=== PATIENT | female | born 1950 | race Caucasian/White ===

== ENCOUNTER 2020-07-11 14:46 | Inpatient (IN) ==
[2020-07-11] MEDS ORDERED: VANCOMYCIN CONSULT ACTIVE PRN (15:11)
[2020-07-11] MEDS ORDERED: VANCOMYCIN HCL 2,250 MG in SODIUM CHLORIDE 0.9% 500 ML IV STA (15:11)
[2020-07-11] MEDS ORDERED: CEFEPIME 2,000 MG/20 ML VIAL IV STA (15:11)
[2020-07-11] MEDS ORDERED: SODIUM CHLORIDE 0.9% 1000ML 1,000 ML IV SCH (15:15)
[2020-07-11] MEDS ORDERED: metroNIDAZOLE 500 MG/100 ML BAG IV STA (15:19)
[2020-07-11] MEDS ORDERED: AZITHROMYCIN 500 MG in DEXTROSE 5% 250 ML IV ONE (15:30)
[2020-07-11] MEDS ORDERED: ONDANSETRON INJ 2 MG/ML 2 ML VIAL IV STA (15:52)
[2020-07-11] MEDS ORDERED: MoRPHine SULFATE 4 MG/ML 1 ML CARP\\VIAL IV STA (15:52)
--- NOTE | 2020-07-11 15:53 | XRay Report ---
RIGHT KNEE 2 VIEWS CLINICAL HISTORY: Right knee pain. FINDINGS: AP and crosstable lateral views of the right knee are compared to study dated 07/13/2015. Th e skeletal structures are osteopenic. No fracture is seen. There is advanced tricompartmental degener ative joint space narrowing, greatest in the medial and patellofemoral compartments where there is ne ar complete loss of the joint space. There are large medial marginal osteophytes and patellar entheso phytes. No joint effusion is identified. Soft tissue edema is present in the visualized right lower e xtremity. IMPRESSION: 1. Soft tissue swelling with no acute bony abnormality identified. 2. Osteopenia and advanced degenerative change as above. Electronically signed by: Darnell Oates M.D. 07/11/2020 3:52 PM
--- NOTE | 2020-07-11 16:17 | XRay Report ---
SINGLE VIEW CHEST CLINICAL HISTORY: Generalized weakness. FINDINGS: An AP, portable, upright chest radiograph is compared to study dated 07/14/2015. The examina tion is degraded by portable technique and patient rotation. The heart is enlarged noting atheroscl erotic calcification of the thoracic aorta. The pulmonary vasculature is noncongested. Chronic inters titial thickening is similar to previous. There is bibasilar scarring/atelectasis. No airspace consol idation or large pleural effusion is identified. No pneumothorax is seen. The skeletal structures are osteopenic. There are healed right-sided rib fractures. IMPRESSION: Cardiomegaly with no acute cardiopulmonary abnormality. ACT 112: Negative or not required by law. Electronically signed by: Darnell Oates M.D. 07/11/2020 4:16 PM
--- NOTE | 2020-07-11 16:19 | XRay Report ---
LEFT TIBIA AND FIBULA 2 VIEWS CLINICAL HISTORY: Left lower extremity cellulitis. FINDINGS: AP and lateral views of the left tibia and fibula are correlated with left ankle radiograph s dated 07/13/2015. The skeletal structures are osteopenic. There is no radiographic evidence of left tibial or fibular fracture. No bony erosion or periostitis is seen. Arthritic change is noted in the knee. The knee and ankle joints are otherwise grossly maintained. Soft tissue edema is present throug hout the left lower extremity. Scattered calcified phleboliths are observed. There is atherosclerotic calcification of the regional arteries. No subcutaneous gas or radiodense foreign body is identified . There is a dorsal calcaneal enthesophyte. IMPRESSION: Soft tissue edema with no acute bony abnormality identified. Electronically signed by: Darnell Oates M.D. 07/11/2020 4:18 PM
[2020-07-11 16:22] LABS: Basophils # (auto) 0.01 K/uL (0-0.2); Basophils % (auto) 0.2 %; Eosinophils # (auto) 0.06 K/uL (0-0.5); Eosinophils % (auto) 0.9 %; Hemoglobin 12.9 g/dL (12.0-16.0); Immature Granulocytes # (auto) 0.01 K/uL (0.00-0.02); Immature Granulocytes % (auto) 0.2 %; Lymphocytes # (auto) 1.31 K/uL (1.2-3.4); Lymphocytes % (auto) 20.6 %; Mean Corpuscular Hemoglobin 26.5 pg (25-34); Mean Corpuscular Hgb Conc 30.7 g/dL (32-36); Mean Corpuscular Volume 86.2 fL (80-100); Mean Platelet Volume 10.2 fL (7.4-10.4); Monocytes # (auto) 0.39 K/uL (0.11-0.59); Monocytes % (auto) 6.1 %; Neutrophils # (auto) 4.59 K/uL (1.4-6.5); Platelet Count 231 K/uL (130-400); RDW Coefficient of Variation 15.4 % (11.5-14.5); RDW Standard Deviation 48.8 fL (36.4-46.3); Red Blood Count 4.87 M/uL (4.2-5.4); White Blood Count 6.37 K/uL (4.8-10.8)
[2020-07-11 16:46] LABS: Albumin Level 3.6 gm/dl (3.4-5.0); BUN Creatinine Ratio 35.3 (10-20); Calcium 10.5 mg/dl (8.5-10.1); Creatinine Clr Calc Pharmacy 66.7 ml/min; Est GFR (African American) 65.6; Est GFR (Non-African American) 56.6; Potassium 4.2 mmol/L (3.5-5.1)
[2020-07-11 16:49] LABS: Albumin Globulin Ratio 0.7 (0.9-2); Bilirubin,Total 0.3 mg/dl (0.2-1); Total Protein 8.6 gm/dl (6.4-8.2)
--- NOTE | 2020-07-11 17:47 | Emergency Department Note ---
History of Present Illness General Chief complaint: Knee Injury/Pain Time Seen by Provider: 07/11/20 14:51 Source: patient, EMS and RN notes reviewed Mode of arrival: EMS Limitations: no limitations History of Present Illness Provider complaint: Right knee pain x32 years, worse today. Left lower extremity seeping Maximum Pain Intensity: 10 This patient is a 69-year-old female who presents to the emergency department by EMS. She states her right knee has been painful for the last 32 years but today it is hurting in a new location, just inferior to the patella. She states she has taken her usual aspirin and Tylenol without any benefit today. She denies any recent falls or twisting of the knee to explain the new pain. She is followed by a midlevel provider in the [facility] area and was told they suspect a torn meniscus. The patient has an unusual absorbent dressing to the left lower extremity and states that her cat scratched the back of her left leg 2 weeks ago. She has had increased redness and drainage from the leg. She has been wrapping it in incontinence pads to absorb the excess of fluid. She does wash it uncovered in a powder daily. The patient has not consulted a physician for the leg and denies any history of diabetes. She denies of fever. Home Medications Home Medications Medication Instructions Recorded Confirmed Type CRANBERRY-VITAMIN C-VITAMIN E 1 cap PO DAILY #0 07/13/15 History (CRANBERRY) Acetaminophen (Tylenol) 650 mg PO Q4H PRN #30 tab 07/16/15 Rx Amoxicillin/Clavulanate Potas 875 mg PO BIDM #14 tab 07/16/15 Rx CALCIUM CARBONATE-VITAMIN D W/ 1 tab PO BID #30 tab 07/16/15 Rx (CALTRATE 600 PLUS) Chlorthalidone 25 mg PO QAM #30 tab 07/16/15 Rx Enoxaparin (Enoxaparin Sodium) 40 mg SC QPM #10 07/16/15 Rx Erythromycin 1 applic OPR QID 7 Days #0 07/16/15 Rx Ferrous Sulfate 325 mg PO DAILY #30 tab 07/16/15 Rx Fluconazole 100 mg PO QAM #7 tab 07/16/15 Rx Hydrocodone/Acetaminophen 1 tab PO Q6 PRN #60 tab 07/16/15 Rx 5MG/325MG ([place] 5MG/325MG) Lactobacillus Acidophilus 1 tab PO TIDM #90 tab 07/16/15 Rx (Floranex) Nystatin (Nystop) 1 applic EXT TID 30 Days #0 07/16/15 Rx Tumeric 20,000 mg PO DAILY 07/11/20 07/11/20 History amlodipine [Norvasc] 5 mg PO DAILY 07/11/20 07/11/20 History capsicum (cayenne) [Cayenne PDR] 1,788 mg PO DAILY 07/11/20 07/11/20 History lisinopril 40 mg PO DAILY 07/11/20 07/11/20 History metoprolol succinate 25 mg PO BID 07/11/20 07/11/20 History multivitamin [Multiple Vitamin] 1 tab PO DAILY 07/11/20 07/11/20 History oxybutynin chloride 15 mg PO DAILY 07/11/20 07/11/20 History Allergies Allergy/AdvReac Type Severity Reaction Status Date / Time naproxen Allergy Mild FEET SWELL Verified 07/11/20 17:32 Zqzlzyt-Epd-Aal Reductase Allergy Mild GENERAL Verified 07/11/20 17:32 Inhibitor MALAISE tramadol Allergy Mild RESTLESS Verified 07/11/20 17:32 LEG SYNDROME BUTTERFLY DRESSING ADHESIVE AdvReac Mild RED SKIN Uncoded 07/11/20 17:33 Past Med/Surg History Medical History (Updated 07/11/20 @ 17:59 by Anamika Herman MD) Hypertension Morbid obesity with BMI of 40.0-44.9, adult Osteoarthritis Venous stasis Social History (Updated 07/11/20 @ 17:45 by Anamika Herman MD) Smoking Status: Never smoker Preferred Language: Guinean Current Living Situation: Family Current Living Situation Comment: Lives at home with her sister Feels Safe at Home: Yes Review of Systems See HPI for pertinent positives & negatives. and A total of 10 systems reviewed and were otherwise negative Physical Exam Vital Signs Vital Signs - 24 hr 07/11/20 15:00 07/11/20 15:09 07/11/20 15:30 Temperature 36.7 C Temperature Source Oral Pulse Rate 85 79 88 Pulse Rate from SpO2 Sensor 83 82 85 Respiratory Rate 23 16 19 Respiratory Effort / Characteristics Non-Labored Spontaneous Respiratory Depth Normal Respiratory Pattern Regular Blood Pressure 181/104 H 162/101 H 173/100 H Blood Pressure Mean 129 121 122 Pulse Oximetry 96 97 96 Oxygen Delivery Method Room Air Sepsis Recent Fever Within 48 Hours No Sepsis New/Unexplained Change in Mental Status No Sepsis Action Taken by Nursing No Action Required 07/11/20 16:05 07/11/20 16:06 07/11/20 16:30 Temperature Temperature Source Pulse Rate 106 H 87 Pulse Rate from SpO2 Sensor 89 80 87 Respiratory Rate 17 20 Respiratory Effort / Characteristics Respiratory Depth Respiratory Pattern Blood Pressure 171/83 H 158/88 H Blood Pressure Mean 118 111 Pulse Oximetry 97 95 98 Oxygen Delivery Method Room Air Sepsis Recent Fever Within 48 Hours Sepsis New/Unexplained Change in Mental Status Sepsis Action Taken by Nursing 07/11/20 17:00 Temperature Temperature Source Pulse Rate 82 Pulse Rate from SpO2 Sensor 82 Respiratory Rate 19 Respiratory Effort / Characteristics Respiratory Depth Respiratory Pattern Blood Pressure 145/83 H Blood Pressure Mean 91 Pulse Oximetry 95 Oxygen Delivery Method Room Air Sepsis Recent Fever Within 48 Hours Sepsis New/Unexplained Change in Mental Status Sepsis Action Taken by Nursing Vital signs reviewed. General: Chronically [id number] yo female, morbidly obese, in no significant distress. HEENT: No scleral icterus, PERRLA, neck supple. Atraumatic. Cardiovascular: Regular rate and rhythm, no extra sounds. Pulmonary: Clear to auscultation bilaterally, normal work of breathing. Abdomen: Soft, nontender, nondistended, positive bowel sounds. Musculoskeletal: Atraumatic, no peripheral edema. Neurologic: Patient awake alert and oriented x 3. Skin: Warm, dry, no rash Course Administered Medications Sodium Chloride (Nss 1000ml) 1,000 mls @ 125 mls/hr IV .Q8H EMRE Stop: 07/11/20 23:14 Last Admin: 07/11/20 16:22 Dose: 125 mls/hr Documented by: [id number] Discontinued Medications Cefepime HCl (Maxipime) 2,000 mg in 20 mls @ 5 mls/min IV NOW STA; Protocol Stop: 07/11/20 15:14 Last Admin: 07/11/20 16:22 Dose: 5 mls/min Documented by: [id number] Vancomycin HCl 2,250 mg/ (Sodium Chloride) 545 mls @ 200 mls/hr IV NOW STA; Protocol Stop: 07/11/20 17:40 Last Admin: 07/11/20 17:43 Dose: 200 mls/hr Documented by: [id number] Metronidazole (Flagyl) 500 mg in 100 mls @ 100 mls/hr IV NOW STA Stop: 07/11/20 16:18 Last Infusion: 07/11/20 17:42 Dose: 0 mls/hr Documented by: [id number] Admin: 07/11/20 16:28 Dose: 100 mls/hr Documented by: [id number] Azithromycin 500 mg/ Dextrose 255 mls @ 125 mls/hr IV ONE ONE Stop: 07/11/20 17:32 Last Admin: 07/11/20 16:25 Dose: 125 mls/hr Documented by: [id number] Morphine Sulfate (Morphine Sulfate 4 Mg/Ml 1 Ml Carp\Vial) 4 mg IV NOW STA Stop: 07/11/20 15:53 Last Admin: 07/11/20 16:21 Dose: 4 mg Documented by: [id number] Ondansetron HCl (Ondansetron Inj 2 Mg/Ml 2 Ml Vial) 4 mg IV NOW STA Stop: 07/11/20 15:53 Last Admin: 07/11/20 16:21 Dose: 4 mg Documented by: [id number] Medical Decision Making Differential Diagnosis Differential diagnosis: Venous stasis dermatitis, cellulitis, abscess, MRSA infection, DVT, necrotizing fasciitis, dermatitis, drug eruption, allergic reaction, as well as other pathologies. Medical Records Attestation: I reviewed the patient's medical records. Home Medications Current Medication List: was personally reviewed by me Laboratory Data Attestation: I reviewed the patient's lab results. Result diagrams: 07/11/20 16:00 07/11/20 16:00 Lab Results 07/11/20 07/11/20 07/11/20 Range/Units 16:00 16:00 16:00 WBC 6.37 (4.8-10.8) K/uL RBC 4.87 (4.2-5.4) M/uL Hgb 12.9 (12.0-16.0) g/dL Hct 42.0 (37-47) % MCV 86.2 (80-100) fL MCH 26.5 (25-34) pg MCHC 30.7 L (32-36) g/dL RDW Std Deviation 48.8 H (36.4-46.3) fL RDW Coeff of Bev 15.4 H (11.5-14.5) % Plt Count 231 (130-400) K/uL MPV 10.2 (7.4-10.4) fL Immature Gran % (Auto) 0.2 % Neut % (Auto) 72.0 % Lymph % (Auto) 20.6 % Coffey % (Auto) 6.1 % Eos % (Auto) 0.9 % Baso % (Auto) 0.2 % Neut # (Auto) 4.59 (1.4-6.5) K/uL Lymph # (Auto) 1.31 (1.2-3.4) K/uL Coffey # (Auto) 0.39 (0.11-0.59) K/uL Eos # (Auto) 0.06 (0-0.5) K/uL Baso # (Auto) 0.01 (0-0.2) K/uL Immature Gran # (Auto) 0.01 (0.00-0.02) K/uL Sodium 139 (136-145) mmol/L Potassium 4.2 (3.5-5.1) mmol/L Chloride 109 H (98-107) mmol/L Carbon Dioxide 25 (21-32) mmol/L Anion Gap 5.0 (3-11) BUN 35 H (7-18) mg/dl Creatinine 1.00 (0.6-1.2) mg/dl Est Cr Clr Drug Dosing 66.7 ml/min Est GFR ( Amer) 65.6 Est GFR (Non-Af Amer) 56.6 BUN/Creatinine Ratio 35.3 H (10-20) Glucose 102 H (70-99) mg/dl Lactate 1.0 (0.4-2.0) mmol/L Calcium 10.5 H (8.5-10.1) mg/dl Total Bilirubin 0.3 (0.2-1) mg/dl AST 15 (15-37) U/L ALT 16 (12-78) U/L Alkaline Phosphatase 84 (45-117) U/L Total Protein 8.6 H (6.4-8.2) gm/dl Albumin 3.6 (3.4-5.0) gm/dl Globulin 5.0 H (2.5-4.0) gm/dl Albumin/Globulin Ratio 0.7 L (0.9-2) Imaging Data Radiologist's Impression: SINGLE VIEW CHEST CLINICAL HISTORY: Generalized weakness. FINDINGS: An AP, portable, upright chest radiograph is compared to study dated 07/14/2015. The examination is degraded by portable technique and patient rotation. The heart is enlarged noting atherosclerotic calcification of the thoracic aorta. The pulmonary vasculature is noncongested. Chronic interstitial thickening is similar to previous. There is bibasilar scarring/atelectasis. No airspace consolidation or large pleural effusion is identified. No pneumothorax is seen. The skeletal structures are osteopenic. There are healed right-sided ri b fractures. IMPRESSION: Cardiomegaly with no acute cardiopulmonary abnormality. ACT 112: Negative or not required by law. Electronically signed by: Darnell Oates M.D. 07/11/2020 4:16 PM Dictated: 07/11/20 1615 Transcribed: 07/11/20 1615 RIGHT KNEE 2 VIEWS CLINICAL HISTORY: Right knee pain. FINDINGS: AP and crosstable lateral views of the right knee are compared to study dated 07/13/2015. The skeletal structures are osteopenic. No fracture is seen. There is advanced tricompartmental degenerative joint space narrowing, greatest in the medial and patellofemoral compartments where there is near complete loss of the joint space. There are large medial marginal osteophytes and patellar enthesophytes. No joint effusion is identified. Soft tissue edema is present in the visualized right lower extremity. IMPRESSION: 1. Soft tissue swelling with no acute bony abnormality identified. 2. Osteopenia and advanced degenerative change as above. Electronically signed by: Darnell Oates M.D. 07/11/2020 3:52 PM Dictated: 07/11/20 1550 Transcribed: 07/11/20 1550 LEFT TIBIA AND FIBULA 2 VIEWS CLINICAL HISTORY: Left lower extremity cellulitis. FINDINGS: AP and lateral views of the left tibia and fibula are correlated with left ankle radiographs dated 07/13/2015. The skeletal structures are osteopenic. There is no radiographic evidence of left tibial or fibular fracture. No bony erosion or periostitis is seen. Arthritic change is noted in the knee. The knee and ankle joints are otherwise grossly maintained. Soft tissue edema is present throughout the left lower extremity. Scattered calcified phleboliths are observed. There is atherosclerotic calcification of the regional arteries. No subcutaneous gas or radiodense foreign body is identified. There is a dorsal calcaneal enthesophyte. IMPRESSION: Soft tissue edema with no acute bony abnormality identified. Electronically signed by: Darnell Oates M.D. 07/11/2020 4:18 PM Dictated: 07/11/20 161 Transcribed: 07/11/201615 Blood Pressure Blood Pressure Findings: Elevated blood pressure Blood Pressure Disposition: further management by hospitalist MDM Narrative This patient was evaluated and appeared to be in no significant distress. IV access was obtained and laboratory work was drawn. An order for cardiac monitoring was placed and the patient is noted to be in a first-degree AV block at 87 bpm. Patient's dressings were taken down. There is significant drainage of a serous nature from the left lower extremity in particular. The skin is macerated and erythematous. Patient was medicated with IV vancomycin, cefepime and Flagyl. After discussion with the clinical pharmacist, IV azithromycin was added to cover for cat scratch disease, although this is of low likelihood. P nathanient's WBC is normal. She is afebrile. X-ray of the left tib-fib area reveals no acute bony abnormality or subcutaneous air. The right knee x-rays reveal advanced degenerative change. Given her poor overall health status and advanced venous stasis with superimposed cellulitis of the left lower extremity, the hospitalist service has been consulted for antibiotics and wound management. Patient is aware of the plan and agrees. Impression & Plan Cellulitis of left leg, Venous stasis dermatitis, Morbid obesity with BMI of 40.0-44.9, adult Discharge Plan Visit Data Chief Complaint: Knee Injury/Pain ED Provider: Anamika Herman Discharge Problem: Cellulitis of left leg, Venous stasis dermatitis, Morbid obesity with BMI of 40.0-44.9, adult Forms Stand Alone Forms: [facility] Prescriptions Prescriptions: No Action CRANBERRY-VITAMIN C-VITAMIN E (CRANBERRY) 1 CAP capsule 1 cap PO DAILY Qty: 0 RF: 0 Acetaminophen (Tylenol) 325 MG tablet 650 mg PO Q4H PRN (Reason: Pain or Fever) Qty: 30 RF: 0 Amoxicillin/Clavulanate Potas 875 MG 875 mg PO BIDM Qty: 14 RF: 0 CALCIUM CARBONATE-VITAMIN D W/ (CALTRATE 600 PLUS) 1 TAB tablet 1 tab PO BID Qty: 30 RF: 0 Chlorthalidone 25 MG tablet 25 mg PO QAM Qty: 30 RF: 0 Enoxaparin (Enoxaparin Sodium) 40 MG/0.4 ML INJECTION 40 mg SC QPM Qty: 10 RF: 0 Erythromycin 1 APPLN/1 GM ointment 1 applic OPR QID 7 Days Qty: 0 RF: 0 Ferrous Sulfate 325 MG tablet 325 mg PO DAILY Qty: 30 RF: 0 Fluconazole 100 MG tablet 100 mg PO QAM Qty: 7 RF: 0 Hydrocodone/Acetaminophen 5MG/325MG ([place] 5MG/325MG) tablet 1 tab PO Q6 PRN (Reason: Pain) Qty: 60 RF: 0 Lactobacillus Acidophilus (Floranex) 1 TAB tablet 1 tab PO TIDM Qty: 90 RF: 0 Nystatin (Nystop) 45 APPLN/15 GM powder 1 applic EXT TID 30 Days Qty: 0 RF: 0 metoprolol succinate 25 mg tablet extended release 24 hr 25 mg PO BID RF: 0 lisinopril 40 mg tablet 40 mg PO DAILY RF: 0 amlodipine [Norvasc] 5 mg Tablet 5 mg PO DAILY RF: 0 oxybutynin chloride 15 mg tablet extended release 24hr 15 mg PO DAILY RF: 0 multivitamin [Multiple Vitamin] Tablet 1 tab PO DAILY RF: 0 Tumeric capsule 20,000 mg PO DAILY RF: 0 [place] PDR 447 mg Capsule 1,788 mg PO DAILY RF: 0 Discharge Problem: Venous stasis dermatitis Qualifiers: Laterality: bilateral Qualified Code(s): I87.2 - Venous insufficiency (chronic) (peripheral)
--- NOTE | 2020-07-11 19:04 | History & Physical Report ---
Date of Service July 11, 2020 Assessment & Plan (1) Cellulitis of left leg: Switch antibiotics to daptomycin (due to increased BMI and weight) and Unasyn - no pseudomonas suspected, patient is non-septic. Consult wound care nurse for seeping wounds on b/l LE (2) Hypertension: Continue amlodipine 5mg PO daily, lisinopril 40mg PO daily, Metoprolol succinate 25mg PO BID (3) Osteoarthritis: Main reason for patient coming to ER. Acetaminophen 1g PO TID (4) Urge incontinence: Oxybutynin XL 15mg PO daily (5) DVT prophylaxis: Lovenox 40mg SQ BID (increased dose due to BMI) History of Present Illness Chief Complaint: Right knee pain Primary Care Provider: NO PCP Shayna Posada is a 69 year old female who presents to the ER due to right knee pain. She reports having this pain for 30 years on and off and occasionally it will flare up. Previously she has been diagnosed with a meniscal tear and osteoarthritis. She reports no significant trauma to this today, possibly occurred while twisting her knee. Pain severity 06/20 therefore she decided to come to the ER. In the ER Right knee XR showed osteopenia with advanced degenerative change. No fracture seen. Much more concerning to the ER physician was her left lower extremity which appeared to be cellulitic. She reports her left leg erythema has been getting progressively worse for the last 3 weeks. She reports this started after a cat scratched her on the back of the leg. The entire left lower extremity has been weeping thin fluid constantly. She has been treating this herself using a combination of antibiotic creams, incontinence pads (to absorb fluid), calmoseptine powder. She has not seen her PCP regarding this. She denies any fever or chills. X-ray of this area did not show any bony abnormality. WBC WNL. She was given 4 mg IV morphine for her pain. IV vancomycin, cefepime, metronidazole and azithromycin to cover for cellulitis/MRSA/cat scratch disease. Allergies Allergy/AdvReac Type Severity Reaction Status Date / Time naproxen Allergy Mild FEET SWELL Verified 07/11/20 17:32 Sitrhss-Ncl-Ovm Reductase Allergy Mild GENERAL Verified 07/11/20 17:32 Inhibitor MALAISE tramadol Allergy Mild RESTLESS Verified 07/11/20 17:32 LEG SYNDROME BUTTERFLY DRESSING ADHESIVE AdvReac Mild RED SKIN Uncoded 07/11/20 17:33 Home Medications Home Medications Medication Instructions Recorded Confirmed Type Multiple Herbals 1 ea PO DAILY PRN 07/11/20 07/11/20 History Tumeric 20,000 mg PO DAILY 07/11/20 07/11/20 History acetaminophen [Tylenol] 650 mg PO Q4H PRN 07/11/20 07/11/20 History amlodipine [Norvasc] 5 mg PO DAILY 07/11/20 07/11/20 History capsicum (cayenne) [Cayenne PDR] 1,788 mg PO DAILY 07/11/20 07/11/20 History cinnamon bark [Cinnamon] 500 mg PO DAILY 07/11/20 07/11/20 History food supplemt, lactose-reduced 1 ea PO DAILY 07/11/20 07/11/20 History [Boost High Protein] capo (Zingiber officinalis) 2,200 mg PO DAILY 07/11/20 07/11/20 History ibuprofen 600 mg PO DAILY PRN 07/11/20 07/11/20 History lisinopril 40 mg PO DAILY 07/11/20 07/11/20 History metoprolol succinate 25 mg PO BID 07/11/20 07/11/20 History multivitamin [Multiple Vitamin] 1 tab PO DAILY 07/11/20 07/11/20 History oxybutynin chloride 15 mg PO DAILY 07/11/20 07/11/20 History Past Med/Surg History Medical History Hypertension Morbid obesity with BMI of 40.0-44.9, adult Osteoarthritis Urge incontinence Venous stasis Social History Smoking Status: Never smoker Hx Alcohol Use: Yes Hx Substance Use: No Preferred Language: Austrian Communication Ability: Effective Ointment Mill Tender Required: No Beliefs That Will Affect Care: None Current Living Situation: Family Current Living Situation Comment: lives with sister Other Information That Helps Us Care for You: No Feels Safe at Home: Yes Safety Concerns: Feels Safe At This Time Assistive Devices: Walker Review of Systems Review of Systems: All systems reviewed & are unremarkable except as noted in HPI & below Physical Exam Constitutional: well developed, + ill appearing (Chronically) and + morbidly obese; + not well nourished and no acute distress Eyes: + anicteric sclerae; normal pupil size Respiratory: normal respiratory effort, lungs clear to auscultation Cardiovascular: Rate/Rhythm: regular rate and regular rhythm Heart Sounds: no murmur Extremities: normal capillary refill and + pedal edema (1+ pitting to knees bilaterally, equal); no calf tenderness Gastrointestinal (Abdomen): normal bowel sounds, soft, nontender, no hepatosplenomegaly Musculoskeletal: Knee: + valgus stress test positive; knee normal to inspection, no effusion, no skin erythema, no ecchymosis, normal ROM of knee (Patella tendon intact (able to extend knee)), no joint line tenderness and varus stress test negative Skin: Venous stasis changes bilaterally. 4x2cm venous ulcer on right leg with granulation tissue and no surrounding cellulitic changes, no odor. Right erythema overlying venous stasis changes on left lower extremity. Erythema from just inferior left knee to mid-foot. Neurologic: moves all extremities and awake; not confused Psychiatric: A+Ox3, euthymic affect Genitourinary: no CVA tenderness Results & Data Results & Data ([facility]) Vital Signs (Past 12 Hours) Vital Signs Temp Pulse Resp BP Pulse Ox 07/11/20 18:00 91 H 21 142/86 H 95 07/11/20 17:00 82 19 145/83 H 95 07/11/20 16:30 87 20 158/88 H 98 07/11/20 16:06 106 H 17 171/83 H 95 07/11/20 16:05 97 07/11/20 15:30 88 19 173/100 H 96 07/11/20 15:09 36.7 C 79 16 162/101 H 97 07/11/20 15:00 85 23 181/104 H 96 Diagnostic Findings SINGLE VIEW CHEST IMPRESSION: Cardiomegaly with no acute cardiopulmonary abnormality. LEFT TIBIA AND FIBULA 2 VIEWS IMPRESSION: Soft tissue edema with no acute bony abnormality identified. RIGHT KNEE 2 VIEWS IMPRESSION: 1. Soft tissue swelling with no acute bony abnormality identified. 2. Osteopenia and advanced degenerative change as above. Code Status & VTE Plan Code Status DNR/DNI as per patient wishes VTE Prophylaxis Plan VTE Prophylaxis will be ordered: Yes PG Care Time/CCT Total # of Minutes Spent Total Time Spent with Patient: Total time spent is greater than 50% in coordination of care (as documented) at patient's floor/unit and/or counseling patient: Coding Level of Care Code 90863 Initial Inpt Care Lvl 3 Diagnoses Cellulitis of left leg L03.116 Hypertension I10 Osteoarthritis M19.90 Urge incontinence N39.41 DVT prophylaxis Z29.9
[2020-07-11] MEDS ORDERED: MoRPHine SULFATE 2 MG/ML CARP IV PRN (20:37)
[2020-07-11] MEDS: ENOXAPARIN INJ 40 MG/0.4 ML SYR SQ SCH (21:20)
[2020-07-11] MEDS: METOPROLOL SUCC 25MG EXT REL TAB PO SCH (21:21)
[2020-07-11] MEDS: ACETAMINOPHEN 500 MG TAB PO SCH (21:22)
[2020-07-11] MEDS ORDERED: DAPTOmycin 325 MG in SYRINGE 0 ML IV SCH (22:00)
[2020-07-12] MEDS ORDERED: SODIUM CHLORIDE 0.45 % 1,000 ML IV SCH
[2020-07-12] MEDS: AMPICILLIN/SULBACTAM SOD 3,000 MG in 0.9 % SODIUM CHLORIDE 100 ML IV SCH ×3 (00:36→14:51)
[2020-07-12] MEDS: oxyCODONE HCL IR 5 MG TAB (IMMEDIATE RELEASE) PO PRN ×3 (01:29→14:48)
[2020-07-12 06:09] LABS: Basophils # (auto) 0.02 K/uL (0-0.2); Basophils % (auto) 0.4 %; Eosinophils # (auto) 0.02 K/uL (0-0.5); Eosinophils % (auto) 0.4 %; Hematocrit (blood only) 36.9 % (37-47); Hemoglobin 11.2 g/dL (12.0-16.0); Lymphocytes # (auto) 0.89 K/uL (1.2-3.4); Lymphocytes % (auto) 19.3 %; Mean Corpuscular Hgb Conc 30.4 g/dL (32-36); Mean Corpuscular Volume 85.8 fL (80-100); Mean Platelet Volume 9.8 fL (7.4-10.4); Monocytes # (auto) 0.34 K/uL (0.11-0.59); Monocytes % (auto) 7.4 %; Neutrophils # (auto) 3.34 K/uL (1.4-6.5); Neutrophils % (auto) 72.5 %; Platelet Count 166 K/uL (130-400); RDW Coefficient of Variation 15.4 % (11.5-14.5); RDW Standard Deviation 48.8 fL (36.4-46.3); White Blood Count 4.61 K/uL (4.8-10.8)
[2020-07-12 06:39] LABS: BUN Creatinine Ratio 33.8 (10-20); Calcium 9.4 mg/dl (8.5-10.1); Creatinine Clr Calc Pharmacy 87.1 ml/min; Est GFR (African American) 91.5; Est GFR (Non-African American) 78.9; Potassium 4.4 mmol/L (3.5-5.1)
[2020-07-12] MEDS: OXYBUTYNIN CHLORIDE XL 5 MG TABCR PO SCH (07:41)
[2020-07-12] MEDS: ENOXAPARIN INJ 40 MG/0.4 ML SYR SQ SCH ×2 (07:41→21:29)
[2020-07-12] MEDS: MULTIVITAMIN TAB PO SCH (07:42)
[2020-07-12] MEDS: METOPROLOL SUCC 25MG EXT REL TAB PO SCH ×2 (07:42→21:28)
[2020-07-12] MEDS: amLODIPine BESYLATE 5 MG TAB PO SCH (07:42)
[2020-07-12] MEDS: ACETAMINOPHEN 500 MG TAB PO SCH ×2 (07:43→14:49)
[2020-07-12] MEDS: lisinopril 40 MG TAB PO SCH (07:43)
--- NOTE | 2020-07-12 08:01 | Hospitalist Progress Note ---
Date of Service July 12, 2020 Assessment & Plan (1) Cellulitis of left leg: Shayna Posada is a 69 y/o F w/ hx of morbid obesity, HTN, osteoarthritis, chronic venous stasis w/ dermatitis, and urge incontinence who presents from home for worsened R knee pain, but is admitted for LLE cellulitis of 3 wks. LLE cellulitis, in context of bilat chronic venous statis dermatitis - seeping wounds on bilat lower extremities - no leukocytosis. mild anemia. Hb 11.2. borderline hyperCa. BUN up, but Cr normal. - afebrile - R knee xr: 1. Soft tissue swelling and osteopenia - L tib/fib xr: Soft tissue edema with no acute bony abnormalities - blood cultures pending - On admission, switched antibiotics (from vanc, flagyl, azithro) to daptomycin (due to increased BMI and weight) and Unasyn - no pseudomonas suspected, patient is non-septic. wound care consulted - 07/12/20 update: per phys exam and patient having tenderness (to light touch) on LLE but not RLE and hx of cat scratch 3 wks ago, will treat as cellulitis without systemic symptoms. -switched from IV abx to Augmentin 875 PO BID x 13 days for MSSA coverage w/ close follow up w/ PCP (pt has apt in 2 days) and low threshold for covering for MRSA if sxs worsen. Osteoarthritis w/ right patellar tendinitis - Main reason for patient coming to ER. - TTP at R patella. - Acetaminophen 1g PO TID on admission. decreased to 650 mg PO TID. - OTC knee brace recommended HTN - Continue amlodipine 5mg PO daily, lisinopril 40mg PO daily, Metoprolol succinate 25mg PO BID Urge incontinence - Continue home oxybutynin XL 15mg PO daily FENGI: regular ppx: Lovenox 40mg SQ BID (increased dose due to BMI) DNR/DNI dispo: med/surg. tentative dispo home 07/13/20. pt baseline is ambulatory w/ cane/walker and feels comfortable going home (2) Hypertension: (3) Osteoarthritis: (4) Urge incontinence: (5) DVT prophylaxis: (6) Patellar tendinitis of right knee: Admission and Anticipated Discharge Date Admission Date: July 11, 2020 Supervising Physician Co-Signing Physician Notes I personally examined the patient and verified all sanchez points of history and exam, discussed case, and agree with decision making with Dr Marie. came to ER for R knee pain - stood up in bathroom not really sure what she did but hurt it. hurting less today. hurts in front of knee worse when changing positions (she notes that it hurt when dr marie had her try to stand earlier). maybe goes down front of schmidt a little. hard to totally pinpoint. L calf skin changes worse over last ~2 weeks since her cat scratched her but that wasn't really what was bothering her //why she came to ER - she does note that it's more red and hurts more and is seeping more - she uses diapers/dog pads and such as makeshift dressings - ongoing for the last 2-3 weeks as well. no systemic symptoms. vitals noted nad heent nc at mmm breathing unlabored no accessory muscles good effort. R knee some mild pain lateral joint line none medial no effusion no ligamentous laxity difficult to do but negative mcmurrays the best i can, (+) tenderness distal quad tendon/tibial tuberosity. b/l LE chronic venous stasis changes but L bright red and tender, R dull prince and nontender. L weeping clear fluid knee pain - clinically appears most c/w patellar tendonitis. notes she tried voltaren gel for about a week no improvement. would like a brace - this seems quite reasonable. supportive care. LLE venous stasis w cellulitis - fortunately does not appear systemically ill. not spreading - more overgrowth worsening her current venous stasis changes - but ongoing for weeks - appears would benefit from an antibiotic but doesn't seem to need vanco, dapto, cefepime, flagyl. will give augmentin in place of unasyn. follow into tomorrow for any true evidence of cat scratch disease that would warrant a complete course of zithromax (not clear that there is) and allow for wound nurse to see to assist in better dressing changes. anticipate home tomorrow Subjective Additional hx. Patient has had chronic venous stasis changes and venous stasis dermatitis for many years. Onset of LLE cellulitis was 3 wks ago after stepped on tail of her housecat. She has not had any systemic symptoms such as fevers. Since then, she has noticed increased redness and pain coming from the L leg only. She presented to the ED because of R knee pain (likely from chronic osteoarthritis) that worsened the morning of ED arrival. Not on supp O2 at home. Baseline functional status: ambulatory w/ walker/cane. Only complaints this AM are R knee pain when walking on it and LLE pain and to light touch such as from blanket. Review of Systems Review of Systems: Constitutional: Denies fever, chills Cardiovascular: Denies chest pain Respiratory: Denies shortness of breath, difficulty breathing Gastrointestinal: Denies abdominal pain, nausea, vomiting, constipation, diarrhea Genitourinary: Denies urinary symptoms including dysuria Musculoskeletal: Denies weakness, muscle aches/pain, joint aches/pain Neurological: Denies headache, numbness, tingling, focal weakness Physical Exam Physical Exam: General: Grossly A&O. NAD. Cooperative. Morbidly obese. HEENT: Atraumatic, normocephalic. EOMI Pulm: CTAB. -wheezes, -rales, -rhonchi. No respiratory distress. Cardiac: RRR, -rg. 2/6 systolic murmur at pulmonic region. Radial pulses intact and symmetrical. Abdominal: Nontender, nondistended, soft. Integ: bilateral severe venous stasis dermatitis from ankle up to 3inches below knee. There is chronic dryness, skin peeling and a brownish color on the right. The left is red, erysipelas-like, beet red colored. There is flaking bilaterally. Only LLE is tender to palpation. There is some seeping of clear drainage at the L calf. Both lower extremities feel warm and approximately the same temperature. KNees do not appear erythematous. Msk: Patient able to weight bear and stand. This intermittent causes pain at R knee. R patella is TTP at certain locations. Per attending exam, no ligament laxity or effusion. Results & Data Results & Data ([facility]) Vital Signs (Past 12 Hours) Vital Signs Temp Pulse Resp BP Pulse Ox 07/11/20 23:28 37.3 C 82 18 137/73 96 Diagnostic Findings cxr: cardiomegaly. no acute changes Resident Activity Tracking Resident Involvement: Resident Care Provided Care Provided: [facility]
[2020-07-12] MEDS: AMOXICILLIN/CLAVULANATE 875 MG TAB PO SCH (14:49)
--- NOTE | 2020-07-12 16:46 | Billing Data ---
Date of Service July 12, 2020 Coding Level of Care Code 44571 Subseq Hosp Care Lvl 3
[2020-07-12] MEDS ORDERED: ACETAMINOPHEN 500 MG TAB PO SCH (21:00)
[2020-07-12] MEDS: ACETAMINOPHEN 325 MG TAB PO SCH (21:28)
[2020-07-13 07:50] LABS: Basophils # (auto) 0.01 K/uL (0-0.2); Basophils % (auto) 0.2 %; Eosinophils # (auto) 0.09 K/uL (0-0.5); Eosinophils % (auto) 2.2 %; Hematocrit (blood only) 32.5 % (37-47); Hemoglobin 9.9 g/dL (12.0-16.0); Lymphocytes # (auto) 1.08 K/uL (1.2-3.4); Lymphocytes % (auto) 26.4 %; Mean Corpuscular Hemoglobin 26.2 pg (25-34); Mean Corpuscular Hgb Conc 30.5 g/dL (32-36); Mean Platelet Volume 9.7 fL (7.4-10.4); Monocytes # (auto) 0.26 K/uL (0.11-0.59); Monocytes % (auto) 6.4 %; Neutrophils # (auto) 2.65 K/uL (1.4-6.5); Neutrophils % (auto) 64.8 %; Platelet Count 157 K/uL (130-400); RDW Coefficient of Variation 15.5 % (11.5-14.5); RDW Standard Deviation 48.5 fL (36.4-46.3); Red Blood Count 3.78 M/uL (4.2-5.4); White Blood Count 4.09 K/uL (4.8-10.8)
[2020-07-13 08:08] LABS: BUN Creatinine Ratio 33.8 (10-20); Calcium 9.5 mg/dl (8.5-10.1); Est GFR (Non-African American) 77.7; Potassium 4.2 mmol/L (3.5-5.1)
[2020-07-13] MEDS: AMOXICILLIN/CLAVULANATE 875 MG TAB PO SCH (08:45)
[2020-07-13] MEDS: OXYBUTYNIN CHLORIDE XL 5 MG TABCR PO SCH ×2 (08:45→10:04)
[2020-07-13] MEDS: amLODIPine BESYLATE 5 MG TAB PO SCH ×2 (08:46→10:04)
[2020-07-13] MEDS: MULTIVITAMIN TAB PO SCH (08:46)
[2020-07-13] MEDS: ACETAMINOPHEN 325 MG TAB PO SCH ×2 (08:47→14:20)
[2020-07-13] MEDS: lisinopril 40 MG TAB PO SCH (08:47)
[2020-07-13] MEDS: METOPROLOL SUCC 25MG EXT REL TAB PO SCH (08:47)
[2020-07-13] MEDS: ENOXAPARIN INJ 40 MG/0.4 ML SYR SQ SCH (08:48)
[2020-07-13] MEDS ORDERED: Nursing to Pharmacy Communication SCH (09:00)
[2020-07-13] MEDS ORDERED: OXYBUTYNIN CHLORIDE XL 5 MG TABCR PO SCH (11:30)
--- NOTE | 2020-07-13 15:04 | Discharge Summary ---
Date of Service July 13, 2020 Admission HPI Per Admitting Provider Shayna Posada is a 69 year old female who presents to the ER due to right knee pain. She reports having this pain for 30 years on and off and occasionally it will flare up. Previously she has been diagnosed with a meniscal tear and osteoarthritis. She reports no significant trauma to this today, possibly occurred while twisting her knee. Pain severity 10/10 therefore she decided to come to the ER. In the ER Right knee XR showed osteopenia with advanced degenerative change. No fracture seen. Much more concerning to the ER physician was her left lower extremity which appeared to be cellulitic. She reports her left leg erythema has been getting progressively worse for the last 3 weeks. She reports this started after a cat scratched her on the back of the leg. The entire left lower extremity has been weeping thin fluid constantly. She has been treating this herself using a combination of antibiotic creams, incontinence pads (to absorb fluid), calmoseptine powder. She has not seen her PCP regarding this. She denies any fever or chills. X-ray of this area did not show any bony abnormality. WBC WNL. She was given 4 mg IV morphine for her pain. IV vancomycin, cefepime, metronidazole and azithromycin to cover for cellulitis/MRSA/cat scratch disease. Admission Exam Per Admitting Provider Constitutional: well developed, + ill appearing (Chronically) and + morbidly obese; + not well nourished and no acute distress Eyes: + anicteric sclerae; normal pupil size Respiratory: normal respiratory effort, lungs clear to auscultation Cardiovascular: Rate/Rhythm: regular rate and regular rhythm Heart Sounds: no murmur Extremities: normal capillary refill and + pedal edema (1+ pitting to knees bilaterally, equal); no calf tenderness Gastrointestinal (Abdomen): normal bowel sounds, soft, nontender, no hepatosplenomegaly Musculoskeletal: Knee: + valgus stress test positive; knee normal to inspection, no effusion, no skin erythema, no ecchymosis, normal ROM of knee (Patella tendon intact (able to extend knee)), no joint line tenderness and varus stress test negative Skin: Venous stasis changes bilaterally. 4x2cm venous ulcer on right leg with granulation tissue and no surrounding cellulitic changes, no odor. Right erythema overlying venous stasis changes on left lower extremity. Erythema from just inferior left knee to mid-foot. Neurologic: moves all extremities and awake; not confused Psychiatric: A+Ox3, euthymic affect Genitourinary: no CVA tenderness Principal Diagnosis LLE Cellulitis Discharge Exam General: Grossly A&O. NAD. Cooperative. Morbidly obese. HEENT: Atraumatic, normocephalic. EOMI Pulm: CTAB. -wheezes, -rales, -rhonchi. No respiratory distress. Cardiac: RRR, Radial pulses intact and symmetrical. Abdominal: Nontender, nondistended, soft. Skin: bilateral severe venous stasis dermatitis, mostly concealed on left due to dressing - c/d/i. LLE is moderately-severely tender to palpation. No streaking. Msk: Tenderness to palpation of R patellar tendon; no TTP of patella or knee joint Discharge Data Allergies Allergy/AdvReac Type Severity Reaction Status Date / Time naproxen Allergy Mild FEET SWELL Verified 07/11/20 17:32 Tipczqg-[id number]-Ljn Reductase Allergy Mild GENERAL Verified 07/11/20 17:32 Inhibitor MALAISE tramadol Allergy Mild RESTLESS Verified 07/11/20 17:32 LEG SYNDROME BUTTERFLY DRESSING ADHESIVE AdvReac Mild RED SKIN Uncoded 07/11/20 17:33 Consultations 07/11/20 17:05 ED Decision to Admit Stat Hospital Course (1) Cellulitis of left leg: Shayna Posada is a 69 y/o F w/ hx of morbid obesity, HTN, os teoarthritis, chronic venous stasis w/ dermatitis, and urge incontinence who presented to [facility] on 07/11/2020 for worsened R knee pain, but was admitted for LLE cellulitis. LLE cellulitis, in context of bilat chronic venous statis dermatitis - seeping wounds on bilat lower extremities - no leukocytosis. mild anemia. Hb 11.2. borderline hyperCa. BUN up, but Cr normal. - afebrile - R knee xr: 1. Soft tissue swelling and osteopenia - L tib/fib xr: Soft tissue edema with no acute bony abnormalities - blood cultures negative - On admission, switched antibiotics (from vanc, flagyl, azithro) to daptomycin (due to increased BMI and weight) and Unasyn - no pseudomonas suspected, patient is non-septic. wound care consulted - Abx transitioned to Augmentin 875/125 mg PO BID x7 days on 07/12 - Patient will continue Augmentin as outpatient and has follow-up scheduled with PCP to monitor for improvement of symptoms - unlikely to be MRSA and Augmentin will adequately cover for MSSA and other common skin infections - would consider broadening abx coverage for MRSA coverage if cellulitis not improved at f/u with PCP Osteoarthritis w/ right patellar tendinitis - Main reason for patient coming to ER. - TTP at R patella. - Acetaminophen 1g PO TID on admission. decreased to 650 mg PO TID. - OTC knee brace recommended - patient will pick this up after d/c - f/u with PCP as mentioned above - recommend outpatient PT HTN - Continue amlodipine 5mg PO daily, lisinopril 40mg PO daily, Metoprolol succinate 25mg PO BID Urge incontinence - Continue home oxybutynin XL 15mg PO daily Total Time Total Time Spent Total Time Spent (In Minutes): 30 minutes Total Time Includes: Examination of the Patient, Discharge Planning and Medication Reconciliation Discharge Plan Discharge Items Patient Disposition: Home - Self-Care Reason For Visit: CELLULITIS,RIGHT KNEE OA,INABILITY TO COPE AT HOME Discharge Diagnosis: LLE Cellulitis Activity: Per Instructions section Non-emergency contact: Primary Care Provider Call non-emergency contact if: you have any medication questions, your pain is not controlled and you have a fever Follow-up/Referrals: PCP,NO [Physician] - Diet: Regular Addtl Attending Provider Instructions: You presented to [facility] ED for worsening right knee pain, but you were admitted for left lower leg cellulitis on 07/11/2020. Lower left leg cellulitis You were initially started on IV antibiotics for the cellulitis (skin infection) in your left lower leg (vancomycin, flagyl, azithromycin). Then you were transitioned to daptomycin and Unasyn as antibiotics. Ultimately, your IV antibiotics were transitioned to an oral antibiotic called Augmentin. You should take this antibiotic twice a day for a total of 7 days (07/12-07/18). You should follow up closely with your primary care physician, later this week, to check on the status of your left leg infection. Right knee pain Your right knee pain is likely due to chronic osteoarthritis as well as right patellar tendinitis. You should follow up closely with your PCP for the right knee. You should try to get a brace for your right knee from [employer], and you should follow up with outpatient physical therapy. You can use over the counter Tylenol or Ibuprofen as needed for pain. Hypertension - Continue amlodipine 5mg PO daily, lisinopril 40mg PO daily, Metoprolol succinate 25mg PO BID Urge incontinence - Continue home oxybutynin XL 15mg PO daily Pending Studies at Discharge: No Stand-Alone Forms: My [facility] SmartMenuCard, Smoking Cessation Medications and DC Order Prescriptions: New amoxicillin-pot clavulanate [Augmentin] 875-125 mg Tablet 1 tab PO BIDM Qty: 14 RF: 0 Continued metoprolol succinate 25 mg tablet extended release 24 hr 25 mg PO BID RF: 0 lisinopril 40 mg tablet 40 mg PO DAILY RF: 0 amlodipine [Norvasc] 5 mg Tablet 5 mg PO DAILY RF: 0 oxybutynin chloride 15 mg tablet extended release 24hr 15 mg PO DAILY RF: 0 multivitamin Tablet 1 tab PO DAILY RF: 0 Tumeric capsule 20,000 mg PO DAILY RF: 0 capsicum (cayenne) 447 mg Capsule 1,788 mg PO DAILY RF: 0 capo (Zingiber officinalis) 550 mg Capsule 2,200 mg PO DAILY RF: 0 cinnamon bark [Cinnamon] 500 mg Capsule 500 mg PO DAILY RF: 0 food supplemt, lactose-reduced Liquid 1 ea PO DAILY RF: 0 Multiple Herbals 1 ea PO DAILY PRN (Reason: Unknown) RF: 0 ibuprofen 200 mg Tablet 600 mg PO DAILY PRN (Reason: Pain) RF: 0 acetaminophen [Tylenol] 325 mg Tablet 650 mg PO Q4H PRN (Reason: Pain) RF: 0 Discharge Orders: Discharge Order (Routine); Ordered 07/13/20 Ordered By: Miguel Ángel Hernandez Admission Data Admit Date/Time: 07/11/20 19:03 Attending Provider: Elvis Champagne Admit Provider: Casey Pires Primary Care Provider: Shay Cassidy Other Providers: Casey Pires ; Romaine Marie Home [facility] Other Interventions: Discharge Summary Assessment (RN) Last Done: 07/13/20 15:51 Supervising Physician Co-Signing Physician Notes Attending attestation Pt seen and examined in concert with Dr. Hernandez. In agreement with the documented findings as noted in the resident documentation with any exceptions or additions as noted here. 69 y/o female h/o HTN, OA, chronic corky stasis with dermatitis, urge incontinence for LLE cellulitis Patient reports gradually improving aching pain of the LLE distal to the knee with improved redness. On examination, S1/S2 nl RRR no MCG. CTAB. Abd NT/ND BS+ve. TTP and induration beneath wound care dressing, evidently improved from previous. LLE cellulitis w/ b/l chronic venous stasis dermatitis - improving pain and erythema - complete course of Augmentin as noted. Close outpatient follow up and may broaden to MRSA covering (Bactrim DS) if needed Else see resident documentation as noted. 35 minutes spent in the discharge of this patient including evaluation, management and coordination of discharge. Resident Activity Tracking Resident Involvement: Resident Care Provided Care Provided: Adult Hospital Medicine
[2020-07-13] MEDS ORDERED: amLODIPine BESYLATE 5 MG TAB PO SCH (16:30)
== END 2020-07-13 16:46 | disposition home or self-care (01) | DRG 603 ==
LOC: ED 14:46 → 3W 19:03 → SUATTDRO 19:03 → 3W 19:50

== ENCOUNTER 2021-01-10 14:42 | Inpatient (IN) ==
--- NOTE | 2021-01-10 15:19 | Emergency Department Note ---
History of Present Illness General Chief complaint: Fall Stated complaint: Ground level fall, knee/hip pain Time Seen by Provider: 01/10/21 15:01 Source: patient Mode of arrival: ambulatory Limitations: no limitations History of Present Illness Maximum Pain Intensity: 4 This patient is a 70-year-old female who comes in after falling. She has been having trouble with her right foot off and on for about a year. She actually built some steps at home because she cannot move her right foot very well. She is trying to get up her front step which was one step and she got stuck and she could not get her right foot up and then she can get her left foot down. She felt very wobbly and she fell over and landed on both of her knees. Rates hip has been bothering her. She has pain with movement. No head trauma or loss of conscious. No neck pain or stiffness no chest pain or shortness of breath. No abdominal pain. She has had issues with her kidneys in the past and does have a history of overactive bladder but denies any acute changes. No blood in her stool or urine. Home Medications Medication Instructions Recorded Confirmed Type amlodipine [Norvasc] 5 mg PO QAM 07/11/20 01/10/21 History cinnamon bark [Cinnamon] 500 mg PO QDL 07/11/20 01/10/21 History ibuprofen 200 mg PO DAILY PRN 07/11/20 01/10/21 History lisinopril 40 mg PO QDD 07/11/20 01/10/21 History metoprolol succinate 25 mg PO BID 07/11/20 01/10/21 History oxybutynin chloride 15 mg PO QDL 07/11/20 01/10/21 History multivitamin 1 tab PO QAM 08/10/20 01/10/21 History solifenacin 10 mg tablet 10 mg PO QDL 12/09/20 01/10/21 History Tumeric 500mg 500 mg PO QID 01/10/21 01/10/21 History fxtddni-sckixktghqetm-zpdzlphw 1 ea PO UD 01/10/21 01/10/21 History [Goody's Extra Strength] doxycycline hyclate 100 mg PO BID 01/10/21 01/10/21 History Allergies Allergy/AdvReac Type Severity Reaction Status Date / Time naproxen Allergy Mild FEET SWELL Verified 05/02/21 16:15 Rcpehme-Jta-Opn Reductase Allergy Mild GENERAL Verified 01/10/21 16:15 Inhibitor MALAISE tramadol Allergy Mild RESTLESS Verified 01/10/21 16:15 LEG SYNDROME BUTTERFLY DRESSING ADHESIVE AdvReac Mild RED SKIN Uncoded 01/10/21 16:15 Past Med/Surg History Medical History Breast CA Hypertension Morbid obesity with BMI of 40.0-44.9, adult Osteoarthritis Urge incontinence Venous stasis Social History Smoking Status: Never smoker Second Hand Exposure: No; Do You Dip or Chew Tobacco: No; Tobacco Cessation Education Requested by Patient: No Hx Alcohol Use: No Hx Substance Use: No Preferred Language: Com[place] Communication Ability: Effective Speech Therapy Assistant Required: No Beliefs That Will Affect Care: None marital status: Single Current Living Situation: Family Current Living Situation Comment: LIVES at home with sister Other Information That Helps Us Care for You: No Feels Safe at Home: Yes Safety Concerns: Feels Safe At This Time Assistive Devices: Walker Review of Systems A total of 10 systems reviewed and were otherwise negative Physical Exam Vital Signs Vital Signs - 24 hr 01/10/21 14:50 Temperature 37.4 C Temperature Source Oral Pulse Rate 93 H Respiratory Rate 16 Respiratory Effort / Characteristics Non-Labored Spontaneous Respiratory Depth Normal Blood Pressure 141/65 H Blood Pressure Mean 90 Blood Pressure Position Lying Pulse Oximetry 93 Oxygen Delivery Method Room Air Sepsis Recent Fever Within 48 Hours No Sepsis New/Unexplained Change in Mental Status No Sepsis Action Taken by Nursing No Action Required General: Well developed well nourished older female who appears in no acute distress, breathing comfortably on room air. Normal speech HEENT: Normal cephalic atraumatic. Pupils are equal round and reactive to light. Extraocular movements are intact. Oropharynx is pink with moist mucous membranes. No swelling of the mouth lips or tongue. Neck: Supple with a midline trachea. No meningeal signs or stiffness, no JVD or bruits. No Stridor. Chest: Clear to auscultation bilaterally. No wheezes or rhonchi. No increased work of breathing. Heart: Regular rate and rhythm without murmurs or gallops. Abdomen: Soft nontender, nondistended without rebound guarding or rigidity. Extremities: No cyanosis clubbing or edema. No calf tenderness or assymetry. She has normal distal pulses. She has chronic deviation of her toes but no acute foot injuries. She has wraps on her legs below the knee. Both of her knees have full range of motion but some tenderness she has difficulty moving the right hip secondary to pain although is tells me this is mostly chronic Spine/Back. Non tender to palpation. No CVA tenderness Skin: Good turgor without rashes. Neurologic exam: Cranial nerves two through 12 are intact. Motor and sensation are intact and symmetrical throughout. Course Administered Medications Acetaminophen (Acetaminophen 325 Mg Tab) 650 mg PO Q4H PRN PRN Reason: pain/fever Stop: 02/09/21 20:36 Last Admin: 01/14/21 01:10 Dose: 650 mg Documented by: [id number] Admin: 01/11/21 23:47 Dose: 650 mg Documented by: [id number] Admin: 01/11/21 15:29 Dose: 650 mg Documented by: [id number] Admin: 01/11/21 06:00 Dose: 650 mg Documented by: [id number] Amlodipine Besylate (Amlodipine Besylate 5 Mg Tab) [facility]: 02/10/21 08:59 Last Admin: 01/14/21 08:07 Dose: 5 mg Documented by: [id number] Admin: 01/13/21 09:46 Dose: 5 mg Documented by: [id number] Admin: 01/12/21 09:45 Dose: 5 mg Documented by: [id number] Admin: 01/11/21 08:11 Dose: 5 mg Documented by: [id number] Celecoxib (Celebrex 200 Mg Cap) [facility] Stop: 02/10/21 08:59 Last Admin: 01/14/21 08:07 Dose: 200 mg Documented by: [id number] Admin: 01/13/21 09:47 Dose: 200 mg Documented by: [id number] Admin: 01/12/21 09:45 Dose: 200 mg Documented by: [id number] Admin: 01/11/21 08:22 Dose: 200 mg Documented by: [id number] Clotrimazole (Clotrimazole 1% Cr 15 Gm Tube) 1 appln EXT BID PRN PRN Reason: Rash Stop: 02/10/21 16:41 Last Admin: 01/12/21 23:38 Dose: 1 appln Documented by: [id number] Enoxaparin Sodium (Enoxaparin Inj 40 Mg/0.4 Ml Syr) 40 mg SQ QAM [facility] Stop: 02/11/21 08:59 Last Admin: 01/14/21 08:08 Dose: 40 mg Documented by: [id number] Admin: 01/13/21 09:44 Dose: 40 mg Documented by: [id number] Admin: 01/12/21 09:39 Dose: 40 mg Documented by: [id number] Lidocaine (Lidocaine 5% 1 Patch) [facility] Stop: 02/10/21 12:14 Last Admin: 01/14/21 08:04 Dose: 1 patch Documented by: [id number] Admin: 01/13/21 09:41 Dose: 1 patch Documented by: [id number] Admin: 01/12/21 09:42 Dose: 1 patch Documented by: [id number] Admin: 01/11/21 13:25 Dose: 1 patch Documented by: [id number] Lisinopril (Lisinopril 40 Mg Tab) 40 mg PO QDD [facility] Stop: 02/10/21 16:29 Last Admin: 01/13/21 16:31 Dose: 40 mg Documented by: [id number] Admin: 01/12/21 17:25 Dose: 40 mg Documented by: [id number] Admin: 01/11/21 16:19 Dose: 40 mg Documented by: [id number] Metoprolol Succinate (Metoprolol Succ 25mg Ext Rel Tab) 25 mg PO BID [facility] Stop: 02/09/21 20:59 Last Admin: 01/14/21 08:07 Dose: 25 mg Documented by: [id number] Admin: 01/13/21 20:29 Dose: 25 mg Documented by: [id number] Admin: 01/13/21 09:46 Dose: 25 mg Documented by: [id number] Admin: 01/12/21 21:20 Dose: 25 mg Documented by: [id number] Admin: 01/12/21 09:45 Dose: 25 mg Documented by: [id number] Admin: 01/11/21 20:50 Dose: 25 mg Documented by: [id number] Admin: 01/11/21 08:11 Dose: 25 mg Documented by: [id number] Admin: 01/10/21 21:49 Dose: 25 mg Documented by: [id number] Miscellaneous (Vesicare~Order Awaiting Action) 1 ea N/A QS [facility] Stop: 02/10/21 00:00 Last Admin: 01/14/21 08:09 Dose: Not Given Documented by: [id number] Admin: 01/13/21 23:16 Dose: Not Given Documented by: [id number] Admin: 01/13/21 15:54 Dose: Not Given Documented by: [id number] Admin: 01/13/21 09:42 Dose: Not Given Documented by: [id number] Admin: 01/13/21 00:04 Dose: Not Given Documented by: [id number] Admin: 01/12/21 17:25 Dose: Not Given Documented by: [id number] Admin: 01/12/21 09:36 Dose: Not Given Documented by: [id number] Admin: 01/12/21 00:14 Dose: Not Given Documented by: [id number] Admin: 01/11/21 16:14 Dose: Not Given Documented by: [id number] Admin: 01/11/21 08:11 Dose: Not Given Documented by: [id number] Admin: 01/10/21 22:21 Dose: Not Given Documented by: [id number] Miscellaneous (Remove Lidoderm Patch) 1 ea N/A DAILY@2100 [facility] Stop: 02/10/21 20:59 Last Admin: 01/13/21 20:38 Dose: 1 ea Documented by: [id number] Admin: 01/12/21 21:00 Dose: 1 ea Documented by: [id number] Admin: 01/11/21 20:50 Dose: 1 ea Documented by: [id number] Multivitamins (Multivitamin Tab) 1 tab PO QAM [facility] Stop: 02/10/21 08:59 Last Admin: 01/14/21 08:07 Dose: 1 tab Documented by: [id number] Admin: 01/13/21 09:48 Dose: 1 tab Documented by: [id number] Admin: 01/12/21 09:45 Dose: 1 tab Documented by: [id number] Admin: 01/11/21 08:11 Dose: 1 tab Documented by: [id number] Oxybutynin Chloride (Oxybutynin Chloride Xl 5 Mg Tabcr) 15 mg PO QDL [facility] Stop: 02/10/21 11:29 Last Admin: 01/13/21 12:49 Dose: 15 mg Documented by: [id number] Admin: 01/12/21 13:41 Dose: 15 mg Documented by: [id number] Admin: 01/11/21 11:24 Dose: 15 mg Documented by: [id number] Discontinued Medications Acetaminophen (Acetaminophen 325 Mg Tab) 650 mg PO NOW STA Stop: 01/10/21 17:59 Last Admin: 01/10/21 19:46 Dose: 650 mg Documented by: [id number] Bupivacaine HCl/Epinephrine Bitart (Bupivacaine/Epinephrine 0.25% 1:200,000 30 Ml Vial) 30 ml INFIL NOW ONE Stop: 01/11/21 15:09 Last Admin: 01/13/21 07:35 Dose: Not Given Documented by: [id number] Doxycycline Hyclate (Doxycycline Hyclate 100 Mg Cap) 100 mg PO BID [facility] Stop: 01/10/21 21:01 Last Admin: 01/10/21 21:50 Dose: 100 mg Documented by: [id number] Ethyl Chloride (Ethyl Chloride Aer Spr 100 Ml Can) 1 sprays EXT NOW ONE Stop: 01/11/21 15:09 Last Admin: 01/13/21 07:35 Dose: Not Given Documented by: [id number] Sodium Chloride (Nss 1000ml) 1,000 mls @ 80 mls/hr IV .[id number] [facility] Stop: 01/11/21 11:14 Last Infusion: 01/11/21 13:24 Dose: 0 mls/hr Documented by: [id number] Admin: 01/10/21 23:51 Dose: 80 mls/hr Documented by: [id number] Methylprednisolone Acetate (Methylprednisolone Acetate 80 Mg/Ml Vial) 80 mg IA NOW ONE Stop: 01/11/21 15:09 Last Admin: 01/13/21 07:35 Dose: Not Given Documented by: [id number] Medical Decision Making Differential Diagnosis Trauma, orthopedic injuries, electrolyte or metabolic abnormality, sepsis, dehydration, hip or knee fracture, dislocation Medical Records Attestation: I reviewed the patient's medical records. Home Medications Current Medication List: was personally reviewed by me Laboratory Data Attestation: I reviewed the patient's lab results. Result diagrams: 01/12/21 06:02 01/14/21 05:42 Lab Results 01/10/21 01/10/21 01/10/21 Range/Units 16:40 16:40 16:40 WBC 4.94 (4.8-10.8) K/uL RBC 4.70 (4.2-5.4) M/uL Hgb 12.7 (12.0-16.0) g/dL Hct 39.5 (37-47) % MCV 84.0 (80-100) fL MCH 27.0 (25-34) pg MCHC 32.2 (32-36) g/dL RDW Std Deviation 46.9 H (36.4-46.3) fL RDW Coeff of Bev 15.2 H (11.5-14.5) % Plt Count 164 (130-400) K/uL MPV 10.2 (7.4-10.4) fL Immature Gran % (Auto) 0.0 % Neut % (Auto) 82.4 % Lymph % (Auto) 13.6 % Evans % (Auto) 3.8 % Eos % (Auto) 0.2 % Baso % (Auto) 0.0 % Neut # (Auto) 4.07 (1.4-6.5) K/uL Lymph # (Auto) 0.67 L (1.2-3.4) K/uL Evans # (Auto) 0.19 (0.11-0.59) K/uL Eos # (Auto) 0.01 (0-0.5) K/uL Baso # (Auto) 0.00 (0-0.2) K/uL Immature Gran # (Auto) 0.00 (0.00-0.02) K/uL Sodium 140 (136-145) mmol/L Potassium 4.0 (3.5-5.1) mmol/L Chloride 108 H (98-107) mmol/L Carbon Dioxide 25 (21-32) mmol/L Anion Gap 8.0 (3-11) BUN 31 H (7-18) mg/dl Creatinine 1.02 (0.6-1.2) mg/dl Est Cr Clr Drug Dosing 62.9 ml/min Est GFR ( Amer) 63.6 Est GFR (Non-Af Amer) 54.9 BUN/Creatinine Ratio 30.8 H (10-20) Glucose 92 (70-99) mg/dl Calcium 11.0 H (8.5-10.1) mg/dl Total Bilirubin 0.5 (0.2-1) mg/dl AST 13 L (15-37) U/L ALT 16 (12-78) U/L Alkaline Phosphatase 92 (45-117) U/L Total Creatine Kinase 71 (26-192) U/L Troponin I < 0.015 (0-0.045) ng/ml Total Protein 7.8 (6.4-8.2) gm/dl Albumin 3.7 (3.4-5.0) gm/dl Globulin 4.1 H (2.5-4.0) gm/dl Albumin/Globulin Ratio 0.9 (0.9-2) TSH 1.050 (0.300-4.500) uIu/ml Urine Color Yellow Urine Appearance Clear (Clear) Urine pH 7.0 (4.5-7.5) Ur Specific [place] 1.010 (1.000-1.030) Urine Protein Negative (Negative) Urine Glucose (UA) Negative (Negative) Urine Ketones Negative (Negative) Urine Blood 3+ H (Negative) Urine Nitrite Negative (Negative) Urine Bilirubin Negative (Negative) Urine Urobilinogen Negative (Negative) Ur Leukocyte Esterase Trace H (Negative) Urine WBC (Auto) 5-10 H (0-5) /hpf Urine RBC (Auto) >30 H (0-4) /hpf U Hyaline Cast (Auto) 1-5 (0-5) /lpf U Epithel Cells (Auto) 5-10 H (0-5) /lpf Urine Bacteria (Auto) Negative (Negative) COVID-19 Eval Order SARS-CoV-2 (PCR) (Negative) Influenza Type A (PCR) (Neg) Influenza Type B (PCR) (Neg) RSV (RT-PCR) (Neg) 01/10/21 01/10/21 01/11/21 Range/Units 16:40 16:40 06:08 WBC (4.8-10.8) K/uL RBC (4.2-5.4) M/uL Hgb (12.0-16.0) g/dL Hct (37-47) % MCV (80-100) fL MCH (25-34) pg MCHC (32-36) g/dL RDW Std Deviation (36.4-46.3) fL RDW Coeff of Bev (11.5-14.5) % Plt Count (130-400) K/uL MPV (7.4-10.4) fL Immature Gran % (Auto) % Neut % (Auto) % Lymph % (Auto) % Evans % (Auto) % Eos % (Auto) % Baso % (Auto) % Neut # (Auto) (1.4-6.5) K/uL Lymph # (Auto) (1.2-3.4) K/uL Evans # (Auto) (0.11-0.59) K/uL Eos # (Auto) (0-0.5) K/uL Baso # (Auto) (0-0.2) K/uL Immature Gran # (Auto) (0.00-0.02) K/uL Sodium 140 (136-145) mmol/L Potassium 3.6 (3.5-5.1) mmol/L Chloride 111 H (98-107) mmol/L Carbon Dioxide 25 (21-32) mmol/L Anion Gap 4.0 (3-11) BUN 22 H (7-18) mg/dl Creatinine 0.64 D (0.6-1.2) mg/dl Est Cr Clr Drug Dosing 95.8 ml/min Est GFR ( Amer) 103.3 Est GFR (Non-Af Amer) 89.2 BUN/Creatinine Ratio 35.0 H (10-20) Glucose 86 (70-99) mg/dl Calcium 9.7 (8.5-10.1) mg/dl Total Bilirubin (0.2-1) mg/dl AST (15-37) U/L ALT (12-78) U/L Alkaline Phosphatase (45-117) U/L Total Creatine Kinase (26-192) U/L Troponin I (0-0.045) ng/ml Total Protein (6.4-8.2) gm/dl Albumin (3.4-5.0) gm/dl Globulin (2.5-4.0) gm/dl Albumin/Globulin Ratio (0.9-2) TSH (0.300-4.500) uIu/ml Urine Color Urine Appearance (Clear) Urine pH (4.5-7.5) Ur Specific [place] (1.000-1.030) Urine Protein (Negative) Urine Glucose (UA) (Negative) Urine Ketones (Negative) Urine Blood (Negative) Urine Nitrite (Negative) Urine Bilirubin (Negative) Urine Urobilinogen (Negative) Ur Leukocyte Esterase (Negative) Urine WBC (Auto) (0-5) /hpf Urine RBC (Auto) (0-4) /hpf U Hyaline Cast (Auto) (0-5) /lpf U Epithel Cells (Auto) (0-5) /lpf Urine Bacteria (Auto) (Negative) COVID-19 Eval Order CovFluRsv at [facility] SARS-CoV-2 (PCR) NEGATIVE (Negative) Influenza Type A (PCR) Negative (Neg) Influenza Type B (PCR) Negative (Neg) RSV (RT-PCR) Negative (Neg) Imaging Data Attestation: I personally reviewed and interpreted this imaging study as follows: My Impression: X-rays of her bilateral knees show degenerative changes but no fr actures upon my interpretation Radiologist's Impression: Abdomen/Pelvis CT 01/10/21 15:[address] WITHOUT CONTRAST HISTORY: Acute right hip and pelvic pain status post fall fall, right hip pain TECHNIQUE: Multiaxial CT images of the abdomen and pelvis were performed without contrast. A dose lowering technique was utilized adhering to the principles of ALARA. COMPARISON STUDY: CT lumbar spine of same day FINDINGS: Study is limited secondary to upper extremity positioning, lack of IV contrast and respiratory motion artifact. No pneumatosis or pneumoperitoneum. Cardiomegaly. The spleen is enlarged measuring up to 15 cm in length. There are a few cysts of the liver measuring up to 1.3 cm. The pancreas, adrenal glands and mildly distended gallbladder are unremarkable. There are at least 2 nonobstructing calculi of the right kidney measuring up to 3 mm. 6 mm nonobstructing calculus of the inferior pole left kidney. Multifocal cortical scarring and peripheral thinning of the left kidney. Capsular calcifications of the right kidney. No ureteral calculi or obstructive uropathy. There are a few proteinaceous versus hemorrhagic cyst of the left kidney measuring up to 5 mm. Unremarkable urinary bladder, uterus and adnexa. No abdominal aortic aneurysm. Retroaortic left renal vein. No adenopathy. No bowel obstruction or bowel wall thickening. Mild to moderate fecal retention. Colonic diverticulosis without acute diverticulitis. Noninflamed appendix. Tiny fat filled periumbilical hernia. Small right hip joint effusion is likely degenerative. Demineralized appearance of the bones with degenerative changes of the spine, pelvis and hips. Mild cortical irregularity of the lateral right mid sacrum adjacent to the SI joint on image 313 series 5. Mild left with severe right hip osteoarthritis. Lumbar levoscoliosis. IMPRESSION: 1. Equivocal acute nondisplaced right sacral insufficiency fracture. 2. Severe right hip osteoarthritis without acute fracture or dislocation. Small right hip joint effusion is likely degenerative. 3. Colonic diverticulosis. 4. Splenomegaly. 5. Nonobstructing bilateral nephrolithiasis. 6. Cardiomegaly. 7. Additional findings as above. ACT 112: Negative or not required by law. The above report was generated using voice recognition software. It may contain grammatical, syntax or spelling errors. Electronically signed by: Balaji Asher M.D. 01/10/2021 6:07 PM Chest X-Ray 01/10/21 15:13 XR chest 1V portable HISTORY: 70 years-old Female weakness acute weakness COMPARISON: Chest radiograph 07/11/2020 TECHNIQUE: Portable AP view of the chest FINDINGS: Unchanged cardiomegaly. No pneumothorax, pleural effusion, airspace consolidation or overt pulmonary edema. Minimal left lung base atel ectasis/scarring. Degenerative changes of the shoulders and spine. IMPRESSION: Cardiomegaly without acute process. ACT 112: Negative or not required by law. The above report was generated using voice recognition software. It may contain grammatical, syntax or spelling errors. Electronically signed by: Balaji Asher M.D. 01/10/2021 3:[address] 01/10/21 15:13 CT head/brain wo con CLINICAL HISTORY: 70 years-old Female with weakness. Acute head trauma status post fall. Acute weakness TECHNIQUE: Multiple axial CT images of the head were obtained without contrast. A dose lowering technique was utilized adhering to the principles of ALARA. COMPARISON: Head CT 07/13/2013 FINDINGS: No acute intracranial hemorrhage, midline shift, intracranial mass, hydrocephalus, territorial ischemia or abnormal extra-axial collection. Age- related involutional changes. Cerebral vascular calcifications. The calvarium is intact. The paranasal sinuses, mastoid air cells, and middle ear cavities are clear. IMPRESSION: No acute intracranial abnormality. ACT 112: Negative or not required by law. The above report was generated using voice recognition software. It may contain grammatical, syntax or spelling errors. Electronically signed by: Balaji Asher M.D. 01/10/2021 5:[address] 01/10/21 15:13 CT lumbar spine wo con HISTORY: 70 years-old Female rt leg weakness acute low back pain status post fall COMPARISON: CT abdomen and pelvis of same day TECHNIQUE: Multiple axial CT images of the abdomen and pelvis were obtained without the use of IV contrast. A dose lowering technique was used consistent with the principals of ALARA. FINDINGS: No paravertebral edema. Demineralized appearance of the bones. Evaluation of the central canal and neuroforamina is better assessed by MRI. There is suggested severe central canal stenosis at L4-L5 secondary to severe facet arthrosis with ligamentum flavum thickening and posterior annular disc bulge. Moderate left- sided neuroforaminal stenosis at L5-S1. Demineralized appearance of the bones. Superior endplate Schmorl's node L2, likely chronic. No retropulsion. No definite acute fracture or subluxation. Severe multilevel facet arthrosis. Vacuum disc phenomena at L5-S1. Lumbar levoscoliosis. There is mild cortical irregularity of the right sacrum extending into the SI joint on image 420. IMPRESSION: 1. No acute fracture or subluxation of the lumbar spine. 2. There is suggestion of a subtle acute nondisplaced fracture of the right sacral ala. 3. Demineralized appearance of the bones with multilevel degenerative changes as above 4. Severe central canal stenosis at L4-L5 with multilevel neuroforaminal narrowing. ACT 112: Negative or not required by law. The above report was generated using voice recognition software. It may contain grammatical, syntax or spelling errors. Electronically signed by: Balaji Asher M.D. 01/10/2021 5:57 PM Hip/Pelvis X-Ray 01/10/21 15:15 XR hip RT 2V w pelvis HISTORY: 70 years-old Female fall. rt hip pain acute right hip pain status post fall COMPARISON: None TECHNIQUE: AP view the pelvis with 2 views of the right hip FINDINGS: Demineralized appearance of the bones. There is mild left with severe right hip osteoarthritis. No acute fracture, dislocation or avascular necrosis identified. Moderate fecal retention. Unremarkable soft tissues. IMPRESSION: 1. No acute fracture or dislocation. 2. Severe right hip osteoarthritis. ACT 112: Negative or not required by law. The above report was generated using voice recognition software. It may contain grammatical, syntax or spelling errors. Electronically signed by: Balaji Asher M.D. 01/10/2021 4:05 PM Knee X-Ray 01/10/21 15:15 XR knee RT 1 or 2V routine, XR knee LT 1 or 2V routine HISTORY: 70 years-old Female fall, knee pain acute bilateral knee pain status post fall COMPARISON: Right knee radiographs 07/11/2020 TECHNIQUE: 2 views of the bilateral knees FINDINGS: RIGHT: Diffuse soft tissue prominence. Tricompartmental osteoarthritis, moderate within the lateral compartment and severe within the medial and patellofemoral compartments. Trace joint effusion. No acute fracture or dislocation identified. Demineralized appearance of the bones. LEFT: Diffuse soft tissue prominence. Tricompartmental osteoarthritis, mild to moderate within the lateral compartment, moderate within the medial compartment and severe within the patellofemoral compartment. Trace joint effusion. No acute fracture or dislocation. 1.8 cm soft tissue calcification of the medial upper aspect of the lower leg. Demineralized appearance of the bones. IMPRESSION: 1. No acute fracture or dislocation. 2. Tricompartmental osteoarthritis of the bilateral knees. ACT 112: Negative or not required by law. The above report was generated using voice recognition software. It may contain grammatical, syntax or spelling errors. Electronically signed by: Balaji Asher M.D. 01/10/2021 4:04 PM Knee X-Ray 01/10/21 15:15 XR knee RT 1 or 2V routine, XR knee LT 1 or 2V routine HISTORY: 70 years-old Female fall, knee pain acute bilateral knee pain status post fall COMPARISON: Right knee radiographs 07/11/2020 TECHNIQUE: 2 views of the bilateral knees FINDINGS: RIGHT: Diffuse soft tissue prominence. Tricompartmental osteoarthritis, moderate within the lateral compartment and severe within the medial and patellofemoral compartments. Trace joint effusion. No acute fracture or dislocation identified. Demineralized appearance of the bones. LEFT: Diffuse soft tissue prominence. Tricompartmental osteoarthritis, mild to moderate within the lateral compartment, moderate within the medial compartment and severe within the patellofemoral compartment. Trace joint effusion. No acute fracture or dislocation. 1.8 cm soft tissue calcification of the medial upper aspect of the lower leg. Demineralized appearance of the bones. IMPRESSION: 1. No acute fracture or dislocation. 2. Tricompartmental osteoarthritis of the bilateral knees. ACT 112: Negative or not required by law. The above report was generated using voice recognition software. It may contain grammatical, syntax or spelling errors. Electronically signed by: Balaji Asher M.D. 01/10/2021 4:04 PM Foot X-Ray 01/10/21 17:57 XR foot RT 2V HISTORY: 70 years-old Female fall acute right foot pain status post fall COMPARISON: None TECHNIQUE: 2 views of the right foot FINDINGS: Demineralized appearance of the bones. Hallux valgus. Mostly mild multifocal osteoarthritis. Large enthesophytes of the calcaneus. Arterial calcifications. IMPRESSION: Bone demineralization without acute fracture identified. ACT 112: Negative or not required by law. The above report was generated using voice recognition software. It may contain grammatical, syntax or spelling errors. Electronically signed by: Balaji Asher M.D. 01/10/2021 6:48 PM ECG Data Attestation: I personally reviewed and interpreted this ECG as follows: Indication: + weakness Rate (beats per minute): 87 Rhythm: + normal sinus ECG Intervals/blocks: + Right Bundle branch block ECG [place]: + Normal ECG ST segments: + Normal ST segments ECG Findings: + PVCs and + Other (Poor baseline); no PACs Comparison ECG Date: from (07/14/15) Change: the following changes noted (Right bundle branch block is now present) MDM Narrative This patient comes in after suffering a fall. She is weakness and issues with the right leg. She injured both of her knees and has right hip pain most of which seems to be chronic. She has chronic bladder issues. IV access was established, EKG, blood work was obtained the x-rays of the knees and CAT scan of the pelvis and back and head given her right leg weakness although none of this is acute today which would suggest an acute stroke. She would not be a TPA candidate based on the timeframe. She does have a history of breast cancer remotely so I did one to make sure there was anything in the spine or brain that look like metastases. Multiple CAT scans were obtained and do not show any acute processes with exception of possibly a right sacral fracture. She has a lot of degenerative changes. Also multiple x-rays were obtained of her lower extremities which did not show any acute fractures but again a lot of degenerative changes. She has nothing to she has acute coronary syndrome or arrhythmia. She has no significant electrolyte or metabolic abnormalities. Her Covid testing was negative. She has had a lot of trouble ambulating at home and I do think needs to be admitted/observed for pain management as well as PT and OT evaluation. I have consulted the hospitalist to see her for these measures. Continuous cardiac monitoring: Due to the patient's weakness and fall, and orders placed in EMR for continuous cardiac monitoring. She wass noted be in normal sinus rhythm with a pulse of 85 upon my interpretation. Impression & Plan Weakness, Fall, Knee contusion, Morbid obesity with BMI of 40.0-44.9, adult, Lab test negative for COVID-19 virus Discharge Plan Visit Data Chief Complaint: Fall Stated Complaint: Ground level fall, knee/hip pain ED Provider: Pancho Lepe Discharge Problem: Weakness, Fall, Knee contusion, Morbid obesity with BMI of 40.0-44.9, adult, Lab test negative for COVID-19 virus Patient Disposition: Admitted As Inpatient Discharge Instructions Interventions: ED Discharge Assessment Last Done: 01/10/21 20:07 Discharge Problem: Fall Qualifiers: Encounter type: initial encounter Qualified Code(s): W19.XXXA - Unspecified fall, initial encounter Knee contusion Qualifiers: Encounter type: initial encounter Laterality: right Qualified Code(s): S80.01XA - Contusion of right knee, initial encounter
--- NOTE | 2021-01-10 15:57 | XRay Report ---
XR chest 1V portable HISTORY: 70 years-old Female weakness acute weakness COMPARISON: Chest radiograph 07/11/2020 TECHNIQUE: Portable AP view of the chest FINDINGS: Unchanged cardiomegaly. No pneumothorax, pleural effusion, airspace consolidation or overt pulmonary edema. Minimal left lung base atelectasis/scarring. Degenerative changes of the shoulders and spine. IMPRESSION: Cardiomegaly without acute process. ACT 112: Negative or not required by law. The above report was generated using voice recognition software. It may contain grammatical, syntax o r spelling errors. Electronically signed by: Balaji Asher M.D. 01/10/2021 3:55 PM
--- NOTE | 2021-01-10 16:05 | XRay Report ---
XR knee RT 1 or 2V routine, XR knee LT 1 or 2V routine HISTORY: 70 years-old Female fall, knee pain acute bilateral knee pain status post fall COMPARISON: Right knee radiographs 07/11/2020 TECHNIQUE: 2 views of the bilateral knees FINDINGS: RIGHT: Diffuse soft tissue prominence. Tricompartmental osteoarthritis, moderate within the lateral compartm ent and severe within the medial and patellofemoral compartments. Trace joint effusion. No acute frac ture or dislocation identified. Demineralized appearance of the bones. LEFT: Diffuse soft tissue prominence. Tricompartmental osteoarthritis, mild to moderate within the lateral compartment, moderate within the medial compartment and severe within the patellofemoral compartment. Trace joint effusion. No acute fracture or dislocation. 1.8 cm soft tissue calcification of the medi al upper aspect of the lower leg. Demineralized appearance of the bones. IMPRESSION: 1. No acute fracture or dislocation. 2. Tricompartmental osteoarthritis of the bilateral knees. ACT 112: Negative or not required by law. The above report was generated using voice recognition software. It may contain grammatical, syntax o r spelling errors. Electronically signed by: Balaji Asher M.D. 01/10/2021 4:04 PM
--- NOTE | 2021-01-10 16:07 | XRay Report ---
XR hip RT 2V w pelvis HISTORY: 70 years-old Female fall. rt hip pain acute right hip pain status post fall COMPARISON: None TECHNIQUE: AP view the pelvis with 2 views of the right hip FINDINGS: Demineralized appearance of the bones. There is mild left with severe right hip osteoarthritis. No ac zuni fracture, dislocation or avascular necrosis identified. Moderate fecal retention. Unremarkable so ft tissues. IMPRESSION: 1. No acute fracture or dislocation. 2. Severe right hip osteoarthritis. ACT 112: Negative or not required by law. The above report was generated using voice recognition software. It may contain grammatical, syntax o r spelling errors. Electronically signed by: Balaji Asher M.D. 01/10/2021 4:05 PM
[2021-01-10 16:48] LABS: Eosinophils # (auto) 0.01 K/uL (0-0.5); Eosinophils % (auto) 0.2 %; Hematocrit (blood only) 39.5 % (37-47); Hemoglobin 12.7 g/dL (12.0-16.0); Lymphocytes # (auto) 0.67 K/uL (1.2-3.4); Lymphocytes % (auto) 13.6 %; Mean Corpuscular Hgb Conc 32.2 g/dL (32-36); Mean Platelet Volume 10.2 fL (7.4-10.4); Monocytes # (auto) 0.19 K/uL (0.11-0.59); Monocytes % (auto) 3.8 %; Neutrophils # (auto) 4.07 K/uL (1.4-6.5); Neutrophils % (auto) 82.4 %; Platelet Count 164 K/uL (130-400); RDW Coefficient of Variation 15.2 % (11.5-14.5); RDW Standard Deviation 46.9 fL (36.4-46.3); White Blood Count 4.94 K/uL (4.8-10.8)
[2021-01-10 16:57] LABS: Appearance Urine Clear (Clear); Bacteria Urine Automated Negative (Negative); Bilirubin Urine Negative (Negative); Blood Urine 3+ (Negative); Color Urine Yellow; Glucose Urine UA Negative (Negative); Ketones Urine Negative (Negative); Leukocyte Esterase Urine Trace (Negative); Nitrite Urine Negative (Negative); Protein Urine Negative (Negative); RBC Urine Automated >30 /hpf (0-4); Urobilinogen Urine Negative (Negative)
[2021-01-10 17:06] LABS: Alanine Aminotransferase 16 U/L (12-78); Albumin Level 3.7 gm/dl (3.4-5.0); Aspartate Aminotransferase 13 U/L (15-37); BUN Creatinine Ratio 30.8 (10-20); Blood Urea Nitrogen 31 mg/dl (7-18); Carbon Dioxide 25 mmol/L (21-32); Chloride 108 mmol/L (98-107); Creatinine Clr Calc Pharmacy 62.9 ml/min; Est GFR (African American) 63.6; Est GFR (Non-African American) 54.9; Glucose 92 mg/dl (70-99); Sodium 140 mmol/L (136-145)
[2021-01-10 17:16] LABS: Albumin Globulin Ratio 0.9 (0.9-2); Alkaline Phosphatase 92 U/L (45-117); Bilirubin,Total 0.5 mg/dl (0.2-1); Globulin 4.1 gm/dl (2.5-4.0); Total Protein 7.8 gm/dl (6.4-8.2); Troponin I < 0.015 ng/ml (0-0.045)
--- NOTE | 2021-01-10 17:49 | CT Scan Report ---
CT head/brain wo con CLINICAL HISTORY: 70 years-old Female with weakness. Acute head trauma status post fall. Acute weakn ess TECHNIQUE: Multiple axial CT images of the head were obtained without contrast. A dose lowering tech nique was utilized adhering to the principles of ALARA. COMPARISON: Head CT 07/13/2013 FINDINGS: No acute intracranial hemorrhage, midline shift, intracranial mass, hydrocephalus, territorial ischem ia or abnormal extra-axial collection. Age-related involutional changes. Cerebral vascular calcificat ions. The calvarium is intact. The paranasal sinuses, mastoid air cells, and middle ear cavities are clear . IMPRESSION: No acute intracranial abnormality. ACT 112: Negative or not required by law. The above report was generated using voice recognition software. It may contain grammatical, syntax o r spelling errors. Electronically signed by: Balaji Asher M.D. 01/10/2021 5:48 PM
[2021-01-10 17:58] LABS: Influenza A virus by PCR Negative (Neg); Influenza B virus by PCR Negative (Neg); RSV by PCR Negative (Neg); SARS CoV2 RNA(COVID-19) InHosp NEGATIVE (Negative)
[2021-01-10] MEDS ORDERED: ACETAMINOPHEN 325 MG TAB PO STA (17:58)
--- NOTE | 2021-01-10 17:59 | CT Scan Report ---
CT lumbar spine wo con HISTORY: 70 years-old Female rt leg weakness acute low back pain status post fall COMPARISON: CT abdomen and pelvis of same day TECHNIQUE: Multiple axial CT images of the abdomen and pelvis were obtained without the use of IV con trast. A dose lowering technique was used consistent with the principals of ABEL. FINDINGS: No paravertebral edema. Demineralized appearance of the bones. Evaluation of the central canal and ne uroforamina is better assessed by MRI. There is suggested severe central canal stenosis at L4-L5 seco ndary to severe facet arthrosis with ligamentum flavum thickening and posterior annular disc bulge. M oderate left-sided neuroforaminal stenosis at L5-S1. Demineralized appearance of the bones. Superior endplate Schmorl's node L2, likely chronic. No retropulsion. No definite acute fracture or subluxatio n. Severe multilevel facet arthrosis. Vacuum disc phenomena at L5-S1. Lumbar levoscoliosis. There is mild cortical irregularity of the right sacrum extending into the SI joint on image 420. IMPRESSION: 1. No acute fracture or subluxation of the lumbar spine. 2. There is suggestion of a subtle acute nondisplaced fracture of the right sacral ala. 3. Demineralized appearance of the bones with multilevel degenerative changes as above 4. Severe central canal stenosis at L4-L5 with multilevel neuroforaminal narrowing. ACT 112: Negative or not required by law. The above report was generated using voice recognition software. It may contain grammatical, syntax o r spelling errors. Electronically signed by: Balaji Asher M.D. 01/10/2021 5:57 PM
--- NOTE | 2021-01-10 18:08 | CT Scan Report ---
ABDOMEN AND PELVIS CT WITHOUT CONTRAST HISTORY: Acute right hip and pelvic pain status post fall fall, right hip pain TECHNIQUE: Multiaxial CT images of the abdomen and pelvis were performed without contrast. A dose lo wering technique was utilized adhering to the principles of ALARA. COMPARISON STUDY: CT lumbar spine of same day FINDINGS: Study is limited secondary to upper extremity positioning, lack of IV contrast and respirat ory motion artifact. No pneumatosis or pneumoperitoneum. Cardiomegaly. The spleen is enlarged measuri ng up to 15 cm in length. There are a few cysts of the liver measuring up to 1.3 cm. The pancreas, ad renal glands and mildly distended gallbladder are unremarkable. There are at least 2 nonobstructing calculi of the right kidney measuring up to 3 mm. 6 mm nonobstruc ting calculus of the inferior pole left kidney. Multifocal cortical scarring and peripheral thinning of the left kidney. Capsular calcifications of the right kidney. No ureteral calculi or obstructive u ropathy. There are a few proteinaceous versus hemorrhagic cyst of the left kidney measuring up to 5 m m. Unremarkable urinary bladder, uterus and adnexa. No abdominal aortic aneurysm. Retroaortic left re nal vein. No adenopathy. No bowel obstruction or bowel wall thickening. Mild to moderate fecal retention. Colonic diverticulos is without acute diverticulitis. Noninflamed appendix. Tiny fat filled periumbilical hernia. Small ri ght hip joint effusion is likely degenerative. Demineralized appearance of the bones with degenerativ e changes of the spine, pelvis and hips. Mild cortical irregularity of the lateral right mid sacrum a djacent to the SI joint on image 313 series 5. Mild left with severe right hip osteoarthritis. Lumbar levoscoliosis. IMPRESSION: 1. Equivocal acute nondisplaced right sacral insufficiency fracture. 2. Severe right hip osteoarthritis without acute fracture or dislocation. Small right hip joint effus ion is likely degenerative. 3. Colonic diverticulosis. 4. Splenomegaly. 5. Nonobstructing bilateral nephrolithiasis. 6. Cardiomegaly. 7. Additional findings as above. ACT 112: Negative or not required by law. The above report was generated using voice recognition software. It may contain grammatical, syntax o r spelling errors. Electronically signed by: Balaji Asher M.D. 01/10/2021 6:07 PM
--- NOTE | 2021-01-10 18:49 | XRay Report ---
XR foot RT 2V HISTORY: 70 years-old Female fall acute right foot pain status post fall COMPARISON: None TECHNIQUE: 2 views of the right foot FINDINGS: Demineralized appearance of the bones. Hallux valgus. Mostly mild multifocal osteoarthritis. Large en thesophytes of the calcaneus. Arterial calcifications. IMPRESSION: Bone demineralization without acute fracture identified. ACT 112: Negative or not required by law. The above report was generated using voice recognition software. It may contain grammatical, syntax o r spelling errors. Electronically signed by: Balaji Asher M.D. 01/10/2021 6:48 PM
--- NOTE | 2021-01-10 19:12 | History & Physical Report ---
Date of Service January 10, 2021 Assessment & Plan (1) Recurrent falls: PT/OT Ortho consult (2) Muscular deconditioning: PT/OT as above (3) Ambulatory dysfunction: This appears to be multifactorial with severe osteoarthritis in multiple joints and spinal stenosis She completely refuses any surgical intervention for spinal stenosis despite likely causing her bilateral lower extremity weakness and possible urinary issues. Will consult orthopedics for recommendations regarding possible knee brace or joint injections (4) Osteoarthritis: Start celebrex and monitor for feet swelling (side effect of her taking naproxen) (5) Spinal stenosis at L4-L5 level: As above likely contributing towards current weakness but patient refuses any surgical evaluation for this. (6) Urge incontinence: Figueroa cath placed in ER. Remove in AM and use Purewick given patient's poor ambulation. Continue her usual solifenacin 10mg PO daily and oxybutynin 15mg PO daily (7) Hypertension: Continue her usual amlodipine 5mg PO daily, lisinopril 40mg PO daily and metoprolol 25mg PO BID (8) Venous stasis dermatitis: One more dose of doxycycline from course from wound care clinic due to prior cellulitis. No current cellulitis present (9) DVT prophylaxis: No SCDs due to falls risk No chemical VTE prophylaxis due to Admission and Anticipated Discharge Date Admission Date: January 10, 2021 History of Present Illness Chief Complaint: Ambulatory dysfunction, fall Primary Care Provider: Shay Cassidy DO Shayna zimmerman is a 70-year-old female who presents to the ER after falling at home. She reports repeated falls due to weakness in bilateral lower extremities but especially her right side. She finds herself dragging her right leg a lot and cannot get it up stairs. She reports having stairs into her house and has had to make a half step out of newspaper to enable her to get into the house. That had been working up until today and while trying to get up her steps she was unable to life her right leg up the step at all and felt very wobbly and her legs gave way and she fell backwards. No dizziness or chest pain before the fall. She did report feeling short of breath as she was trying her hardest for about 10 minutes to try and get her leg up the steps. She denies any new one sided weakness, change in speech, hearing or vision. She feels her weakness has been longstanding but progressing more recently. In the ER imaging revealed no fractures but multiple areas of osteoarthritis most notably in her right hip in addition to severe spinal stenosis. She felt unsafe to go home as she cannot make it up her steps at the current time. Therefore she was referred to medicine for admission and ongoing management of fall and weakness. Allergies Allergy/AdvReac Type Severity Reaction Status Date / Time naproxen Allergy Mild FEET SWELL Verified 01/10/21 16:15 Lyfkljh-Mqq-Qli Reductase Allergy Mild GENERAL Verified 01/10/21 16:15 Inhibitor MALAISE tramadol Allergy Mild RESTLESS Verified 01/10/21 16:15 LEG SYNDROME BUTTERFLY DRESSING ADHESIVE AdvReac Mild RED SKIN Uncoded 01/10/21 16:15 Home Medications Medication Instructions Recorded Confirmed Type amlodipine [Norvasc] 5 mg PO QAM 07/11/20 01/10/21 History cinnamon bark [Cinnamon] 500 mg PO QDL 07/11/20 01/10/21 History ibuprofen 200 mg PO DAILY PRN 07/11/20 01/10/21 History lisinopril 40 mg PO QDD 07/11/20 01/10/21 History metoprolol succinate 25 mg PO BID 07/11/20 01/10/21 History oxybutynin chloride 15 mg PO QDL 07/11/20 01/10/21 History multivitamin 1 tab PO QAM 08/10/20 01/10/21 History solifenacin 10 mg tablet 10 mg PO QDL 12/09/20 01/10/21 History Tumeric 500mg 500 mg PO QID 01/10/21 01/10/21 History aoytgey-cmqbcrkbovfjy-usymiqnl 1 ea PO UD 01/10/21 01/10/21 History [Goody's Extra Strength] doxycycline hyclate 100 mg PO BID 01/10/21 01/10/21 History Past Med/Surg History Medical History (Updated 01/11/21 @ 07:03 by Casey Pires MD) Breast CA Hypertension Morbid obesity with BMI of 40.0-44.9, adult Osteoarthritis Urge incontinence Venous stasis Social History Smoking Status: Never smoker Second Hand Exposure: No; Do You Dip or Chew Tobacco: No; Tobacco Cessation Education Requested by Patient: No Hx Alcohol Use: No Hx Substance Use: No Preferred Language: Latvian Communication Ability: Effective Image Processing Engineer Required: No Beliefs That Will Affect Care: None Current Living Situation: Family Current Living Situation Comment: LIVES at home with sister Other Information That Helps Us Care for You: No Feels Safe at Home: Yes Safety Concerns: Feels Safe At This Time Assistive Devices: Cane and Walker Review of Systems Review of Systems: All systems reviewed & are unremarkable except as noted in HPI & below Genitourinary: + urinary frequency and + urinary incontinence Physical Exam Constitutional: well developed and + obese; + not well nourished and no acute distress Eyes: + anicteric sclerae; normal pupil size ENMT: external ear and nose normal, oropharynx normal Neck: trachea midline, no thyromegaly Respiratory: normal respiratory effort, lungs clear to auscultation Cardiovascular: Rate/Rhythm: regular rate and regular rhythm Heart Sounds: no murmur Extremities: normal capillary refill and + pedal edema (Large legs but only trace edema to knees b/l); no calf tenderness Gastrointestinal (Abdomen): normal bowel sounds, soft, nontender, no hepatosplenomegaly Musculoskeletal: Hip: + limited ROM of hip (unable to hip flex on right against gravity 2/5, pain on rotation); no effusion, no skin erythema, no ecchymosis and no joint line tenderness Knee: + effusion (bilateral), + limited ROM of knee (unable to extend right knee against gravity 2/5) and + joint line tenderness (bilateral R > L) Skin: no rashes, warm and dry (longstanding venous dermatitis changes) Neurologic: + focal motor deficit (as above, unable to hip flex or knee extend on right) and awake; not confused Speech / Cognition: normal speech Motor/Sensory: no tremor and no pronator drift Cranial Nerves: PERRL and normal facial strength Psychiatric: A+Ox3, euthymic affect Genitourinary: no CVA tenderness Results & Data Results & Data ([facility]) Vital Signs (Past 12 Hours) Vital Signs Temp Pulse Resp BP Pulse Ox 01/10/21 18:30 87 27 H 162/103 H 98 01/10/21 18:20 84 20 165/97 H 99 01/10/21 17:00 95 H 25 H 172/92 H 95 01/10/21 16:15 95 01/10/21 16:00 90 26 H 158/86 H 95 01/10/21 14:50 37.4 C 93 H 16 141/[address] head/brain wo con IMPRESSION: No acute intracranial abnormality. XR chest 1V portable IMPRESSION: Cardiomegaly without acute process. ABDOMEN AND PELVIS CT WITHOUT CONTRAST IMPRESSION: 1. Equivocal acute nondisplaced right sacral insufficiency fracture. 2. Severe right hip osteoarthritis without acute fracture or dislocation. Small right hip joint effusion is likely degenerative. 3. Colonic diverticulosis. 4. Splenomegaly. 5. Nonobstructing bilateral nephrolithiasis. 6. Cardiomegaly. 7. Additional findings as above. CT lumbar spine wo con IMPRESSION: 1. No acute fracture or subluxation of the lumbar spine. 2. There is suggestion of a subtle acute nondisplaced fracture of the right sacral ala. 3. Demineralized appearance of the bones with multilevel degenerative changes as above 4. Severe central canal stenosis at L4-L5 with multilevel neuroforaminal narrowing. XR hip RT 2V w pelvis IMPRESSION: 1. No acute fracture or dislocation. 2. Severe right hip osteoarthritis. XR knee RT 1 or 2V routine, XR knee LT 1 or 2V routine IMPRESSION: 1. No acute fracture or dislocation. 2. Tricompartmental osteoarthritis of the bilateral knees. XR foot RT 2V IMPRESSION: Bone demineralization without acute fracture identified. Medications Administered ER medications given: Acetaminophen 650 mg p.o. ECG Rate (beats per minute): 87 Rhythm: normal sinus Findings: + PAC (With aberrant conduction), + RBBB and + T-wave inversion (Inferior) Comparison ECG Date: from (July 14, 2015) Change: the following changes noted (QRS duration is prolonged however right bundle branch block is not new, T waves inversion has replaced flattening in inferior leads) Code Status & VTE Plan Code Status DNR/DNI per patient wishes VTE Prophylaxis Plan VTE Prophylaxis will be ordered: No PG Care Time/CCT Total # of Minutes Spent Total Time Spent with Patient: Total time spent is greater than 50% in coordination of care (as documented) at patient's floor/unit and/or counseling patient: Coding Level of Care Code 36339 OBS Care - Level 2 Diagnoses Recurrent falls R29.6 Muscular deconditioning R29.898 Ambulatory dysfunction R26.2 Osteoarthritis M19.90 Spinal stenosis at L4-L5 level M48.061 Urge incontinence N39.41 Hypertension I10 Venous stasis dermatitis I87.2 Laterality: bilateral DVT prophylaxis Z29.9 (1) Venous stasis dermatitis Laterality: bilateral Qualified Code(s): I87.2 - Venous insufficiency (chronic) (peripheral)
[2021-01-10 19:39] LABS: Creatine Kinase 71 U/L (26-192)
[2021-01-10] MEDS ORDERED: ALUMINUM/MAGNESIUM SUSP 30 ML UDC PO PRN (20:37)
[2021-01-10] MEDS ORDERED: POLYETHYLENE (MIRALAX) 17 GM PACK PO PRN (20:37)
[2021-01-10] MEDS ORDERED: ONDANSETRON INJ 2 MG/ML 2 ML VIAL IV PRN (20:37)
[2021-01-10] MEDS ORDERED: TUMERIC 500 MG PO SCH (21:00)
[2021-01-10] MEDS ORDERED: DOXYCYCLINE HYCLATE 100 MG CAP PO SCH (21:00)
[2021-01-10] MEDS: METOPROLOL SUCC 25MG EXT REL TAB PO SCH (21:49)
[2021-01-10] MEDS: VESICARE~ORDER AWAITING ACTION SCH (22:21)
[2021-01-10] MEDS ORDERED: SODIUM CHLORIDE 0.9% 1000ML 1,000 ML IV SCH (22:45)
--- NOTE | 2021-01-10 23:16 | Electrocardiogram Report ---
Test Reason : Blood Pressure : / mmHG Vent. Rate : 087 BPM Atrial Rate : 087 BPM P-R Int : 194 ms QRS Dur : 198 ms QT Int : 460 ms P-R-T Axes : 039 096 -09 degrees QTc Int : 553 ms Poor data quality, interpretation may be adversely affected Sinus rhythm with Premature ventricular complexes Possible Left atrial enlargement Right bundle branch block T wave abnormality, consider inferior ischemia Abnormal ECG When compared with ECG of 14-JUL-2015 09:22, Right bundle branch block is now Present Confirmed by Ron Campoverde ([id number]) on 01/10/2021 11:16:06 PM Referred By: Confirmed By:Ron Campoverde
[2021-01-11] MEDS: ACETAMINOPHEN 325 MG TAB PO PRN ×3 (06:00→23:47)
[2021-01-11 07:03] LABS: Calcium 9.7 mg/dl (8.5-10.1); Creatinine Clr Calc Pharmacy 95.8 ml/min; Est GFR (African American) 103.3; Est GFR (Non-African American) 89.2; Potassium 3.6 mmol/L (3.5-5.1)
[2021-01-11] MEDS: amLODIPine BESYLATE 5 MG TAB PO SCH (08:11)
[2021-01-11] MEDS: VESICARE~ORDER AWAITING ACTION SCH ×2 (08:11→16:14)
[2021-01-11] MEDS: MULTIVITAMIN TAB PO SCH (08:11)
[2021-01-11] MEDS: METOPROLOL SUCC 25MG EXT REL TAB PO SCH ×2 (08:11→20:50)
--- NOTE | 2021-01-11 08:17 | Hospitalist Progress Note ---
Date of Service January 11, 2021 Assessment & Plan (1) Spinal stenosis at L4-L5 level: Shayna Posada is a 70-year-old female with PMH of HTN, OA, urge incontinence, and venous stasis dermatitis who was admitted due to mechanical fall/ambulatory dysfunction. Recurrent Falls/Ambulatory Dysfunction - likely multifactorial with severe osteoarthritis in multiple joints and spinal stenosis - PT/OT consulted, follow recs - Ortho consulted -- recommendations as outlined below Osteoarthritis Knee and hip: - Continue Celebrex and monitor for feet swelling (side effect of her taking naproxen) - Ortho consulted: - continue conservative treatments - Recommend NSAIDs, patient was started on Celebrex - will order Lidoderm patches and custom fitted hinged knee brace for the right knee - corticosteroid/hyaluronic acid injections for knee if symptoms persist or worsen Spinal Stenosis - At L4-L5 level - As above likely contributing towards current weakness but patient refuses surgery for this - Will consult Dr. Almanza with ortho as well for recommendations Urge Incontinence - Continue home solifenacin 10mg PO daily and oxybutynin 15mg PO daily - Possibly related with spinal stenosis above Hypertension - Continue home amlodipine 5mg PO daily, lisinopril 40mg PO daily and metoprolol 25mg PO BID Code: DNR/DNI FENGI: Regular DVT ppx: Lovenox 40mg SQ [facility] for recommendations upon DC (2) Recurrent falls: (3) Ambulatory dysfunction: (4) Urge incontinence: (5) Osteoarthritis: Admission and Anticipated Discharge Date Admission Date: January 10, 2021 Supervising Physician Co-Signing Physician Notes Resident Physician Supervision Note: I independently interviewed and examined the patient and verified the sanchez history and physical, reviewed labs and image studies, discussed the case with the resident Dr. Acevedo and agree with the findings and care plan. Subjective No acute events overnight. Patient only mentions that she does feel bilateral lower extremity weakness and has been dragging her right foot more lately when ambulating. Review of systems otherwise negative. Review of Systems Review of Systems: All systems reviewed & are unremarkable except as noted in Subjective Physical Exam Constitutional: well developed and + obese; no acute distress Respiratory: normal respiratory effort, lungs clear to auscultation Cardiovascular: Rate/Rhythm: regular rate and regular rhythm Heart Sounds: no murmur Extremities: + pedal edema; no calf tenderness Gastrointestinal (Abdomen): normal bowel sounds, soft, nontender, no hepatosplenomegaly Musculoskeletal: Knee: + effusion (bilateral) and + limited ROM of knee (unable to extend right knee against gravity 3/5) Skin: no rashes, warm and dry (longstanding venous dermatitis changes) Neurologic: + focal motor deficit (unable to extend knee on right) and awake; not confused Speech / Cognition: normal speech Cranial Nerves: PERRL and normal facial strength Psychiatric: A+Ox3, euthymic affect Genitourinary: no CVA tenderness Results & Data Results & Data ([facility]) Vital Signs (Past 12 Hours) Vital Signs Temp Pulse Pulse Resp BP Pulse Ox 01/11/21 07:07 37.4 C 65 16 127/84 96 01/10/21 22:44 37.0 C 74 18 136/80 96 01/10/21 21:53 71 154/69 H 95 01/10/21 20:39 36.7 C 81 24 155/83 H 97 Resident Activity Tracking Resident Involvement: Resident Care Provided Care Provided: Adult Hospital Medicine
[2021-01-11] MEDS: CeleBREX 200 MG CAP PO SCH (08:22)
[2021-01-11] MEDS: OXYBUTYNIN CHLORIDE XL 5 MG TABCR PO SCH (11:24)
--- NOTE | 2021-01-11 12:03 | Orthopedic Consultation ---
Date of Consultation January 11, 2021 Assessment & Plan (1) Tricompartment degenerative joint disease of knee: Bilateral knee DJD right greater than left. Discussed continue conservative treatments with the patient today. Recommend NSAIDs, patient was started on Celebrex, will order Lidoderm patches and custom fitted hinged knee brace for the right knee. Discussed corticosteroid hyaluronic acid injections if symptoms persist or worsen. Continue with physical therapy and Occupational Therapy as tolerated. Thank you for the consultation. History of Present Illness Reason for Consultation: Bilateral knee DJD Attending Physician: Tabitha Walker MD History of Present Illness The patient is a 70-year-old female who presented to [facility] secondary to amatory dysfunction and was admitted for further evaluation and treatment. Reports chronic atraumatic bilateral knee pain right greater than left. Pain especially in the right knee has significantly inhibited her ability to ambulate. Denies any prior treatments to the right knee, previous hyaluronic acid injection of left knee" years ago". Patient reports that she was provided a brace through her third physical therapist however difficulty with fitting and unable to wear with activity. Did report some relief with the brace. Denies any fevers, chills, nausea, vomiting, shortness of breath or chest pain. Denies any numbness and tingling in her extremities. Allergies Allergy/AdvReac Type Severity Reaction Status Date / Time naproxen Allergy Mild FEET SWELL Verified 01/10/21 16:15 Fxycuab-Fxa-Olu Reductase Allergy Mild GENERAL Verified 01/10/21 16:15 Inhibitor MALAISE tramadol Allergy Mild RESTLESS Verified 01/10/21 16:15 LEG SYNDROME BUTTERFLY DRESSING ADHESIVE AdvReac Mild RED SKIN Uncoded 01/10/21 16:15 Home Medications Medication Instructions Recorded Confirmed Type amlodipine [Norvasc] 5 mg PO QAM 07/11/20 01/10/21 History cinnamon bark [Cinnamon] 500 mg PO QDL 07/11/20 01/10/21 History ibuprofen 200 mg PO DAILY PRN 07/11/20 01/10/21 History lisinopril 40 mg PO QDD 07/11/20 01/10/21 History metoprolol succinate 25 mg PO BID 07/11/20 01/10/21 History oxybutynin chloride 15 mg PO QDL 07/11/20 01/10/21 History multivitamin 1 tab PO QAM 08/10/20 01/10/21 History solifenacin 10 mg tablet 10 mg PO QDL 12/09/20 01/10/21 History Tumeric 500mg 500 mg PO QID 01/10/21 01/10/21 History mevncxz-tsxiynzaooybg-bzssillf 1 ea PO UD 01/10/21 01/10/21 History [Goody's Extra Strength] doxycycline hyclate 100 mg PO BID 01/10/21 01/10/21 History Patient History Medical History Breast CA Hypertension Morbid obesity with BMI of 40.0-44.9, adult Osteoarthritis Urge incontinence Venous stasis Social History Smoking Status: Never smoker Second Hand Exposure: No; Do You Dip or Chew Tobacco: No; Tobacco Cessation Education Requested by Patient: No Hx Alcohol Use: No Hx Substance Use: No Preferred Language: Belarusian Communication Ability: Effective [employer] Cook Required: No Beliefs That Will Affect Care: None marital status: Single Current Living Situation: Family Current Living Situation Comment: LIVES at home with sister Other Information That Helps Us Care for You: No Feels Safe at Home: Yes Safety Concerns: Feels Safe At This Time Assistive Devices: Walker Review of Systems Review of Systems: All systems reviewed & are unremarkable except as noted in HPI & below Constitutional: as per Subjective / HPI Physical Exam Physical Exam: Bilaterally extremity physical exam neurovascular and sensory intact grossly, +2 dorsalis pedis pulse, compartment soft nontender, limited painful active and passive range of motion of the right knee, with moderate effusion, positive crepitus. Mild discomfort with active and passive range of motion of the left knee. Mild effusion. No erythema or signs for infection. Constitutional: WD/WN, vitals as above Results & Data ([facility]) Vital Signs (Past 12 Hours) Vital Signs Temp Pulse Resp BP Pulse Ox 01/11/21 07:07 37.4 C 65 16 127/84 96 Diagnostic Findings XR knee RT 1 or 2V routine, XR knee LT 1 or 2V routine HISTORY: 70 years-old Female fall, knee pain acute bilateral knee pain status post fall COMPARISON: Right knee radiographs 07/11/2020 TECHNIQUE: 2 views of the bilateral knees FINDINGS: RIGHT: Diffuse soft tissue prominence. Tricompartmental osteoarthritis, moderate within the lateral compartment and severe within the medial and patellofemoral compartments. Trace joint effusion. No acute fracture or dislocation identified. Demineralized appearance of the bones. LEFT: Diffuse soft tissue prominence. Tricompartmental osteoarthritis, mild to moderate within the lateral compartment, moderate within the medial compartment and severe within the patellofemoral compartment. Trace joint effusion. No acute fracture or dislocation. 1.8 cm soft tissue calcification of the medial upper aspect of the lower leg. Demineralized appearance of the bones. IMPRESSION: 1. No acute fracture or dislocation. 2. Tricompartmental osteoarthritis of the bilateral knees.
[2021-01-11] MEDS: LIDOCAINE 5% 1 PATCH TD SCH (13:25)
[2021-01-11] MEDS ORDERED: ETHYL CHLORIDE AER SPR 100 ML CAN EXT ONE (15:08)
[2021-01-11] MEDS ORDERED: BUPIVACAINE/EPINEPHRINE 0.25% 1:200,000 30 ML VIAL INFIL ONE (15:08)
[2021-01-11] MEDS ORDERED: methylPREDNISolone acetate 80 MG/ML VIAL IA ONE (15:08)
[2021-01-11] MEDS: lisinopril 40 MG TAB PO SCH (16:19)
[2021-01-12] MEDS: VESICARE~ORDER AWAITING ACTION SCH ×3 (00:14→17:25)
[2021-01-12 06:28] LABS: Hematocrit (blood only) 35.2 % (37-47); Hemoglobin 10.9 g/dL (12.0-16.0); Mean Corpuscular Hemoglobin 26.1 pg (25-34); Mean Corpuscular Volume 84.4 fL (80-100); Mean Platelet Volume 9.8 fL (7.4-10.4); Platelet Count 133 K/uL (130-400); RDW Coefficient of Variation 15.2 % (11.5-14.5); Red Blood Count 4.17 M/uL (4.2-5.4); White Blood Count 3.54 K/uL (4.8-10.8)
[2021-01-12 07:12] LABS: BUN Creatinine Ratio 38.9 (10-20); Calcium 9.5 mg/dl (8.5-10.1); Creatinine Clr Calc Pharmacy 90.2 ml/min; Est GFR (African American) 101.3; Est GFR (Non-African American) 87.4; Potassium 3.8 mmol/L (3.5-5.1)
[2021-01-12] MEDS: ENOXAPARIN INJ 40 MG/0.4 ML SYR SQ SCH (09:39)
--- NOTE | 2021-01-12 09:39 | Hospitalist Progress Note ---
Date of Service January 12, 2021 Assessment & Plan (1) Spinal stenosis at L4-L5 level: Shayna Posada is a 70-year-old female with PMH of HTN, OA, urge incontinence, and venous stasis dermatitis who was admitted due to mechanical fall/ambulatory dysfunction. Recurrent Falls/Ambulatory Dysfunction - likely multifactorial with severe osteoarthritis in multiple joints and spinal stenosis - PT/OT consulted -Very limited mobility requiring significant levels of assistance -Patient is high fall risk, will need inpatient rehab discharge - Case management has already began plans for [facility] at time of discharge - Ortho consulted -- recommendations as outlined below Osteoarthritis Knee and hip: - Continue Celebrex and monitor for feet swelling (side effect of her taking naproxen) - Ortho consulted: - continue conservative treatments - Recommend NSAIDs, patient was started on Celebrex - will order Lidoderm patches and custom fitted hinged knee brace for the right knee - corticosteroid/hyaluronic acid injections for knee if symptoms persist or worsen -Patient awaiting custom knee brace as above -Unable to participate in PT due to pain. Spinal Stenosis - At L4-L5 level - As above likely contributing towards current weakness but patient refuses surgery for this - Consulted Dr. Almanza with ortho as well for recommendations Urge Incontinence - Continue home solifenacin 10mg PO daily and oxybutynin 15mg PO daily - Possibly related with spinal stenosis above Hypertension - Continue home amlodipine 5mg PO daily, lisinopril 40mg PO daily and metoprolol 25mg PO BID Code: DNR/DNI FENGI: Regular DVT ppx: Lovenox 40mg SQ daily Dispo: MedSurg -- PT/OT evaluations for recommendations upon DC (2) Recurrent falls: (3) Ambulatory dysfunction: (4) Urge incontinence: (5) Osteoarthritis: Admission and Anticipated Discharge Date Admission Date: January 11, 2021 Supervising Physician Co-Signing Physician Notes Resident Physician Supervision Note: I independently interviewed and examined the patient and verified the sanchez history and physical, reviewed labs and image studies, discussed the case with the resident Dr. Acevedo and agree with the findings and care plan. Subjective No acute events overnight. Patient seen sitting up in bed comfortably after breakfast. Tolerated well. Has not attempted to move from bed yet. She did not work with PT yesterday as she had just been fitted for her custom knee brace and was complaining of a mild headache at that point so deferred. Encouraged her to work with PT today to adequately evaluate her needs. Review of Systems Review of Systems: All systems reviewed & are unremarkable except as noted in Subjective Physical Exam Constitutional: well developed and + obese; no acute distress Respiratory: normal respiratory effort, lungs clear to auscultation Cardiovascular: Rate/Rhythm: regular rate and regular rhythm Heart Sounds: no murmur Extremities: + pedal edema; no calf tenderness Gastrointestinal (Abdomen): normal bowel sounds, soft, nontender, no hepatosplenomegaly Skin: no rashes, warm and dry (longstanding venous dermatitis changes) Neurologic: awake; not confused Speech / Cognition: normal speech Psychiatric: A+Ox3, euthymic affect Genitourinary: no CVA tenderness Results & Data Results & Data ([facility]) Vital Signs (Past 12 Hours) Vital Signs Temp Pulse Resp BP Pulse Ox 01/12/21 07:12 36.8 C 52 L 16 142/85 H 95 01/11/21 23:07 36.9 C 65 16 143/76 H 93 Resident Activity Tracking Resident Involvement: Resident Care Provided Care Provided: Adult Hospital Medicine
[2021-01-12] MEDS: LIDOCAINE 5% 1 PATCH TD SCH (09:42)
[2021-01-12] MEDS: CeleBREX 200 MG CAP PO SCH (09:45)
[2021-01-12] MEDS: METOPROLOL SUCC 25MG EXT REL TAB PO SCH ×2 (09:45→21:20)
[2021-01-12] MEDS: MULTIVITAMIN TAB PO SCH (09:45)
[2021-01-12] MEDS: amLODIPine BESYLATE 5 MG TAB PO SCH (09:45)
[2021-01-12] MEDS: OXYBUTYNIN CHLORIDE XL 5 MG TABCR PO SCH (13:41)
[2021-01-12] MEDS: lisinopril 40 MG TAB PO SCH (17:25)
--- NOTE | 2021-01-12 21:57 | Procedure Note ---
Procedure Note Date of Service January 12, 2021 Patient seen sitting in chair at bedside, no acute issues, discussed with her the risk, benefits, complications and alternatives to right knee corticosteroid injection. The risks include however not limited to infection, injury to nerves, bone, vessels, soft tissue, persistent pain. Alternatives include no injection. Patient wished to proceed with corticosteroid injection to the right knee and verbal consent was obtained at this time. RLE NVSI +EHL/FHL/TA/GS SILT grossly, +2 DP pulse, compartments soft NT, dressing cdi. limited painful ROM of the knee, +creptius. The patient's right knee was prepped with a combination of Betadine and alcohol. Utilizing sterile techniques, 2 cc of Depo-Medrol and 3 cc of .25% Marcaine with epi was injected into the patients right knee, if the patient develops any worsening symptoms increased erythema edema or pain she should notify the dep artment immediately. Adhesive dressing applied. The patient tolerated the procedure well. May follow up in office with Dr. Beebe as needed, . Coding
[2021-01-12] MEDS: CLOTRIMAZOLE 1% CR 15 GM TUBE EXT PRN (23:38)
[2021-01-13] MEDS: VESICARE~ORDER AWAITING ACTION SCH ×4 (00:04→23:16)
--- NOTE | 2021-01-13 09:25 | Consultation ---
Date of Consultation . January 13, 2021 Assessment & Plan (1) Spinal stenosis at L4-L5 level: In regards to her spinal stenosis she is not interested in any type of surgical intervention. We recommend continued conservative treatment. In regards to her acute right sacral ala fracture, this is typically best tolerated with a toe-touch weightbearing status right lower extremity using the assistance of a walker for ambulation. I recommend rehab upon discharge. Surgical intervention is not warranted for this type of fracture. If you have any further questions please do not hesitate to contact us. Will sign off. Supervising Physician Co-Signing Physician Notes Dr. Joel Almanza History of Present Illness This is a pleasant 70-year-old female that we are asked to see in consultation regarding lumbar spinal stenosis and sacral alar fracture. She reports she lives at home with her sister. She typically ambulates with a cane. She has had a fall a few days ago which resulted in her ER visit with subsequent admission. She complains predominantly of right knee pain. This has been evaluated by Dr. Marifer Mendez and injection into her right knee was given yesterday evening. Denies bowel or bladder dysfunction. Denies any true lower back pain or radicular complaints. Attending Physician: Tabitha Walker MD Allergies Allergy/AdvReac Type Severity Reaction Status Date / Time naproxen Allergy Mild FEET SWELL Verified 01/10/21 16:15 Pskwzug-Dyt-Psr Reductase Allergy Mild GENERAL Verified 01/10/21 16:15 Inhibitor MALAISE tramadol Allergy Mild RESTLESS Verified 01/10/21 16:15 LEG SYNDROME BUTTERFLY DRESSING ADHESIVE AdvReac Mild RED SKIN Uncoded 01/10/21 16:15 Home Medications Medication Instructions Recorded Confirmed Type amlodipine [Norvasc] 5 mg PO QAM 07/11/20 01/10/21 History cinnamon bark [Cinnamon] 500 mg PO QDL 07/11/20 01/10/21 History ibuprofen 200 mg PO DAILY PRN 07/11/20 01/10/21 History lisinopril 40 mg PO QDD 07/11/20 01/10/21 History metoprolol succinate 25 mg PO BID 07/11/20 01/10/21 History oxybutynin chloride 15 mg PO QDL 07/11/20 01/10/21 History multivitamin 1 tab PO QAM 08/10/20 01/10/21 History solifenacin 10 mg tablet 10 mg PO QDL 12/09/20 01/10/21 History Tumeric 500mg 500 mg PO QID 01/10/21 01/10/21 History pdarhwt-pmrnzmkzuktfp-erkeeqvc 1 ea PO UD 01/10/21 01/10/21 History [Goody's Extra Strength] doxycycline hyclate 100 mg PO BID 01/10/21 01/10/21 History Patient History Medical History Breast CA Hypertension Morbid obesity with BMI of 40.0-44.9, adult Osteoarthritis Urge incontinence Venous stasis Social History Smoking Status: Never smoker Second Hand Exposure: No; Do You Dip or Chew Tobacco: No; Tobacco Cessation Education Requested by Patient: No Hx Alcohol Use: No Hx Substance Use: No Preferred Language: Chilean Communication Ability: Effective Wool Sorter Required: No Beliefs That Will Affect Care: None marital status: Single Current Living Situation: Family Current Living Situation Comment: LIVES at home with sister Other Information That Helps Us Care for You: No Feels Safe at Home: Yes Safety Concerns: Feels Safe At This Time Assistive Devices: Walker Review of Systems Review of Systems: All systems reviewed & are unremarkable except as noted in HPI & below Physical Exam Physical Exam: She is lying in bed eating breakfast. No acute distress Cooperative with exam She has negative logrolling bilateral lower extremities Significant venous stasis noted bilateral lower extremities from mid schmidt distally bilaterally She has some weakness with the right quadricep, otherwise strength is intact bilaterally. Constitutional: WD/WN, vitals as above well developed Eyes: normal visual hong by confrontation ENMT: external ear and nose normal, oropharynx normal Neck: normal visual inspection Respiratory: normal respiratory effort Cardiovascular: Extremities: + pedal edema Chest (Breasts): Chest: normal inspection of chest Gastrointestinal (Abdomen): Inspection/Auscultation: abdomen normal to inspection Skin: no rashes, warm and dry Neurologic: normal touch/pain/proprioception and moves all extremities Psychiatric: A+Ox3, euthymic affect Results & Data ([facility]) Vital Signs (Past 12 Hours) Vital Signs Temp Pulse Resp BP Pulse Ox 01/13/21 07:47 36.6 C 58 L 18 168/88 H 95 05/04/21 23:31 36.5 C 64 16 151/86 H 94 Diagnostic Findings [facility], [id number] CT Scan Report Patient: COOKIE NIAdmit Date: 01/10/21#: [id number]: [address]Ac[address] ID:[id number]: Date: 1950City Zip: [place], [place] [address]Mpt: 70Location: EDSex: FRoom/Bed:Att Phy:Diagnosis: Ground level fall, knee/hip painPri Phy: Shay Cassidy DOService Date: 01/10/21Fam Phy:Interpreting Phy: Bin AsherAdmit Phy: Ordering Phy: Pancho Lepe M.D. cc: ~ CT lumbar spine wo con HISTORY: 70 years-old Female rt leg weakness acute low back pain status post fall COMPARISON: CT abdomen and pelvis of same day TECHNIQUE: Multiple axial CT images of the abdomen and pelvis were obtained without the use of IV contrast. A dose lowering technique was used consistent with the principals of ALA. FINDINGS: No paravertebral edema. Demineralized appearance of the bones. Evaluation of the central canal and neuroforamina is better assessed by MRI. There is suggested severe central canal stenosis at L4-L5 secondary to severe facet arthrosis with ligamentum flavum thickening and posterior annular disc bulge. Moderate left- sided neuroforaminal stenosis at L5-S1. Demineralized appearance of the bones. Superior endplate Schmorl's node L2, likely chronic. No retropulsion. No definite acute fracture or subluxation. Severe multilevel facet arthrosis. Vacuum disc phenomena at L5-S1. Lumbar levoscoliosis. There is mild cortical irregularity of the right sacrum extending into the SI joint on image 420. IMPRESSION: 1. No acute fracture or subluxation of the lumbar spine. 2. There is suggestion of a subtle acute nondisplaced fracture of the right sacral ala. 3. Demineralized appearance of the bones with multilevel degenerative changes as above 4. Severe central canal stenosis at L4-L5 with multilevel neuroforaminal narrowing. ACT 112: Negative or not required by law. The above report was generated using voice recognition software. It may contain grammatical, syntax or spelling errors. Electronically signed by: Balaji Asher M.D. 01/10/2021 5:57 PM Dictated: 01/10/211748Transcribed: 01/10/211748
[2021-01-13] MEDS: LIDOCAINE 5% 1 PATCH TD SCH (09:41)
[2021-01-13] MEDS: ENOXAPARIN INJ 40 MG/0.4 ML SYR SQ SCH (09:44)
[2021-01-13] MEDS: METOPROLOL SUCC 25MG EXT REL TAB PO SCH ×2 (09:46→20:29)
[2021-01-13] MEDS: amLODIPine BESYLATE 5 MG TAB PO SCH (09:46)
[2021-01-13] MEDS: CeleBREX 200 MG CAP PO SCH (09:47)
[2021-01-13] MEDS: MULTIVITAMIN TAB PO SCH (09:48)
[2021-01-13] MEDS: OXYBUTYNIN CHLORIDE XL 5 MG TABCR PO SCH (12:49)
[2021-01-13] MEDS: lisinopril 40 MG TAB PO SCH (16:31)
--- NOTE | 2021-01-13 17:38 | Hospitalist Progress Note ---
Date of Service January 13, 2021 Assessment & Plan (1) Spinal stenosis at L4-L5 level: Shayna Posada is a 70-year-old female with PMH of HTN, OA, urge incontinence, and venous stasis dermatitis who was admitted due to mechanical fall/ambulatory dysfunction. Recurrent Falls/Ambulatory Dysfunction - likely multifactorial with severe osteoarthritis in multiple joints and spinal stenosis - PT/OT consulted -Very limited mobility requiring significant levels of assistance -Patient is high fall risk, will need inpatient rehab discharge - Case management has already began plans for [facility] at time of discharge -- pending - Ortho consulted -- recommendations as outlined below Osteoarthritis Knee and hip: - Continue Celebrex and monitor for feet swelling (side effect of her taking naproxen) - Ortho consulted: - continue conservative treatments - Recommend NSAIDs, patient was started on Celebrex - will order Lidoderm patches and custom fitted hinged knee brace for the right knee - corticosteroid/hyaluronic acid injections for knee if symptoms persist or worsen -Patient awaiting custom knee brace as above Spinal Stenosis - At L4-L5 level - As above likely contributing towards current weakness but patient refuses surgery for this - Ortho spine c/s: - She is not interested in any type of surgical intervention. We recommend continued conservative treatment. - Acute right sacral ala fracture: toe-touch weightbearing status right lower extremity w/ assistance of a walker - Recommend rehab upon discharge. Surgical intervention is not warranted for this type of fracture. Urge Incontinence - Continue home solifenacin 10mg PO daily and oxybutynin 15mg PO daily - Possibly related with spinal stenosis above Hypertension - Continue home amlodipine 5mg PO daily, lisinopril 40mg PO daily and metoprolol 25mg PO BID Code: DNR/DNI FENGI: Regular DVT ppx: Lovenox 40mg SQ daily Dispo: MedSurg -- awaiting placement at inpatient rehab facility (2) Recurrent falls: (3) Ambulatory dysfunction: (4) Urge incontinence: (5) Osteoarthritis: Admission and Anticipated Discharge Date Admission Date: January 11, 2021 Supervising Physician Co-Signing Physician Notes Resident Physician Supervision Note: I independently interviewed and examined the patient and verified the sanchez history and physical, reviewed labs and image studies, discussed the case with the resident Dr. Acevedo and agree with the findings and care plan. Subjective Patient reports feeling similar to when she arrived but has been able to work a bit more with PT and is on board with inpatient rehab at discharge. Denies symptoms apart from weakness at bilateral LE. Review of Systems 2 Review of Systems: All systems reviewed & are unremarkable except as noted in Subjective Physical Exam Constitutional: well developed and + obese; no acute distress Respiratory: normal respiratory effort, lungs clear to auscultation Cardiovascular: Rate/Rhythm: regular rate and regular rhythm Heart Sounds: no murmur Extremities: + pedal edema; no calf tenderness Gastrointestinal (Abdomen): normal bowel sounds, soft, nontender, no hepatosplenomegaly Skin: no rashes, warm and dry (longstanding venous dermatitis changes) Neurologic: awake; not confused Speech / Cognition: normal speech Psychiatric: A+Ox3, euthymic affect Genitourinary: no CVA tenderness Results & Data Results & Data ([facility]) Vital Signs (Past 12 Hours) Vital Signs Temp Pulse Resp BP Pulse Ox 01/13/21 16:12 36.6 C 62 18 147/88 H 96 01/13/21 07:47 36.6 C 58 L 18 168/88 H 95 Resident Activity Tracking Resident Involvement: Resident Care Provided Care Provided: Adult Hospital Medicine
[2021-01-14] MEDS: ACETAMINOPHEN 325 MG TAB PO PRN (01:10)
[2021-01-14 06:52] LABS: Creatinine Clr Calc Pharmacy 91.5 ml/min; Est GFR (African American) 101.8; Est GFR (Non-African American) 87.8
[2021-01-14] MEDS: LIDOCAINE 5% 1 PATCH TD SCH (08:04)
[2021-01-14] MEDS: CeleBREX 200 MG CAP PO SCH (08:07)
[2021-01-14] MEDS: amLODIPine BESYLATE 5 MG TAB PO SCH (08:07)
[2021-01-14] MEDS: MULTIVITAMIN TAB PO SCH (08:07)
[2021-01-14] MEDS: METOPROLOL SUCC 25MG EXT REL TAB PO SCH ×2 (08:07→20:44)
[2021-01-14] MEDS: ENOXAPARIN INJ 40 MG/0.4 ML SYR SQ SCH (08:08)
[2021-01-14] MEDS: VESICARE~ORDER AWAITING ACTION SCH ×2 (08:09→16:34)
[2021-01-14] MEDS: OXYBUTYNIN CHLORIDE XL 5 MG TABCR PO SCH (11:47)
--- NOTE | 2021-01-14 12:55 | Hospitalist Progress Note ---
Date of Service January 14, 2021 Assessment & Plan (1) Spinal stenosis at L4-L5 level: Shayna Posada is a 70-year-old female with PMH of HTN, OA, urge incontinence, and venous stasis dermatitis who was admitted due to mechanical fall/ambulatory dysfunction. Recurrent Falls/Ambulatory Dysfunction - likely multifactorial with severe osteoarthritis in multiple joints and spinal stenosis - PT/OT consulted -Very limited mobility requiring significant levels of assistance -Patient is high fall risk, will need inpatient rehab discharge - Case management has already begun plans for [facility] at time of discharge -- pending -Initially referred to [facility] and patient agreeable but patient changed her mind because her sister would not visit at [facility] and prefers referral to [facility] - Ortho consulted -- recommendations as outlined below Osteoarthritis Knee and hip: - Continue Celebrex and monitor for feet swelling (side effect of her taking naproxen) - Ortho consulted: - continue conservative treatments - Recommend NSAIDs, patient was started on Celebrex - will order Lidoderm patches and custom fitted hinged knee brace for the right knee - corticosteroid/hyaluronic acid injections for knee if symptoms persist or worsen -Patient awaiting custom knee brace as above Spinal Stenosis - At L4-L5 level - As above likely contributing towards current weakness but patient refuses surgery for this - Ortho spine c/s: - She is not interested in any type of surgical intervention. We recommend continued conservative treatment. - Acute right sacral ala fracture: toe-touch weightbearing status right lower extremity w/ assistance of a walker - Recommend rehab upon discharge. Surgical intervention is not warranted for this type of fracture. Urge Incontinence - Continue home solifenacin 10mg PO daily and oxybutynin 15mg PO daily - Possibly related with spinal stenosis above Hypertension - Continue home amlodipine 5mg PO daily, lisinopril 40mg PO daily and metoprolol 25mg PO BID Code: DNR/DNI FENGI: Regular DVT ppx: Lovenox 40mg SQ daily Dispo: MedSurg -- awaiting placement at inpatient rehab facility (2) Recurrent falls: (3) Ambulatory dysfunction: (4) Urge incontinence: (5) Osteoarthritis: Admission and Anticipated Discharge Date Admission Date: January 11, 2021 Supervising Physician Co-Signing Physician Notes Resident Physician Supervision Note: I independently interviewed and examined the patient and verified the sanchez history and physical, reviewed labs and image studies, discussed the case with the resident Dr. Acevedo and agree with the findings and care plan. Subjective Patient sitting up at bedside this morning. Reports that her knee is feeling much better and she is been able to bend it more. She has been using an Abelardo wrap, still waiting custom knee brace. Today mentions that she does not want to be referred to inpatient therapy at [facility] because her sister will not be able to visit and would prefer referral to [facility] instead. Case management aware and working on referral. Review of Systems Review of Systems: All systems reviewed & are unremarkable except as noted in Subjective Physical Exam Constitutional: well developed and + obese; no acute distress Respiratory: normal respiratory effort, lungs clear to auscultation Cardiovascular: Rate/Rhythm: regular rate and regular rhythm Heart Sounds: no murmur Extremities: + pedal edema; no calf tenderness Gastrointestinal (Abdomen): normal bowel sounds, soft, nontender, no hepatosplenomegaly Skin: no rashes, warm and dry (longstanding venous dermatitis changes) Neurologic: awake; not confused Speech / Cognition: normal speech Psychiatric: A+Ox3, euthymic affect Genitourinary: no CVA tenderness Results & Data Results & Data ([facility]) Vital Signs (Past 12 Hours) Vital Signs Temp Pulse Resp BP Pulse Ox 01/14/21 07:15 36.4 C L 61 16 145/83 H 97 Resident Activity Tracking Resident Involvement: Resident Care Provided Care Provided: Adult Hospital Medicine
[2021-01-14] MEDS: lisinopril 40 MG TAB PO SCH (16:34)
[2021-01-14] MEDS: CLOTRIMAZOLE 1% CR 15 GM TUBE EXT PRN (20:45)
[2021-01-15] MEDS: VESICARE~ORDER AWAITING ACTION SCH ×2 (00:01→08:59)
[2021-01-15] MEDS: ACETAMINOPHEN 325 MG TAB PO PRN (00:15)
[2021-01-15] MEDS: MULTIVITAMIN TAB PO SCH (08:59)
[2021-01-15] MEDS: CeleBREX 200 MG CAP PO SCH (08:59)
[2021-01-15] MEDS: amLODIPine BESYLATE 5 MG TAB PO SCH (08:59)
[2021-01-15] MEDS: METOPROLOL SUCC 25MG EXT REL TAB PO SCH (09:00)
[2021-01-15] MEDS: ENOXAPARIN INJ 40 MG/0.4 ML SYR SQ SCH (09:00)
[2021-01-15] MEDS: LIDOCAINE 5% 1 PATCH TD SCH (09:01)
[2021-01-15] MEDS ORDERED: Nursing to Pharmacy Communication SCH (09:15)
[2021-01-15] MEDS ORDERED: MICONAZOLE NITRATE POWDER 43 GM EXT PRN (09:26)
--- NOTE | 2021-01-15 09:36 | Discharge Summary ---
Date of Service January 15, 2021 Admission HPI Per Admitting Provider Shayna Posada is a 70-year-old female who presents to the ER after falling at home. She reports repeated falls due to weakness in bilateral lower extremities but especially her right side. She finds herself dragging her right leg a lot and cannot get it up stairs. She reports having stairs into her house and has had to make a half step out of newspaper to enable her to get into the house. That had been working up until today and while trying to get up her steps she was unable to life her right leg up the step at all and felt very wobbly and her legs gave way and she fell backwards. No dizziness or chest pain before the fall. She did report feeling short of breath as she was trying her hardest for about 10 minutes to try and get her leg up the steps. She denies any new one sided weakness, change in speech, hearing or vision. She feels her weakness has been longstanding but progressing more recently. In the ER imaging revealed no fractures but multiple areas of osteoarthritis most notably in her right hip in addition to severe spinal stenosis. She felt unsafe to go home as she cannot make it up her steps at the current time. Therefore she was referred to medicine for admission and ongoing management of fall and weakness. Admission Exam Per Admitting Provider Constitutional: well developed and + obese; + not well nourished and no acute distress Eyes: + anicteric sclerae; normal pupil size ENMT: external ear and nose normal, oropharynx normal Neck: trachea midline, no thyromegaly Respiratory: normal respiratory effort, lungs clear to auscultation Cardiovascular: Rate/Rhythm: regular rate and regular rhythm Heart Sounds: no murmur Extremities: normal capillary refill and + pedal edema (Large legs but only trace edema to knees b/l); no calf tenderness Gastrointestinal (Abdomen): normal bowel sounds, soft, nontender, no hepatosplenomegaly Musculoskeletal: Hip: + limited ROM of hip (unable to hip flex on right against gravity 2/5, pain on rotation); no effusion, no skin erythema, no ecchymosis and no joint line tenderness Knee: + effusion (bilateral), + limited ROM of knee (unable to extend right knee against gravity 2/5) and + joint line tenderness (bilateral R > L) Skin: no rashes, warm and dry (longstanding venous dermatitis changes) Neurologic: + focal motor deficit (as above, unable to hip flex or knee extend on right) and awake; not confused Speech / Cognition: normal speech Motor/Sensory: no tremor and no pronator drift Cranial Nerves: PERRL and normal facial strength Psychiatric: A+Ox3, euthymic affect Genitourinary: no CVA tenderness Principal Diagnosis Ambulatory dysfunction Discharge Exam Constitutional: well developed and + obese; no acute distress Respiratory: normal respiratory effort, lungs clear to auscultation Cardiovascular: Rate/Rhythm: regular rate and regular rhythm Heart Sounds: no murmur Extremities: + pedal edema; no calf tenderness Gastrointestinal (Abdomen): normal bowel sounds, soft, nontender, no hepatosplenomegaly Skin: no rashes, warm and dry (longstanding venous dermatitis changes) Neurologic: awake; not confused Speech / Cognition: normal speech Psychiatric: A+Ox3, euthymic affect Genitourinary: no CVA tenderness Discharge Data Allergies Allergy/AdvReac Type Severity Reaction Status Date / Time naproxen Allergy Mild FEET SWELL Verified 01/10/21 16:15 Jirwlzl-Cha-Qvt Reductase Allergy Mild GENERAL Verified 01/10/21 16:15 Inhibitor MALAISE tramadol Allergy Mild RESTLESS Verified 01/10/21 16:15 LEG SYNDROME BUTTERFLY DRESSING ADHESIVE AdvReac Mild RED SKIN Uncoded 01/10/21 16:15 Consultations 01/10/21 18:13 ED Decision to Admit Stat 01/11/21 07:29 Consult Orthopedic Surgery Routine 01/11/21 14:14 Consult Orthopedic Surgery Routine Ordered Studies 01/10/21 15:13 CT abd pelvis wo con Stat CT head/brain wo con Stat CT lumbar spine wo con Stat Hospital Course (1) Spinal stenosis at L4-L5 level: Shayna Posada is a 70-year-old female with PMH of HTN, OA, urge incontinence, and venous stasis dermatitis who was admitted due to mechanical fall/ambulatory dysfunction. Recurrent Falls/Ambulatory Dysfunction - likely multifactorial with severe osteoarthritis in multiple joints and spinal stenosis - PT/OT consulted -Patient is high fall risk, will need inpatient rehab discharge - Patient being discharged to [facility] - Ortho consulted -- recommendations as outlined below Osteoarthritis Knee and hip: - Continue Celebrex and monitor for feet swelling (side effect of her taking naproxen) - Ortho consulted: - continue conservative treatments - Recommend NSAIDs, patient was started on Celebrex - will order Lidoderm patches and custom fitted hinged knee brace for the right knee - Patient had corticosteroid of right knee done while admitted - Patient will be provided custom knee brace--this will be sent to her when ready Spinal Stenosis - At L4-L5 level - As above likely contributing towards current weakness but patient refuses surg wilber for this - Ortho spine c/s: - She is not interested in any type of surgical intervention. We recommend continued conservative treatment. - Acute right sacral ala fracture: toe-touch weightbearing status right lower extremity w/ assistance of a walker - Recommend rehab upon discharge. Surgical intervention is not warranted for this type of fracture. Urge Incontinence - Continued home solifenacin 10mg PO daily and oxybutynin 15mg PO daily - Possibly related with spinal stenosis above Hypertension - Continued home amlodipine 5mg PO daily, lisinopril 40mg PO daily and metoprolol 25mg PO BID FENGI: Regular Dispo: Transfer to inpatient rehab facility (2) Recurrent falls: (3) Ambulatory dysfunction: (4) Urge incontinence: (5) Osteoarthritis: Total Time Total Time Spent Total Time Spent (In Minutes): See attending attestation Discharge Plan Discharge Items Patient Disposition: Transfer Inpatient Rehab Fac Reason For Visit: RECURRENT FALLS Discharge Diagnosis: Spinal stenosis, osteoarthritis, ambulatory dysfunction Activity: Per Instructions section Non-emergency contact: Primary Care Provider Call non-emergency contact if: your symptoms worsen Follow-up/Referrals: Shay Cassidy DO [Primary Care Provider] - Diet: Regular Addtl Attending Provider Instructions: Shayna Posada came to [facility] due to recurrent falls and bilateral lower extremity weakness. She was found to have spinal stenosis at the L4-L5 level as well as severe osteoarthritis of right hip and tricompartmental osteoarthritis of the bilateral knees. She was evaluated by orthopedic surgery, who recommended a custom-fitted knee brace for her right knee, as well as continued conservative management with Celebrex. She also had corticosteroid injection of the right knee performed. Ms. Posada preferred not to have surgical intervention for her spinal stenosis despite counseling on benefits and possible improvement of symptoms. She was evaluated by PT/OT while admitted, who recommended inpatient rehabi litation for her ambulatory dysfunction. If she develops any severe/concerning signs or symptoms, please return to the hospital. Pending Studies at Discharge: No Stand-Alone Forms: My [facility] Skilled Items Patient informed of condition?: Yes DNR: Yes Discharge Level of Care: Acute rehab Communicable Disease: No Discharge Prognosis: Stable Lines: None Urinary Catheter: No Medications and DC Order Prescriptions: New celecoxib [Celebrex] 200 mg Capsule 200 mg PO QAM 30 Days Qty: 30 RF: 0 Continued multivitamin [Daily Multi-Vitamin] Tablet 1 tab PO QAM RF: 0 solifenacin 10 mg tablet 10 mg PO QDL RF: 0 metoprolol succinate 25 mg tablet extended release 24 hr 25 mg PO BID RF: 0 lisinopril 40 mg tablet 40 mg PO QDD RF: 0 amlodipine [Norvasc] 5 mg Tablet 5 mg PO QAM RF: 0 oxybutynin chloride 15 mg tablet extended release 24hr 15 mg PO QDL RF: 0 cinnamon bark [Cinnamon] 500 mg Capsule 500 mg PO QDL RF: 0 ibuprofen 200 mg Tablet 200 mg PO DAILY PRN (Reason: Pain) RF: 0 Tumeric 500mg 500 mg PO QID RF: 0 Discontinued doxycycline hyclate 100 mg tablet 100 mg PO BID RF: 0 Goody's Extra Strength 500-325-65 mg Powder In Packet 1 ea PO UD RF: 0 Discharge Orders: Discharge Order (Routine); Ordered 01/15/21 [facility] Data Admit Date/Time: 01/11/21 14:51 Attending Provider: Tabitha Walker Admit Provider: Casey Pires Primary Care Provider: Shay Cassidy Other Providers: Casey Pires ; Elvis De La Rosa ; [facility] ; Joel Almanza ; [facility] Other Interventions: Discharge Summary Assessment (RN) Last Done: 01/15/21 10:46 Supervising Physician Co-Signing Physician Notes Resident Physician Supervision Note: I independently interviewed and examined the patient and verified the sanchez history and physical, reviewed labs and image studies, discussed the case with the resident Dr. Acevedo and agree with the findings and care plan. Resident Activity Tracking Resident Involvement: Resident Care Provided Care Provided: Adult Hospital Medicine
[2021-01-15] MEDS: OXYBUTYNIN CHLORIDE XL 5 MG TABCR PO SCH (11:22)
== END 2021-01-15 14:24 | DRG 554 ==
LOC: ED 14:42 → 3W 14:42 → SUATTDRO 19:04 → 3W 20:07

== ENCOUNTER 2021-07-02 13:39 | Inpatient (IN) ==
[2021-07-02 14:13] LABS: Basophils # (auto) 0.01 K/uL (0-0.2); Basophils % (auto) 0.2 %; Eosinophils # (auto) 0.08 K/uL (0-0.5); Eosinophils % (auto) 1.4 %; Hematocrit (blood only) 34.3 % (37-47); Immature Granulocytes # (auto) 0.01 K/uL (0.00-0.02); Immature Granulocytes % (auto) 0.2 %; Lymphocytes # (auto) 1.28 K/uL (1.2-3.4); Lymphocytes % (auto) 23.1 %; Mean Corpuscular Hemoglobin 27.1 pg (25-34); Mean Corpuscular Hgb Conc 32.1 g/dL (32-36); Mean Corpuscular Volume 84.5 fL (80-100); Mean Platelet Volume 9.9 fL (7.4-10.4); Monocytes % (auto) 5.4 %; Neutrophils # (auto) 3.86 K/uL (1.4-6.5); Neutrophils % (auto) 69.7 %; Platelet Count 195 K/uL (130-400); RDW Coefficient of Variation 15.3 % (11.5-14.5); RDW Standard Deviation 47.5 fL (36.4-46.3); Red Blood Count 4.06 M/uL (4.2-5.4); White Blood Count 5.54 K/uL (4.8-10.8)
--- NOTE | 2021-07-02 14:23 | XRay Report ---
XR pelvis 1-2V routine CLINICAL HISTORY: pain confusion, weakness TECHNIQUE: A single frontal view of the pelvis was obtained. Comparison: Comparison is made to pelvic radiograph 06/15/2021 FINDINGS: There is no evidence of acute fracture or dislocation. The bones are anatomically aligned. Severe deg enerative changes are seen in the hip joints, right greater than left. Incidental note is made of pro minent stool burden in the rectum. IMPRESSION: No evidence of acute bony injury. ACT 112: Negative or not required by law. Electronically signed by: Jorge Merrill M.D. 07/02/2021 2:22 PM
[2021-07-02 14:24] LABS: Partial Thromboplastin Ratio 0.9; Partial Thromboplastin Time 24.5 Seconds (21.0-31.0); Prothrombin Time 10.3 Seconds (9.0-12.0)
--- NOTE | 2021-07-02 14:27 | Emergency Department Note ---
Impression & Plan DVT of lower extremity, bilateral, Heart palpitations, Frequent PVCs ED Provider Note NAME: COOKIE NI AGE: 70 SEX: F : 1950 ARRIVES VIA: Ambulance INFORMANT: Patient, ED PROVIDER(S): Giovani Vo DO CHIEF COMPLAINT: Weakness HPI: The patient is a 70-year-old female who presented to the emergency department for an evaluation of generalized weakness. The patient has had ongoing symptoms for the last few months. She also has right hip pain. This is also been going on for many months. The patient also started noticing palpitations today. When she went to get up she felt that she was having palpitations and skipped heartbeats. She never had this before. She was evaluated by home health and they sent her pulse was 35 bpm. She presented to the emergency department by ambulance. She states that she did not take her blood pressure medication today otherwise she has been compliant with all of her usual medications. She denies having any chest pain. She is having difficulty breathing. She notices lower extremity swelling which is not new but does appear to be worsened. She has had no recent trauma. She denies having any headaches. She also states that she has noticed some right upper extremity shaking that began over the last week. She denies having any cough or fever. ROS: See above HPI for pertinent positives & negatives. A total of 10 systems reviewed and were otherwise negative. PAST MEDICAL HISTORY: See Below PAST SURGICAL HISTORY: See Below FAMILY HISTORY: See Below SOCIAL HISTORY: See Below HOME MEDICATIONS: See Below ALLERGIES: See Below VITALS: See Below PHYSICAL EXAMINATION: GENERAL: Patient is awake alert in no acute distress patient is resting comfortably and showing no signs of anxiety EYES: The conjunctivae are clear. The pupils are round and reactive. EARS, NOSE, MOUTH AND THROAT: The nose is without any evidence of any deformity. Mucous membranes are moist. Tongue is midline. NECK: The neck is nontender and supple. RESPIRATORY: Normal respiratory effort is noted there is no evidence of wheezing rhonchi or rales CARDIOVASCULAR: Ectopy was noted to auscultation. There is no definite murmur. GASTROINTESTINAL: The abdomen is soft. Abdomen is nontender. MUSCULOSKELETAL/EXTREMITIES: There is no evidence of gross deformity full range of motion is noted in the hips and shoulders. SKIN: Pedal edema was noted bilaterally. There was erythema and venous stasis changes. Skin was warm and dry. NEUROLOGIC: Patient is awake alert and oriented x3. Strength was diminished but symmetric. MEDICAL DECISION MAKING: The patient is a 70-year-old female who presented to the emergency department for an evaluation of lower extremity swelling and palpitations. The patient has had ongoing symptoms of groin pain for many months. She was seen recently in our facility and had a work-up which was similar. The patient states she currently does not take any blood thinners. I discussed the patient's laboratory and radiographic studies with her. This included lower extremity Dopplers which were positive for acute DVT but also some chronic DVT. This was puzzling as the patient did not know she had a history of DVT. She was treated with Lovenox in the emergency department. I discussed the patient's laboratory and [facility] studies [facility]. [facility] have agreed to evaluate the patient in the emergency department for further management and disposition. Triage Nursing notes reviewed. Prior medical records reviewed Vital Signs: reviewed and remarkable for elevated blood pressure. Differential diagnosis: Infection, dehydration, metabolic abnormality, hypo/hyperglycemia, electrolyte disturbance, anemia, hypoxia, cardiac sources, intracerebral event, toxicologic, neurologic, as well as other pathologies. ER treatment provided: See below Diagnostics interpreted by me: ECG: EKG was obtained in the emergency department. My interpretation is sinus rhythm at 87 bpm. Right bundle branch block pattern was noted. Inferior Q waves were also noted. Frequent PVCs were appreciated. This was compared to a tracing from June 152020. The ectopy was new however no other significant changes were noted. Cardiac Monitoring: An order was placed for continuous cardiac monitoring. The monitor shows a rate of 90 bpm with sinus with PVCs rhythm. Laboratory studies: As stated above and show below. Imaging studies: See below Consultation(s): I discussed this case with Francisco who is on-call for the [facility] hospitalist group. Past Med/Surg History Medical History (Updated 07/02/21 @ 21:49 by Giovani Vo DO) Breast CA DVT (deep venous thrombosis) Hypertension Morbid obesity with BMI of 40.0-44.9, adult No pertinent family history Osteoarthritis Urge incontinence Venous stasis Surgical History No pertinent past surgical history Social History Smoking Status: Never smoker Second Hand Exposure: No; Do You Dip or Chew Tobacco: No; Tobacco Cessation Education Requested by Patient: No Hx Alcohol Use: No Hx Substance Use: No Preferred Language: Telugu Communication Ability: Effective Communication Ability Comment: UNHAPPY Services Advisor Required: No Beliefs That Will Affect Care: None marital status: Single Current Living Situation: Family Current Living Situation Comment: HOME WITH SISTER Other Information That Helps Us Care for You: No Feels Safe at Home: Yes Safety Concerns: Feels Safe At This Time Assistive Devices: Walker Assistive Devices Comment: PERSON MAX ASSIST Allergies Allergies Allergy/AdvReac Type Severity Reaction Status Date / Time naproxen Allergy Mild FEET SWELL Verified 07/02/21 16:19 [id number] Reductase Allergy Mild GENERAL Verified 07/02/21 16:19 Inhibitor MALAISE [Mpvoqyq-Fvq-Hxk Reductase Inhibitor] tramadol Allergy Mild RESTLESS Verified 07/02/21 16:19 LEG SYNDROME adhesive AdvReac Mild RED SKIN Verified 07/02/21 21:39 FROM [employer] Home Meds Home Medications Medication Instructions Recorded Confirmed amlodipine 5 mg tablet (Norvasc) 5 mg PO HS 07/11/20 07/02/21 cinnamon bark 500 mg capsule 500 mg PO QDL 07/11/20 07/02/21 (Cinnamon) ibuprofen 200 mg tablet 400 mg PO DAILY PRN 07/11/20 07/02/21 lisinopril 40 mg tablet 40 mg PO QAM 07/11/20 07/02/21 metoprolol succinate 25 mg 25 mg PO BID 07/11/20 07/02/21 tablet,extended release 24 hr multivitamin (Daily Multi-Vitamin) 1 tab PO QAM 08/10/20 07/02/21 solifenacin 10 mg tablet 10 mg PO QDL 12/09/20 07/02/21 Tumeric 500mg 1,000 mg PO AC 01/10/21 07/02/21 Gut Restore 1 tab PO QAM 06/15/21 07/02/21 Prevagen 1 tab PO QAM 06/15/21 07/02/21 cholecalciferol (vitamin D3) 25 25 mcg PO QAM 06/15/21 07/02/21 mcg (1,000 unit) capsule (Vitamin D3) hydrocodone 5 mg-acetaminophen 325 1 tab PO Q6H PRN 06/15/21 07/02/21 mg tablet menthol 2.5 % topical gel (BenGay 1 applic TOPICAL Q4H PRN 06/15/21 07/02/21 Vanishing Scent) phenazopyridine 95 mg tablet 95 mg PO QID PRN 06/15/21 07/02/21 selenium 100 mcg tablet 100 mcg PO QAM 06/15/21 07/02/21 Results & Data (ED) Vital Signs Vital Signs - 24 hr 07/02/21 14:07 07/02/21 15:15 07/02/21 16:00 Temperature 36.5 C Temperature Source Oral Pulse Rate 89 Pulse Rate [Apical] 90 75 Pulse Rate from SpO2 Sensor Respiratory Rate 18 19 Respiratory Effort / Characteristics Non-Labored Respiratory Depth Normal Respiratory Pattern Regular Blood Pressure 181/98 H Blood Pressure [Right Arm] 114/71 123/57 L Blood Pressure Mean 125 Blood Pressure Mean [Right Arm] 85 79 Pulse Oximetry 97 98 97 Oxygen Delivery Method Room Air Room Air Room Air Sepsis Recent Fever Within 48 Hours No Sepsis New/Unexplained Change in Mental Status N/A Sepsis Action Taken by Nursing No Action Required 07/02/21 16:30 07/02/21 17:00 Temperature Temperature Source Pulse Rate Pulse Rate [Apical] 89 Pulse Rate from SpO2 Sensor 93 H Respiratory Rate 20 Respiratory Effort / Characteristics Respiratory Depth Respiratory Pattern Blood Pressure 133/79 Blood Pressure [Right Arm] 126/76 Blood Pressure Mean 97 Blood Pressure Mean [Right Arm] 92 Pulse Oximetry 97 95 Oxygen Delivery Method Room Air Room Air Sepsis Recent Fever Within 48 Hours Sepsis New/Unexplained Change in Mental Status Sepsis Action Taken by Intermediate Medications Current Medication List: was personally reviewed by me Laboratory Data Attestation: I reviewed the patient's lab results. Result diagrams: 07/03/21 09:23 07/03/21 09:23 Lab Results 07/02/21 07/02/21 07/02/21 Range/Units 13:56 13:56 13:56 WBC 5.54 (4.8-10.8) K/uL RBC 4.06 L (4.2-5.4) M/uL Hgb 11.0 L (12.0-16.0) g/dL Hct 34.3 L (37-47) % MCV 84.5 (80-100) fL MCH 27.1 (25-34) pg MCHC 32.1 (32-36) g/dL RDW Std Deviation 47.5 H (36.4-46.3) fL RDW Coeff of Bev 15.3 H (11.5-14.5) % Plt Count 195 (130-400) K/uL MPV 9.9 (7.4-10.4) fL Immature Gran % (Auto) 0.2 % Neut % (Auto) 69.7 % Lymph % (Auto) 23.1 % [place] % (Auto) 5.4 % Eos % (Auto) 1.4 % Baso % (Auto) 0.2 % Neut # (Auto) 3.86 (1.4-6.5) K/uL Lymph # (Auto) 1.28 (1.2-3.4) K/uL [place] # (Auto) 0.30 (0.11-0.59) K/uL Eos # (Auto) 0.08 (0-0.5) K/uL Baso # (Auto) 0.01 (0-0.2) K/uL Immature Gran # (Auto) 0.01 (0.00-0.02) K/uL ESR (0-30) mm/hr PT 10.3 (9.0-12.0) Seconds INR 1.0 (0.9-1.1) APTT 24.5 (21.0-31.0) Seconds PTT Ratio 0.9 Sodium 138 (136-145) mmol/L Potassium 4.0 (3.5-5.1) mmol/L Chloride 108 H (98-107) mmol/L Carbon Dioxide 23 (21-32) mmol/L Anion Gap 7.0 (3-11) BUN 39 H (7-18) mg/dl Creatinine 0.83 (0.6-1.2) mg/dl Est Cr Clr Drug Dosing 64.3 ml/min Est GFR ( Amer) 81.7 ml/min Est GFR (Non-Af Amer) 70.4 ml/min BUN/Creatinine Ratio 47.3 H (10-20) Glucose 93 (70-99) mg/dl Calcium 10.3 H (8.5-10.1) mg/dl Magnesium 2.5 H (1.8-2.4) mg/dl Total Bilirubin 0.5 (0.2-1) mg/dl AST 22 (15-37) U/L ALT 19 (12-78) U/L Alkaline Phosphatase 69 (45-117) U/L Total Creatine Kinase 126 (26-192) U/L Troponin I < 0.015 (0-0.045) ng/ml C-Reactive Protein 0.96 H (0-0.29) mg/dl NT-Pro-B Natriuret Pep 965 H (0-900) pg/ml Total Protein 7.0 (6.4-8.2) gm/dl Albumin 3.0 L (3.4-5.0) gm/dl Globulin 4.0 (2.5-4.0) gm/dl Albumin/Globulin Ratio 0.8 L (0.9-2) TSH 0.540 (0.300-4.500) uIu/ml COVID-19 Eval Order SARS-CoV-2 (PCR) (Negative) 07/02/21 07/02/21 07/02/21 Range/Units 13:56 14:15 14:15 WBC (4.8-10.8) K/uL RBC (4.2-5.4) M/uL Hgb (12.0-16.0) g/dL Hct (37-47) % MCV (80-100) fL MCH (25-34) pg MCHC (32-36) g/dL RDW Std Deviation (36.4-46.3) fL RDW Coeff of Bev (11.5-14.5) % Plt Count (130-400) K/uL MPV (7.4-10.4) fL Immature Gran % (Auto) % Neut % (Auto) % Lymph % (Auto) % [place] % (Auto) % Eos % (Auto) % Baso % (Auto) % Neut # (Auto) (1.4-6.5) K/uL Lymph # (Auto) (1.2-3.4) K/uL [place] # (Auto) (0.11-0.59) K/uL Eos # (Auto) (0-0.5) K/uL Baso # (Auto) (0-0.2) K/uL Immature Gran # (Auto) (0.00-0.02) K/uL ESR 22 (0-30) mm/hr PT (9.0-12.0) Seconds INR (0.9-1.1) APTT (21.0-31.0) Seconds PTT Ratio Sodium (136-145) mmol/L Potassium (3.5-5.1) mmol/L Chloride (98-107) mmol/L Carbon Dioxide (21-32) mmol/L Anion Gap (3-11) BUN (7-18) mg/dl Creatinine (0.6-1.2) mg/dl Est Cr Clr Drug Dosing ml/min Est GFR ( Amer) ml/min Est GFR (Non-Af Amer) ml/min BUN/Creatinine Ratio (10-20) Glucose (70-99) mg/dl Calcium (8.5-10.1) mg/dl Magnesium (1.8-2.4) mg/dl Total Bilirubin (0.2-1) mg/dl AST (15-37) U/L ALT (12-78) U/L Alkaline Phosphatase (45-117) U/L Total Creatine Kinase (26-192) U/L Troponin I (0-0.045) ng/ml C-Reactive Protein (0-0.29) mg/dl NT-Pro-B Natriuret Pep (0-900) pg/ml Total Protein (6.4-8.2) gm/dl Albumin (3.4-5.0) gm/dl Globulin (2.5-4.0) gm/dl Albumin/Globulin Ratio (0.9-2) TSH (0.300-4.500) uIu/ml COVID-19 Eval Order Covid19 at [facility] SARS-CoV-2 (PCR) NEGATIVE (Negative) Administered Medications Amlodipine Besylate (Amlodipine Besylate 5 Mg Tab) 5 mg PO HS EMRE Stop: 08/01/21 21:21 Last Admin: 07/03/21 00:27 Dose: 5 mg Documented by: [id number] Ceftriaxone Sodium 2,000 mg/ (Dextrose) 70 mls @ 100 mls/hr IV DAILY@1100 EMRE; Protocol Stop: 07/08/21 10:59 Last Infusion: 07/03/21 11:27 Dose: 0 mls/hr Documented by: [id number] Admin: 07/03/21 10:41 Dose: 100 mls/hr Documented by: [id number] Lisinopril (Lisinopril 40 Mg Tab) 40 mg PO QAM EMRE Stop: 08/02/21 08:59 Last Admin: 07/03/21 08:42 Dose: 40 mg Documented by: [id number] Metoprolol Succinate (Metoprolol Succ 25mg Ext Rel Tab) 25 mg PO BID EMRE Stop: 08/01/21 21:21 Last Admin: 07/03/21 08:43 Dose: 25 mg Documented by: [id number] Admin: 07/03/21 00:27 Dose: 25 mg Documented by: [id number] Vitamin D (Cholecalciferol 1,000 Units 25 Mcg Tab) 1,000 units PO QAM EMRE Stop: 08/02/21 08:59 Last Admin: 07/03/21 08:43 Dose: 1,000 units Documented by: [id number] Discontinued Medications Enoxaparin Sodium (Enoxaparin 80 Mg/0.8 Ml Syr) 80 mg SQ NOW ONE Stop: 07/02/21 16:51 Last Admin: 07/02/21 17:19 Dose: 80 mg Documented by: [id number] Enoxaparin Sodium (Enoxaparin 80 Mg/0.8 Ml Syr) 80 mg SQ Q12H EMRE Stop: 08/02/21 05:59 Last Admin: 07/03/21 06:23 Dose: 80 mg Documented by: [id number] Furosemide (Furosemide 40 Mg/4 Ml Vial) 20 mg IV NOW STA Stop: 07/02/21 18:05 Last Admin: 07/02/21 18:36 Dose: 20 mg Documented by: [id number] Ioversol (Optiray 320 125ml) 113 ml IV ONCE ONE Stop: 07/02/21 17:12 Last Admin: 07/02/21 17:12 Dose: 113 ml Documented by: [id number] Imaging Data Radiologist's Impression: Chest X-Ray 07/02/21 13:55 XR chest 1V portable HISTORY: weakness COMPARISON: Chest 06/15/2021. FINDINGS: No focal lung consolidations to suggest pneumonia. No evidence for pulmonary edema. The heart remains mildly enlarged. No pleural effusions. No pneumothorax. Old, healed bilateral rib fractures again noted. IMPRESSION: No significant change compared to the prior study. No acute process. ACT 112: Negative or not required by law. Electronically signed by: Sandro Benoit M.D. 07/02/2021 2:[address] 07/02/21 13:55 CT SCAN OF THE BRAIN WITHOUT IV CONTRAST CLINICAL HISTORY: Generalized weakness. COMPARISON STUDY: CT of the brain dated 06/15/2021. TECHNIQUE: Unenhanced axial CT scan of the brain is performed from the vertex to the skull base. A dose lowering technique was utilized adhering to the principles of ALARA. CT DOSE: 614.27 mGy.cm FINDINGS: Brain parenchyma: There are age-related involutional changes noting mild subcortical and periventricular microangiopathic change. There is no hemorrhage, mass effect, or evidence of acute territorial ischemia by CT criteria. Khan- white matter differentiation is preserved. No extra-axial fluid collection is seen. Ventricles, sulci, cisterns: Prominent secondary to involutional change. Intracranial vasculature: There is atherosclerotic calcification of the cavernous carotid and vertebral arteries. Calvarium: Unremarkable. Sinuses and mastoids: The visualized paranasal sinuses are clear. The mastoid air cells are well pneumatized. Orbits: The bony orbits are grossly intact. IMPRESSION: There is no hemorrhage, mass effect, or evidence of acute terr itorial ischemia by CT criteria. ACT 112: Negative or not required by law. Electronically signed by: Darnell Oates M.D. 07/02/2021 2:50 PM Pelvis X-Ray 07/02/21 13:56 XR pelvis 1-2V routine CLINICAL HISTORY: pain confusion, weakness TECHNIQUE: A single frontal view of the pelvis was obtained. Comparison: Comparison is made to pelvic radiograph 06/15/2021 FINDINGS: There is no evidence of acute fracture or dislocation. The bones are anatomically aligned. Severe degenerative changes are seen in the hip joints, right greater than left. Incidental note is made of prominent stool burden in the rectum. IMPRESSION: No evidence of acute bony injury. ACT 112: Negative or not required by law. Electronically signed by: Jorge Merrill M.D. 07/02/2021 2:22 PM Venous Doppler Study 07/02/21 13:56 ULTRASOUND BILATERAL LOWER EXTREMITY VENOUS CLINICAL HISTORY: Deep venous thrombosis. Lower extremity edema COMPARISON STUDY: Bilateral lower extremity venous ultrasound dated 06/15/2021 TECHNIQUE: Real-time, grayscale, and color Doppler sonography of the deep veins of the right and left lower extremity was performed from the inguinal crease to the calf. Compression and augmentation were utilized. FINDINGS: Right lower extremity: Nonocclusive and age indeterminant deep venous thrombosis is seen within the common femoral vein and the popliteal vein. The superficial femoral vein is patent and normally compressible. Nonocclusive superficial venous thrombus is seen within the greater saphenous vein. The profunda femoris vein at the junction with the common femoral vein is clear. Superficial venous thrombus is also seen in the popliteal fossa. The visualized calf veins are patent. Left lower extremity: There is acute appearing and nearly occlusive deep venous thrombosis seen in the left common femoral vein, throughout the superficial femoral vein, and the popliteal vein. There is also thrombus within the posterior tibial vein and the calf. The greater saphenous vein and the profunda femoris vein at the junction with the common femoral vein are clear. IMPRESSION: Bilateral deep venous thrombosis as above. This is similar to the 06/15/2021 examination. ACT 112: Negative or not required by law. Electronically signed by: Darnell Oates M.D. 07/02/2021 3:30 PM Chest CTA 07/02/21 16:39 CT angio chest PE protocol CLINICAL HISTORY: PE TECHNIQUE: Multidetector row helical CT of the chest was performed. Coronal and sagittal reformations were obtained. Automated dose lowering techniques and/or adjustment according to patient size were utilized for this exam. Comparison: None available at the time of this dictation. FINDINGS: Lungs and pleura: Bibasilar atelectasis is seen. Heart and pericardium: There is cardiomegaly without evidence of pericardial e ffusion. Vessels: The pulmonary trunk is enlarged measuring 35 mm in diameter. No evidence of pulmonary embolus. Mediastinum and lavinia: Unremarkable. Chest wall and lower neck: Thyroid is prominent without evidence of nodule. Abdomen: A cyst is incidentally noted in the liver. Bones: Degenerative changes in the thoracic spine. IMPRESSION: 1. No evidence of pulmonary embolism. 2. Pulmonary hypertension. ACT 112: Negative or not required by law. Electronically signed by: Jorge Merrill M.D. 07/02/2021 5:44 PM Discharge Plan Visit Data Chief Complaint: Cardiac Assessment Stated Complaint: CARDIAC ASSESSMENT ED Provider: Giovani Vo Discharge Problem: DVT of lower extremity, bilateral, Heart palpitations, Frequent PVCs Patient Disposition: Admitted As Inpatient Discharge Instructions Interventions: ED Discharge Assessment Last Done: 07/02/21 20:36 Discharge Problem: DVT of lower extremity, bilateral Qualifiers: Affected thrombotic vein of extremity: unspecified vein of extremity Chronicity: acute Qualified Code(s): I82.403 - Acute embolism and thrombosis of unspecified deep veins of lower extremity, bilateral
[2021-07-02 14:33] LABS: Aspartate Aminotransferase 22 U/L (15-37); BUN Creatinine Ratio 47.3 (10-20); Blood Urea Nitrogen 39 mg/dl (7-18); Calcium 10.3 mg/dl (8.5-10.1); Carbon Dioxide 23 mmol/L (21-32); Chloride 108 mmol/L (98-107); Creatinine Clr Calc Pharmacy 64.3 ml/min; Est GFR (African American) 81.7 ml/min; Est GFR (Non-African American) 70.4 ml/min; Glucose 93 mg/dl (70-99); Magnesium 2.5 mg/dl (1.8-2.4); Sodium 138 mmol/L (136-145)
--- NOTE | 2021-07-02 14:33 | XRay Report ---
XR chest 1V portable HISTORY: weakness COMPARISON: Chest 06/15/2021. FINDINGS: No focal lung consolidations to suggest pneumonia. No evidence for pulmonary edema. The hea rt remains mildly enlarged. No pleural effusions. No pneumothorax. Old, healed bilateral rib fracture s again noted. IMPRESSION: No significant change compared to the prior study. No acute process. ACT 112: Negative or not required by law. Electronically signed by: Sandro Benoit M.D. 07/02/2021 2:32 PM
[2021-07-02 14:47] LABS: Alanine Aminotransferase 19 U/L (12-78); Albumin Globulin Ratio 0.8 (0.9-2); Alkaline Phosphatase 69 U/L (45-117); Bilirubin,Total 0.5 mg/dl (0.2-1); C Reactive Protein 0.96 mg/dl (0-0.29); Creatine Kinase 126 U/L (26-192); Troponin I < 0.015 ng/ml (0-0.045)
--- NOTE | 2021-07-02 14:51 | CT Scan Report ---
CT SCAN OF THE BRAIN WITHOUT IV CONTRAST CLINICAL HISTORY: Generalized weakness. COMPARISON STUDY: CT of the brain dated 06/15/2021. TECHNIQUE: Unenhanced axial CT scan of the brain is performed from the vertex to the skull base. A do se lowering technique was utilized adhering to the principles of ALARA. CT DOSE: 614.27 mGy.cm FINDINGS: Brain parenchyma: There are age-related involutional changes noting mild subcortical and periventric ular microangiopathic change. There is no hemorrhage, mass effect, or evidence of acute territorial i schemia by CT criteria. Khan-white matter differentiation is preserved. No extra-axial fluid collecti on is seen. Ventricles, sulci, cisterns: Prominent secondary to involutional change. Intracranial vasculature: There is atherosclerotic calcification of the cavernous carotid and vertebr al arteries. Calvarium: Unremarkable. Sinuses and mastoids: The visualized paranasal sinuses are clear. The mastoid air cells are well pneu matized. Orbits: The bony orbits are grossly intact. IMPRESSION: There is no hemorrhage, mass effect, or evidence of acute territorial ischemia by CT crit anastacia. ACT 112: Negative or not required by law. Electronically signed by: Darnell Oates M.D. 07/02/2021 2:50 PM
--- NOTE | 2021-07-02 15:17 | Electrocardiogram Report ---
Test Reason : Blood Pressure : / mmHG Vent. Rate : 087 BPM Atrial Rate : 087 BPM P-R Int : 192 ms QRS Dur : 162 ms QT Int : 448 ms P-R-T Axes : 042 015 009 degrees QTc Int : 539 ms Poor data quality, interpretation may be adversely affected Sinus rhythm with frequent Premature ventricular complexes with 1st degree A-V block Possible Left atrial enlargement Indeterminate axis Right bundle branch block Inferior infarct , age undetermined Anteroseptal infarct (cited on or before 15-JUN-2021) Abnormal ECG When compared with ECG of 15-JUN-2021 13:49, Premature ventricular complexes are now Present Confirmed by Ron Campoverde ([id number]) on 07/02/2021 3:17:13 PM Referred By: Confirmed By:Ron Campoverde
--- NOTE | 2021-07-02 15:32 | Ultrasound Report ---
ULTRASOUND BILATERAL LOWER EXTREMITY VENOUS CLINICAL HISTORY: Deep venous thrombosis. Lower extremity edema COMPARISON STUDY: Bilateral lower extremity venous ultrasound dated 06/15/2021 TECHNIQUE: Real-time, grayscale, and color Doppler sonography of the deep veins of the right and left lower extremity was performed from the inguinal crease to the calf. Compression and augmentation wer e utilized. FINDINGS: Right lower extremity: Nonocclusive and age indeterminant deep venous thrombosis is seen within the c ommon femoral vein and the popliteal vein. The superficial femoral vein is patent and normally compre ssible. Nonocclusive superficial venous thrombus is seen within the greater saphenous vein. The profu nda femoris vein at the junction with the common femoral vein is clear. Superficial venous thrombus i s also seen in the popliteal fossa. The visualized calf veins are patent. Left lower extremity: There is acute appearing and nearly occlusive deep venous thrombosis seen in th e left common femoral vein, throughout the superficial femoral vein, and the popliteal vein. There is also thrombus within the posterior tibial vein and the calf. The greater saphenous vein and the prof unda femoris vein at the junction with the common femoral vein are clear. IMPRESSION: Bilateral deep venous thrombosis as above. This is similar to the 06/15/2021 examination. ACT 112: Negative or not required by law. Electronically signed by: Darnell Oates M.D. 07/02/2021 3:30 PM
[2021-07-02] MEDS ORDERED: ENOXAPARIN 80 MG/0.8 ML SYR SQ ONE (16:50)
[2021-07-02] MEDS ORDERED: OPTIRAY 320 125ml IV ONE (17:11)
--- NOTE | 2021-07-02 17:17 | History & Physical Report ---
Date of Service July 02, 2021 Assessment & Plan (1) DVT (deep venous thrombosis): Plan: Acute on sub-acute bilateral of the deep and superficial venous system - Lovenox 80mg Q12- anti xa level tomorrow 4 hours after am dose (0900) - CTA of the chest negative for PE - With extensive DVT and falls - discussion for conversation to oral agent with patient (2) PVC (premature ventricular contraction): Plan: New and frequent PVCs- generally asymptomatic - says she is taking her medications - Patient denies any cardiac symptoms her Troponin and ECG are negative for acute changes - QT/QTc 448/539 (within her past normals) msK 4.0, Mag 2.5 - Patient with cardiomegaly - obtain ECHO evaluate valve and WMA - Continue BB- see if this decreases ectopy - Diurese - TSH normal - no infective sources at this time - Pulmonary HTN noted via CTA of the chest - does not wear any CPAP at home, HCO3 normal (3) Hypertension: Plan: Well controlled - continue with amlodipine, lisinopril and Metoprolol (4) Chronic venous insufficiency: Plan: Continue with tubi ldr rn application- patietn refuses TEDS or SCDs - no infectious areas on surrounding legs or feet (5) Morbid obesity with BMI of 40.0-44.9, adult: Plan: Continue risk modifying medications as above - physical deconditioning limiting activity weight loss goals (6) Osteoarthritis: Plan: Chronic- Hold Motrin - Diclofenec cream - Tylenol - Hydrocodone/Acetamenophen home dose - PT/OT (7) Spinal stenosis at L4-L5 level: Plan: As above (8) Physical deconditioning: Plan: As above (9) MRSA (methicillin resistant Staphylococcus aureus): Plan: History of lower extremity MRSA of the leg wounds - Contact precautions - MRSA swab of the nares - Patient completed treatment with Doxy in December 30 History of Present Illness Chief Complaint: dizziness Primary Care Provider: Shay Cassidy, DO 70 YOF with past medical history of: Breast CA, HTN, Morbid obesity, OA, Venous stasis ulcerations- managed with tubi-ldr rn, Venous ablation in 11/01, falls, Spinal stenosis L4-L5. Patient comes to the emergency room today for dizziness and weakness- this has been going on for "years", but starting having fluttering in her chest this morning that made the dizziness worse and was associated with dyspnea. This was new for her and when she checked her pulse at home it was noted to be in the 30s. Her Telemetry revealed NSR with frequent PVCs. She had a multitude of tests performed including bilateral ultrasound of her lower legs. This revealed bilateral extensive DVTs acute and chronic. Patient returned home from [facility] over the summer and the last few months she reports sitting much more than she should and not ambulating or doing her exercises. With her onset of PVCs and DVT with some chronicity to them a CTA of the chest was also performed-. Her troponin is negative and her electrolytes are normal. She was started on Lovenox with based 80mg sub q. Patient will be admitted to continue her Lovenox and follow her telemetry and symptoms. Patient has followed with wound care for her lower extremities- she has had MRSA and pseudomonas of her leg wounds in the past. Last culture was in December 30 for MRSA- she was treated with Doxycycline at that time.-- MRSA swab and will place on contact precautions. Patient has received her COVID vaccine and her COVID test on admission is: NEGATIVE Allergies Allergy/AdvReac Type Severity Reaction Status Date / Time naproxen Allergy Mild FEET SWELL Verified 07/02/21 16:19 Yviszod-YJK-PdL Reductase Allergy Mild GENERAL Verified 07/02/21 16:19 Inhibitor MALAISE [Oqxbyrx-Plm-Sah Reductase Inhibitor] tramadol Allergy Mild RESTLESS Verified 07/02/21 16:19 LEG SYNDROME adhesive AdvReac Mild RED SKIN Verified 07/02/21 21:39 FROM BUTTERFLY Home Medications Medication Instructions Recorded Confirmed Type amlodipine 5 mg tablet (Norvasc) 5 mg PO HS 07/11/20 07/02/21 History cinnamon bark 500 mg capsule 500 mg PO QDL 07/11/20 07/02/21 History (Cinnamon) ibuprofen 200 mg tablet 400 mg PO DAILY PRN 07/11/20 07/02/21 History lisinopril 40 mg tablet 40 mg PO QAM 07/11/20 07/02/21 History metoprolol succinate 25 mg 25 mg PO BID 07/11/20 07/02/21 History tablet,extended release 24 hr multivitamin (Daily Multi-Vitamin) 1 tab PO QAM 08/10/20 07/02/21 History solifenacin 10 mg tablet 10 mg PO QDL 12/09/20 07/02/21 History Tumeric 500mg 1,000 mg PO AC 01/10/21 07/02/21 History Gut Restore 1 tab PO QAM 06/15/21 07/02/21 History Prevagen 1 tab PO QAM 06/15/21 07/02/21 History cholecalciferol (vitamin D3) 25 25 mcg PO QAM 06/15/21 07/02/21 History mcg (1,000 unit) capsule (Vitamin D3) hydrocodone 5 mg-acetaminophen 325 1 tab PO Q6H PRN 06/15/21 07/02/21 History mg tablet menthol 2.5 % topical gel (BenGay 1 applic TOPICAL Q4H PRN 06/15/21 07/02/21 History Vanishing Scent) phenazopyridine 95 mg tablet 95 mg PO QID PRN 06/15/21 07/02/21 History selenium 100 mcg tablet 100 mcg PO QAM 06/15/21 07/02/21 History Past Med/Surg History Medical History (Updated 07/03/21 @ 17:24 by Deirdre Hernandez MD) Breast CA DVT (deep venous thrombosis) Hypertension Morbid obesity with BMI of 40.0-44.9, adult No pertinent family history Osteoarthritis Urge incontinence Venous stasis Surgical History No pertinent past surgical history Social History Smoking Status: Never smoker Second Hand Exposure: No; Do You Dip or Chew Tobacco: No; Tobacco Cessation Education Requested by Patient: No Hx Alcohol Use: No Hx Substance Use: No Preferred Language: Puerto Rican Communication Ability: Effective Communication Ability Comment: UNHAPPY Circuitry Negative Inspector Required: No Beliefs That Will Affect Care: None marital status: Single Current Living Situation: Family Current Living Situation Comment: HOME WITH SISTER Other Information That Helps Us Care for You: No Feels Safe at Home: Yes Safety Concerns: Feels Safe At This Time Assistive Devices: Walker Assistive Devices Comment: KUMAR CARUSO ASSIST Review of Systems Review of Systems: REVIEW OF SYSTEMS: Constitutional: No fever, sweats or chills Eyes: No diplopia, no worsening or blurred vision ENT: normal hearing, no trouble swallowing Respiratory: (+) dyspnea with exertion, No cough, sputum, Cardiovascular: (+) fluttering in chest, No chest pain, tightness or palpitations Abdomen: No pain, nausea, vomiting, diarrhea or constipation Musculoskeletal: (+) knee, hip, leg pain Neurologic: (+) generalized deconditioning Psychiatric: No anxiety or depression Skin: No rash or itch Physical Exam Physical Exam: PHYSICAL EXAM: General: awake, alert, no apparent distress Head: Normocephalic, atraumatic ENT: PERRL, EOMI, no pharyngeal exudate, mucous membranes moist Neuro: AAO x 3, speech clear and appropriate, strength intact bilaterally , sensation intact and equal all extremities and dermatomes, no pronator drift Chest: equal rise and fall of the chest, no accessory muscle use, no heaves or thrills, Clear to auscultation, on room air, Cardiac: Regular rate and rhythm, telemetry reviewed- NSR with frequent PVCs, skin warm dry, cap refill ~3 seconds, peripheral pulses +2 no JVD, pitting edema from knees down to feet, with tubi ldr rn GI: NABS x 4 quadrants, soft, nontender to palpation, no rebound, guarding or tenderness : Spontaneously voiding, no pain, no CVA tenderness, Extremities: Normal inspection, no peripheral edema or erythema, calfs nontender to palpation Psych: Normal mood and affect Skin: ecchymosis to right under part of thigh- she is unsure how she got that Results & Data Results & Data ([facility]) Vital Signs (Past 12 Hours) Vital Signs Temp Pulse Pulse Resp BP BP Pulse Ox 07/02/21 16:30 89 20 126/76 97 07/02/21 16:00 75 123/57 L 97 07/02/21 15:15 90 19 114/71 98 07/02/21 14:07 36.5 C 89 18 181/98 H 97 Laboratory Results Abnormal lab results 07/02/21 07/02/21 Range/Units 13:56 13:56 RBC 4.06 L (4.2-5.4) M/uL Hgb 11.0 L (12.0-16.0) g/dL Hct 34.3 L (37-47) % RDW Std Deviation 47.5 H (36.4-46.3) fL RDW Coeff of Bev 15.3 H (11.5-14.5) % Chloride 108 H (98-107) mmol/L BUN 39 H (7-18) mg/dl BUN/Creatinine Ratio 47.3 H (10-20) Calcium 10.3 H (8.5-10.1) mg/dl Magnesium 2.5 H (1.8-2.4) mg/dl C-Reactive Protein 0.96 H (0-0.29) mg/dl Albumin 3.0 L (3.4-5.0) gm/dl Albumin/Globulin Ratio 0.8 L (0.9-2) Diagnostic Findings Chest X-Ray 07/02/21 13:55 XR chest 1V portable HISTORY: weakness COMPARISON: Chest 06/15/2021. FINDINGS: No focal lung consolidations to suggest pneumonia. No evidence for pulmonary edema. The heart remains mildly enlarged. No pleural effusions. No pneumothorax. Old, healed bilateral rib fractures again noted. IMPRESSION: No significant change compared to the prior study. No acute process. ACT 112: Negative or not required by law. Electronically signed by: Sandro Benoit M.D. 07/02/2021 2:[address] 07/02/21 13:55 CT SCAN OF THE BRAIN WITHOUT IV CONTRAST CLINICAL HISTORY: Generalized weakness. COMPARISON STUDY: CT of the brain dated 06/15/2021. TECHNIQUE: Unenhanced axial CT scan of the brain is performed from the vertex to the skull base. A dose lowering technique was utilized adhering to the principles of ALARA. CT DOSE: 614.27 mGy.cm FINDINGS: Brain parenchyma: There are age-related involutional changes noting mild subcortical and periventricular microangiopathic change. There is no hemorrhage, mass effect, or evidence of acute territorial ischemia by CT criteria. Khan- white matter differentiation is preserved. No extra-axial fluid collection is seen. Ventricles, sulci, cisterns: Prominent secondary to involutional change. Intracranial vasculature: There is atherosclerotic calcification of the cavernous carotid and vertebral arteries. Calvarium: Unremarkable. Sinuses and mastoids: The visualized paranasal sinuses are clear. The mastoid air cells are well pneumatized. Orbits: The bony orbits are grossly intact. IMPRESSION: There is no hemorrhage, mass effect, or evidence of acute territorial ischemia by CT criteria. ACT 112: Negative or not required by law. Electronically signed by: Darnell Oates M.D. 07/02/2021 2:50 PM Pelvis X-Ray 07/02/21 13:56 XR pelvis 1-2V routine CLINICAL HISTORY: pain confusion, weakness TECHNIQUE: A single frontal view of the pelvis was obtained. Comparison: Comparison is made to pelvic radiograph 06/15/2021 FINDINGS: There is no evidence of acute fracture or dislocation. The bones are anatomically aligned. Severe degenerative changes are seen in the hip joints, right greater than left. Incidental note is made of prominent stool burden in the rectum. IMPRESSION: No evidence of acute bony injury. ACT 112: Negative or not required by law. Electronically signed by: Jorge Merrill M.D. 07/02/2021 2:22 PM Venous Doppler Study 07/02/21 13:56 ULTRASOUND BILATERAL LOWER EXTREMITY VENOUS CLINICAL HISTORY: Deep venous thrombosis. Lower extremity edema COMPARISON STUDY: Bilateral lower extremity venous ultrasound dated 06/15/2021 TECHNIQUE: Real-time, grayscale, and color Doppler sonography of the deep veins of the right and left lower extremity was performed from the inguinal crease to the calf. Compression and augmentation were utilized. FINDINGS: Right lower extremity: Nonocclusive and age indeterminant deep venous thrombosis is seen within the common femoral vein and the popliteal vein. The superficial femoral vein is patent and normally compressible. Nonocclusive superficial venous thrombus is seen within the greater saphenous vein. The profunda femoris vein at the junction with the common femoral vein is clear. Superficial venous thrombus is also seen in the popliteal fossa. The visualized calf veins are patent. Left lower extremity: There is acute appearing and nearly occlusive deep venous thrombosis seen in the left common femoral vein, throughout the superficial femoral vein, and the popliteal vein. There is also thrombus within the posterior tibial vein and the calf. The greater saphenous vein and the profunda femoris vein at the junction with the common femoral vein are clear. IMPRESSION: Bilateral deep venous thrombosis as above. This is similar to the 06/15/2021 examination. ACT 112: Negative or not required by law. Electronically signed by: Darnell Oates M.D. 07/02/2021 3:30 PM Medications Administered Discontinued Medications Enoxaparin Sodium (Enoxaparin 80 Mg/0.8 Ml Syr) 80 mg SQ NOW ONE Stop: 07/02/21 16:51 Last Admin: 07/02/21 17:19 Dose: 80 mg Documented by: [id number] Ioversol (Optiray 320 125ml) 113 ml IV ONCE ONE Stop: 07/02/21 17:12 Last Admin: 07/02/21 17:12 Dose: 113 ml Documented by: [id number] Home Medications amlodipine 5 mg tablet (Norvasc) 5 mg PO HS 07/11/20 [History Confirmed 07/02/21] cinnamon bark 500 mg capsule (Cinnamon) 500 mg PO QDL 07/11/20 [History Confirmed 07/02/21] ibuprofen 200 mg tablet 400 mg PO DAILY PRN 07/11/20 [History Confirmed 07/02/21] lisinopril 40 mg tablet 40 mg PO QAM 07/11/20 [History Confirmed 07/02/21] metoprolol succinate 25 mg tablet,extended release 24 hr 25 mg PO BID 07/11/20 [History Confirmed 07/02/21] multivitamin (Daily Multi-Vitamin) 1 tab PO QAM 08/10/20 [History Confirmed 07/02/21] solifenacin 10 mg tablet 10 mg PO QDL 12/09/20 [History Confirmed 07/02/21] Tumeric 500mg 1,000 mg PO AC 01/10/21 [History Confirmed 07/02/21] Gut Restore 1 tab PO QAM 06/15/21 [History Confirmed 07/02/21] Prevagen 1 tab PO QAM 06/15/21 [History Confirmed 07/02/21] cholecalciferol (vitamin D3) 25 mcg (1,000 unit) capsule (Vitamin D3) 25 mcg PO QAM 06/15/21 [History Confirmed 07/02/21] hydrocodone 5 mg-acetaminophen 325 mg tablet 1 tab PO Q6H PRN 06/15/21 [History Confirmed 07/02/21] menthol 2.5 % topical gel (BenGay Vanishing Scent) 1 applic TOPICAL Q4H PRN 06/15/21 [History Confirmed 07/02/21] phenazopyridine 95 mg tablet 95 mg PO QID PRN 06/15/21 [History Confirmed 07/02/21] selenium 100 mcg tablet 100 mcg PO QAM 06/15/21 [History Confirmed 07/02/21] ECG Additional Comments: Sinus rhythm with frequent Premature ventricular complexes with 1st degree A-V block Possible Left atrial enlargement Indeterminate axis Right bundle branch block Inferior infarct , age undetermined Anteroseptal infarct (cited on or before 15-JUN-2021) Abnormal ECG When compared with ECG of 15-JUN-2021 13:49, Premature ventricular complexes are now Present Code Status & VTE Plan Code Status CODE: DNR/DNI VTE: Therapeutic Lovenox VTE Prophylaxis Plan VTE Prophylaxis will be ordered: Yes Supervising Physician Co-Signing Physician Notes 70 yo female is seen and examined at bedside. During face to face encounter with patient, obtained a history and physical examination. Discussed case with RONNI Pace and answered all of the patient's questions. I reviewed above note and agree with it. Will admit for DVT and place on lovenox. PG Care Time/CCT Total # of Minutes Spent Total Time Spent with Patient: Total time spent is greater than 50% in coordination of care (as documented) at patient's floor/unit and/or counseling patient: Coding Level of Care Code 30384 Initial Inpt Care Lvl 3 Diagnoses DVT (deep venous thrombosis) I82.409 Hypertension I10 Chronic venous insufficiency I87.2 Morbid obesity with BMI of 40.0-44.9, adult E66.01; Z68.41 Osteoarthritis M19.90 Spinal stenosis at L4-L5 level M48.061 Physical deconditioning R53.81 PVC (premature ventricular contraction) I49.3 MRSA (methicillin resistant Staphylococcus aureus) A49.02
--- NOTE | 2021-07-02 17:46 | CT Scan Report ---
CT angio chest PE protocol CLINICAL HISTORY: PE TECHNIQUE: Multidetector row helical CT of the chest was performed. Coronal and sagittal reformations were obtained. Automated dose lowering techniques and/or adjustment according to patient size were u tilized for this exam. Comparison: None available at the time of this dictation. FINDINGS: Lungs and pleura: Bibasilar atelectasis is seen. Heart and pericardium: There is cardiomegaly without evidence of pericardial effusion. Vessels: The pulmonary trunk is enlarged measuring 35 mm in diameter. No evidence of pulmonary embolu s. Mediastinum and lavinia: Unremarkable. Chest wall and lower neck: Thyroid is prominent without evidence of nodule. Abdomen: A cyst is incidentally noted in the liver. Bones: Degenerative changes in the thoracic spine. IMPRESSION: 1. No evidence of pulmonary embolism. 2. Pulmonary hypertension. ACT 112: Negative or not required by law. Electronically signed by: Jorge Merrill M.D. 07/02/2021 5:44 PM
[2021-07-02 18:04] LABS: NT Pro B Type Natriuretic Pept 965 pg/ml (0-900)
[2021-07-02] MEDS ORDERED: FUROSEMIDE 40 MG/4 ML VIAL IV STA (18:04)
[2021-07-02 18:53] LABS: Appearance Urine Clear (Clear); Bacteria Urine Automated Negative (Negative); Bilirubin Urine Negative (Negative); Blood Urine 1+ (Negative); Cast Urine Automated 0 /lpf (0-5); Color Urine Yellow; Epithelial Cell Urine Auto 0-5 /lpf (0-5); Glucose Urine UA Negative (Negative); Ketones Urine Negative (Negative); Leukocyte Esterase Urine 2+ (Negative); Nitrite Urine Negative (Negative); Protein Urine Negative (Negative); Specific Gravity Urine 1.016 (1.000-1.030); Urobilinogen Urine Negative (Negative); WBC Urine Automated >30 /hpf (0-5); pH Urine 7.5 (4.5-7.5)
[2021-07-02] MEDS ORDERED: ONDANSETRON INJ 2 MG/ML 2 ML VIAL IV PRN (21:22)
[2021-07-03] MEDS: METOPROLOL SUCC 25MG EXT REL TAB PO SCH ×3 (00:27→20:22)
[2021-07-03] MEDS: amLODIPine BESYLATE 5 MG TAB PO SCH ×2 (00:27→20:22)
[2021-07-03] MEDS ORDERED: ENOXAPARIN 80 MG/0.8 ML SYR SQ SCH ×2 (06:00→18:30)
[2021-07-03] MEDS: lisinopril 40 MG TAB PO SCH (08:42)
[2021-07-03] MEDS: CHOLECALCIFEROL 1,000 UNITS 25 MCG TAB PO SCH (08:43)
[2021-07-03 09:36] LABS: Basophils # (auto) 0.01 K/uL (0-0.2); Basophils % (auto) 0.2 %; Eosinophils # (auto) 0.09 K/uL (0-0.5); Eosinophils % (auto) 1.8 %; Hematocrit (blood only) 32.8 % (37-47); Hemoglobin 10.4 g/dL (12.0-16.0); Lymphocytes # (auto) 0.96 K/uL (1.2-3.4); Lymphocytes % (auto) 19.5 %; Mean Corpuscular Hemoglobin 27.2 pg (25-34); Mean Corpuscular Hgb Conc 31.7 g/dL (32-36); Mean Corpuscular Volume 85.6 fL (80-100); Mean Platelet Volume 9.3 fL (7.4-10.4); Monocytes # (auto) 0.28 K/uL (0.11-0.59); Monocytes % (auto) 5.7 %; Neutrophils # (auto) 3.58 K/uL (1.4-6.5); Neutrophils % (auto) 72.8 %; Platelet Count 180 K/uL (130-400); RDW Coefficient of Variation 15.5 % (11.5-14.5); RDW Standard Deviation 48.8 fL (36.4-46.3); Red Blood Count 3.83 M/uL (4.2-5.4); White Blood Count 4.92 K/uL (4.8-10.8)
[2021-07-03] MEDS ORDERED: ENOXAPARIN INJ 30 MG/0.3 ML SYR SQ ONE (09:41)
[2021-07-03 09:53] LABS: Creatinine Clr Calc Pharmacy 78.2 ml/min; Est GFR (African American) 90.8 ml/min; Est GFR (Non-African American) 78.4 ml/min; Magnesium 2.3 mg/dl (1.8-2.4); Potassium 3.8 mmol/L (3.5-5.1)
[2021-07-03] MEDS: cefTRIAXone SODIUM 2,000 MG in DEXTROSE 5% 50 ML IV SCH (10:41)
--- NOTE | 2021-07-03 13:41 | XCELERA ---
[id number]
[2021-07-03] MEDS: RIVAROXABAN 15 MG TAB PO SCH (17:24)
--- NOTE | 2021-07-03 17:25 | Hospitalist Progress Note ---
Date of Service July 03, 2021 Assessment & Plan (1) DVT (deep venous thrombosis): Plan: Acute on sub-acute bilateral of the deep and superficial venous system Has a h/o venous ablation of LEs - transition Lovenox to Xarelto this evening and then should remain on this lifelong as this is her second DVT in lifetime (first during breast CA treatment) - CTA of the chest negative for PE -elevate limbs ECHO negative (2) PVC (premature ventricular contraction): Plan: New and frequent PVCs, bigeminy- generally asymptomatic except on admission - Patient denies any cardiac symptoms her Troponin and ECG are negative for acute changes - QT/QTc 448/539 (within her past normals) - ECHO normal - Continue BB-up titrate prn - TSH normal - no infective sources at this time - Pulmonary HTN noted via CTA of the chest - does not wear any CPAP at home, HCO3 normal (3) Hypertension: Plan: Well controlled - continue with amlodipine, lisinopril and Metoprolol (4) Chronic venous insufficiency: Plan: 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- patietn refuses TEDS or SCDs - no infectious areas on surrounding legs or feet (5) Morbid obesity with BMI of 40.0-44.9, adult: Plan: Continue risk modifying medications as above - physical deconditioning limiting activity weight loss goals (6) Osteoarthritis: Plan: Chronic- Hold Motrin - Diclofenec cream - Tylenol - Hydrocodone/Acetamenophen home dose - PT/OT (7) Spinal stenosis at L4-L5 level: Plan: As above (8) Physical deconditioning: Plan: As above (9) MRSA (methicillin resistant Staphylococcus aureus): Plan: History of lower extremity MRSA of the leg wounds - Contact precautions - MRSA swab of the nares - Patient completed treatment with Doxy in December 30 (10) Foot ulcer: Plan: left medial great toe, right dorsal foot blister asked RN to dress left toe ulcer with Aquacel Ag and optifoam and right blister with optifoam wound care consult (11) UTI (urinary tract infection): Plan: UA abnormal start ceftriaxone follow Urine cx Plan: Dispo-continued stay PT/OT evals recommend rehab placement, CM involved Admission and Anticipated Discharge Date Admission Date: July 02, 2021 Subjective Pt reports feeling better, no heart palpitations, legs still swollen. Tele with NSR, normal rates Review of Systems Review of Systems: All systems reviewed & are unremarkable except as noted in HPI & below Physical Exam Constitutional: WD/WN, vitals as above Eyes: + anicteric sclerae Neck: trachea midline, no thyromegaly Respiratory: normal respiratory effort, lungs clear to auscultation Cardiovascular: Rate/Rhythm: regular rate and regular rhythm Heart Sounds: no murmur Extremities: + edema (4+ edema bilat LEs) Chest (Breasts): Chest: normal inspection of chest Gastrointestinal (Abdomen): normal bowel sounds, soft, nontender, no hepatosplenomegaly Musculoskeletal: Extremities: extremities normal to inspection; no cyanosis and no clubbing Skin: no rashes, warm and dry + wound (left medial great toe 1 cm ulcer,right dorsal foot blister) Neurologic: moves all extremities and awake; no focal motor deficits Psychiatric: A+Ox3, euthymic affect Results & Data Results & Data ([facility]) Vital Signs (Past 12 Hours) Vital Signs Temp Pulse Pulse BP BP Pulse Ox 07/03/21 15:00 89 07/03/21 14:36 36.8 C 76 125/68 90 07/03/21 11:08 37.1 C 76 115/71 93 07/03/21 07:30 36.9 C 74 120/72 96 Laboratory Results 07/03/21 07/03/21 07/03/21 Range/Units 09:23 09:23 09:23 WBC 4.92 (4.8-10.8) K/uL RBC 3.83 L (4.2-5.4) M/uL Hgb 10.4 L (12.0-16.0) g/dL Hct 32.8 L (37-47) % MCV 85.6 (80-100) fL MCH 27.2 (25-34) pg MCHC 31.7 L (32-36) g/dL RDW Std Deviation 48.8 H (36.4-46.3) fL RDW Coeff of Bev 15.5 H (11.5-14.5) % Plt Count 180 (130-400) K/uL MPV 9.3 (7.4-10.4) fL Immature Gran % (Auto) 0.0 % Neut % (Auto) 72.8 % Lymph % (Auto) 19.5 % Swisher % (Auto) 5.7 % Eos % (Auto) 1.8 % Baso % (Auto) 0.2 % Neut # (Auto) 3.58 (1.4-6.5) K/uL Lymph # (Auto) 0.96 L (1.2-3.4) K/uL Swisher # (Auto) 0.28 (0.11-0.59) K/uL Eos # (Auto) 0.09 (0-0.5) K/uL Baso # (Auto) 0.01 (0-0.2) K/uL Immature Gran # (Auto) 0.00 (0.00-0.02) K/uL Heparin Anti-Xa, LM Wt 0.66 (< 0.10) IU/ML Sodium 142 (136-145) mmol/L Potassium 3.8 (3.5-5.1) mmol/L Chloride 111 H (98-107) mmol/L Carbon Dioxide 26 (21-32) mmol/L Anion Gap 5.0 (3-11) BUN 30 H (7-18) mg/dl Creatinine 0.76 (0.6-1.2) mg/dl Est Cr Clr Drug Dosing 78.2 ml/min Est GFR ( Amer) 90.8 ml/min Est GFR (Non-Af Amer) 78.4 ml/min BUN/Creatinine Ratio 39.0 H (10-20) Glucose 109 H (70-99) mg/dl Calcium 10.0 (8.5-10.1) mg/dl Magnesium 2.3 (1.8-2.4) mg/dl PG Care Time/CCT Total # of Minutes Spent Total Time Spent with Patient: Total time spent is greater than 50% in coordination of care (as documented) at patient's floor/unit and/or counseling patient: Coding Level of Care Code 95549 Subseq Hosp Care Lvl 3 Diagnoses DVT (deep venous thrombosis) I82.409 PVC (premature ventricular contraction) I49.3 Hypertension I10 Chronic venous insufficiency I87.2 Morbid obesity with BMI of 40.0-44.9, adult E66.01; Z68.41 Osteoarthritis M19.90 Spinal stenosis at L4-L5 level M48.061 Physical deconditioning R53.81 MRSA (methicillin resistant Staphylococcus aureus) A49.02 Foot ulcer L97.509 UTI (urinary tract infection) N39.0
[2021-07-03] MEDS: ACETAMINOPHEN 325 MG TAB PO PRN (21:02)
[2021-07-04] MEDS: ACETAMINOPHEN 325 MG TAB PO PRN ×2 (03:02→10:04)
[2021-07-04] MEDS: DICLOFENAC SOD 1% GEL 100 GM TUBE EXT PRN ×2 (03:15→21:24)
[2021-07-04] MEDS: RIVAROXABAN 15 MG TAB PO SCH ×2 (05:33→17:48)
[2021-07-04 07:27] LABS: Basophils # (auto) 0.01 K/uL (0-0.2); Basophils % (auto) 0.2 %; Eosinophils # (auto) 0.09 K/uL (0-0.5); Eosinophils % (auto) 2.1 %; Hematocrit (blood only) 30.8 % (37-47); Hemoglobin 9.6 g/dL (12.0-16.0); Lymphocytes # (auto) 1.32 K/uL (1.2-3.4); Mean Corpuscular Hemoglobin 26.9 pg (25-34); Mean Corpuscular Hgb Conc 31.2 g/dL (32-36); Mean Corpuscular Volume 86.3 fL (80-100); Mean Platelet Volume 9.5 fL (7.4-10.4); Monocytes # (auto) 0.26 K/uL (0.11-0.59); Monocytes % (auto) 6.1 %; Neutrophils # (auto) 2.58 K/uL (1.4-6.5); Neutrophils % (auto) 60.6 %; Platelet Count 171 K/uL (130-400); RDW Coefficient of Variation 15.5 % (11.5-14.5); RDW Standard Deviation 49.1 fL (36.4-46.3); Red Blood Count 3.57 M/uL (4.2-5.4); White Blood Count 4.26 K/uL (4.8-10.8)
[2021-07-04 07:54] LABS: BUN Creatinine Ratio 38.6 (10-20); Calcium 9.4 mg/dl (8.5-10.1); Creatinine Clr Calc Pharmacy 79.3 ml/min; Est GFR (African American) 92.3 ml/min; Est GFR (Non-African American) 79.6 ml/min; Magnesium 2.3 mg/dl (1.8-2.4); Potassium 4.1 mmol/L (3.5-5.1)
[2021-07-04] MEDS: METOPROLOL SUCC 25MG EXT REL TAB PO SCH ×2 (09:50→21:17)
[2021-07-04] MEDS: CHOLECALCIFEROL 1,000 UNITS 25 MCG TAB PO SCH (09:53)
[2021-07-04] MEDS: lisinopril 40 MG TAB PO SCH (12:46)
[2021-07-04] MEDS: cefTRIAXone SODIUM 2,000 MG in DEXTROSE 5% 50 ML IV SCH (12:46)
[2021-07-04] MEDS: HYDROCODONE/ACETAMOPHEN 5/325MG TAB PO PRN ×2 (13:53→21:24)
--- NOTE | 2021-07-04 17:29 | Hospitalist Progress Note ---
Date of Service July 04, 2021 Assessment & Plan (1) DVT (deep venous thrombosis): Plan: Acute on sub-acute bilateral of the deep and superficial venous system lawrence Francois Has a h/o venous ablation of LEs - transitioned Lovenox to Xarelto and then should remain on this lifelong as this is her second DVT in lifetime (first during breast CA treatment) - CTA of the chest negative for PE -elevate limbs ECHO negative (2) PVC (premature ventricular contraction): Plan: New and frequent PVCs, bigeminy- generally asymptomatic except on admission Now lessened in frequency on tele, asymptomatic now - Patient denies any cardiac symptoms her Troponin and ECG are negative for acute changes - QT/QTc 448/539 (within her past normals) - ECHO normal - Continue BB-up titrate prn - TSH normal - Pulmonary HTN noted via CTA of the chest - does not wear any CPAP at home, HCO3 normal (3) Hypertension: Plan: Well controlled - continue with amlodipine, lisinopril and Metoprolol (4) Chronic venous insufficiency: Plan: Continue with tubi education adviser application (5) Morbid obesity with BMI of 40.0-44.9, adult: Plan: Continue risk modifying medications as above - physical deconditioning limiting activity weight loss goals (6) Osteoarthritis: Plan: Chronic- dc Motrin now on Xarelto - Diclofenac cream - Tylenol - Hydrocodone/Acetaminophen home dose - PT/OT (7) Spinal stenosis at L4-L5 level: Plan: As above (8) Physical deconditioning: Plan: As above (9) MRSA (methicillin resistant Staphylococcus aureus): Plan: 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 coli continue ceftriaxonex 3 day course-last day 07/05 Plan: Dispo-continued stay, medically stable for discharge but awaiting placement at [facility] followed by [facility]. No auth needed Admission and Anticipated Discharge Date Admission Date: July 02, 2021 Subjective Pt worried about the darker color of her urine, wants to know if she has an infection. I told her she is being treated for a UTI. Otherwise feels her feet and legs feel better today. No further palpitations Tele with NSR, PVCs, rates 70-80s Review of Systems Review of Systems: All systems reviewed & are unremarkable except as noted in HPI & below Physical Exam Constitutional: WD/WN, vitals as above Eyes: + anicteric sclerae Neck: trachea midline, no thyromegaly Respiratory: normal respiratory effort, lungs clear to auscultation Cardiovascular: Rate/Rhythm: regular rate and regular rhythm Heart Sounds: no murmur Extremities: + edema (3+ edema bilat LEs slightly improved) Chest (Breasts): Chest: normal inspection of chest Gastrointestinal (Abdomen): normal bowel sounds, soft, nontender, no hepatosplenomegaly Musculoskeletal: Extremities: extremities normal to inspection; no cyanosis and no clubbing Skin: no rashes, warm and dry + wound (left medial great toe 1 cm u lcer,right dorsal foot blister) Neurologic: moves all extremities and awake; no focal motor deficits Psychiatric: A+Ox3, euthymic affect Results & Data Results & Data ([facility]) Vital Signs (Past 12 Hours) Vital Signs Temp Pulse Pulse Resp BP BP Pulse Ox 07/04/21 15:23 36.8 C 65 18 115/69 93 07/04/21 14:20 64 07/04/21 12:30 36.8 C 79 18 113/75 95 07/04/21 07:39 36.6 C 64 20 109/67 94 07/04/21 07:00 71 Laboratory Results 07/04/21 07/04/21 07/04/21 Range/Units 11:22 07:57 07:16 WBC (4.8-10.8) K/uL RBC (4.2-5.4) M/uL Hgb (12.0-16.0) g/dL Hct (37-47) % MCV (80-100) fL MCH (25-34) pg MCHC (32-36) g/dL RDW Std Deviation (36.4-46.3) fL RDW Coeff of Bev (11.5-14.5) % Plt Count (130-400) K/uL MPV (7.4-10.4) fL Immature Gran % (Auto) % Neut % (Auto) % Lymph % (Auto) % Brule % (Auto) % Eos % (Auto) % Baso % (Auto) % Neut # (Auto) (1.4-6.5) K/uL Lymph # (Auto) (1.2-3.4) K/uL Brule # (Auto) (0.11-0.59) K/uL Eos # (Auto) (0-0.5) K/uL Baso # (Auto) (0-0.2) K/uL Immature Gran # (Auto) (0.00-0.02) K/uL Sodium 138 (136-145) mmol/L Potassium 4.1 (3.5-5.1) mmol/L Chloride 110 H (98-107) mmol/L Carbon Dioxide 24 (21-32) mmol/L Anion Gap 4.0 (3-11) BUN 29 H (7-18) mg/dl Creatinine 0.75 (0.6-1.2) mg/dl Est Cr Clr Drug Dosing 79.3 ml/min Est GFR ( Amer) 92.3 ml/min Est GFR (Non-Af Amer) 79.6 ml/min BUN/Creatinine Ratio 38.6 H (10-20) Glucose 94 (70-99) mg/dl POC Glucose 117 H 95 (70-99) mg/dl Calcium 9.4 (8.5-10.1) mg/dl Magnesium 2.3 (1.8-2.4) mg/dl 07/04/21 Range/Units 07:16 WBC 4.26 L (4.8-10.8) K/uL RBC 3.57 L (4.2-5.4) M/uL Hgb 9.6 L (12.0-16.0) g/dL Hct 30.8 L (37-47) % MCV 86.3 (80-100) fL MCH 26.9 (25-34) pg MCHC 31.2 L (32-36) g/dL RDW Std Deviation 49.1 H (36.4-46.3) fL RDW Coeff of Bev 15.5 H (11.5-14.5) % Plt Count 171 (130-400) K/uL MPV 9.5 (7.4-10.4) fL Immature Gran % (Auto) 0.0 % Neut % (Auto) 60.6 % Lymph % (Auto) 31.0 % Brule % (Auto) 6.1 % Eos % (Auto) 2.1 % Baso % (Auto) 0.2 % Neut # (Auto) 2.58 (1.4-6.5) K/uL Lymph # (Auto) 1.32 (1.2-3.4) K/uL Brule # (Auto) 0.26 (0.11-0.59) K/uL Eos # (Auto) 0.09 (0-0.5) K/uL Baso # (Auto) 0.01 (0-0.2) K/uL Immature Gran # (Auto) 0.00 (0.00-0.02) K/uL Sodium (136-145) mmol/L Potassium (3.5-5.1) mmol/L Chloride (98-107) mmol/L Carbon Dioxide (21-32) mmol/L Anion Gap (3-11) BUN (7-18) mg/dl Creatinine (0.6-1.2) mg/dl Est Cr Clr Drug Dosing ml/min Est GFR ( Amer) ml/min Est GFR (Non-Af Amer) ml/min BUN/Creatinine Ratio (10-20) Glucose (70-99) mg/dl POC Glucose (70-99) mg/dl Calcium (8.5-10.1) mg/dl Magnesium (1.8-2.4) mg/dl PG Care Time/CCT Total # of Minutes Spent Total Time Spent with Patient: Total time spent is greater than 50% in coordination of care (as documented) at patient's floor/unit and/or counseling patient: Coding Level of Care Code 32718 Subseq Hosp Care Lvl 2 Diagnoses DVT (deep venous thrombosis) I82.409 PVC (premature ventricular contraction) I49.3 Hypertension I10 Chronic venous insufficiency I87.2 Morbid obesity with BMI of 40.0-44.9, adult E66.01; Z68.41 Osteoarthritis M19.90 Spinal stenosis at L4-L5 level M48.061 Physical deconditioning R53.81 MRSA (methicillin resistant Staphylococcus aureus) A49.02 Foot ulcer L97.509 UTI (urinary tract infection) N39.0
[2021-07-04] MEDS: amLODIPine BESYLATE 5 MG TAB PO SCH (21:17)
[2021-07-04] MEDS: MUPIROCIN 2% OINT 22 GM TUBE EXT SCH (21:55)
[2021-07-05] MEDS: RIVAROXABAN 15 MG TAB PO SCH ×2 (05:02→19:36)
[2021-07-05] MEDS: HYDROCODONE/ACETAMOPHEN 5/325MG TAB PO PRN (05:05)
[2021-07-05 06:52] LABS: Basophils # (auto) 0.02 K/uL (0-0.2); Basophils % (auto) 0.5 %; Eosinophils % (auto) 2.6 %; Hematocrit (blood only) 31.1 % (37-47); Hemoglobin 9.5 g/dL (12.0-16.0); Immature Granulocytes # (auto) 0.01 K/uL (0.00-0.02); Immature Granulocytes % (auto) 0.3 %; Lymphocytes # (auto) 1.27 K/uL (1.2-3.4); Lymphocytes % (auto) 32.8 %; Mean Corpuscular Hemoglobin 26.8 pg (25-34); Mean Corpuscular Hgb Conc 30.5 g/dL (32-36); Mean Corpuscular Volume 87.9 fL (80-100); Mean Platelet Volume 9.8 fL (7.4-10.4); Monocytes # (auto) 0.21 K/uL (0.11-0.59); Monocytes % (auto) 5.4 %; Neutrophils # (auto) 2.26 K/uL (1.4-6.5); Neutrophils % (auto) 58.4 %; Platelet Count 170 K/uL (130-400); RDW Coefficient of Variation 15.3 % (11.5-14.5); RDW Standard Deviation 49.1 fL (36.4-46.3); Red Blood Count 3.54 M/uL (4.2-5.4); White Blood Count 3.87 K/uL (4.8-10.8)
[2021-07-05 07:27] LABS: BUN Creatinine Ratio 37.3 (10-20); Calcium 9.6 mg/dl (8.5-10.1); Creatinine Clr Calc Pharmacy 76.9 ml/min; Est GFR (African American) 89.4 ml/min; Est GFR (Non-African American) 77.1 ml/min; Magnesium 2.4 mg/dl (1.8-2.4); Potassium 4.5 mmol/L (3.5-5.1)
[2021-07-05] MEDS: lisinopril 40 MG TAB PO SCH (09:18)
[2021-07-05] MEDS: CHOLECALCIFEROL 1,000 UNITS 25 MCG TAB PO SCH (09:18)
[2021-07-05] MEDS: METOPROLOL SUCC 25MG EXT REL TAB PO SCH ×2 (09:19→20:47)
[2021-07-05] MEDS: MUPIROCIN 2% OINT 22 GM TUBE EXT SCH ×2 (09:19→20:47)
[2021-07-05] MEDS: cefTRIAXone SODIUM 2,000 MG in DEXTROSE 5% 50 ML IV SCH (12:20)
--- NOTE | 2021-07-05 16:43 | Hospitalist Progress Note ---
Date of Service July 05, 2021 Assessment & Plan (1) DVT (deep venous thrombosis): Plan: Acute on sub-acute bilateral of the deep and superficial venous system lawrence Francois Has a h/o venous ablation of LEs. CT A/P in January 2021 shows no concern for obstructive cause. If not improving could consider CT A/P venogram but I do not see an urgent need for this given DVTs present since June 15 and likely lack of treated is the reason they are extensive. - transitioned Lovenox to Xarelto and then should remain on this lifelong as this is her second DVT in lifetime (first during breast CA treatment) - CTA of the chest negative for PE -elevate limbs ECHO negative (2) PVC (premature ventricular contraction): Plan: New and frequent PVCs, bigeminy- generally asymptomatic except on admission Now lessened in frequency on tele, asymptomatic now - Patient denies any cardiac symptoms her Troponin and ECG are negative for acute changes - QT/QTc 448/539 (within her past normals) - ECHO normal - Continue metoprolol succinate 25mg PO BID - dstable to transfer to med/surg - TSH normal - Pulmonary HTN noted via CTA of the chest - does not wear any CPAP at home, HCO3 normal (3) Hypertension: Plan: Well controlled - continue with amlodipine, lisinopril and Metoprolol. Consider switched amlodipine for diuretics anti-hypertensives to help with swelling as outpatient if not improving with DVT management as above. 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 coli continue ceftriaxone 3 day course-last day today Plan: VTE Prophylaxis - Xarelto Diet - T2DM, Low Na Dispo-continued stay, medically stable for discharge but awaiting placement at [facility] followed by [facility]. No auth needed Admission and Anticipated Discharge Date Admission Date: July 02, 2021 Subjective Reports leg edema much improved since admission. No chest pain, palpitations or shortness of breath. No questions or concerns for me today. Awaiting placement at this time. Review of Systems Review of Systems: All systems reviewed & are unremarkable except as noted in HPI & below Physical Exam Constitutional: well developed; + not well nourished and no acute distress Respiratory: normal respiratory effort, lungs clear to auscultation Cardiovascular: Rate/Rhythm: regular rate and regular rhythm (occasional skipped beats) Heart Sounds: no murmur Extremities: + pedal edema (2+ to thighs b/l equal) Gastrointestinal (Abdomen): normal bowel sounds, soft, nontender, no hepatosplenomegaly Skin: Bandages on b/l LE to ankles not removed, clean/dry/intact, no surroun ding cellulitis noted. Wrinkled skin below bandages without cellulitis changes. DP/PT pulses intact b/l. Neurologic: moves all extremities and awake; not confused Psychiatric: A+Ox3, euthymic affect Results & Data Results & Data ([facility]) Vital Signs (Past 12 Hours) Vital Signs Temp Pulse Pulse Resp BP Pulse Ox 07/05/21 15:42 36.8 C 59 L 20 123/72 94 07/05/21 14:20 64 07/05/21 11:40 36.8 C 59 L 20 121/64 97 07/05/21 09:20 68 118/78 07/05/21 07:56 36.4 C L 57 L 20 110/62 95 07/05/21 07:00 55 L PG Care Time/CCT Total # of Minutes Spent Total Time Spent with Patient: Total time spent is greater than 50% in coordination of care (as documented) at patient's floor/unit and/or counseling patient: Coding Level of Care Code 88030 Subseq Hosp Care Lvl 1 Diagnoses DVT (deep venous thrombosis) I82.409 PVC (premature ventricular contraction) I49.3 Hypertension I10 Chronic venous insufficiency I87.2 Morbid obesity with BMI of 40.0-44.9, adult E66.01; Z68.41 Osteoarthritis M19.90 Spinal stenosis at L4-L5 level M48.061 Physical deconditioning R53.81 MRSA (methicillin resistant Staphylococcus aureus) A49.02 Foot ulcer L97.509 UTI (urinary tract infection) N39.0
[2021-07-05] MEDS: amLODIPine BESYLATE 5 MG TAB PO SCH (20:47)
[2021-07-06] MEDS ORDERED: MELATONIN 3 MG TAB PO PRN (01:46)
[2021-07-06] MEDS ORDERED: MELATONIN 3 MG TAB PO ONE (01:55)
[2021-07-06] MEDS: RIVAROXABAN 15 MG TAB PO SCH ×2 (05:08→17:46)
[2021-07-06] MEDS: lisinopril 40 MG TAB PO SCH (10:22)
[2021-07-06] MEDS: METOPROLOL SUCC 25MG EXT REL TAB PO SCH ×2 (10:22→20:03)
[2021-07-06] MEDS: CHOLECALCIFEROL 1,000 UNITS 25 MCG TAB PO SCH (10:22)
[2021-07-06] MEDS: MUPIROCIN 2% OINT 22 GM TUBE EXT SCH ×2 (10:23→20:03)
[2021-07-06] MEDS: cefTRIAXone SODIUM 2,000 MG in DEXTROSE 5% 50 ML IV SCH (10:56)
--- NOTE | 2021-07-06 18:31 | Hospitalist Progress Note ---
Date of Service July 06, 2021 Assessment & Plan (1) DVT (deep venous thrombosis): Plan: Acute on sub-acute bilateral of the deep and superficial venous system lawrence Francois Has a h/o venous ablation of LEs. CT A/P in January 2021 shows no concern for obstructive cause. If not improving could consider CT A/P venogram but I do not see an urgent need for this given DVTs present since June 15 and likely lack of treated is the reason they are extensive. - transitioned Lovenox to Xarelto and then should remain on this lifelong as this is her second DVT in lifetime (first during breast CA treatment) - CTA of the chest negative for PE -elevate limbs ECHO negative (2) PVC (premature ventricular contraction): Plan: New and frequent PVCs, bigeminy- generally asymptomatic except on admission Now lessened in frequency on tele, asymptomatic now - Patient denies any cardiac symptoms her Troponin and ECG are negative for acute changes - QT/QTc 448/539 (within her past normals) - ECHO normal - Continue metoprolol succinate 25mg PO BID - dstable to transfer to med/surg - TSH normal - Pulmonary HTN noted via CTA of the chest - does not wear any CPAP at home, HCO3 normal (3) Hypertension: Plan: Well controlled - continue with amlodipine, lisinopril and Metoprolol. Consider switched amlodipine for diuretics anti-hypertensives to help with swelling as outpatient if not improving with DVT management as above. 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 coli continue ceftriaxone 3 day course-last day today Plan: VTE Prophylaxis - Xarelto Diet - T2DM, Low Na Dispo-continued stay, medically stable for discharge but awaiting placement at [facility]. Planning on discharge tomorrow. Admission and Anticipated Discharge Date Admission Date: July 02, 2021 Subjective Leg edema continues to improve. No chest pain, palpitations or shortness of breath. No questions or concerns for me today. Awaiting placement at this time. Physical Exam Constitutional: well developed; + not well nourished and no acute distress Respiratory: normal respiratory effort, lungs clear to auscultation Cardiovascular: Rate/Rhythm: regular rate and regular rhythm (occasional skipped beats) Heart Sounds: no murmur Extremities: + pedal edema (1+ to thighs b/l equal) Gastrointestinal (Abdomen): normal bowel sounds, soft, nontender, no hepatosplenomegaly Neurologic: moves all extremities and awake; not confused Psychiatric: A+Ox3, euthymic affect Results & Data Results & Data ([facility]) Vital Signs (Past 12 Hours) Vital Signs Temp Pulse Resp BP BP Pulse Ox 07/06/21 15:06 36.9 C 65 20 127/78 95 07/06/21 11:15 36.4 C L 61 20 136/78 95 PG Care Time/CCT Total # of Minutes Spent Total Time Spent with Patient: Total time spent is greater than 50% in coordination of care (as documented) at patient's floor/unit and/or counseling patient: Coding Level of Care Code 33710 Subseq Hosp Care Lvl 1 Diagnoses DVT (deep venous thrombosis) I82.409 PVC (premature ventricular contraction) I49.3 Hypertension I10 Chronic venous insufficiency I87.2 Morbid obesity with BMI of 40.0-44.9, adult E66.01; Z68.41 Osteoarthritis M19.90 Spinal stenosis at L4-L5 level M48.061 Physical deconditioning R53.81 MRSA (methicillin resistant Staphylococcus aureus) A49.02 Foot ulcer L97.509 UTI (urinary tract infection) N39.0
[2021-07-06] MEDS: amLODIPine BESYLATE 5 MG TAB PO SCH (20:03)
[2021-07-06] MEDS: HYDROCODONE/ACETAMOPHEN 5/325MG TAB PO PRN (20:03)
[2021-07-07] MEDS: RIVAROXABAN 15 MG TAB PO SCH (05:19)
[2021-07-07] MEDS: CHOLECALCIFEROL 1,000 UNITS 25 MCG TAB PO SCH (07:59)
[2021-07-07] MEDS: lisinopril 40 MG TAB PO SCH (07:59)
[2021-07-07] MEDS: METOPROLOL SUCC 25MG EXT REL TAB PO SCH (08:00)
[2021-07-07] MEDS: MUPIROCIN 2% OINT 22 GM TUBE EXT SCH (08:00)
--- NOTE | 2021-07-07 12:46 | Discharge Summary ---
Date of Service July 07, 2021 Admission HPI Per Admitting Provider 70 YOF with past medical history of: Breast CA, HTN, Morbid obesity, OA, Venous stasis ulcerations- managed with tubi-professor of languages, Venous ablation in 11/01, falls, Spinal stenosis L4-L5. Patient comes to the emergency room today for dizziness and weakness- this has been going on for "years", but starting having fluttering in her chest this morning that made the dizziness worse and was associated with dyspnea. This was new for her and when she checked her pulse at home it was noted to be in the 30s. Her Telemetry revealed NSR with frequent PVCs. She had a multitude of tests performed including bilateral ultrasound of her lower legs. This revealed bilateral extensive DVTs acute and chronic. Patient returned home from [facility] over the summer and the last few months she reports sitting much more than she should and not ambulating or doing her exercises. With her onset of PVCs and DVT with some chronicity to them a CTA of the chest was also performed-. Her troponin is negative and her electrolytes are normal. She was started on Lovenox with based 80mg sub q. Patient will be admitted to continue her Lovenox and follow her telemetry and symptoms. Patient has followed with wound care for her lower extremities- she has had MRSA and pseudomonas of her leg wounds in the past. Last culture was in December 30 for MRSA- she was treated with Doxycycline at that time.-- MRSA swab and will place on contact precautions. Patient has received her COVID vaccine and her COVID test on admission is: NEGATIVE Principal Diagnosis DVT, PVCs, UTI Discharge Exam Constitutional well developed; + not well nourished and no acute distress Respiratory normal respiratory effort, lungs clear to auscultation Cardiovascular Rate/Rhythm: regular rate and regular rhythm (occasional skipped beats) Heart Sounds: no murmur Extremities: + pedal edema (1+ to thighs b/l equal) Gastrointestinal (Abdomen) normal bowel sounds, soft, nontender, no hepatosplenomegaly Neurologic moves all extremities and awake; not confused Psychiatric A+Ox3, euthymic affect Discharge Data Allergies Allergy/AdvReac Type Severity Reaction Status Date / Time naproxen Allergy Mild FEET SWELL Verified 07/02/21 16:19 Tgbohys-TME-PvM Reductase Allergy Mild GENERAL Verified 07/02/21 16:19 Inhibitor MALAISE [Iadawhb-Uqd-Lvf Reductase Inhibitor] tramadol Allergy Mild RESTLESS Verified 07/02/21 16:19 LEG SYNDROME adhesive AdvReac Mild RED SKIN Verified 07/02/21 21:39 FROM BUTTERFLY Consultations 07/02/21 16:39 ED Decision to Admit Stat Ordered Studies 07/02/21 13:55 CT head/brain wo con Stat IMPRESSION: There is no hemorrhage, mass effect, or evidence of acute terr itorial ischemia by CT criteria. 07/02/21 13:56 US venous doppler LE BI Stat IMPRESSION: Bilateral deep venous thrombosis as above. This is similar to the 06/15/2021 examination. 07/02/21 16:39 CT angio chest PE protocol Stat IMPRESSION: 1. No evidence of pulmonary embolism. 2. Pulmonary hypertension. Hospital Course (1) DVT (deep venous thrombosis): Shayna Posada is a 70 year old female admitted to [facility] from July 02 - 2020 due to bilateral leg swelling. She was diagnosed with bilateral extensive DVTs. This was treated initially with Lovenox then switched to Xarelto. She should continue Xarelto 15mg PO twice a day for a further 17 days then switch to 20mg PO daily (only the 15mg dose has been prescribed). She was also treated for a UTI during her inpatient stay, no further antibiotics required at discharge. She was determined to require further physical rehabilitation on discharge therefore is being discharged to [facility]. (2) PVC (premature ventricular contraction): (3) Hypertension: (4) Chronic venous insufficiency: (5) Morbid obesity with BMI of 40.0-44.9, adult: (6) Osteoarthritis: (7) Spinal stenosis at L4-L5 level: (8) Physical deconditioning: (9) MRSA (methicillin resistant Staphylococcus aureus): (10) Foot ulcer: (11) UTI (urinary tract infection): Total Time Total Time Spent Total Time Spent (In Minutes): 35 Discharge Plan Discharge Items Patient Disposition: Transfer Snf Fac Reason For Visit: DVT, PVCS Discharge Diagnosis: DVT, PVCs, UTI Activity: Resume your previous activity Non-emergency contact: Primary Care Provider Call non-emergency contact if: you have any medication questions and your symptoms worsen Follow-up/Referrals: Shay Cassidy, [Primary Care Provider] - Diet: Carb Consistent or DM2 and Low Sodium (2gm) Addtl Attending Provider Instructions: You were admitted to [facility] from July 02 - 2020 due to bilateral leg swelling. You were diagnosed with bilateral extensive DVTs. This was treated initially with Lovenox then switched to Xarelto. Please continue Xarelto 15mg PO twice a day for a further 17 days then switch to 20mg PO daily. You were also treated for a UTI during your inpatient stay. You have completed antibiotics for this and no further antibiotics required on discharge. Pending Studies at Discharge: No Stand-Alone Forms: [facility] Skilled Items Patient informed of condition?: Yes DNR: Yes Discharge Level of Care: Acute rehab Communicable Disease: Yes (MRSA nose swab positive) Discharge Prognosis: Stable Lines: None Urinary Catheter: No Medications and DC Order Prescriptions: New Xarelto 15 mg Tablet 15 mg PO BID 17 Days Qty: 34 RF: 0 Continued multivitamin [Daily Multi-Vitamin] Tablet 1 tab PO QAM RF: 0 solifenacin 10 mg tablet 10 mg PO QDL RF: 0 metoprolol succinate 25 mg tablet extended release 24 hr 25 mg PO BID RF: 0 lisinopril 40 mg tablet 40 mg PO QAM RF: 0 amlodipine [Norvasc] 5 mg Tablet 5 mg PO HS RF: 0 cinnamon bark [Cinnamon] 500 mg Capsule 500 mg PO QDL RF: 0 Tumeric 500mg 1,000 mg PO AC RF: 0 hydrocodone-acetaminophen 5-325 mg tablet 1 tab PO Q6H PRN (Reason: Pain) RF: 0 phenazopyridine 95 mg Tablet 95 mg PO QID PRN (Reason: .UTI) RF: 0 BenGay Vanishing Scent 2.5 % Gel 1 applic TOPICAL Q4H PRN (Reason: Pain) RF: 0 selenium 100 mcg Tablet 100 mcg PO QAM RF: 0 cholecalciferol (vitamin D3) [Vitamin D3] 25 mcg (1,000 unit) Capsule 25 mcg PO QAM RF: 0 Gut Restore 1 tab PO QAM RF: 0 Prevagen 1 tab PO QAM RF: 0 Discontinued ibuprofen 200 mg Tablet 400 mg PO DAILY PRN (Reason: Pain) RF: 0 Discharge Orders: Discharge Order (Routine); Ordered 07/07/21 Ordered By: Casey Pires Admission Data Admit Date/Time: 07/02/21 17:14 Attending Provider: Casey Pires Admit Provider: Ramu Turner Primary Care Provider: Shay Cassidy [facility] ; [facility] ; Ramu Turner Other Interventions: Discharge Summary Assessment (RN) Last Done: 07/07/21 12:59 Coding Level of Care Code D/C DAY MANAGEMENT >30 MINS Diagnoses DVT (deep venous thrombosis) I82.409 PVC (premature ventricular contraction) I49.3 Hypertension I10 Chronic venous insufficiency I87.2 Morbid obesity with BMI of 40.0-44.9, adult E66.01; Z68.41 Osteoarthritis M19.90 Spinal stenosis at L4-L5 level M48.061 Physical deconditioning R53.81 MRSA (methicillin resistant Staphylococcus aureus) A49.02 Foot ulcer L97.509 UTI (urinary tract infection) N39.0
== END 2021-07-07 15:20 | DRG 300 ==
LOC: ED 13:39 → 2N 17:14 → SUATTDRO 17:14 → 2N 20:36

== ENCOUNTER 2021-12-13 18:48 | Observation (INO) ==
[2021-12-13] MEDS ORDERED: SODIUM CHLORIDE 0.9% 1000ML 500 ML IV ONE ×2 (18:55→20:47)
[2021-12-13] MEDS ORDERED: ACETAMINOPHEN 325 MG TAB PO STA (18:55)
--- NOTE | 2021-12-13 18:59 | Emergency Department Note ---
Impression & Plan Acute pyelonephritis, Acute hypotension, Fever ED Provider Note NAME: COOKIE NI AGE: 71 SEX: F : 1950 ARRIVES VIA: Ambulance INFORMANT: Patient, EMS ED PROVIDER(S): Giovani Vo DO CHIEF COMPLAINT: Fever HPI: The patient is a 71-year-old female who presented to the emergency department from her personal long-term for an evaluation of fever. The patient was noted have a fever and flank pain. She was diagnosed with a urinary tract infection earlier today. She was started on Rocephin and was given antipyretics approximately 5 hours ago. She states that the back pain is better. She also states that she has had nausea but no vomiting. She denies having any chest pain. She denies having any difficulty breathing or cough. She states that she asked to be transported to the hospital because she would rather be treated in the hospital for this urinary tract infection rather than at the personal-long-term. Reportedly she had hypotension prior to arrival. She did have a small fluid bolus prior to arrival which improved her symptoms and her blood pressure according to the labor relations consultant. She has had no black or bloody bowels. She does take anticoagulation for history of DVT. She also recently had a biopsy on her left forearm and they were instructed to keep the dressing in place. ROS: See above HPI for pertinent positives & negatives. A total of 10 systems reviewed and were otherwise negative. PAST MEDICAL HISTORY: See Below PAST SURGICAL HISTORY: See Below FAMILY HISTORY: See Below SOCIAL HISTORY: See Below HOME MEDICATIONS: See Below ALLERGIES: See Below VITALS: See Below PHYSICAL EXAMINATION: GENERAL: Patient is awake alert in no acute distress patient is resting comfortably and showing no signs of anxiety EYES: The conjunctivae are clear. The pupils are round and reactive. EARS, NOSE, MOUTH AND THROAT: The nose is without any evidence of any deformity. Mucous membranes are moist. Tongue is midline. NECK: The neck is nontender and supple. RESPIRATORY: Normal respiratory effort is noted there is no evidence of wheezing rhonchi or rales CARDIOVASCULAR: Ectopy was noted to auscultation. There is no definite murmur noted. GASTROINTESTINAL: The abdomen is soft. Abdomen is nontender. MUSCULOSKELETAL/EXTREMITIES: There is no evidence of gross deformity full range of motion is noted in the hips and shoulders. SKIN: Chronic venous stasis changes were noted in both lower extremities. Pedal edema was noted bilaterally. There was a wound dressing in the left forearm. There was no swelling distally. NEUROLOGIC: Patient is awake alert and oriented x3 MEDICAL DECISION MAKING: The patient is a 71-year-old female who presented to the emergency department for evaluation of fever. The patient was diagnosed with a urinary tract infection at her personal long-term. She was given a dose of Rocephin. The patient started having worsening symptoms including fever and low blood pressure. The patient was treated with IV fluids and IV Zosyn in the emergency department. Radiographic studies were obtained which appear to be consistent with an upper urinary tract infection. I discussed the patient's laboratory and radiographic studies with her. The [facility] hospitalist was also notified about the patient. They will evaluate the patient in the emergency department for further management and disposition. Triage Nursing notes reviewed. Prior medical records reviewed Vital Signs: reviewed and remarkable for intermittent hypotension. Differential diagnosis: Viral syndrome, otitis, pharyngitis, pneumonia, influenza, meningitis, urinary tract infection, sepsis, bacteremia, as well as other pathologies. ER treatment provided: See below Diagnostics interpreted by me: ECG: EKG was obtained in the emergency department. My interpretation is sinus rhythm at 92 bpm. PVCs were noted. Right bundle branch block pattern was noted with nonspecific ST segment abnormalities. This was compared to a tracing from July 02, 2021. No changes were noted. Cardiac Monitoring: An order was placed for continuous cardiac monitoring. The monitor shows a rate of 70 bpm with sinus rhythm. Laboratory studies: As stated above and show below. Imaging studies: See below Consultation(s): Dr. Horton was notified about the case. She will evaluate the patient in the emergency department. 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 Beliefs That Will Affect Care: None marital status: Single Current Living Situation: Family Current Living Situation Comment: HOME WITH SISTER Feels Safe at Home: Yes Assistive Devices: Glasses Allergies Allergies Allergy/AdvReac Type Severity Reaction Status Date / Time naproxen Allergy Mild FEET SWELL Verified 07/02/21 16:19 [id number] Reductase Allergy Mild GENERAL Verified 07/02/21 16:19 Inhibitor MALAISE [Bxeuaxy-Kdt-Dtg Reductase Inhibitor] tramadol Allergy Mild RESTLESS Verified 07/02/21 16:19 LEG SYNDROME adhesive AdvReac Mild RED SKIN Verified 07/02/21 21:39 FROM [facility] Home Meds Home Medications Medication Instructions Recorded Confirmed amlodipine 5 mg tablet (Norvasc) 5 mg PO HS 07/11/20 12/13/21 cinnamon bark 500 mg capsule 500 mg PO QDL 07/11/20 12/13/21 (Cinnamon) lisinopril 40 mg tablet 40 mg PO QAM 07/11/20 12/13/21 metoprolol succinate 25 mg 25 mg PO DAILY 07/11/20 12/13/21 tablet,extended release 24 hr multivitamin (Daily Multi-Vitamin) 1 tab PO QAM 08/10/20 12/13/21 solifenacin 10 mg tablet 10 mg PO QDL 12/09/20 12/13/21 Tumeric 500mg 1,000 mg PO AC 01/10/21 07/02/21 Gut Restore 1 tab PO QAM 06/15/21 07/02/21 Prevagen 1 tab PO QAM 06/15/21 12/13/21 cholecalciferol (vitamin D3) 25 25 mcg PO QAM 06/15/21 12/13/21 mcg (1,000 unit) capsule (Vitamin D3) hydrocodone 5 mg-acetaminophen 325 1 tab PO BID 06/15/21 12/13/21 mg tablet menthol 2.5 % topical gel (BenGay 1 applic TOPICAL Q4H PRN 06/15/21 07/02/21 Vanishing Scent) phenazopyridine 95 mg tablet 95 mg PO QID PRN 06/15/21 07/02/21 selenium 100 mcg tablet 100 mcg PO QAM 06/15/21 12/13/21 Saccharomyces boulardii 250 mg 250 mg PO QAM 12/13/21 12/13/21 capsule (Florastor) furosemide 40 mg tablet 40 mg PO QAM 12/13/21 12/13/21 turmeric root extract 500 mg 1,000 mg PO AC 12/13/21 12/13/21 capsule warfarin 2.5 mg tablet 2.5 mg PO WK 12/13/21 12/13/21 Results & Data (ED) Vital Signs Vital Signs - 24 hr 12/13/21 19:02 12/13/21 19:10 12/13/21 20:20 Temperature 37.4 C Temperature Source Oral Pulse Rate 90 Pulse Rate [Apical] Pulse Rhythm Regular Pulse Rhythm [Apical] Pulse Strength Normal Pulse Strength [Apical] Respiratory Rate 20 Respiratory Effort / Characteristics Non-Labored Non-Labored Non-Labored Respiratory Depth Normal Respiratory Pattern Regular Blood Pressure 106/70 Blood Pressure [Right Arm] Blood Pressure Mean 82 Blood Pressure Mean [Right Arm] Blood Pressure Position Lying Blood Pressure Position [Right Arm] Pulse Oximetry 96 93 Oxygen Delivery Method Room Air Room Air Oxygen Flow Rate Sepsis Recent Fever Within 48 Hours Yes Sepsis New/Unexplained Change in Mental Status No Sepsis Action Taken by Nursing No Action Required 12/13/21 20:22 12/13/21 21:00 12/13/21 21:37 Temperature Temperature Source Pulse Rate Pulse Rate [Apical] 87 70 Pulse Rhythm Pulse Rhythm [Apical] Regular Pulse Strength Pulse Strength [Apical] Normal Respiratory Rate 16 16 Respiratory Effort / Characteristics Non-Labored Non-Labored Respiratory Depth Normal Respiratory Pattern Regular Blood Pressure Blood Pressure [Right Arm] 102/60 Blood Pressure Mean Blood Pressure Mean [Right Arm] 74 Blood Pressure Position Blood Pressure Position [Right Arm] Lying Pulse Oximetry 93 100 98 Oxygen Delivery Method Room Air Nasal Cannula Nasal Cannula Oxygen Flow Rate 2 2 Sepsis Recent Fever Within 48 Hours Sepsis New/Unexplained Change in Mental Status Sepsis Action Taken by Prison Medications Current Medication List: was personally reviewed by me Laboratory Data Attestation: I reviewed the patient's lab results. Result diagrams: 12/13/21 19:06 12/13/21 19:06 Lab Results 12/13/21 12/13/21 12/13/21 Range/Units 19:06 19:06 19:06 WBC 6.24 (4.8-10.8) K/uL RBC 3.82 L (4.2-5.4) M/uL Hgb 10.3 L (12.0-16.0) g/dL Hct 33.0 L (37-47) % MCV 86.4 (80-100) fL MCH 27.0 (25-34) pg MCHC 31.2 L (32-36) g/dL RDW Std Deviation 51.7 H (36.4-46.3) fL RDW Coeff of Bev 16.2 H (11.5-14.5) % Plt Count 119 L (130-400) K/uL MPV 10.3 (7.4-10.4) fL Immature Gran % (Auto) 0.2 % Neut % (Auto) 83.0 % Lymph % (Auto) 6.7 % Titus % (Auto) 9.9 % Eos % (Auto) 0.0 % Baso % (Auto) 0.2 % Neut # (Auto) 5.18 (1.4-6.5) K/uL Lymph # (Auto) 0.42 L (1.2-3.4) K/uL Titus # (Auto) 0.62 H (0.11-0.59) K/uL Eos # (Auto) 0.00 (0-0.5) K/uL Baso # (Auto) 0.01 (0-0.2) K/uL Immature Gran # (Auto) 0.01 (0.00-0.02) K/uL PT 23.5 H (9.0-12.0) Seconds INR 2.3 H (0.9-1.1) APTT 40.1 H (21.0-31.0) Seconds PTT Ratio 1.5 Sodium 136 (136-145) mmol/L Potassium 4.0 (3.5-5.1) mmol/L Chloride 104 (98-107) mmol/L Carbon Dioxide 24 (21-32) mmol/L Anion Gap 8 (3-11) BUN 33 H (6-23) mg/dl Creatinine 1.11 (0.6-1.2) mg/dl Est Cr Clr Drug Dosing 50.5 ml/min Est GFR ( Amer) 57.1 ml/min Est GFR (Non-Af Amer) 49.2 ml/min BUN/Creatinine Ratio 29.7 H (10-20) Glucose 181 H (70-99(Fasting)) mg/dl Lactate (0.4-2.0) mmol/L Calcium 9.7 (8.5-10.1) mg/dl Magnesium 2.1 (1.7-2.4) mg/dl Total Bilirubin 0.6 (0.2-1.0) mg/dl AST 10 L (13-39) U/L ALT 6 L (7-52) U/L Alkaline Phosphatase 47 (34-104) U/L Troponin I 0.03 (0-0.04) ng/ml Total Protein 6.3 (6.0-8.3) gm/dl Albumin 3.3 L (3.4-5.0) gm/dl Globulin 3.0 (2.5-4.0) gm/dl Albumin/Globulin Ratio 1.1 (0.9-2) Procalcitonin (0-0.5) ng/ml Urine Color Urine Appearance (Clear) Urine pH (4.5-7.5) Ur Specific [place] (1.000-1.030) Urine Protein (Negative) Urine Glucose (UA) (Negative) Urine Ketones (Negative) Urine Blood (Negative) Urine Nitrite (Negative) Urine Bilirubin (Negative) Urine Urobilinogen (Negative) Ur Leukocyte Esterase (Negative) Urine WBC (Auto) (0-5) /hpf Urine RBC (Auto) (0-4) /hpf U Hyaline Cast (Auto) (0-5) /lpf U Epithel Cells (Auto) (0-5) /lpf Urine Bacteria (Auto) (Negative) 12/13/21 12/13/21 12/13/21 Range/Units 19:06 19:49 19:49 WBC (4.8-10.8) K/uL RBC (4.2-5.4) M/uL Hgb (12.0-16.0) g/dL Hct (37-47) % MCV (80-100) fL MCH (25-34) pg MCHC (32-36) g/dL RDW Std Deviation (36.4-46.3) fL RDW Coeff of Bev (11.5-14.5) % Plt Count (130-400) K/uL MPV (7.4-10.4) fL Immature Gran % (Auto) % Neut % (Auto) % Lymph % (Auto) % [place] % (Auto) % Eos % (Auto) % Baso % (Auto) % Neut # (Auto) (1.4-6.5) K/uL Lymph # (Auto) (1.2-3.4) K/uL Titus # (Auto) (0.11-0.59) K/uL Eos # (Auto) (0-0.5) K/uL Baso # (Auto) (0-0.2) K/uL Immature Gran # (Auto) (0.00-0.02) K/uL PT (9.0-12.0) Seconds INR (0.9-1.1) APTT (21.0-31.0) Seconds PTT Ratio Sodium (136-145) mmol/L Potassium (3.5-5.1) mmol/L Chloride (98-107) mmol/L Carbon Dioxide (21-32) mmol/L Anion Gap (3-11) BUN (6-23) mg/dl Creatinine (0.6-1.2) mg/dl Est Cr Clr Drug Dosing ml/min Est GFR ( Amer) ml/min Est GFR (Non-Af Amer) ml/min BUN/Creatinine Ratio (10-20) Glucose (70-99(Fasting)) mg/dl Lactate 1.9 (0.4-2.0) mmol/L Calcium (8.5-10.1) mg/dl Magnesium (1.7-2.4) mg/dl Total Bilirubin (0.2-1.0) mg/dl AST (13-39) U/L ALT (7-52) U/L Alkaline Phosphatase (34-104) U/L Troponin I (0-0.04) ng/ml Total Protein (6.0-8.3) gm/dl Albumin (3.4-5.0) gm/dl Globulin (2.5-4.0) gm/dl Albumin/Globulin Ratio (0.9-2) Procalcitonin 0.51 H (0-0.5) ng/ml Urine Color Yellow Urine Appearance Turbid A (Clear) Urine pH 5.0 (4.5-7.5) Ur Specific [place] 1.018 (1.000-1.030) Urine Protein 2+ H (Negative) Urine Glucose (UA) Negative (Negative) Urine Ketones Trace H (Negative) Urine Blood 2+ H (Negative) Urine Nitrite Negative (Negative) Urine Bilirubin Negative (Negative) Urine Urobilinogen Negative (Negative) Ur Leukocyte Esterase 2+ H (Negative) Urine WBC (Auto) >30 H (0-5) /hpf Urine RBC (Auto) 10-30 H (0-4) /hpf U Hyaline Cast (Auto) 1-5 (0-5) /lpf U Epithel Cells (Auto) 10-20 H (0-5) /lpf Urine Bacteria (Auto) Negative (Negative) Administered Medications Discontinued Medications Acetaminophen (Acetaminophen 325 Mg Tab) 650 mg PO NOW STA Stop: 12/13/21 18:56 Last Admin: 12/13/21 19:45 Dose: 650 mg Documented by: [id number] Sodium Chloride (Nss 1000ml) 500 mls @ 999 mls/hr IV .Q31M ONE Stop: 12/13/21 19:25 Last Infusion: 12/13/21 22:23 Dose: 0 mls/hr Documented by: [id number] Admin: 12/13/21 19:47 Dose: 999 mls/hr Documented by: [id number] Piperacillin Sod/Tazobactam Sod (Zosyn) 4.5 gm in 120 mls @ 240 mls/hr IV NOW ONE Stop: 12/13/21 21:08 Last Infusion: 12/13/21 22:05 Dose: 0 mls/hr Documented by: [id number] Admin: 12/13/21 21:25 Dose: 240 mls/hr Documented by: [id number] Imaging Data Radiologist's Impression: Abdomen/Pelvis CT 12/13/21 18:55 CT SCAN OF THE ABDOMEN AND PELVIS WITHOUT IV CONTRAST CLINICAL HISTORY: Fever. Flank pain. COMPARISON STUDY: Abdominal CT dated 01/10/2021. TECHNIQUE: CT scan of the abdomen and pelvis is performed from the lung bases to the proximal femora. Images are reviewed in the axial, sagittal, and coronal planes. IV contrast was not administered for this examination. Note that the examination is suboptimal without IV contrast. A dose lowering technique was utilized adhering to the principles of ALARA. CT DOSE: 718.75 mGy.cm FINDINGS: Lung bases: The heart is enlarged and without pericardial effusion. The lung bases are clear noting bibasilar scarring/atelectasis. Liver: The unenhanced liver is normal in size, contour, and attenuation. There is no intrahepatic biliary ductal dilatation. Scattered hepatic cysts measure up to 1.3 cm. Gallbladder: Unremarkable. Spleen: Normal in size and attenuation. Pancreas: The unenhanced pancreas is atrophic and grossly unremarkable. Adrenal glands: Unremarkable. Kidneys: The unenhanced kidneys demonstrate cortical atrophy and are without hydronephrosis. There are least 2 nonobstructing right renal calculi which measure up to 3 mm. There are at least 4 nonobstructing left renal calculi which measure up to 13 mm. No ureteral stone is seen. Urothelial thickening is noted in the renal pelvis bilaterally, left greater than right and there is asymmetric left-sided perinephric stranding/fluid. There is no evidence of contour defor saloni renal mass lesion. Foci of cortical scarring are noted in the left kidney. A retroaortic left renal vein is incidentally noted. Abdominal vasculature: The abdominal aorta is normal in course and caliber noting mild atherosclerotic calcification. Bowel: There is moderate colonic diverticulosis without CT evidence of acute diverticulitis. No bowel obstruction is identified. Moderate fecal retention is seen throughout the colon. Duodenal diverticula are noted. The appendix is well-visualized and normal. Peritoneum: There is no intraperitoneal free air or abdominal ascites. Lymphadenopathy: None. Pelvic viscera: The bladder wall appears thickened and there is pericystic infiltration. Uterus and adnexa are normal as visualized. Skeletal structures: The skeletal structures are osteopenic. There is mild to moderate lumbosacral spondylosis. No lytic or blastic lesions are seen. There are chronic/healed right-sided rib fractures. Advanced arthritic changes seen in the hips, right greater than left. There is deformity and flattening of the right femoral head and associated bursal fluid. Soft tissues: There is soft tissue infiltration with foci of subcutaneous gas in the right gluteal soft tissues posterior to the right hip seen on image #[id number]. IMPRESSION: 1. Findings suggest cystitis, with urothelial thickening present within the renal pelvis bilaterally. There is also asymmetric inflammation of the left kidney with associated perinephric fluid. Correlate clinically and with urinalysis for evidence of cystitis and ascending urinary tract infections. 2. Bilateral nephrolithiasis. There is no ureteral stone or hydronephrosis. 3. There is nonspecific soft tissue infiltration identified in the right gluteal fat with tiny foci of soft tissue gas. Clinical correlation will be required. 4. Colonic diverticulosis without CT evidence of acute diverticulitis. 5. Cardiomegaly. 6. Additional findings as above. ACT 112: Negative or not required by law. Electronically signed by: Darnell Oates M.D. 12/13/2021 7:59 PM Chest X-Ray 12/13/21 18:55 SINGLE VIEW CHEST CLINICAL HISTORY: Sepsis FINDINGS: An AP, portable, upright chest radiograph is compared to chest x-ray and chest CT dated 07/02/2021. The heart is enlarged. The pulmonary vasculature is noncongested. Chronic interstitial thickening is similar to previous. Atelectasis is noted at the lung bases. The lungs and pleural spaces are otherwise clear. No pneumothorax is seen. The skeletal structures are osteopenic. There are healed right-sided rib fractures. IMPRESSION: Cardiomegaly with no active disease in the chest. ACT 112: Negative or not required by law. Electronically signed by: Darnell Oates M.D. 12/13/2021 8:10 PM Discharge Plan Visit Data Chief Complaint: Fever ED Provider: Giovani Vo Discharge Problem: Acute pyelonephritis, Acute hypotension, Fever Patient Disposition: Being Evaluated by Hospitalist Forms Stand Alone Forms: [facility] Prescriptions Prescriptions: No Action multivitamin [Daily Multi-Vitamin] Tablet 1 tab PO QAM RF: 0 solifenacin 10 mg tablet 10 mg PO QDL RF: 0 metoprolol succinate 25 mg tablet extended release 24 hr 25 mg PO DAILY RF: 0 lisinopril 40 mg tablet 40 mg PO QAM RF: 0 amlodipine [Norvasc] 5 mg Tablet 5 mg PO HS RF: 0 cinnamon bark [Cinnamon] 500 mg Capsule 500 mg PO QDL RF: 0 Saccharomyces boulardii [Florastor] 250 mg Capsule 250 mg PO QAM RF: 0 furosemide 40 mg tablet 40 mg PO QAM RF: 0 turmeric root extract 500 mg Capsule 1,000 mg PO AC RF: 0 warfarin 2.5 mg tablet 2.5 mg PO WK RF: 0 Tumeric 500mg 1,000 mg PO AC RF: 0 hydrocodone-acetaminophen 5-325 mg tablet 1 tab PO BID RF: 0 phenazopyridine 95 mg Tablet 95 mg PO QID PRN (Reason: .UTI) RF: 0 BenGay Vanishing Scent 2.5 % Gel 1 applic TOPICAL Q4H PRN (Reason: Pain) RF: 0 selenium 100 mcg Tablet 100 mcg PO QAM RF: 0 cholecalciferol (vitamin D3) [Vitamin D3] 25 mcg (1,000 unit) Capsule 25 mcg PO QAM RF: 0 Gut Restore 1 tab PO QAM RF: 0 Prevagen 1 tab PO QAM RF: 0 Referrals Referrals: Shay Cassidy DO [Primary Care Provider] -
[2021-12-13 19:17] LABS: Basophils # (auto) 0.01 K/uL (0-0.2); Basophils % (auto) 0.2 %; Hemoglobin 10.3 g/dL (12.0-16.0); Immature Granulocytes # (auto) 0.01 K/uL (0.00-0.02); Immature Granulocytes % (auto) 0.2 %; Lymphocytes # (auto) 0.42 K/uL (1.2-3.4); Lymphocytes % (auto) 6.7 %; Mean Corpuscular Hgb Conc 31.2 g/dL (32-36); Mean Corpuscular Volume 86.4 fL (80-100); Mean Platelet Volume 10.3 fL (7.4-10.4); Monocytes # (auto) 0.62 K/uL (0.11-0.59); Monocytes % (auto) 9.9 %; Neutrophils # (auto) 5.18 K/uL (1.4-6.5); Platelet Count 119 K/uL (130-400); RDW Coefficient of Variation 16.2 % (11.5-14.5); RDW Standard Deviation 51.7 fL (36.4-46.3); Red Blood Count 3.82 M/uL (4.2-5.4); White Blood Count 6.24 K/uL (4.8-10.8)
[2021-12-13 19:39] LABS: Albumin Globulin Ratio 1.1 (0.9-2); Albumin Level 3.3 gm/dl (3.4-5.0); BUN Creatinine Ratio 29.7 (10-20); Bilirubin,Total 0.6 mg/dl (0.2-1.0); Calcium 9.7 mg/dl (8.5-10.1); Creatinine Clr Calc Pharmacy 50.5 ml/min; Est GFR (African American) 57.1 ml/min; Est GFR (Non-African American) 49.2 ml/min; INR 2.3 (0.9-1.1); Magnesium 2.1 mg/dl (1.7-2.4); Partial Thromboplastin Ratio 1.5; Partial Thromboplastin Time 40.1 Seconds (21.0-31.0); Prothrombin Time 23.5 Seconds (9.0-12.0); Total Protein 6.3 gm/dl (6.0-8.3)
[2021-12-13 19:40] LABS: Troponin I 0.03 ng/ml (0-0.04)
[2021-12-13 20:00] LABS: Appearance Urine Turbid (Clear); Bacteria Urine Automated Negative (Negative); Bilirubin Urine Negative (Negative); Blood Urine 2+ (Negative); Color Urine Yellow; Glucose Urine UA Negative (Negative); Ketones Urine Trace (Negative); Leukocyte Esterase Urine 2+ (Negative); Nitrite Urine Negative (Negative); Protein Urine 2+ (Negative); Specific Gravity Urine 1.018 (1.000-1.030); Urobilinogen Urine Negative (Negative); WBC Urine Automated >30 /hpf (0-5)
--- NOTE | 2021-12-13 20:01 | CT Scan Report ---
CT SCAN OF THE ABDOMEN AND PELVIS WITHOUT IV CONTRAST CLINICAL HISTORY: Fever. Flank pain. COMPARISON STUDY: Abdominal CT dated 01/10/2021. TECHNIQUE: CT scan of the abdomen and pelvis is performed from the lung bases to the proximal femora. Images are reviewed in the axial, sagittal, and coronal planes. IV contrast was not administered for this examination. Note that the examination is suboptimal without IV contrast. A dose lowering techn ique was utilized adhering to the principles of ALARA. CT DOSE: 718.75 mGy.cm FINDINGS: Lung bases: The heart is enlarged and without pericardial effusion. The lung bases are clear noting b ibasilar scarring/atelectasis. Liver: The unenhanced liver is normal in size, contour, and attenuation. There is no intrahepatic sahil iary ductal dilatation. Scattered hepatic cysts measure up to 1.3 cm. Gallbladder: Unremarkable. Spleen: Normal in size and attenuation. Pancreas: The unenhanced pancreas is atrophic and grossly unremarkable. Adrenal glands: Unremarkable. Kidneys: The unenhanced kidneys demonstrate cortical atrophy and are without hydronephrosis. There ar e least 2 nonobstructing right renal calculi which measure up to 3 mm. There are at least 4 nonobstru cting left renal calculi which measure up to 13 mm. No ureteral stone is seen. Urothelial thickening is noted in the renal pelvis bilaterally, left greater than right and there is asymmetric left-sided perinephric stranding/fluid. There is no evidence of contour deforming renal mass lesion. Foci of cor tical scarring are noted in the left kidney. A retroaortic left renal vein is incidentally noted. Abdominal vasculature: The abdominal aorta is normal in course and caliber noting mild atheroscleroti c calcification. Bowel: There is moderate colonic diverticulosis without CT evidence of acute diverticulitis. No bowel obstruction is identified. Moderate fecal retention is seen throughout the colon. Duodenal diverticu la are noted. The appendix is well-visualized and normal. Peritoneum: There is no intraperitoneal free air or abdominal ascites. Lymphadenopathy: None. Pelvic viscera: The bladder wall appears thickened and there is pericystic infiltration. Uterus and a dnexa are normal as visualized. Skeletal structures: The skeletal structures are osteopenic. There is mild to moderate lumbosacral sp ondylosis. No lytic or blastic lesions are seen. There are chronic/healed right-sided rib fractures. Advanced arthritic changes seen in the hips, right greater than left. There is deformity and flatteni ng of the right femoral head and associated bursal fluid. Soft tissues: There is soft tissue infiltration with foci of subcutaneous gas in the right gluteal so ft tissues posterior to the right hip seen on image #[id number]. IMPRESSION: 1. Findings suggest cystitis, with urothelial thickening present within the renal pelvis bilaterally. There is also asymmetric inflammation of the left kidney with associated perinephric fluid. Correlat e clinically and with urinalysis for evidence of cystitis and ascending urinary tract infections. 2. Bilateral nephrolithiasis. There is no ureteral stone or hydronephrosis. 3. There is nonspecific soft tissue infiltration identified in the right gluteal fat with tiny foci o f soft tissue gas. Clinical correlation will be required. 4. Colonic diverticulosis without CT evidence of acute diverticulitis. 5. Cardiomegaly. 6. Additional findings as above. ACT 112: Negative or not required by law. Electronically signed by: Darnell Oates M.D. 12/13/2021 7:59 PM
--- NOTE | 2021-12-13 20:11 | XRay Report ---
SINGLE VIEW CHEST CLINICAL HISTORY: Sepsis FINDINGS: An AP, portable, upright chest radiograph is compared to chest x-ray and chest CT dated . The heart is enlarged. The pulmonary vasculature is noncongested. Chronic interstitial thick ening is similar to previous. Atelectasis is noted at the lung bases. The lungs and pleural spaces ar e otherwise clear. No pneumothorax is seen. The skeletal structures are osteopenic. There are healed right-sided rib fractures. IMPRESSION: Cardiomegaly with no active disease in the chest. ACT 112: Negative or not required by law. Electronically signed by: Darnell Oates M.D. 12/13/2021 8:10 PM
[2021-12-13] MEDS ORDERED: PIPERACILL/TAZOBAC CONSULT ACTIVE PRN (20:39)
[2021-12-13] MEDS ORDERED: PIPERACILLIN/TAZOBACTAM 4.5 GM/120 ML BAG IV ONE (20:39)
--- NOTE | 2021-12-13 21:56 | History & Physical Report ---
Date of Service December 13, 2021 Assessment & Plan (1) UTI (urinary tract infection): Plan: 71-year-old female with a past medical history of chronic right lower extremity pain, hypertension, history of MRSA colonization, history of DVT, chronic lower extremity venous stasis dermatitis, and morbid obesity presents for evaluation of UTI symptoms diagnosed with urinary tract infection. #Urinary tract infection Patient diagnosed with UA at personal halfway was transferred to the emergency department for management. In the emergency department she was given pain control and antibiotics and a liter fluid, despite this therapy she remained hypotensive and was admitted for observation. -Admit for observation -Ceftriaxone -Follow urine culture -Pain control with Tylenol/morphine -Maintenance fluids at 125 x 2L -trend cbc -trend bmp #Hypotension Unclear etiology potentially secondary to above. -Hold home antihypertensives -Maintenance fluids as above -Observe on MedSurg with telemetry #Hypertension Holding home antihypertensives for borderline hypotension -resume when able #History of DVT On Coumadin Goal INR 2-3 #Morbid obesity Encourage lifestyle modifications FENa: Heart healthy diet Code Status: Full code DVT PPX: On Coumadin for prior DVT PT/OT: Ordered Case Management: Ordered Dispo: MedSurg telemetry Vikash Horton MD PGY 3, FCM This chart was completed utilizing [employer] voice recognition software. Grammatical errors, random word insertions, pronoun errors, and in complete sentences are an occasional consequence of the system. Any questions or concerns about the content, text, or information contained within the body of this dictation should be addressed directly to the physician for clarification. (2) Physical deconditioning: (3) Venous stasis dermatitis: (4) Hypertension: (5) Morbid obesity with BMI of 40.0-44.9, adult: History of Present Illness Primary Care Provider: Shay Cassidy DO 71-year-old female with a past medical history of chronic right lower extremity pain, hypertension, history of MRSA colonization, history of DVT, chronic lower extremity venous stasis dermatitis, and morbid obesity presents for evaluation of UTI symptoms diagnosed with urinary tract infection. She notes that she was feeling well up until about 3 days ago when she began to experience symptoms of dysuria. The personal-[facility]way noted that she had a fever and tested her noting she had a UTI. She was started on antibiotics. She was offered the option to come to the hospital or be treated at the personal-halfway. She elected to be evaluated in the hospital. She denies any recent chills, vomiting, chest pressure, chest pain, dark or tarry stools, shortness of breath. Upon arrival in the emergency department patient was noted to be hypotensive was given a 1 L bolus, antibiotics and pain control. Routine labs were obtained CBC was notable for hemoglobin of 10.3 it appears her baseline is about 9.5, INR of 2.3, chemistries within normal limits elevated glucose to 181, liver function studies normal, albumin low at 3.3, pro-Nabeel 0.5, UA 2+ leuks greater than 30 WBCs 2+ blood. CT abdomen pelvis demonstrating findings consistent with cystitis asymmetric inflammation of left kidney with associated perinephric fluid, bilateral nephrolithiasis without hydronephrosis. Chest x-ray demonstrated cardiomegaly with no active disease. On reassessment the patient continued to be hypotensive. Given her continued hypotension the primary service was consulted for admission Upon evaluation of the patient at the bedside she was in no acute distress noting a recent history of some nausea and pain and dysuria. She states she does not regularly get UTIs. All questions were answered no acute concerns Allergies Allergy/AdvReac Type Severity Reaction Status Date / Time naproxen Allergy Mild FEET SWELL Verified 12/13/21 23:00 [id number] Reductase Allergy Mild GENERAL Verified 12/13/21 23:00 Inhibitor MALAISE [Djvtzkh-Sjh-Oon Reductase Inhibitor] tramadol Allergy Mild RESTLESS Verified 12/13/21 23:00 LEG SYNDROME adhesive AdvReac Mild RED SKIN Verified 12/13/21 23:00 FROM BUTTERFLY Home Medications Medication Instructions Recorded Confirmed Type amlodipine 5 mg tablet (Norvasc) 5 mg PO HS 07/11/20 12/13/21 History cinnamon bark 500 mg capsule 500 mg PO QDL 07/11/20 12/13/21 History (Cinnamon) lisinopril 40 mg tablet 40 mg PO QAM 07/11/20 12/13/21 History metoprolol succinate 25 mg 25 mg PO DAILY 07/11/20 12/13/21 History tablet,extended release 24 hr multivitamin (Daily Multi-Vitamin) 1 tab PO QAM 08/10/20 12/13/21 History solifenacin 10 mg tablet 10 mg PO QDL 12/09/20 12/13/21 History Prevagen 1 tab PO QAM 06/15/21 12/13/21 History cholecalciferol (vitamin D3) 25 25 mcg PO QAM 06/15/21 12/13/21 History mcg (1,000 unit) capsule (Vitamin D3) hydrocodone 5 mg-acetaminophen 325 1 tab PO BID 06/15/21 12/13/21 History mg tablet selenium 100 mcg tablet 100 mcg PO QAM 06/15/21 12/13/21 History Saccharomyces boulardii 250 mg 250 mg PO QAM 12/13/21 12/13/21 History capsule (Florastor) acetaminophen 325 mg tablet 650 mg PO Q4H PRN MDD 3000MG 12/13/21 12/13/21 History acetaminophen 325 mg tablet 650 mg PO Q4H PRN MDD 3000MG 12/13/21 12/13/21 History furosemide 40 mg tablet 40 mg PO QAM 12/13/21 12/13/21 History ibuprofen 200 mg tablet 400 mg PO Q6H PRN 12/13/21 12/13/21 History lidocaine HCl 4 %-menthol 1 % 1 applic TOPICAL Q4H PRN 12/13/21 12/13/21 History topical cream (Icy Hot Max (lidocaine HCl-menthol)) sodium chloride 0.65 % nasal spray 1 spray INTRANASAL QID PRN 12/13/21 12/13/21 History aerosol (Saline Nasal Mist) turmeric root extract 500 mg 1,000 mg PO AC 12/13/21 12/13/21 History capsule warfarin 2.5 mg tablet 2.5 mg PO WK 12/13/21 12/13/21 History warfarin 5 mg tablet 5 mg PO 6XWK 12/13/21 12/13/21 History Past Med/Surg History Medical History Breast CA DVT (deep venous thrombosis) Hypertension Morbid obesity with BMI of 40.0-44.9, adult No pertinent family history Osteoarthritis Urge incontinence Venous stasis Surgical History No pertinent past surgical history Social History Smoking Status: Never smoker Second Hand Exposure: No; Hx Alcohol Use: No Hx Substance Use: No Preferred Language: Thai Communication Ability: Effective Geriatric Nurse Assistant Required: No Beliefs That Will Affect Care: None marital status: Single Current Living Situation: Family Current Living Situation Comment: HOME WITH SISTER Feels Safe at Home: Yes Assistive Devices: Glasses Review of Systems Review of Systems: as above Physical Exam Physical Exam: General: Lying in bed in no acute distress HEENT: Normocephalic atraumatic Neck: Normal to visual inspection Cardiac: Regular rate and rhythm I do not appreciate significant murmurs rubs or gallops, normal S1, normal S2, 2+ pedal edema, venous stasis dermatitis bilateral Respiratory: Clear to auscultation bilaterally special tests mentioned and appreciated significant wheezes, rales, rhonchi GI: Soft, nontender, nondistended, negative CVA tenderness Neuro: Alert and oriented x3 Psych: Calm and cooperative with the interview Results & Data Results & Data ([facility]) Vital Signs (Past 12 Hours) Vital Signs Temp Pulse Pulse Resp BP BP Pulse Ox 12/13/21 21:37 98 12/13/21 21:00 70 16 102/60 100 12/13/21 20:22 87 16 93 12/13/21 19:10 93 12/13/21 19:02 37.4 C 90 20 106/70 96 Laboratory Results 12/13/21 12/13/21 12/13/21 Range/Units 21:02 19:49 19:49 WBC (4.8-10.8) K/uL RBC (4.2-5.4) M/uL Hgb (12.0-16.0) g/dL Hct (37-47) % MCV (80-100) fL MCH (25-34) pg MCHC (32-36) g/dL RDW Std Deviation (36.4-46.3) fL RDW Coeff of Bev (11.5-14.5) % Plt Count (130-400) K/uL MPV (7.4-10.4) fL Immature Gran % (Auto) % Neut % (Auto) % Lymph % (Auto) % [place] % (Auto) % Eos % (Auto) % Baso % (Auto) % Neut # (Auto) (1.4-6.5) K/uL Lymph # (Auto) (1.2-3.4) K/uL [place] # (Auto) (0.11-0.59) K/uL Eos # (Auto) (0-0.5) K/uL Baso # (Auto) (0-0.2) K/uL Immature Gran # (Auto) (0.00-0.02) K/uL PT (9.0-12.0) Seconds INR (0.9-1.1) APTT (21.0-31.0) Seconds PTT Ratio Sodium (136-145) mmol/L Potassium (3.5-5.1) mmol/L Chloride (98-107) mmol/L Carbon Dioxide (21-32) mmol/L Anion Gap (3-11) BUN (6-23) mg/dl Creatinine (0.6-1.2) mg/dl Est Cr Clr Drug Dosing ml/min Est GFR ( Amer) ml/min Est GFR (Non-Af Amer) ml/min BUN/Creatinine Ratio (10-20) Glucose (70-99(Fasting)) mg/dl Lactate 1.9 (0.4-2.0) mmol/L Calcium (8.5-10.1) mg/dl Magnesium (1.7-2.4) mg/dl Total Bilirubin (0.2-1.0) mg/dl AST (13-39) U/L ALT (7-52) U/L Alkaline Phosphatase (34-104) U/L Troponin I (0-0.04) ng/ml Total Protein (6.0-8.3) gm/dl Albumin (3.4-5.0) gm/dl Globulin (2.5-4.0) gm/dl Albumin/Globulin Ratio (0.9-2) Procalcitonin (0-0.5) ng/ml Urine Color Yellow Urine Appearance Turbid A (Clear) Urine pH 5.0 (4.5-7.5) Ur Specific [place] 1.018 (1.000-1.030) Urine Protein 2+ H (Negative) Urine Glucose (UA) Negative (Negative) Urine Ketones Trace H (Negative) Urine Blood 2+ H (Negative) Urine Nitrite Negative (Negative) Urine Bilirubin Negative (Negative) Urine Urobilinogen Negative (Negative) Ur Leukocyte Esterase 2+ H (Negative) Urine WBC (Auto) >30 H (0-5) /hpf Urine RBC (Auto) 10-30 H (0-4) /hpf U Hyaline Cast (Auto) 1-5 (0-5) /lpf U Epithel Cells (Auto) 10-20 H (0-5) /lpf Urine Bacteria (Auto) Negative (Negative) SARS-CoV-2, RNA, NAAT Pending 12/13/21 12/13/21 12/13/21 Range/Units 19:06 19:06 19:06 WBC (4.8-10.8) K/uL RBC (4.2-5.4) M/uL Hgb (12.0-16.0) g/dL Hct (37-47) % MCV (80-100) fL MCH (25-34) pg MCHC (32-36) g/dL RDW Std Deviation (36.4-46.3) fL RDW Coeff of Bev (11.5-14.5) % Plt Count (130-400) K/uL MPV (7.4-10.4) fL Immature Gran % (Auto) % Neut % (Auto) % Lymph % (Auto) % [place] % (Auto) % Eos % (Auto) % Baso % (Auto) % Neut # (Auto) (1.4-6.5) K/uL Lymph # (Auto) (1.2-3.4) K/uL [place] # (Auto) (0.11-0.59) K/uL Eos # (Auto) (0-0.5) K/uL Baso # (Auto) (0-0.2) K/uL Immature Gran # (Auto) (0.00-0.02) K/uL PT 23.5 H (9.0-12.0) Seconds INR 2.3 H (0.9-1.1) APTT 40.1 H (21.0-31.0) Seconds PTT Ratio 1.5 Sodium 136 (136-145) mmol/L Potassium 4.0 (3.5-5.1) mmol/L Chloride 104 (98-107) mmol/L Carbon Dioxide 24 (21-32) mmol/L Anion Gap 8 (3-11) BUN 33 H (6-23) mg/dl Creatinine 1.11 (0.6-1.2) mg/dl Est Cr Clr Drug Dosing 50.5 ml/min Est GFR ( Amer) 57.1 ml/min Est GFR (Non-Af Amer) 49.2 ml/min BUN/Creatinine Ratio 29.7 H (10-20) Glucose 181 H (70-99(Fasting)) mg/dl Lactate (0.4-2.0) mmol/L Calcium 9.7 (8.5-10.1) mg/dl Magnesium 2.1 (1.7-2.4) mg/dl Total Bilirubin 0.6 (0.2-1.0) mg/dl AST 10 L (13-39) U/L ALT 6 L (7-52) U/L Alkaline Phosphatase 47 (34-104) U/L Troponin I 0.03 (0-0.04) ng/ml Total Protein 6.3 (6.0-8.3) gm/dl Albumin 3.3 L (3.4-5.0) gm/dl Globulin 3.0 (2.5-4.0) gm/dl Albumin/Globulin Ratio 1.1 (0.9-2) Procalcitonin 0.51 H (0-0.5) ng/ml Urine Color Urine Appearance (Clear) Urine pH (4.5-7.5) Ur Specific [place] (1.000-1.030) Urine Protein (Negative) Urine Glucose (UA) (Negative) Urine Ketones (Negative) Urine Blood (Negative) Urine Nitrite (Negative) Urine Bilirubin (Negative) Urine Urobilinogen (Negative) Ur Leukocyte Esterase (Negative) Urine WBC (Auto) (0-5) /hpf Urine RBC (Auto) (0-4) /hpf U Hyaline Cast (Auto) (0-5) /lpf U Epithel Cells (Auto) (0-5) /lpf Urine Bacteria (Auto) (Negative) SARS-CoV-2, RNA, NAAT 12/13/21 Range/Units 19:06 WBC 6.24 (4.8-10.8) K/uL RBC 3.82 L (4.2-5.4) M/uL Hgb 10.3 L (12.0-16.0) g/dL Hct 33.0 L (37-47) % MCV 86.4 (80-100) fL MCH 27.0 (25-34) pg MCHC 31.2 L (32-36) g/dL RDW Std Deviation 51.7 H (36.4-46.3) fL RDW Coeff of Bev 16.2 H (11.5-14.5) % Plt Count 119 L (130-400) K/uL MPV 10.3 (7.4-10.4) fL Immature Gran % (Auto) 0.2 % Neut % (Auto) 83.0 % Lymph % (Auto) 6.7 % [place] % (Auto) 9.9 % Eos % (Auto) 0.0 % Baso % (Auto) 0.2 % Neut # (Auto) 5.18 (1.4-6.5) K/uL Lymph # (Auto) 0.42 L (1.2-3.4) K/uL [place] # (Auto) 0.62 H (0.11-0.59) K/uL Eos # (Auto) 0.00 (0-0.5) K/uL Baso # (Auto) 0.01 (0-0.2) K/uL Immature Gran # (Auto) 0.01 (0.00-0.02) K/uL PT (9.0-12.0) Seconds INR (0.9-1.1) APTT (21.0-31.0) Seconds PTT Ratio Sodium (136-145) mmol/L Potassium (3.5-5.1) mmol/L Chloride (98-107) mmol/L Carbon Dioxide (21-32) mmol/L Anion Gap (3-11) BUN (6-23) mg/dl Creatinine (0.6-1.2) mg/dl Est Cr Clr Drug Dosing ml/min Est GFR ( Amer) ml/min Est GFR (Non-Af Amer) ml/min BUN/Creatinine Ratio (10-20) Glucose (70-99(Fasting)) mg/dl Lactate (0.4-2.0) mmol/L Calcium (8.5-10.1) mg/dl Magnesium (1.7-2.4) mg/dl Total Bilirubin (0.2-1.0) mg/dl AST (13-39) U/L ALT (7-52) U/L Alkaline Phosphatase (34-104) U/L Troponin I (0-0.04) ng/ml Total Protein (6.0-8.3) gm/dl Albumin (3.4-5.0) gm/dl Globulin (2.5-4.0) gm/dl Albumin/Globulin Ratio (0.9-2) Procalcitonin (0-0.5) ng/ml Urine Color Urine Appearance (Clear) Urine pH (4.5-7.5) Ur Specific [place] (1.000-1.030) Urine Protein (Negative) Urine Glucose (UA) (Negative) Urine Ketones (Negative) Urine Blood (Negative) Urine Nitrite (Negative) Urine Bilirubin (Negative) Urine Urobilinogen (Negative) Ur Leukocyte Esterase (Negative) Urine WBC (Auto) (0-5) /hpf Urine RBC (Auto) (0-4) /hpf U Hyaline Cast (Auto) (0-5) /lpf U Epithel Cells (Auto) (0-5) /lpf Urine Bacteria (Auto) (Negative) SARS-CoV-2, RNA, NAAT Diagnostic Findings Laboratory Results WBC 6.24 K/uL (4.8-10.8) 12/13/21 19:06 RBC 3.82 M/uL (4.2-5.4) L 12/13/21 19:06 Hgb 10.3 g/dL (12.0-16.0) L 12/13/21 19:06 Hct 33.0 % (37-47) L 12/13/21 19:06 MCV 86.4 fL (80-100) 12/13/21 19:06 MCH 27.0 pg (25-34) 12/13/21 19:06 MCHC 31.2 g/dL (32-36) L 12/13/21 19:06 RDW Std Deviation 51.7 fL (36.4-46.3) H 12/13/21 19:06 RDW Coeff of Bev 16.2 % (11.5-14.5) H 12/13/21 19:06 Plt Count 119 K/uL (130-400) L 12/13/21 19:06 MPV 10.3 fL (7.4-10.4) 12/13/21 19:06 Immature Gran % (Auto) 0.2 % 12/13/21 19:06 Neut % (Auto) 83.0 % 12/13/21 19:06 Lymph % (Auto) 6.7 % 12/13/21 19:06 [place] % (Auto) 9.9 % 12/13/21 19:06 Eos % (Auto) 0.0 % 12/13/21 19:06 Baso % (Auto) 0.2 % 12/13/21 19:06 Neut # (Auto) 5.18 K/uL (1.4-6.5) 12/13/21 19:06 Lymph # (Auto) 0.42 K/uL (1.2-3.4) L 12/13/21 19:06 [place] # (Auto) 0.62 K/uL (0.11-0.59) H 12/13/21 19:06 Eos # (Auto) 0.00 K/uL (0-0.5) 12/13/21 19:06 Baso # (Auto) 0.01 K/uL (0-0.2) 12/13/21 19:06 Immature Gran # (Auto) 0.01 K/uL (0.00-0.02) 12/13/21 19:06 PT 23.5 Seconds (9.0-12.0) H 12/13/21 19:06 INR 2.3 (0.9-1.1) H 12/13/21 19:06 APTT 40.1 Seconds (21.0-31.0) H 12/13/21 19:06 PTT Ratio 1.5 12/13/21 19:06 Sodium 136 mmol/L (136-145) 12/13/21 19:06 Potassium 4.0 mmol/L (3.5-5.1) 12/13/21 19:06 Chloride 104 mmol/L (98-107) 12/13/21 19:06 Carbon Dioxide 24 mmol/L (21-32) 12/13/21 19:06 Anion Gap 8 (3-11) 12/13/21 19:06 BUN 33 mg/dl (6-23) H 12/13/21 19:06 Creatinine 1.11 mg/dl (0.6-1.2) 12/13/21 19:06 Est Cr Clr Drug Dosing 50.5 ml/min 12/13/21 19:06 Est GFR ( Amer) 57.1 ml/min 12/13/21 19:06 Est GFR (Non-Af Amer) 49.2 ml/min 12/13/21 19:06 BUN/Creatinine Ratio 29.7 (10-20) H 12/13/21 19:06 Glucose 181 mg/dl (70-99(Fasting)) H 12/13/21 19:06 Lactate 1.9 mmol/L (0.4-2.0) 12/13/21 19:49 Calcium 9.7 mg/dl (8.5-10.1) 12/13/21 19:06 Magnesium 2.1 mg/dl (1.7-2.4) 12/13/21 19:06 Total Bilirubin 0.6 mg/dl (0.2-1.0) 12/13/21 19:06 AST 10 U/L (13-39) L 12/13/21 19:06 ALT 6 U/L (7-52) L 12/13/21 19:06 Alkaline Phosphatase 47 U/L (34-104) 12/13/21 19:06 Troponin I 0.03 ng/ml (0-0.04) 12/13/21 19:06 Total Protein 6.3 gm/dl (6.0-8.3) 12/13/21 19:06 Albumin 3.3 gm/dl (3.4-5.0) L 12/13/21 19:06 Globulin 3.0 gm/dl (2.5-4.0) 12/13/21 19:06 Albumin/Globulin Ratio 1.1 (0.9-2) 12/13/21 19:06 Procalcitonin 0.51 ng/ml (0-0.5) H 12/13/21 19:06 Urine Color Yellow 12/13/21 19:49 Urine Appearance Turbid (Clear) A 12/13/21 19:49 Urine pH 5.0 (4.5-7.5) 12/13/21 19:49 Ur Specific [place] 1.018 (1.000-1.030) 12/13/21 19:49 Urine Protein 2+ (Negative) H 12/13/21 19:49 Urine Glucose (UA) Negative (Negative) 12/13/21 19:49 Urine Ketones Trace (Negative) H 12/13/21 19:49 Urine Blood 2+ (Negative) H 12/13/21 19:49 Urine Nitrite Negative (Negative) 12/13/21 19:49 Urine Bilirubin Negative (Negative) 12/13/21 19:49 Urine Urobilinogen Negative (Negative) 12/13/21 19:49 Ur Leukocyte Esterase 2+ (Negative) H 12/13/21 19:49 Urine WBC (Auto) >30 /hpf (0-5) H 12/13/21 19:49 Urine RBC (Auto) 10-30 /hpf (0-4) H 12/13/21 19:49 U Hyaline Cast (Auto) 1-5 /lpf (0-5) 12/13/21 19:49 U Epithel Cells (Auto) 10-20 /lpf (0-5) H 12/13/21 19:49 Urine Bacteria (Auto) Negative (Negative) 12/13/21 19:49 SARS-CoV-2, RNA, NAAT NEGATIVE (NEGATIVE) 12/13/21 21:02 Impressions Abdomen/Pelvis CT 12/13/21 18:55 CT SCAN OF THE ABDOMEN AND PELVIS WITHOUT IV CONTRAST CLINICAL HISTORY: Fever. Flank pain. COMPARISON STUDY: Abdominal CT dated 01/10/2021. TECHNIQUE: CT scan of the abdomen and pelvis is performed from the lung bases to the proximal femora. Images are reviewed in the axial, sagittal, and coronal planes. IV contrast was not administered for this examination. Note that the examination is suboptimal without IV contrast. A dose lowering technique was utilized adhering to the principles of ALARA. CT DOSE: 718.75 mGy.cm FINDINGS: Lung bases: The heart is enlarged and without pericardial effusion. The lung bases are clear noting bibasilar scarring/atelectasis. Liver: The unenhanced liver is normal in size, contour, and attenuation. There is no intrahepatic biliary ductal dilatation. Scattered hepatic cysts measure up to 1.3 cm. Gallbladder: Unremarkable. Spleen: Normal in size and attenuation. Pancreas: The unenhanced pancreas is atrophic and grossly unremarkable. Adrenal glands: Unremarkable. Kidneys: The unenhanced kidneys demonstrate cortical atrophy and are without hydronephrosis. There are least 2 nonobstructing right renal calculi which measure up to 3 mm. There are at least 4 nonobstructing left renal calculi which measure up to 13 mm. No ureteral stone is seen. Urothelial thickening is noted in the renal pelvis bilaterally, left greater than right and there is asymmetric left-sided perinephric stranding/fluid. There is no evidence of contour deforming renal mass lesion. Foci of cortical scarring are noted in the left kidney. A retroaortic left renal vein is incidentally noted. Abdominal vasculature: The abdominal aorta is normal in course and caliber noting mild atherosclerotic calcification. Bowel: There is moderate colonic diverticulosis without CT evidence of acute diverticulitis. No bowel obstruction is identified. Moderate fecal retention is seen throughout the colon. Duodenal diverticula are noted. The appendix is well-visualized and normal. Peritoneum: There is no intraperitoneal free air or abdominal ascites. Lymphadenopathy: None. Pelvic viscera: The bladder wall appears thickened and there is pericystic infiltration. Uterus and adnexa are normal as visualized. Skeletal structures: The skeletal structures are osteopenic. There is mild to moderate lumbosacral spondylosis. No lytic or blastic lesions are seen. There are chronic/healed right-sided rib fractures. Advanced arthritic changes seen in the hips, right greater than left. There is deformity and flattening of the right femoral head and associated bursal fluid. Soft tissues: There is soft tissue infiltration with foci of subcutaneous gas in the right gluteal soft tissues posterior to the right hip seen on image #[id number]. IMPRESSION: 1. Findings suggest cystitis, with urothelial thickening present within the renal pelvis bilaterally. There is also asymmetric inflammation of the left kidney with associated perinephric fluid. Correlate clinically and with urinalysis for evidence of cystitis and ascending urinary tract infections. 2. Bilateral nephrolithiasis. There is no ureteral stone or hydronephrosis. 3. There is nonspecific soft tissue infiltration identified in the right gluteal fat with tiny foci of soft tissue gas. Clinical correlation will be required. 4. Colonic diverticulosis without CT evidence of acute diverticulitis. 5. Cardiomegaly. 6. Additional findings as above. ACT 112: Negative or not required by law. Electronically signed by: Darnell Oates M.D. 12/13/2021 7:59 PM Chest X-Ray 12/13/21 18:55 SINGLE VIEW CHEST CLINICAL HISTORY: Sepsis FINDINGS: An AP, portable, upright chest radiograph is compared to chest x-ray and chest CT dated 07/02/2021. The heart is enlarged. The pulmonary vasculature is noncongested. Chronic interstitial thickening is similar to previous. Atelectasis is noted at the lung bases. The lungs and pleural spaces are otherwise clear. No pneumothorax is seen. The skeletal structures are osteopenic. There are healed right-sided rib fractures. IMPRESSION: Cardiomegaly with no active disease in the chest. ACT 112: Negative or not required by law. Electronically signed by: Darnell Oates M.D. 12/13/2021 8:10 PM Code Status & VTE Plan Code Status full code Supervising Physician Co-Signing Physician Notes Patient seen and examined, chart reviewed. I agree with the assessment and plan as above with exceptions noted below. Patient is a 71yo female with history of DVT on Coumadin, HTN, Obesity presenting from [facility] with UTI. Patient requested to be sent to the ER for management here. She was given Ceftriaxone at [facility]. History of E.Coli UTI in the past - resistant to fluoroquinolones Complaining of back pain, worse on right On exam she is chronically ill in appearance, NAD, resting comfortably Borderline hypotension - BP range 90-105/57-65 in the ER Skin - no rash HEENT - NC/AT, PERRL, MMM, Neck supple Heart - +S1/S2, regular, no m/r/g Lungs - CTA Abd - +BS, soft, NT/ND Ext - chronic edema/venous stasis changes Labs and images reviewed. Normochromic/normocytic anemia Plt low at 119 INR therapeutic at 2.3 Procalcitonin = 0.51 UA dirty with 10-20 epithelial cells Assessment/Plan -Follow cultures sent from ER (patient did receive antibiotics prior to arrival) -Ceftriaxone 1gm IV daily -Pain control with Tylenol as needed -Continue Coumadin for history of DVT - Goal INR 2-3 - repeat INR in AM -Repeat EKG -Remainder as above (1) Venous stasis dermatitis Laterality: bilateral Qualified Code(s): I87.2 - Venous insufficiency (chronic) (peripheral)
--- NOTE | 2021-12-14 01:34 | Billing Data ---
Date of Service December 13, 2021 Coding Level of Care Code INT OBSERVATION CARE 50M LVL 2
[2021-12-14] MEDS ORDERED: ONDANSETRON INJ 2 MG/ML 2 ML VIAL IV PRN (02:12)
[2021-12-14] MEDS ORDERED: MAGNESIUM HYDROXIDE SUSP 30 ML UDC PO PRN (02:12)
[2021-12-14] MEDS ORDERED: MoRPHine SULFATE 4 MG/ML 1 ML CARP\\VIAL IV PRN (02:12)
[2021-12-14] MEDS ORDERED: NON-FORMULARY MEDICATION (Phenazopyridine 95 mg Tablet) PO PRN (02:12)
[2021-12-14] MEDS ORDERED: MoRPHine SULFATE 2 MG/ML CARP IV PRN (02:12)
[2021-12-14] MEDS ORDERED: ALUMINUM/MAGNESIUM SUSP 30 ML UDC PO PRN (02:12)
[2021-12-14] MEDS ORDERED: TROLAMINE SALICYLATE 10% CRM 255 APPLN/85 GM TUBE EXT PRN (02:38)
[2021-12-14] MEDS ORDERED: MICONAZOLE NITRATE POWDER 43 GM EXT PRN (02:45)
[2021-12-14] MEDS: LACTATED RINGER'S 1,000 ML IV SCH ×2 (03:03→11:36)
[2021-12-14] MEDS: ACETAMINOPHEN 500 MG TAB PO SCH ×3 (05:23→21:44)
[2021-12-14] MEDS ORDERED: cefTRIAXone SODIUM 2,000 MG in DEXTROSE 5% 50 ML IV SCH (06:00)
[2021-12-14] MEDS ORDERED: TUMERIC PO SCH (07:30)
[2021-12-14 08:15] LABS: Hematocrit (blood only) 30.7 % (37-47); Hemoglobin 9.4 g/dL (12.0-16.0); Immature Granulocytes # (auto) 0.01 K/uL (0.00-0.02); Immature Granulocytes % (auto) 0.2 %; Lymphocytes # (auto) 0.66 K/uL (1.2-3.4); Lymphocytes % (auto) 15.9 %; Mean Corpuscular Hemoglobin 26.8 pg (25-34); Mean Corpuscular Hgb Conc 30.6 g/dL (32-36); Mean Corpuscular Volume 87.5 fL (80-100); Mean Platelet Volume 10.2 fL (7.4-10.4); Monocytes # (auto) 0.48 K/uL (0.11-0.59); Monocytes % (auto) 11.6 %; Neutrophils % (auto) 72.3 %; Platelet Count 111 K/uL (130-400); RDW Coefficient of Variation 16.4 % (11.5-14.5); RDW Standard Deviation 52.4 fL (36.4-46.3); Red Blood Count 3.51 M/uL (4.2-5.4); White Blood Count 4.15 K/uL (4.8-10.8)
--- NOTE | 2021-12-14 08:15 | Electrocardiogram Report ---
Test Reason : Blood Pressure : / mmHG Vent. Rate : 092 BPM Atrial Rate : 092 BPM P-R Int : 156 ms QRS Dur : 084 ms QT Int : 456 ms P-R-T Axes : 081 -21 -05 degrees QTc Int : 563 ms Poor data quality, interpretation may be adversely affected Probable Sinus rhythm with frequent Premature ventricular complexes Right bundle branch block Old Inferior infarct (cited on or before 02-JUL-2021) Old Anteroseptal infarct (cited on or before 15-JUN-2021) Prolonged QT Abnormal ECG When compared with ECG of 02-JUL-2021 13:44, No significant change Confirmed by Fredy Hook ([id number]) on 12/14/2021 8:14:57 AM Referred By: REFERRED SELF Confirmed By:Fredy Hook
--- NOTE | 2021-12-14 08:27 | Electrocardiogram Report ---
Test Reason : Blood Pressure : / mmHG Vent. Rate : 055 BPM Atrial Rate : 055 BPM P-R Int : 100 ms QRS Dur : 120 ms QT Int : 416 ms P-R-T Axes : 059 085 054 degrees QTc Int : 397 ms Sinus bradycardia Left atrial enlargement Low voltage QRS Right bundle branch block Old Septal infarct Abnormal ECG When compared with ECG of 13-DEC-2021 19:10, Criteria for Inferior infarct no longer present Reconfirmed by Fredy Hook ([id number]) on 12/14/2021 8:29:44 AM Referred By: REFERRED SELF Confirmed By:Fredy Hook
--- NOTE | 2021-12-14 08:28 | Hospitalist Progress Note ---
Date of Service December 14, 2021 Assessment & Plan (1) UTI (urinary tract infection): Plan: 71-year-old female with a past medical history of chronic right lower extremity pain, hypertension, history of MRSA colonization, history of DVT, chronic lower extremity venous stasis dermatitis, and morbid obesity presents for evaluation of UTI symptoms diagnosed with urinary tract infection. Urinary tract infection Patient diagnosed with UA at personal group home was transferred to the emergency department for management. In the emergency department she was given pain control and antibiotics and a liter fluid, despite this therapy she remained hypotensive and was admitted for observation. -Admit for observation -Ceftriaxone -Follow urine culture -Pain control with Tylenol/morphine -Maintenance fluids at 125 -trend cbc -trend bmp Hypotension Unclear etiology potentially secondary to above. -Hold home antihypertensives -Maintenance fluids as above -Observe on MedSurg with telemetry Hypertension Holding home antihypertensives -resume when able History of DVT Not on anticoagulation Morbid obesity Encourage lifestyle modifications FEN: Heart healthy diet Code Status: Full code DVT PPX: Lovenox PT/OT: Ordered Case Management: Ordered Dispo: MedSurg telemetry (2) Physical deconditioning: (3) Venous stasis dermatitis: (4) Hypertension: (5) Morbid obesity with BMI of 40.0-44.9, adult: Admission and Anticipated Discharge Date Admission Date: December 13, 2021 Results & Data Results & Data ([facility]) Vital Signs (Past 12 Hours) Vital Signs Temp Pulse Pulse Pulse Resp BP BP 12/14/21 08:00 36.5 C 57 L 20 102/64 12/14/21 04:00 36.3 C L 63 19 116/69 12/14/21 02:19 36.3 C L 76 18 110/65 12/14/21 02:12 12/14/21 02:03 65 12/14/21 01:20 12/14/21 01:15 18 12/14/21 01:00 60 24 105/57 L 12/14/21 00:59 36.3 C L 76 18 110/65 12/14/21 00:34 60 23 101/70 12/14/21 00:30 58 L 22 12/14/21 00:00 58 L 23 91/63 L 12/13/21 23:52 12/13/21 23:30 63 24 91/59 L 12/13/21 23:18 69 19 100/64 12/13/21 23:00 70 18 90/56 L 12/13/21 22:30 74 17 94/63 L 12/13/21 22:00 81 28 H 100/65 12/13/21 21:37 12/13/21 21:30 72 23 105/61 12/13/21 21:29 73 15 97/65 L 12/13/21 21:00 77 70 25 H 102/60 102/60 12/13/21 20:30 79 22 102/66 Pulse Ox Pulse Ox 12/14/21 08:00 99 12/14/21 04:00 98 12/14/21 02:19 12/14/21 02:12 98 12/14/21 02:03 12/14/21 01:20 98 12/14/21 01:15 12/14/21 01:00 99 12/14/21 00:59 97 12/14/21 00:34 100 12/14/21 00:30 100 12/14/21 00:00 100 12/13/21 23:52 98 12/13/21 23:30 99 12/13/21 23:18 99 12/13/21 23:00 98 12/13/21 22:30 99 12/13/21 22:00 98 12/13/21 21:37 98 12/13/21 21:30 99 12/13/21 21:29 99 12/13/21 21:00 98 12/13/21 20:30 98 (1) Venous stasis dermatitis Laterality: bilateral Qualified Code(s): I87.2 - Venous insufficiency (chronic) (peripheral)
--- NOTE | 2021-12-14 08:29 | Electrocardiogram Report ---
Test Reason : Blood Pressure : / mmHG Vent. Rate : 058 BPM Atrial Rate : 058 BPM P-R Int : 098 ms QRS Dur : 130 ms QT Int : 430 ms P-R-T Axes : 054 086 041 degrees QTc Int : 422 ms Sinus bradycardia with occasional Premature ventricular complexes Left atrial enlargement Right bundle branch block Old Septal infarct Abnormal ECG When compared with ECG of 14-DEC-2021 05:28, Premature ventricular complexes are now Present Confirmed by Fredy Hook ([id number]) on 12/14/2021 8:29:14 AM Referred By: REFERRED SELF Confirmed By:Fredy Hook
[2021-12-14 08:35] LABS: BUN Creatinine Ratio 36.4 (10-20); Calcium 9.5 mg/dl (8.5-10.1); Creatinine Clr Calc Pharmacy 62.7 ml/min; Est GFR (African American) 75.5 ml/min; Est GFR (Non-African American) 65.2 ml/min; Potassium 3.5 mmol/L (3.5-5.1)
[2021-12-14] MEDS ORDERED: [UNRECOGNIZED DRUG - OTHER] PO SCH (09:00)
[2021-12-14] MEDS ORDERED: SACCHAROMYCES BOULARDII 250 MG CAP PO SCH (09:00)
[2021-12-14] MEDS ORDERED: CHOLECALCIFEROL 1,000 UNITS 25 MCG TAB PO SCH (09:00)
[2021-12-14 09:02] LABS: Platelet Estimate Decreased (Normal)
[2021-12-14] MEDS: POLYETHYLENE (MIRALAX) 17 GM PACK PO SCH ×2 (10:53→19:37)
--- NOTE | 2021-12-14 15:33 | Discharge Summary ---
Date of Service December 14, 2021 Admission HPI Per Admitting Provider 71-year-old female with a past medical history of chronic right lower extremity pain, hypertension, history of MRSA colonization, history of DVT, chronic lower extremity venous stasis dermatitis, and morbid obesity presents for evaluation of UTI symptoms diagnosed with urinary tract infection. She notes that she was feeling well up until about 3 days ago when she began to experience symptoms of dysuria. The [facility] noted that she had a fever and tested her noting she had a UTI. She was started on antibiotics. She was offered the option to come to the hospital or be treated at the [facility]. She elected to be evaluated in the hospital. She denies any recent chills, vomiting, chest pressure, chest pain, dark or tarry stools, shortness of breath. Upon arrival in the emergency department patient was noted to be hypotensive was given a 1 L bolus, antibiotics and pain control. Routine labs were obtained CBC was notable for hemoglobin of 10.3 it appears her baseline is about 9.5, INR of 2.3, chemistries within normal limits elevated glucose to 181, liver function studies normal, albumin low at 3.3, pro-Nabeel 0.5, UA 2+ leuks greater than 30 WBCs 2+ blood. CT abdomen pelvis demonstrating findings consistent with cystitis asymmetric inflammation of left kidney with associated perinephric fluid, bilateral nephrolithiasis without hydronephrosis. Chest x-ray demonstrated cardiomegaly with no active disease. On reassessment the patient continued to be hypotensive. Given her continued hypotension the primary service was consulted for admission Upon evaluation of the patient at the bedside she was in no acute distress noting a recent history of some nausea and pain and dysuria. She states she does not regularly get UTIs. All questions were answered no acute concerns Principal Diagnosis UTI Discharge Exam GENERAL: A&Ox3. NAD. CHEST/LUNGS: CTAB A/P. No crackles, wheezes, rales, rhonchi. HEART: RRR. No m/g/r. No carotid bruits. ABDOMEN: NT/ND, soft. BS+ x4. No CVA tenderness. EXTREMITIES: No cyanosis, no clubbing, no edema SKIN: Warm and dry. Bilateral lower extremity venous stasis changes. PSYCHIATRIC: Euthymic affect, no SI, no pressured speech, no hallucinations NEUROLOGIC: No FND. Discharge Data Allergies Allergy/AdvReac Type Severity Reaction Status Date / Time naproxen Allergy Mild FEET SWELL Verified 12/13/21 23:00 Jgjibiz-HLV-AaE Reductase Allergy Mild GENERAL Verified 12/13/21 23:00 Inhibitor MALAISE [Qdyghyp-Gal-Mup Reductase Inhibitor] tramadol Allergy Mild RESTLESS Verified 12/13/21 23:00 LEG SYNDROME adhesive AdvReac Mild RED SKIN Verified 12/13/21 23:00 FROM BUTTERFLY Consultations 12/13/21 21:43 ED Decision to Admit Stat Ordered Studies 12/13/21 18:55 CT abd pelvis wo con Stat Hospital Course (1) UTI (urinary tract infection): (2) Hypertension: (3) Morbid obesity with BMI of 40.0-44.9, adult: 71-year-old female with a past medical history of chronic right lower extremity pain, hypertension, history of MRSA colonization, history of DVT, chronic lower extremity venous stasis dermatitis, and morbid obesity presenting for evaluation of UTI symptoms and diagnosed with urinary tract infection. Urinary tract infection Patient diagnosed with UTI at [facility] was transferred to the emergency department for management. In the emergency department she was given pain control and antibiotics and a liter fluid, despite this therapy she remained hypotensive and was admitted for observation. -CT Abd suggests cystitis with urothelial thickening present within the renal pelvis bilaterally. There is also asymmetric inflammation of the left kidney with associated perinephric fluid. Correlate clinically and with urinalysis for evidence of cystitis and ascending urinary tract infections. -Received Zosyn in ED, then started on CTX 1g--she received a dose on 12/14 (day of discharge) -Will DC on Keflex 500mg BID for total 7 days -We will follow her urine culture and call/send new Rx if it shows resistance to above Hypotension -Unclear etiology potentially secondary to above vs overtreatment with multiple meds -Home antihypertensives were held. -BP improved to normal on day of DC but still relatively low at 100s/60s -Hold home antihypertensives at discharge and to be resumed as her BP allows Hypertension -Holding home antihypertensives for borderline hypotension -resume when able Dispo: Transfer to nursing facility Total Time Total Time Spent Total Time Spent (In Minutes): See attending attestation Discharge Plan Discharge Items Patient Disposition: Transfer Intermediate Fac Reason For Visit: UTI Discharge Diagnosis: UTI Activity: Per Instructions section Non-emergency contact: Primary Care Provider Call non-emergency contact if: you have any medication questions, your symptoms worsen and your temperature is above 101 Follow-up/Referrals: Shay Cassidy DO [Primary Care Provider] - Diet: Heart Healthy Addtl Attending Provider Instructions: 71-year-old female with a past medical history of chronic right lower extremity pain, hypertension, history of MRSA colonization, history of DVT, chronic lower extremity venous stasis dermatitis, and morbid obesity presenting for evaluation of UTI symptoms and diagnosed with urinary tract infection. Urinary tract infection Patient diagnosed with UA at [facility] was transferred to the emergency department for management. In the emergency department she was given pain control and antibiotics and a liter fluid, despite this therapy she remained hypotensive and was admitted for observation. -CT Abd suggests cystitis with urothelial thickening present within the renal pelvis bilaterally. There is also asymmetric inflammation of the left kidney with associated perinephric fluid. Correlate clinically and with urinalysis for evidence of cystitis and ascending urinary tract infections. -Received Zosyn in ED, then started on CTX 1g--she received a dose on 12/14 (day of discharge) -Will DC on Keflex 500mg BID for total 7 days -We will follow her urine culture and call/send new Rx if it shows resistance to above Hypotension -Unclear etiology potentially secondary to above vs overtreatment with multiple meds -BP improved to normal on day of DC but still relatively low at 100s/60s -Hold home antihypertensives at discharge and consider continuing as her BP improves Hypertension -Holding home antihypertensives for borderline hypotension -resume when able Dispo: Transfer to nursing facility Pending Studies at Discharge: No Stand-Alone Forms: [facility] Skilled Items Patient informed of condition?: Yes DNR: No Discharge Level of Care: Skilled Communicable Disease: No Discharge Prognosis: Improving Lines: Peripheral IV Urinary Catheter: No Medications and DC Order Prescriptions: New cephalexin 500 mg capsule 500 mg PO BID 6 Days Qty: 12 RF: 0 Continued multivitamin [Daily Multi-Vitamin] Tablet 1 tab PO QAM RF: 0 solifenacin 10 mg tablet 10 mg PO QDL RF: 0 cinnamon bark [Cinnamon] 500 mg Capsule 500 mg PO QDL RF: 0 Saccharomyces boulardii [Florastor] 250 mg Capsule 250 mg PO QAM RF: 0 turmeric root extract 500 mg Capsule 1,000 mg PO AC RF: 0 warfarin 2.5 mg tablet 2.5 mg PO WK RF: 0 warfarin 5 mg tablet 5 mg PO [id number] RF: 0 acetaminophen 325 mg Tablet 650 mg PO Q4H MDD 3000MG PRN (Reason: Pain) RF: 0 ibuprofen 200 mg Tablet 400 mg PO Q6H PRN (Reason: Fever) RF: 0 Icy Hot Max (lido HCl-menthol) 4-1 % Cream 1 applic TOPICAL Q4H PRN (Reason: Pain) RF: 0 Saline Nasal Mist 0.65 % Aerosol,Pratt 1 spray INTRANASAL QID PRN (Reason: Congestion) RF: 0 hydrocodone-acetaminophen 5-325 mg tablet 1 tab PO BID RF: 0 selenium 100 mcg Tablet 100 mcg PO QAM RF: 0 cholecalciferol (vitamin D3) [Vitamin D3] 25 mcg (1,000 unit) Capsule 25 mcg PO QAM RF: 0 Prevagen 1 tab PO QAM RF: 0 Discontinued metoprolol succinate 25 mg tablet extended release 24 hr 25 mg PO DAILY RF: 0 lisinopril 40 mg tablet 40 mg PO QAM RF: 0 amlodipine [Norvasc] 5 mg Tablet 5 mg PO HS RF: 0 furosemide 40 mg tablet 40 mg PO QAM RF: 0 acetaminophen 325 mg Tablet 650 mg PO Q4H MDD 3000MG PRN (Reason: Fever) RF: 0 Discharge Orders: Discharge Order (Routine); Ordered 12/14/21 Ordered By: Rigoberto Mckinney/Other Patient Handouts: 5 Steps for Eating Healthier Admission Data Admit Date/Time: 12/13/21 22:04 Attending Provider: Tabitha Walker Admit Provider: Vikash Horton I. Primary Care Provider: Shya Cassidy Other Providers: Laura Horton Other Interventions: Discharge Summary Assessment (RN) Last Done: 12/14/21 16:21 Supervising Physician Co-Signing Physician Notes Resident Physician Supervision Note: I independently interviewed and examined the patient and verified the sanchez history and physical, reviewed labs and image studies and agree with resident Dr. Acevedo findings and care plan. Resident Activity Tracking Resident Involvement: Resident Care Provided Care Provided: Adult Hospital Medicine
[2021-12-14] MEDS ORDERED: WARFARIN SOD 5 MG TAB PO SCH (16:00)
[2021-12-15 00:15] VITALS: BP 117/75; TEMP 98.2; O2SAT 99
[2021-12-15 00:34] VITALS: PULSE 76
[2021-12-20] MEDS ORDERED: WARFARIN SOD 2.5 MG TAB PO SCH (16:00)
== END 2021-12-15 00:59 ==
LOC: ED 18:48 → 2W 18:48 → SUATTDRO 22:04 → 2W 12-14 01:24

== ENCOUNTER 2023-10-09 10:35 | Inpatient (IN) ==
--- NOTE | 2023-10-09 10:48 | Emergency Department Note ---
Impression & Plan Sepsis, Acute UTI, Hypoxia ED Provider Note NAME: COOKIE NI AGE: 73 SEX: F : 1950 ARRIVES VIA: Ambulance INFORMANT: Patient ED PROVIDER(S): Serafin Franks DO CHIEF COMPLAINT: AMS HPI: Patient is a 73-year-old female who presents to the ER for altered mental status with significant decline per EMS. She was found to be hypoxic, febrile and slightly tachycardic. Patient complains of feeling weak and rundown. She is confused per EMS who gave additional history. Denies any chest pain or shortness of breath. No belly pain. No nausea or vomiting. She denies any urinary symptoms. She complains of right arm pain which she has a fracture as well of the right forearm. She also complains of right knee pain as well. ADDITIONAL HISTORY OBTAINED: Per HPI Chronic Medical/Social Conditions Affecting Care: Per HPI PAST MEDICAL HISTORY:See Below PAST SURGICAL HISTORY:See Below FAMILY HISTORY:See Below SOCIAL HISTORY:See Below HOME MEDICATIONS:See Below ALLERGIES:See Below VITALS:See Below PHYSICAL EXAMINATION: GENERAL: Sitting up in bed, alert, disheveled, moaning in pain EYE EXAM: normal conjunctiva. OROPHARYNX: Dry mucous membranes NECK: supple, no nuchal rigidity, no adenopathy, non-tender LUNGS: Clear to auscultation. Normal chest wall mechanics HEART: no murmurs, S1 normal and S2 normal ABDOMEN: abdomen soft, non-tender, normo-active bowel sounds, no masses, no rebound or guarding. BACK: Back is symmetrical on inspection and there is no deformity, no midline tenderness, no CVA tenderness. SKIN: no rashes and no bruising UPPER EXTREMITIES: Right upper extremity in splint. Left upper extremity swollen and edematous LOWER EXTREMITIES: Right knee is slightly swollen and tender to palpation. NEURO EXAM: Oriented to person, place but not year, cranial nerves II-XII grossly intact, normal speech, no gross weakness of arms, no gross weakness of legs. MEDICAL DECISION MAKING: Patient is a 73-year-old female who presents the ER for the above-stated complaint. IV was established blood work was obtained. Labs show no significant leukocytosis. Mild anemia at 9.5. Platelet unremarkable at 180. INR was unremarkable although her med rec said that she took Coumadin. BMP was unremarkable as well as lactic acid and mag. LFTs were normal. Troponin was slightly elevated. Pro-Nabeel was normal. UA does show clear UTI with bacteria leuks whites and nitrites. Do favor this is the cause of the sepsis. Chest x- ray suggest a pneumonia. Patient was covered with IV antibiotics as well as IV fluids. Updated at bedside. Discussed case with Nia for further evaluation management treatment. Consults/Care Managements Discussions: Per [facility] Triage Nursing notes reviewed. Limited review of prior medical records performed Vital Signs: reviewed and remarkable for hypoxic, tachy and febrile Differential diagnosis: Differential diagnosis includes etiologies such as sepsis, UTI, pneumonia, metabolic, electrolyte abnormalities, cardiac sources, intracerebral event, toxicologic, neurological, as well as others were entertained. ER treatment provided: See below Diagnostics interpreted by me include EKG and cardiac monitoring as listed below: -Cardiac Monitoring: An order was placed for continuous cardiac monitoring. The monitor shows a rate of 101 with sinus rhythm. -ECG: Sinus rhythm rate of 105 Normal axis Right bundle branch block QTc 515 -Laboratory studies:Interpreted by me as stated above in MDM and shown below. Imaging studies: Xrays: As interpreted by me: Portable AP upright 1 view of the chest shows questionable left lower lobe infiltrate CTs show: none Procedures:none Critical Care: None Past Med/Surg History Medical History Breast CA DVT (deep venous thrombosis) Hypertension Morbid obesity with BMI of 40.0-44.9, adult No pertinent family history Osteoarthritis Urge incontinence Venous stasis Surgical History No pertinent past surgical history Social History Smoking Status: Unknown if ever smoked Second Hand Exposure: No; Do You Dip or Chew Tobacco: No; Hx Alcohol Use: No Hx Substance Use: No Preferred Language: Maltese Communication Ability: Effective Communication Ability Comment: UNHAPPY Insurance Job Titles Required: No Beliefs That Will Affect Care: None marital status: Single Current Living Situation: Family and Personal Care Facility Current Living Situation Comment: [facility] WITH SISTER Feels Safe at Home: Yes Assistive Devices: Denture - Upper, Glasses and Walker Allergies Allergies Allergy/AdvReac Type Severity Reaction Status Date / Time naproxen Allergy Mild FEET SWELL Verified 12/13/21 23:00 Dlyhwiq-BZS-OmY Reductase Allergy Mild GENERAL Verified 12/13/21 23:00 Inhibitor MALAISE [Cecwfwv-Lxt-Zip Reductase Inhibitor] tramadol Allergy Mild RESTLESS Verified 12/13/21 23:00 LEG SYNDROME adhesive AdvReac Mild RED SKIN Verified 12/13/21 23:00 FROM [employer] Home Meds Home Medications Medication Instructions Recorded Confirmed cinnamon bark 500 mg capsule 500 mg PO QDL 07/11/20 12/13/21 (Cinnamon) multivitamin (Daily Multi-Vitamin 1 tab PO QAM 08/10/20 12/13/21 tablet) solifenacin 10 mg tablet 10 mg PO QDL 12/09/20 12/13/21 Prevagen 1 tab PO QAM 06/15/21 12/13/21 cholecalciferol (vitamin D3) 25 25 mcg PO QAM 06/15/21 12/13/21 mcg (1,000 unit) capsule (Vitamin D3) hydrocodone 5 mg-acetaminophen 325 1 tab PO BID 06/15/21 12/13/21 mg tablet selenium 100 mcg tablet 100 mcg PO QAM 06/15/21 12/13/21 Saccharomyces boulardii 250 mg 250 mg PO QAM 12/13/21 12/13/21 capsule (Florastor) acetaminophen 325 mg tablet 650 mg PO Q4H PRN Pain 12/13/21 12/13/21 ibuprofen 200 mg tablet 400 mg PO Q6H PRN Fever 12/13/21 12/13/21 lidocaine HCl 4 %-menthol 1 % 1 applic topical Q4H PRN Pain 12/13/21 12/13/21 topical cream (Icy Hot Max (lidocaine HCl-menthol)) sodium chloride 0.65 % nasal spray 1 spray intranasal QID PRN 12/13/21 12/13/21 aerosol (Saline Nasal Mist) Congestion turmeric root extract 500 mg 1,000 mg PO AC 12/13/21 12/13/21 capsule warfarin 2.5 mg tablet 2.5 mg PO WK 12/13/21 12/13/21 warfarin 5 mg tablet 5 mg PO 6XWK 12/13/21 12/13/21 Previous Rx's Medication Instructions Recorded oxycodone-acetaminophen 5 mg-325 1 tab PO Q6H PRN pain #14 tabs 01/25/24 mg tablet (Percocet) Results & Data (ED) Vital Signs Vital Signs - 24 hr 10/09/23 10:43 10/09/23 10:45 10/09/23 10:47 Temperature 37.8 C H Temperature Source Oral Pulse Rate 107 H 105 H Respiratory Rate 20 Respiratory Effort / Characteristics Non-Labored Respiratory Depth Normal Respiratory Pattern Regular Blood Pressure 153/93 H Blood Pressure Mean 113 Pulse Oximetry 88 L 92 Oxygen Delivery Method Room Air Nasal Cannula Oxygen Flow Rate 4 Sepsis Recent Fever Within 48 Hours Yes Sepsis New/Unexplained Change in Mental Status Yes Sepsis Action Taken by Nursing Physician Notified Laboratory Data 10/09/23 10:50 10/09/23 10:50 Lab Results 10/09/23 10/09/23 10/09/23 Range/Units 10:50 11:12 12:41 WBC 5.93 (4.8-10.8) K/ul RBC 3.89 L (4.20-5.40) M/uL Hgb 9.5 L (12.0-16.0) g/dl Hct 31.2 L (37.0-47.0) % MCV 80.2 (80.0-100.0) fL MCH 24.4 L (25.0-34.0) pg MCHC 30.4 L (32.0-36.0) g/dL RDW Std Deviation 43.8 (36.4-46.3) fL RDW Coeff of Bev 14.9 H (11.5-14.5) % Plt Count 184 (130-400) K/uL MPV 10.1 (9.4-12.4) fL Immature Gran % (Auto) 0.5 % Neut % (Auto) 67.6 % Lymph % (Auto) 21.1 % [place] % (Auto) 8.1 % Eos % (Auto) 2.4 % Baso % (Auto) 0.3 % Neut # (Auto) 4.01 (1.40-6.50) K/uL Lymph # (Auto) 1.25 (1.20-3.40) K/uL [place] # (Auto) 0.48 (0.11-0.59) K/uL Eos # (Auto) 0.14 (0.00-0.50) K/uL Baso # (Auto) 0.02 (0.00-0.20) K/uL Immature Gran # (Auto) 0.03 (0.01-0.20) K/uL PT 12.2 H (9.0-12.0) Seconds INR 1.1 (0.9-1.1) Sodium 140 (136-145) mmol/L Potassium 4.2 (3.5-5.1) mmol/L Chloride 108 H (98-107) mmol/L Carbon Dioxide 25 (21-32) mmol/L Anion Gap 7 (3-11) BUN 26 H (6-23) mg/dl Creatinine 0.57 L (0.6-1.2) mg/dl Est Cr Clr Drug Dosing Not Reportable Est GFR ( Amer) 105.1 ml/min Est GFR (Non-Af Amer) 90.7 ml/min BUN/Creatinine Ratio 45.6 H (10-20) Glucose 101 H (70-99(Fasting)) mg/dl Lactate 0.8 (0.4-2.0) mmol/L Calcium 10.0 (8.6-10.3) mg/dl Magnesium 2.0 (1.7-2.4) mg/dl Total Bilirubin 0.6 (0.2-1.0) mg/dl Direct Bilirubin 0.1 (0-0.2) mg/dl AST 14 (13-39) U/L ALT 9 (7-52) U/L Alkaline Phosphatase 51 (34-104) U/L Troponin I High Sens 36.2 H 35.7 H (0-14) pg/ml Total Protein 6.0 (6.0-8.3) gm/dl Albumin 3.2 L (3.4-5.0) gm/dl Procalcitonin 0.07 (0-0.5) ng/ml Urine Color Yellow Urine Appearance Slightly Cloudy (Clear) Urine pH 5.5 (4.5-7.5) Ur Specific [place] 1.020 (1.000-1.030) Urine Protein 1+ H (Negative) Urine Glucose (UA) Negative (Negative) Urine Ketones 1+ H (Negative) Urine Blood Trace-intact H (Negative) Urine Nitrite Positive A (Negative) Urine Bilirubin Negative (Negative) Urine Urobilinogen Negative (Negative) Ur Leukocyte Esterase 1+ H (Negative) Urine RBC 0-4 (0-4) /hpf Urine WBC >30 H (0-5) /hpf Ur Epithelial Cells 0-5 (0-5) /lpf Urine Bacteria 4+ H (Negative) Hyaline Casts 0-5 (0-5) /lpf Administered Medications Discontinued Medications Cefepime HCl (Maxipime) 2,000 mg in 20 mls @ 5 mls/min IV NOW STA; Protocol Stop: 10/09/23 10:48 Last Admin: 10/09/23 11:03 Dose: 5 mls/min Documented By: LINA Imaging Data Radiologist's Impression: Chest X-Ray 10/09/23 10:45 SINGLE VIEW CHEST CLINICAL HISTORY: Sepsis. FINDINGS: An AP, portable, upright chest radiograph is compared to study dated 10/05/2023. Correlation is made with chest CT dated 07/02/2021. The heart is enlarged noting atherosclerotic calcification of the thoracic aorta. The pulmonary vasculature is noncongested. There is left basilar consolidation and a small left pleural effusion. The right lung appears clear. No pneumothorax is seen. The skeletal structures are osteopenic. There are chronic/healed right- sided rib fractures. IMPRESSION: 1. Cardiomegaly without radiographic evidence of congestive failure. 2. Left basilar consolidation and small left pleural effusion. Correlate clinically for evidence of pneumonia/aspiration pneumonitis. Radiographic follow-up to resolution is recommended. ACT 112: Negative or not required by law. Electronically signed by: Darnell Oates M.D. 10/09/2023 11:08 AM Discharge Plan Visit Data Chief Complaint: Illness Stated Complaint: HYPOXIA, DECLINE IN HEALTH ED Provider: Serafin Franks Discharge Problem: Sepsis, Acute UTI, Hypoxia Forms Stand Alone Forms: My [facility] Prescriptions Prescriptions: No Action multivitamin [Daily Multi-Vitamin] Tablet 1 tab PO QAM solifenacin 10 mg tablet 10 mg PO QDL cinnamon bark [Cinnamon] 500 mg Capsule 500 mg PO QDL Saccharomyces boulardii [Florastor] 250 mg Capsule 250 mg PO QAM turmeric root extract 500 mg Capsule 1,000 mg PO AC warfarin 2.5 mg tablet 2.5 mg PO WK Rx Instructions: TAKE THIS MED EVERY MONDAY warfarin 5 mg tablet 5 mg PO 6XWK Rx Instructions: TAKE THIS MED EVERY MONDAY/MONDAY/MONDAY/MONDAY/MONDAY/MONDAY acetaminophen 325 mg Tablet 650 mg PO Q4H MDD 3000MG PRN (Reason: Pain) ibuprofen 200 mg Tablet 400 mg PO Q6H PRN (Reason: Fever) Rx Instructions: TAKE THIS MED, NEEDED, FOR FEVER, IF TYLENOL IS INEFFECTIVE. Icy Hot Max (lido HCl-menthol) 4-1 % Cream 1 applic TOPICAL Q4H PRN (Reason: Pain) Rx Instructions: APPLY TO HIPS,KNEES,SORE MUSCLES Saline Nasal Mist 0.65 % Aerosol,Chancellor 1 spray INTRANASAL QID PRN (Reason: Congestion) oxycodone-acetaminophen [Percocet] 5-325 mg tablet 1 tab PO Q6H PRN (Reason: pain) Qty: 14 0RF hydrocodone-acetaminophen 5-325 mg tablet 1 tab PO BID selenium 100 mcg Tablet 100 mcg PO QAM cholecalciferol (vitamin D3) [Vitamin D3] 25 mcg (1,000 unit) Capsule 25 mcg PO QAM Prevagen 1 tab PO QAM Referrals Referrals: Colton Crow [Primary Care Provider] - Discharge Problem: Sepsis Qualifiers: Sepsis type: sepsis due to unspecified organism Sepsis acute organ dysfunction status: unspecified Qualified Code(s): A41.9 - Sepsis, unspecified organism
[2023-10-09] MEDS: CEFEPIME 2,000 MG/20 ML VIAL IV STA (11:03)
[2023-10-09 11:09] LABS: Basophils # (auto) 0.02 K/uL (0.00-0.20); Basophils % (auto) 0.3 %; Eosinophils # (auto) 0.14 K/uL (0.00-0.50); Eosinophils % (auto) 2.4 %; Hematocrit (blood only) 31.2 % (37.0-47.0); Hemoglobin 9.5 g/dl (12.0-16.0); Immature Granulocytes # (auto) 0.03 K/uL (0.01-0.20); Immature Granulocytes % (auto) 0.5 %; Lymphocytes # (auto) 1.25 K/uL (1.20-3.40); Lymphocytes % (auto) 21.1 %; Mean Corpuscular Hemoglobin 24.4 pg (25.0-34.0); Mean Corpuscular Hgb Conc 30.4 g/dL (32.0-36.0); Mean Corpuscular Volume 80.2 fL (80.0-100.0); Mean Platelet Volume 10.1 fL (9.4-12.4); Monocytes # (auto) 0.48 K/uL (0.11-0.59); Monocytes % (auto) 8.1 %; Neutrophils # (auto) 4.01 K/uL (1.40-6.50); Neutrophils % (auto) 67.6 %; Platelet Count 184 K/uL (130-400); RDW Coefficient of Variation 14.9 % (11.5-14.5); RDW Standard Deviation 43.8 fL (36.4-46.3); Red Blood Count 3.89 M/uL (4.20-5.40); White Blood Count 5.93 K/ul (4.8-10.8)
--- NOTE | 2023-10-09 11:10 | XRay Report ---
SINGLE VIEW CHEST CLINICAL HISTORY: Sepsis. FINDINGS: An AP, portable, upright chest radiograph is compared to study dated 10/05/2023. Correlation is made with chest CT dated 07/02/2021. The heart is enlarged noting atherosclerotic calcification o f the thoracic aorta. The pulmonary vasculature is noncongested. There is left basilar consolidation and a small left pleural effusion. The right lung appears clear. No pneumothorax is seen. The skeleta l structures are osteopenic. There are chronic/healed right-sided rib fractures. IMPRESSION: 1. Cardiomegaly without radiographic evidence of congestive failure. 2. Left basilar consolidation and small left pleural effusion. Correlate clinically for evidence of p neumonia/aspiration pneumonitis. Radiographic follow-up to resolution is recommended. ACT 112: Negative or not required by law. Electronically signed by: Darnell Oates M.D. 10/09/2023 11:08 AM
[2023-10-09 11:30] LABS: Alanine Aminotransferase 9 U/L (7-52); Albumin Level 3.2 gm/dl (3.4-5.0); Alkaline Phosphatase 51 U/L (34-104); Anion Gap 7 (3-11); Aspartate Aminotransferase 14 U/L (13-39); BUN Creatinine Ratio 45.6 (10-20); Bilirubin Direct 0.1 mg/dl (0-0.2); Bilirubin,Total 0.6 mg/dl (0.2-1.0); Blood Urea Nitrogen 26 mg/dl (6-23); Carbon Dioxide 25 mmol/L (21-32); Chloride 108 mmol/L (98-107); Est GFR (African American) 105.1 ml/min; Est GFR (Non-African American) 90.7 ml/min; Glucose 101 mg/dl (70-99(Fasting)); Potassium 4.2 mmol/L (3.5-5.1); Sodium 140 mmol/L (136-145)
[2023-10-09 11:31] LABS: Troponin I High Sensitivity 36.2 pg/ml (0-14)
[2023-10-09 11:37] LABS: INR 1.1 (0.9-1.1); Prothrombin Time 12.2 Seconds (9.0-12.0)
--- NOTE | 2023-10-09 11:44 | Electrocardiogram Report ---
Test Reason : Blood Pressure : / mmHG Vent. Rate : 105 BPM Atrial Rate : 105 BPM P-R Int : 180 ms QRS Dur : 186 ms QT Int : 390 ms P-R-T Axes : 061 131 -08 degrees QTc Int : 515 ms Sinus tachycardia with Premature atrial complexes Possible Left atrial enlargement Right bundle branch block T wave abnormality, consider inferior ischemia Abnormal ECG When compared with ECG of 05-OCT-2023 20:19, Premature atrial complexes are now Present Confirmed by Giovani Kasper ([id number]) on 10/09/2023 11:44:22 AM Referred By: Confirmed By:Giovani Kasper
[2023-10-09 11:45] LABS: Appearance Urine Slightly Cloudy (Clear); Bilirubin Urine Negative (Negative); Blood Urine Trace-intact (Negative); Color Urine Yellow; Glucose Urine UA Negative (Negative); Ketones Urine 1+ (Negative); Leukocyte Esterase Urine 1+ (Negative); Nitrite Urine Positive (Negative); Protein Urine 1+ (Negative); Urobilinogen Urine Negative (Negative); pH Urine 5.5 (4.5-7.5)
[2023-10-09 11:58] LABS: Epithelial Cell Urine 0-5 /lpf (0-5)
[2023-10-09 11:59] LABS: Bacteria Urine 4+ (Negative); RBC Urine 0-4 /hpf (0-4); WBC Urine >30 /hpf (0-5)
[2023-10-09 12:00] LABS: Hyaline Casts Urine 0-5 /lpf (0-5)
--- OUTSIDE RECORDS SUMMARY | 2023-10-09 13:54 | External Medical Summary | Continuity Of Care Document ---
Author Name Unknown Address [address] [place] [address] Organization [facility]) Care Team Providers Care Table Keeper Name Role Phone Marlon Cowan Primary Care Provider [phone] Problems Code Description Start Date End Date Status M19.90 Unspecified osteoarthritis, unspecified site Active I82.403 Acute embolism and t hrombosis of unspecified deep veins of lower extremity, bilateral 07/07/2021 Active Z86.79 Personal history of other diseases of the circulatory system 07/07/2021 Active I49.3 Ventricular premature depolarization 07/07/2021 Active I10. Essential (primary) hypertension 07/07/2021 Active I87.2 Venous insufficiency (chronic) (peripheral) Active E66.9 Obesity, unspecified 07/07/2021 Acti ve M48.00 Spinal stenosis, site unspecified 07/07/2021 Active Z72.3 Lack of physical exercise 07/07/2021 Active A49.02 Methicillin resistan t Staphylococcus aureus infection, unspecified site 07/07/2021 Active L97.909 Non-pressure chronic ulcer of unspecified part of unspecified lower leg with unspecified severity 07/07/2021 Active N39.0 Urinary tract infection, site not specified Active M48.04 Spinal stenosis, thoracic region 12/15/2021 Active M19.90 Unspecified osteoarthritis, unspecified site Active N39.41 Urge incontinence 01/10/2022 Active R26.9 Unspecified abnormalities of gait and mobility 01/10/2022 Active E66.9 Obesity, unspecified 01/10/2022 Acti ve M62.81 Muscle weakness (generalized) 01/10/2022 Active Z74.1 Need for assistance with personal care 01/11/20 Active R26.81 Unsteadiness on feet 10/13/2021 Acti ve M62.81 Muscle weakness (generalized) 07/14/2021 Active U07.1 COVID-19 07/07/2021 Active R26.2 Difficulty in walking, not elsewhere classified 12/15/2021 Active I89.0 Lymphedema, not elsewhere classified 12/15/2021 Active R53.1 Weakness 12/15/2021 Active VITAL SIGNS Date Time Diastolic blood pressure Systolic blood pressure Body height Body weight Temperature SpO2 Blood Sugar Pulse Respirations 102 56496 5 84.00 mm[Hg] - Sitting 121.00 mm[Hg] - Sitting 97.50 Ear 76.00/ min 102 97380 0 96465 125 51555 0 69.00 mm[Hg] - Sitting 106.00 mm[Hg] - Sitting 93.00 % 99.00/ min 20.00/min Immunizations Vaccine Date Status COVID-19 07/20/2021 Completed COVID-19 06/23/2022 Completed Influenza 04/05/2021 Admitted After Influenza 10/19/2021 Resident Refused Influenza 07/03/2022 Resident Refused Influenza 09/05/2023 Resident Refused (PCV13)Pneumococcal 04/05/2021 Resident Ref used (PPSV23)Pneumococcal 10/19/2021 Resident Re fused (PCV20)Pneumococcal 05/31/2023 Resident Ref used
--- OUTSIDE RECORDS SUMMARY | 2023-10-09 13:54 | External Medical Summary | Continuity Of Care Document ---
Author Name Unknown Address [address] [place] [address] Organization [facility]) Care Team Providers Care Anesthesiology Technologist Name Role Phone Marlon Cowan Primary Care Provider [phone] Problems Code Description Start Date End Date [...] Temperature SpO2 Blood Sugar Pulse Respirations 102 30815 5 84.00 mm[Hg] - Sitting 121.00 mm[Hg] - Sitting 97.50 Ear 76.00/ min 102 79842 0 03849 125 24304 0 69.00 mm[Hg] - Sitting 106.00 mm[Hg] - Sitting 93.00 % 99.00/ min 20.00/min Immunizations Vaccine Date Status COVID-19 07/20/2021 Completed COVID-19 06/23/2022 Completed Influenza 04/05/2021 Admitted After Influenza 10/19/2021 Resident Refused Influenza 07/03/2022 Resident Refused Influenza 09/05/2023 Resident Refused (PCV13)Pneumococcal 04/05/2021 Resident Ref used (PPSV23)Pneumococcal 10/19/2021 Resident Re fused (PCV20)Pneumococcal 05/31/2023 Resident Ref used
--- OUTSIDE RECORDS SUMMARY | 2023-10-09 13:54 | External Medical Summary | Summary of Care ---
Author Name Unknown Organization [facility] Address [address] [place] [address] Phone [phone] Care Team Providers Care Clerk Of Court Name Role Phone Marlon Cowan MD Primary Care Provide r Reason for Visit * Reason Onset Date Comments Medication Refill 10/05/2023 Encounter Details Date Type Department Care Team (Late st Contact Info) Description 10/05/2023 Refill [facility] [address] [place] [address] Farzaneh Yanez PA-C [address] [place] [address] Allergies Active Allergy Reactions Criticality Noted Date Comments Adhesive Tape Itching 2014 Patient states, her skin became reddened and itchy under butterfly drsg. Naproxen Sodium 05/31/2014 Ankle swelling Statins 05/31/2014 GI upset Tramadol Hcl 05/31/2014 Restless legs documented as of this encounter (statuses as of 10/05/2023) Medications Medication Sig Dispensed Refills Start Date End Date Status Cinnamon 500 MG Oral Capsule (SM Cinnamon) Take 1 Cap by mouth daily. 30 Cap 0 04/27/2021 Active Daily Herlinda Oral Tablet Take 1 Tab by mouth daily. 30 Tab 0 04/27/2021 Active Selenium 100 MCG Oral Tablet Take 1 Tab by mouth daily. 30 Tab 0 Active Vitamin D 25 MCG (1000 UT) Oral Tablet Take 1 Tab by mouth daily. 30 Tab 0 Active Prevagen 10 MG Oral Capsule (Apoaequorin) Take 1 Tab by mouth daily. 30 Cap 0 Active Diclofenac Sodium 1 % External Gel (Voltaren) Apply topically to affected area 4 g as needed in the morning AND 4 g as needed at noon AND 4 g as needed in the evening (hip pain). 0 12/20/2021 Active amLODIPine Besylate 10 MG Oral Tablet (Norvasc) Take by mouth 1 Tablet in the morning. 30 Tablet 5 02/01/2022 Active Saccharomyces boulardii 250 MG Oral Capsule (Florastor) Take by mouth 1 Capsule in the morning. 30 Capsule 1 02/01/2022 Active Turmeric 500 MG Oral Tablet Take by mouth 2 Tablets three times a day before meals . 120 Tablet 0 02/01/2022 Active Metoprolol Succinate ER 25 MG Oral Tablet Extended Release 24 Hour (Toprol XL) Take by mouth 1 Tablet in the morning. 30 Tablet 0 02/01/2022 Active Saline Nasal [place] 0.65 % Nasal Solution ([place]) Administer into nostril 1 [place] as needed in the morning AND 1 [place] as needed at noon AND 1 [place] as needed in the evening AND 1 [place] as needed before bedtime for Congestion. 30 mL 12 02/01/2022 Active Acetaminophen 325 MG Oral Tablet (Tylenol) Take by mouth 2 Tablets every 4 hours as needed for Fever >38C(100.5F), Pain, Mild or Pain, Moderate. 100 Tablet 1 02/01/2022 Active Aspirin EC 81 MG Oral Tablet Delayed Release Take 1 Tablet by mouth in the morning. 100 Tablet 0 01/20/2023 Active Acetaminophen 325 MG Oral Tablet (Tylenol) Take 2 Tablets by mouth in the morning and 2 Tablets at noon and 2 Tablets before bedtime. 0 05/25/2023 Active Polyethylene Glycol 3350 17 GM/SCOOP Oral Powder (MiraLax) Take 17 g by mouth as needed for Constipation. Dissolve one heaping tablespoon in 8 ounces of water or juice. 0 05/25/2023 Active Saline Nasal [place] 0.65 % Nasal Solution ([place]) Administer 1 [place] into nostril in the morning and 1 [place] at noon and 1 [place] before bedtime. 30 mL 12 06/16/2023 Active oxyBUTYnin Chloride 5 MG Oral Tablet (Ditropan) Take 1 Tablet by mouth in the morning and 1 Tablet before bedtime. 0 07/06/2023 Active Osteo Bi-Flex Joint Shield Oral Tablet Take 1 Tablet by mouth in the morning. 0 08/11/2023 Active [place]-3 Fish Oil 1000 MG Oral Capsule ([place]-3) Take 1 Capsule by mouth in the morning. 0 08/31/2023 Active Gabapentin 100 MG Oral Capsule (Neurontin) Take 1 Capsule by mouth in the morning and 1 Capsule at noon and 1 Capsule before bedtime. 0 09/12/2023 Active Osteo Bi-Flex Regular Strength 250-200 MG Oral Tablet (Glucosamine-Cho ndroitin) Take 1 Tablet by mouth in the morning and 1 Tablet before bedtime. 0 09/29/2023 Active oxyCODONE HCl 10 MG Oral Tablet (Roxicodone) Take 1 Tablet by mouth every 4 hours as needed for Pain, Moderate or Pain, Severe. 60 Tablet 0 10/05/2023 Active oxyCODONE HCl 5 MG Oral Tablet (Oxy IR) Take 1 Tablet by mouth every 6 hours as needed for Pain, Severe. 60 Tablet 0 09/08/2023 10/05/2023 Discontinue d(Medicatio n/Dose Changed) documented as of this encounter (statuses as of 10/05/2023) Active Problems Problem Noted Date Diagnosed Date Overactive bladder 07/26/2023 DDD (degenerative disc disease), cervical 2022 On aspirin at home 01/20/2023 DNR (do not resuscitate) 10/07/2022 PVC (premature ventricular contraction) 07/09/20 21 Venous stasis ulcers of both lower extremities 1 MRSA (methicillin resistant staph aureus) cultur e positive 07/08/2021 History of DVT (deep vein thrombosis) 07/07/2021 Refused pneumococcal vaccination 02/04/2021 History of breast cancer 01/20/2021 Venous stasis dermatitis 01/18/2021 Cardiomegaly 01/18/2021 Splenomegaly 01/18/2021 Diverticulosis of large intestine without hemorr george 01/18/2021 Spinal stenosis of lumbar re gion without neurogenic claudication 01/15/2021 Ambulatory dysfunction 01/15/2021 HTN, goal below 140/90 01/15/2021 Urge incontinence 01/15/2021 Generalized OA 01/15/2021 Frequent falls 01/15/2021 Arthritis of both hips 01/15/2021 Renal calculi 10/10/2014 documented as of this encounter (statuses as of 10/05/2023) Resolved Problems Problem Noted Date Diagnosed Date Resolved Date Atrial fibrillation 12/07/2022 12/08/19 23 On anticoagulant therapy 07/20/2021 Severe obesity with body mas s index (BMI) of 35.0 to 39.9 with serious comorbidity 01/20/2021 Sacral insufficiency fractur e with routine healing 01/15/2021 12/07/2022 Calculus of kidney 09/08/2014 ROBERT (acute kidney injury) 06/01/2014 Nephropathy, obstructive 06/01/201408/2021 Staghorn renal calculus 06/01/201401/09 Hyponatremia 06/01/2014 01/20/2021 Hyperkalemia 05/31/2014 01/20/2021 Phlebitis and thrombophlebit is of other deep vessels of lower extremities 06/08/2009 01/20/2021 documented as of this encounter (statuses as of 10/05/2023) Social History Tobacco Use Types Packs/Day Years Used Date Smoking Tobacco: Never Smokeless Tobacco: Never Alcohol Use Standard Drinks/Week Comments Yes 0 (1 standard drink = 0.6 oz pur e alcohol) RARELY Sex and Gender Information Value Date Recorded Sex Assigned at Not on file Gender Identity Not on file Sexual Orientation Not on file Job Start Date Occupation Industry Not on file Not on file Not on file documented as of this encounter Functional Status Functional Status Response Date of Assess ment Are you deaf or do you have serious difficulty h earing? No 05/31/2014 Are you blind or do you have serious difficulty seeing, even when wearing glasses? No 05/31/2014 Do you have serious difficul ty walking or climbing stairs? (5 years old or older) No 05/31/2014 Do you have difficulty dress ing or bathing? (5 years old or older) No 05/31/2014 Because of a physical, menta l, or emotional condition, do you have difficulty doing errands alone such as visiting a doctor s office or shopping? (15 years old or older) No 05/31/20 14 Cognitive Status Response Date of Assessm ent Because of a physical, menta l, or emotional condition, do you have serious difficulty concentrating, remembering, or making decisions? (5 years old or older) No 05/31/2014 documented as of this encounter Miscellaneous Notes * Telephone Encounter - Farzaneh Yanez PA-C - 10/05/2023 3:17 PM EST RX OXYCODONE 10MG Q FOUR HOURS PRN MOD TO SEVERE PAIN #60 R0 SENT ELECTRONICALLY TO [facility] documented in this encounter Plan of Treatment Health Maintenance Due Date Last Done Comments DXA Scan 1950 COVID-19 Vaccine (#1) 01/28/1951 Depression Screening 1960 Albumin/Creatinine Ratio 1966 Hepatitis C Screening 1966 DTaP,Tdap,and Td Vaccines (1 - Tdap) 1967 Zoster Vaccines (1 of 2) 1998 Pneumococcal Vaccine: 65+ Years (1 - PCV) 2013 Influenza Vaccine (FLU shot) (#1) 2023 GFR 06/05/2024 06/05/2023, 01/09, 06/10/2022, Additional history exists GARDASIL-HPV IMMUNIZATION SERIES Aged Out No longer eligible based on patient's age to complete this topic Hepatitis B Aged Out No longer eligi ble based on patient's age to complete this topic MENINGOCOCCAL (MENACTRA/MENVEO) Aged Out No longer eligible based on patient's age to complete this topic documented as of this encounter Medical Devices Not on filedocumented as of this encounter Advance Directives Latest Code Status on File Code Status Date Activated Date Inactivated Comments Full Code 10/10/2014 2:41 PM 10/15/2014 6:34 PM This o rder reflects the patients wishes and were consensually agreed upon. Code Status History Code Status Date Activated Date Inactivated Comments Full Code 09/08/2014 12:49 PM 09/09/2014 8:16 PM Th is order reflects the patients wishes and were consensually agreed upon. Full Code 05/31/2014 9:10 PM 06/06/2014 6:07 PM This order reflects the patients wishes and were consensually agreed upon. Question Answer Comments Discussion of Advance Directives occurred with: Patient Does the patient have a Living Will? No Does the patient have Health Care Power of Chain Saw Operator? No Care Teams Clerk Of Court Relationship Specialty Start Date End Date Marlon Cowan MD [address] [facility] [place] [address] PCP - General Family Medicine 11/25/21 documented as of this encounter
--- OUTSIDE RECORDS SUMMARY | 2023-10-09 13:54 | External Medical Summary | Summary of Care ---
Author Name Unknown Organization [facility] Address [address] [place] [address] Phone [phone] Care Team Providers Care Glove Wrapper Name Role Phone Marlon Cowan MD Primary Care Provide r Reason for Visit * Reason Onset Date Comments Jail Visit 10/06/2023 Encounter Details Date Type Department Care Team (Latest Contact Info) Description 10/06/2023 6:30 AM EST Jail Visit [facility] [address] [place] [address] Farzaneh Yanez PA-C [address] [place] [address] Closed traumatic displaced transcondylar fracture of right humerus with routine healing, subsequent encounter*; Venous stasis ulcers of both lower extremities (HCC); Morbid obesity due to excess calories (HCC); Cerebrovascular disease Allergies Active Allergy Reactions Criticality Noted Date Comments Adhesive Tape Itching 2014 Patient states, her skin became reddened and itchy under butterfly drsg. Naproxen Sodium 05/31/2014 Ankle swelling Statins 05/31/2014 GI upset Tramadol Hcl 05/31/2014 Restless legs documented as of this encounter (statuses as of 10/06/2023) Medications Medication Sig Dispensed Refills Start Date [...] 30 Tablet 0 02/01/2022 Active Saline Nasal [place] 0.65 % Nasal Solution ([place]) Administer into nostril 1 [place] as needed in the morning AND 1 [place] as needed at noon AND 1 [place] as needed in the evening AND 1 [place] as needed before bedtime for Congestion. 30 [...] or juice. 0 05/25/2023 Active Saline Nasal [place] 0.65 % Nasal Solution ([place]) Administer 1 [place] into nostril in the morning and 1 [place] at noon and 1 [place] before bedtime. 30 mL 12 06/16/2023 Active oxyBUTYnin Chloride 5 MG Oral Tablet (Ditropan) Take 1 Tablet by mouth in the morning and 1 Tablet before bedtime. 0 07/06/2023 Active Osteo Bi-Flex Joint Shield Oral Tablet Take 1 Tablet by mouth in the morning. 0 08/11/2023 Active [place]-3 Fish Oil 1000 MG Oral Capsule ([place]-3) Take 1 Capsule by mouth in the morning. 0 08/31/2023 Active Gabapentin 100 MG Oral Capsule (Neurontin) Take 1 Capsule by mouth in the morning and 1 Capsule at noon and 1 Capsule before bedtime. 0 09/12/2023 Active Osteo Bi-Flex Regular Strength 250-200 MG Oral Tablet (Glucosamine-Chondr oitin) Take 1 Tablet by mouth in the morning and 1 Tablet before bedtime. 0 09/29/2023 Active oxyCODONE HCl 10 MG Oral Tablet (Roxicodone) Take 1 Tablet by mouth every 4 hours as needed for Pain, Moderate or Pain, Severe. 60 Tablet 0 10/05/2023 Active documented as of this encounter (statuses as of 10/06/2023) Active Problems Problem Noted Date Diagnosed Date Traumatic closed displaced t ranscondylar fracture of distal humerus with routine healing 10/06/2023 Cerebrovascular disease 10/06/2023 Overactive bladder 07/26/2023 DDD (degenerative disc disease), [...] as of this encounter (statuses as of 10/06/2023) Resolved Problems Problem Noted Date Diagnosed Date [...] as of this encounter (statuses as of 10/06/2023) Social History Tobacco Use Types Packs/Day Years [...] No 05/31/2014 documented as of this encounter Plan of Treatment Health Maintenance [...] Not on filedocumented as of this encounter Visit Diagnoses Diagnosis Closed traumatic displaced transcondylar fracture of right humerus with routine healing, subsequent encounter- Primary Venous stasis ulcers of both lower extremities (HCC) Morbid obesity due to excess calories (HCC) Cerebrovascular disease Cerebrovascular disease, unspecified documented in this encounter Advance Directives Latest Code Status [...] the patient have Health Care Power of Machine Sander? No Care Teams Glove Wrapper Relationship Specialty Start Date End Date Marlon Cwoan MD [address] [facility] [place] [address] PCP - General Family Medicine 11/25/21 documented as of this encounter
--- OUTSIDE RECORDS SUMMARY | 2023-10-09 13:55 | External Medical Summary | Summary of Care ---
Author Name Unknown Organization [facility] Address [address] [place] [address] Phone [phone] Care Team Providers Care Trade Marker Name Role Phone Marlon Cowan MD Primary Care Provide r Reason for Visit * Reason Onset Date Comments Complicated Acute Visit 10/05/2023 Encounter Details Date Type Department Care Team (Latest Contact Info) Description 10/05/2023 6:00 AM EST Group Home Visit [facility] [address] [place] [address] Farzaneh Yanez PA-C [address] [place] [address] Closed displaced transcondylar fracture of right humerus, initial encounter*; Contusion of right foot, initial encounter; Venous stasis ulcers of both lower extremities (HCC); Spinal stenosis of lumbar region without neurogenic claudication; Overactive bladder; History of DVT (deep vein thrombosis) Allergies Active Allergy Reactions Criticality Noted Date [...] 30 Tablet 0 02/01/2022 Active Saline Nasal [place] 0.65 % Nasal Solution ([place]) Administer into nostril 1 [place] as needed in the morning AND 1 [place] as needed at noon AND 1 [place] as needed in the evening AND 1 [place] as needed before bedtime for Congestion. 30 [...] or juice. 0 05/25/2023 Active Saline Nasal [place] 0.65 % Nasal Solution ([place]) Administer 1 [place] into nostril in the morning and 1 [place] at noon and 1 [place] before bedtime. 30 mL 12 06/16/2023 Active oxyBUTYnin Chloride 5 MG Oral Tablet (Ditropan) Take 1 Tablet by mouth in the morning and 1 Tablet before bedtime. 0 07/06/2023 Active Osteo Bi-Flex Joint Shield Oral Tablet Take 1 Tablet by mouth in the morning. 0 08/11/2023 Active [place]-3 Fish Oil 1000 MG Oral Capsule ([place]-3) Take 1 Capsule by mouth in the [...] before bedtime. 0 09/29/2023 Active oxyCODONE HCl 5 MG Oral Tablet [...] No 05/31/2014 documented as of this encounter Progress Notes * Farzaneh Yanez PA-C - 10/05/2023 3:01 PM EST Name: Shayna Posada Date of :1950 TRANSITION EVENT: Type: Complicated acute visit Date: October 05 Code Status: No Code This note pertains to care provided at [facility]. Please see facility medical record for original note. This note is not to be edited or addended in [employer]. Editing or addending needs to occur in the facilities medical record. Subjective: Shayna Posada is a 73 year old female. Patient being seen for fall with injuries Chief Complaint Patient presents with Complicated Acute Visit HPI: I was asked to assess pt for a witnessed fall which occurred last evening. Pt attempted to ambulate to the bathroom using her walker. She was having continued arthritic pain in her right hip butmade it to the bathroom with assistance. While in the bathroom, pt tried to stand from the toilet with assistance and felt pain in her right foot/ankle and "felt like I was going to go down". Pt started to fall and was lifted to the floor. No head injury or LOC. Pt noted severe pain in right foot/ankle, elbow and forearm following the fall. Pt was placed back into her chair. She continued to havepain despite Tylenol and Oxycodone prn. Vital signs remained stable. Xrays of right elbow/forearm, ankle, foot and hip were obtained in the facility and positive finding of acute, mildly displaced transcondylar fx right distal humerus. DJD changes noted on hip and foot/ankle xrays but no fxs. Pt has no numbness in right hand or fingers. No cold sensation. CBC Results: Results for orders placed or performed in visit on 01/20/23 CBC Result Value Ref Range WBC 3.89 (L) 4.00 - 10.80 K/uL RBC 4.53 3.85 - 5.15 M/uL HGB 12.1 12.0 - 15.3 g/dL HCT 40.8 36.0 - 45.2 % MCV 90.1 81.5 - 97.5 fL MCH 26.7 27.0 - 34.0 pg MCHC 29.7 32.0 - 36.0 g/dL RDW 14.4 11.5 - 15.5 % PLT 168 140 - 400 K/uL MPV 9.9 6.6 - 11.1 fL nRBCs 0 <=0 /100 WBCs Hemoglobin Results: Lab Results Component Value Date/Time HGB - [facility] 12.1 01/20/2023 05:40 AM HGB - [facility] 10.6 (L) 06/10/2022 05:06 AM HGB - [facility] 11.2 (L) 04/20/2022 05:08 AM HGB - [facility] 8.4 (L) 10/15/2014 06:47 AM HGB - [facility] 8.1 (L) 10/14/2014 06:55 AM HGB - [facility] 8.4 (L) 10/13/2014 01:07 PM Basic Panel Results: Results for orders placed or performed in visit on 06/05/23 BASIC METABOLIC PANEL Result Value Ref Range BUN 22 (H) 6 - 20 mg/dL Creatinine 0.7 0.5 - 1.0 mg/dL Estimated Glomerular Filtration Rate >90 >=60 mL/min Sodium 142 135 - 146 mmol/L Potassium 4.3 3.5 - 5.1 mmol/L Chloride 107 98 - 107 mmol/L CO2 26 22 - 32 mmol/L Anion Gap 9 7 - 15 mmol/L Glucose 88 70 - 120 mg/dL Calcium 10.0 8.4 - 10.2 mg/dL Creatinine Results: Lab Results Component Value Date/Time CREATININE - [facility] 0.7 06/05/2023 05:24 AM CREATININE - [facility] 0.7 01/20/2023 05:40 AM CREATININE - [facility] 0.9 06/10/2022 05:06 AM CREATININE - [facility] 1.1 10/15/2014 06:47 AM CREATININE - [facility] 1.0 10/14/2014 06:55 AM CREATININE - [facility] 1.1 10/13/2014 08:07 AM Potassium Results: Lab Results Component Value Date/Time POTASSIUM - [facility] 4.3 06/05/2023 05:24 AM POTASSIUM - [facility] 4.5 01/20/2023 05:40 AM POTASSIUM - [facility] 4.1 06/10/2022 05:06 AM POTASSIUM - [facility] 3.9 10/15/2014 06:47 AM POTASSIUM - [facility] 3.9 10/14/2014 06:55 AM POTASSIUM - [facility] 3.7 10/13/2014 08:07 AM Sodium Results: Lab Results Component Value Date/Time SODIUM - [facility] 142 06/05/2023 05:24 AM SODIUM - [facility] 141 01/20/2023 05:40 AM SODIUM - [facility] 142 06/10/2022 05:06 AM SODIUM - [facility] 139 10/15/2014 06:47 AM SODIUM - [facility] 138 10/14/2014 06:55 AM SODIUM - [facility] 140 10/13/2014 08:07 AM Patient Active Problem List Diagnosis Code Renal calculi N20.0 Spinal stenosis of lumbar region without neurogenic claudication M48.061 Ambulatory dysfunction R26.2 HTN, goal below 140/90 I10 Urge incontinence N39.41 Generalized OA M15.9 Frequent falls R29.6 Arthritis of both hips M16.0 Venous stasis dermatitis I87.2 Cardiomegaly I51.7 Splenomegaly R16.1 Diverticulosis of large intestine without hemorrhage K57.30 History of breast cancer Z85.3 Refused pneumococcal vaccination Z28.21 History of DVT (deep vein thrombosis) Z86.718 MRSA (methicillin resistant staph aureus) culture positive Z22.322 PVC (premature ventricular contraction) I49.3 Venous stasis ulcers of both lower extremities (HCC) I83.019, I83.029, L97.919, L97.929 DNR (do not resuscitate) Z66 On aspirin at home Z79.82 DDD (degenerative disc disease), cervical M50.30 Overactive bladder N32.81 Past Medical History: Diagnosis Date Anemia Burnett's palsy Breast cancer (HCC) left breast HTN (hypertension) Osteoarthritis Renal calculus, bilateral Severe obesity with body mass index (BMI) of 35.0 to 39.9 with serious comorbidity (HCC) 01/20/2021 Past Surgical History: Procedure Laterality Date BREAST SURGERY PROCEDURE NEC left breast CYSTO/URETERO W/LITHOTRIPSY Right 10/14/2014 CYSTOURETHROSCOPY URETEROSCOPY WITH LITHOTRIPSY AND STENT INSERTION performed [place] Crescencio Villalba [place] [facility] [place]/INSERTION OF STENT Left 10/10/2014 CYSTOURETHROSCOPY WITH INSERTION URETERAL STENT performed by Olman Bryant MD at [facility] CYSTOSCOPY/URETERAL CATHETER Right 10/14/2014 CYSTOURETHROSCOPY WITH URETERAL CATHETER performed by Olman Bryant MD at [facility] FLUORO PYELOGRAM RETROGRADE Right 10/14/2014 UROGRAHY, RETROGRADE, WITH OR WITHOUT KUB performed by Olman Bryant MD at [facility] IR DRAINAGE CATHETER CHANGE 06/03/2014 CHANGE OF PERCUTANEOUS TUBE OR DRAINAGE CATHETER WITH XRAY AND CONTRAST MEDIUM performed by Jonnie Frye MD at [facility] [place] DRAINAGE CATHETER CHANGE 06/20/2014 CHANGE OF PERCUTANEOUS TUBE OR DRAINAGE CATHETER WITH XRAY AND CONTRAST MEDIUM performed by Jonnie Frye MD at [facility] NEPHROSTOMY TUBE CHANGE/ NURSE Right 10/14/2014 CHANGE NEPHROSTOMY OR PYELOSTOMY TUBE performed by Olman Bryant MD at [place] [facility] [place] NEPHROSTOMY CATHETER, PERC 06/01/2014 PERCUTANEOUS NEPHROSTOMY performed by Zeyad Celestin MD at [facility] REMOVAL OF KIDNEY STONE, OVER 2CM Left 09/08/2014 PERCUTANEOUS NEPHROSTOLITHOTOMY OVER 2CM performed by Olman Bryant MD at [facility] REMOVAL OF KIDNEY STONE, OVER 2CM Right 10/10/2014 PERCUTANEOUS NEPHROSTOLITHOTOMY OVER 2CM performed by Olman Bryant MD at [facility] REMOVAL OF TONSILS, UNDER AGE 12 US GUIDE FLUID COLLECT, PERITONEAL, PERC 07/04/2014 IMAGE-GUIDED FLUID COLLECTION DRAINAGE BY CATHETER (EG, ABSCESS, HEMATOMA, SEROMA, LYMPHOCELE, CYST); PERITONEAL OR RETROPERITONEAL, PERCUTANEOUS performed by Brendon Ma MD at [facility] VEIN ABLATION EXTREMITY,ENDOVEN,10/2020 Family History Problem Relation Age of Onset Other (renal stones) Father Other (heart problems) Father Other (heart problems) Grandfather (Paternal) Other (heart attack) Mother Other (renal stones) Sister Other (renal stones) Brother Other (ALS) Uncle (Unspecified) maternal Family Status Relation Status Fa (Not Specified) PGFA (Not Specified) Mo (Not Specified) Sis (Not Specified) Bro (Not Specified) UNCLE (Not Specified) Social History Socioeconomic History Marital status: Single Spouse name: Not on file Number of children: Not on file Years of education: Not on file Highest education level: Not on file Occupational History Not on file Tobacco Use Smoking status: Never Smokeless tobacco: Never Substance and Sexual Activity Alcohol use: Yes Comment: RARELY Drug use: No Sexual activity: Not on file Other Topics Concern Not on file Social History Narrative Not on file Social Determinants of Health Financial Resource Strain: Not on file Food Insecurity: Not on file Transportation Needs: Not on file Physical Activity: Not on file Stress: Not on file Social Connections: Not on file Intimate Partner Violence: Not on file Housing Stability: Not on file Review of patient's allergies indicates: Allergen Reactions Adhesive Tape Itching Patient states, her skin became reddened and itchy under butterfly drsg. Naproxen Sodium Ankle swelling Statins GI upset Tramadol Hcl Restless legs I have reviewed medications and allergies. Please refer to MAR in the facility's medical record forthe most up-to-date medication list as this cannot be edited in [facility]. Review of Systems: Constitutional ROS: No change in weight, No weakness, No fatigue and No fevers, sweats, or chills Nose ROS: No nasal stuffiness and No significant epistaxis Mouth/Throat ROS: No thrush or No sore throat Neck ROS: No lumps or masses, No swollen glands, No recent swelling in thyroid area and No significant pain in neck Pulmonary ROS: No cough, sputum, or hemoptysis, No wheezing, No shortness of breath and No recent change in breathing Cardiovascular ROS: No chest pain, No shortness of breath, No edema, No palpitations and No syncope Gastrointestinal ROS: No abdominal pain, No change in bowel habits, No significant change in appetite, No nausea, vomiting, diarrhea, or constipation and No dysphagia Musculoskeletal/Extremities ROS: see HPI Skin/Integumentary ROS: No rash and No itching Neurologic ROS: No headaches and No seizures Psychiatric ROS: No depression, No anxiety and No psychosis Sleep: No sleep disorders OBJECTIVE: PHYSICALEXAM: I reviewed the most recent facilities vitals. General: alert, moderate distress, well nourished and well developed Head: Normocephalic, No masses, lesions, tenderness or abnormalities Eye Exam: Conjunctiva are pink and non-injected, sclera clear Nose: no mucosal erythema, no mucosal edema, no purulent discharge Oropharynx: no exudate, no erythema, lips, buccal mucosa, and tongue normal and mucous membranes are moist Neck: supple, no adenopathy, non-tender, neck veins flat, trachea midline Heart: regular rate & rhythm, no murmurs and no gallops Lungs: normal respiratory rate and rhythm, no chest wall tenderness, lungs clear to auscultation Abdomen: abdomen soft, non-tender, normal bowel sounds and no masses or organomegaly Extremities: tenderness to palpation right elbow and forearm. Limited ROM of elbow due to pain. No shoulder, wrist or fingers tenderness. Normal NV status RUE. Normal radial pulses. Good capillary refill. no edema, no clubbing, no cyanosis Neuro Exam: alert with fluent speech, no focal motor/sensory deficits Skin: skin color, texture, turgor are normal, no rashes or significant lesions ASSESSMENT: Closed displaced transcondylar fracture of right humerus, initial encounter (Primary) Reviewed xray results Will place RUE in sling for support and protection Orthopedics consult pending Will have NV check RUE Q shift until seen by orthopedics. Will give pt Oxycodone 10mg now Will temporarily increase Oxycodone to 10mg Q four hours prn mod to severe pain until seen by orthopedics Contusion of right foot, initial encounter No fxs noted on xray Venous stasis ulcers of both lower extremities (HCC) Wraps in place Follow with lymphedema therapy and facility wound care solutions Spinal stenosis of lumbar region without neurogenic claudication Continue tylenol and oxycodone prn as directed Overactive bladder On Oxybutynin 10mg BID History of DVT (deep vein thrombosis) On ASA 81mg daily PLAN: Reviewed xrays, CBC, BMP, Lytes and Continue present medication(s):as ordered. Half-Way Home Treatment Given: Other as above Electronically signed by: Farzaneh Yanez PA-C Over 45 minutes were spent in this visit more than half the time was spent counselling or coordinating care. documented in this encounter Plan of Treatment [...] of this encounter Visit Diagnoses Diagnosis Closed displaced transcondylar fracture of right humerus, initial encounter- Primary Contusion of right foot, initial encounter Venous stasis ulcers of both lower extremities (HCC) Spinal stenosis of lumbar region without neurogenic claudication Spinal stenosis, lumbar region, without neurogenic claudication Overactive bladder Hypertonicity of bladder History of DVT (deep vein thrombosis) Personal history of venous thrombosis and embolism documented in this encounter Advance Directives Latest [...] the patient have Health Care Power of Development Educator? No Care Teams Trade Marker Relationship Specialty Start Date End Date Marlon Cowan MD [address] [place] [id number] PCP - General Family Medicine 11/25/21 documented as of this encounter
[2023-10-09 14:34] LABS: Adenovirus PCR Not Detected (NotDetected); Bordetella parapertussis PCR Not Detected (NotDetected); Bordetella pertussis PCR Not Detected (NotDetected); Chlamydia pneumoniae PCR Not Detected (NotDetected); Coronavirus 229E PCR Not Detected (NotDetected); Coronavirus CoV-2 (COVID19)PCR Not Detected (NotDetected); Coronavirus HKU1 PCR Not Detected (NotDetected); Coronavirus NL63 PCR Not Detected (NotDetected); Coronavirus OC43PCR Not Detected (NotDetected); Human Metapneumovirus PCR Not Detected (NotDetected); Influenza A PCR Not Detected (NotDetected); Influenza B PCR Not Detected (NotDetected); Mycoplasma pneumoniae PCR Not Detected (NotDetected); Parainfluenza Virus 1 PCR Not Detected (NotDetected); Parainfluenza Virus 2 PCR Not Detected (NotDetected); Parainfluenza Virus 3 PCR Not Detected (NotDetected); Parainfluenza Virus 4 PCR Not Detected (NotDetected); Respiratory Syncytial VirusPCR Not Detected (NotDetected); Rhinovirus/Enterovirus PCR Not Detected (NotDetected)
[2023-10-09] MEDS ORDERED: ACETAMINOPHEN 325 MG TAB PO PRN (15:05)
--- NOTE | 2023-10-09 16:03 | History & Physical Report ---
Date of Service October 09, 2023 Assessment & Plan (1) Acute hypoxic respiratory failure: (2) Pneumonia: Plan: Admit to telemetry Patient presenting from [facility] for evaluation of altered mental status, fever, hypoxia. On 10/05, patient had a fall and mildly displaced supracondylar fracture. In the ED, patient is requiring 4 years of oxygen via nasal cannula to maintain saturations CXR shows left basilar consolidation and small left pleural effusion. Correlate clinically for evidence of pneumonia/aspiration pneumonitis. Low-grade fever 37.8, no leukocytosis, normal lactate and procalcitonin Bio fire negative Check MRSA nasal swab S/p cefepime in the ED, will continue with Zosyn and doxycycline Follow blood cultures For additional workup of hypoxia, will obtain BL upper extremity Dopplers given increased swelling/recent fracture and CTA chest for PE (3) Acute UTI: Plan: UA suggestive of UTI S/p cefepime in the ED, on IV Zosyn as above Follow urine culture (4) Hypertension: Plan: Chronic, stable Continue amlodipine and metoprolol (5) Elbow fracture, right: Plan: S/p fall on 10/05 -- mildly displaced supracondylar fracture RUE currently splinted Outpatient follow-up with Ortho (6) History of DVT (deep vein thrombosis): Plan: History of DVT in 2021 s/p Coumadin DVT PROPHYLAXIS SQ Lovenox Patient seen in collaboration with Dr. Keane. I spent a total of 75 minutes coordinating, documenting, and providing care for this patient excluding time spent in the performance of separately billed services. This included personally reviewing all current laboratories and imaging studies, medication reconciliation, outpatient chart review, and discussion with specialists. (7) Acute pulmonary embolism: (8) Right knee pain: Admission and Anticipated Discharge Date Admission Date: October 09, 2023 History of Present Illness Chief Complaint: Altered mental status Primary Care Provider: [facility] 73-year-old female with PMH HTN, history of DVT s/p Coumadin therapy, chronic venous stasis, osteoarthritis, morbid obesity, lymphedema, and other problems listed below who presents to the ED for evaluation of altered mental status. History is obtained from the patient and review of outpatient snf records and discussion with Farzaneh Yanez PA-C. Patient had a fall on 10/05 and was seen in the ED for right arm pain. She was found to have mildly displaced supracondylar fracture, which is offset by approximately 1.3 cm. Patient was placed in a splint and discharged back to [facility] and is to follow-up with Ortho as an outpatient. Per Farzaneh, this morning, patient was very confused and yelling out. She was also noted to be hypoxic and have a fever. She was sent to the ED for further evaluation. Over the weekend, Farzaneh states the patient had a positive urine dip study however awaiting culture report. Patient was not started on antibiotics at that time. She has chronic lymphedema and lower extremity edema is at baseline, left upper extremity is more swollen than baseline. At the time my exam, patient is resting in bed in no acute distress. She offers no complaints at this time. She is aware that she is in the hospital however is unsure why. In the ED, patient was requiring 4 L of oxygen via nasal cannula to maintain saturations. She has a low-grade temp 37.8. No leukocytosis, normal lactic acid and procalcitonin. UA is suggestive of UTI and CXR suggest a left basilar pneumonia. Patient was given IV cefepime. Allergies Allergy/AdvReac Type Severity Reaction Status Date / Time naproxen Allergy Mild FEET SWELL Verified 12/13/21 23:00 Grkggan-DEG-EjY Reductase Allergy Mild GENERAL Verified 12/13/21 23:00 Inhibitor MALAISE [Edtdtey-Qjw-Xur Reductase Inhibitor] tramadol Allergy Mild RESTLESS Verified 12/13/21 23:00 LEG SYNDROME adhesive AdvReac Mild RED SKIN Verified 12/13/21 23:00 FROM BUTTERFLY Home Medications Medication Instructions Recorded Confirmed Type multivitamin (Daily Multi-Vitamin 1 tab PO QAM 08/10/20 10/09/23 History tablet) Prevagen 1 tab PO QAM 06/15/21 10/09/23 History cholecalciferol (vitamin D3) 25 25 mcg PO QAM 06/15/21 10/09/23 History mcg (1,000 unit) capsule (Vitamin D3) selenium 100 mcg tablet 100 mcg PO QAM 06/15/21 10/09/23 History acetaminophen 325 mg tablet 650 mg PO TID Pain 12/13/21 10/09/23 History lidocaine HCl 4 %-menthol 1 % 1 applic topical Q4H PRN Pain 12/13/21 10/09/23 History topical cream (Icy Hot Max (lidocaine HCl-menthol)) sodium chloride 0.65 % nasal spray 1 spray intranasal TID Congestion 12/13/21 10/09/23 History aerosol (Saline Nasal Mist) turmeric root extract 500 mg 1,000 mg PO AC 12/13/21 10/09/23 History capsule Stable Gi 1 cap PO DAILY 10/09/23 10/09/23 History amlodipine 10 mg tablet 10 mg PO DAILY 10/09/23 10/09/23 History aspirin 81 mg tablet,delayed 81 mg PO DAILY 10/09/23 10/09/23 History release cinnamon bark-chromium picolinate 1 cap PO DAILY 10/09/23 10/09/23 History 500 mg-100 mcg capsule gabapentin 100 mg capsule 100 mg PO TID 10/09/23 10/09/23 History glucosamine-chondroitin 250 mg-200 1 tab PO BID 10/09/23 10/09/23 History mg tablet (Osteo Bi-Flex) metoprolol succinate 25 mg 25 mg PO DAILY 10/09/23 10/09/23 History tablet,extended release 24 hr omega 3-omy-cez-fish oil 1,000 mg 1 cap PO DAILY 10/09/23 10/09/23 History (120 mg-180 mg) capsule (Fish Oil) oxybutynin chloride 5 mg tablet 10 mg PO BID 10/09/23 10/09/23 History oxycodone 10 mg tablet 10 mg PO Q4H PRN Severe Pain 10/09/23 10/09/23 History (Scale Score 7-10) sodium hypochlorite 0.25 % 1 irrig topical BID 10/09/23 10/09/23 History solution (Dakin's Solution) vitamins A and D-white 1 applic topical BID 10/09/23 10/09/23 History petrolatum-lanolin topical ointment (A and D (john, pet) topical ointment) Past Med/Surg History Medical History History of DVT (deep vein thrombosis) MRSA (methicillin resistant Staphylococcus aureus) Tricompartment degenerative joint disease of knee Spinal stenosis at L4-L5 level Chronic venous insufficiency Breast CA Venous stasis dermatitis Hypertension Osteoarthritis Venous stasis Morbid obesity with BMI of 40.0-44.9, adult Surgical History No pertinent past surgical history Social History Smoking Status: Unknown if ever smoked Second Hand Exposure: No; Do You Dip or Chew Tobacco: No; Hx Alcohol Use: No Hx Substance Use: No Preferred Language: Upper Sorbian Communication Ability: Effective Communication Ability Comment: UNHAPPY Primer Supervisor Required: No Beliefs That Will Affect Care: None marital status: Single Current Living Situation: Family and Personal Care Facility Current Living Situation Comment: [facility] WITH SISTER Feels Safe at Home: Yes Assistive Devices: Denture - Upper, Glasses and Walker Physical Exam Constitutional: WD/WN, vitals as above + obese; no acute distress Eyes: PERRL, conjunctivae normal, anicteric sclerae ENMT: Ears: no external ear abnormality Nose: no external nose abnormality Mouth: + dry oral mucous membranes Respiratory: normal respiratory effort; no respiratory distress Auscultation: + diminished lung sounds Cardiovascular: Rate/Rhythm: regular rate and regular rhythm Vessels: normal peripheral pulses +2 edema BLE, +3-4 edema LUE, +2 edema R UE Gastrointestinal (Abdomen): normal bowel sounds, soft, nontender, no hepatosplenomegaly Musculoskeletal: RUE in splint Skin: no rashes, warm and dry Neurologic: PERRL, EOMI, accommodation nl, no face palsy, no dysarthria Psychiatric: Orientation: alert and oriented x 3 Cognition: + recent memory not intact Insight: + limited insight Lymphatic: + lymphedema Results & Data Results & Data Vital Signs (Past 12 Hours) Vital Signs Temp Pulse Resp BP Pulse Ox O2 Del Method O2 Flow Rate 10/09/23 14:43 90 10/09/23 10:47 105 H 10/09/23 10:45 92 Nasal Cannula 4 10/09/23 10:43 37.8 C H 107 H 20 153/93 H 88 L Room Air Laboratory Results Short CBC 10/09/23 Range/Units 10:50 WBC 5.93 (4.8-10.8) K/ul Hgb 9.5 L (12.0-16.0) g/dl Hct 31.2 L (37.0-47.0) % Plt Count 184 (130-400) K/uL BMP 10/09/23 10:50 Sodium 140 Potassium 4.2 Chloride 108 H Carbon Dioxide 25 BUN 26 H Creatinine 0.57 L Glucose 101 H Calcium 10.0 Liver Function 10/09/23 Range/Units 10:50 Total Bilirubin 0.6 (0.2-1.0) mg/dl Direct Bilirubin 0.1 (0-0.2) mg/dl AST 14 (13-39) U/L ALT 9 (7-52) U/L Alkaline Phosphatase 51 (34-104) U/L Albumin 3.2 L (3.4-5.0) gm/dl Urine 10/09/23 Range/Units 11:12 Urine Color Yellow Urine Appearance Slightly Cloudy (Clear) Urine pH 5.5 (4.5-7.5) Ur Specific [place] 1.020 (1.000-1.030) Urine Protein 1+ H (Negative) Urine Glucose (UA) Negative (Negative) Diagnostic Findings Chest X-Ray 10/09/23 10:45 SINGLE VIEW CHEST CLINICAL HISTORY: Sepsis. FINDINGS: An AP, portable, upright chest radiograph is compared to study dated 10/05/2023. Correlation is made with chest CT dated 07/02/2021. The heart is enlarged noting atherosclerotic calcification of the thoracic aorta. The pulmonary vasculature is noncongested. There is left basilar consolidation and a small left pleural effusion. The right lung appears clear. No pneumothorax is seen. The skeletal structures are osteopenic. There are chronic/healed right- sided rib fractures. IMPRESSION: 1. Cardiomegaly without radiographic evidence of congestive failure. 2. Left basilar consolidation and small left pleural effusion. Correlate clinically for evidence of pneumonia/aspiration pneumonitis. Radiographic follow-up to resolution is recommended. ACT 112: Negative or not required by law. Electronically signed by: Darnell Oates M.D. 10/09/2023 11:08 AM Code Status & VTE Plan VTE Prophylaxis Plan VTE Prophylaxis will be ordered: Yes Supervising Physician Co-Signing Physician Notes I have seen and examined the patient and have discussed the case with the provider above. I have reviewed the advanced practitioner's documentation, and I agree with, and take responsibility for that plan of care. 73 yo F presents from [facility] with confusion, found to have pna, UTI and new PE. She recently had a fall with a fracture of her right arm which is casted and splinted. She is hypoxic but not working to breathe. She jokes about her breathing and appears less confused this evening. She did ask Why am here? but verbalized understanding when I reiterated the findings to her. She has a wound on her RLE that cannot be fully evaluated because of severe R knee pain. She reports this occurred when she fell on it in the bathroom a few days ago. She was given oxycodone, but still has significant pain. She has an adverse reaction to NSAIDs listed, so will start scheduled APAP and ice. She was started on a heparin drip and broad spectrum antibiotics. On exam she is morbidly obese and in NAD. Lungs are CTAB, cardiac exam is unremarkable. No peripheral edema. Cannot examine R knee or RLE wounds 2/2 knee pain. Right arm is in a soft cast and sling. Multiple bruises noted along LUE but no edema or be swelling. Mucous membranes are dry and she has poor dentition. Labwork reveals chronic anemia and other imaging studies as noted above. Mild elevation in troponin with a flat trend likely related to demand ischemia in setting of infection. She denies chest pain and EG without evidence of acute ischemia. Cont plan noted above with abx, oxygen supplementation, heparin drip. Will add R knee xray, scheduled APAP for her knee pain and xray in the morning. Ice TID as tolerated to also help the pain. Mobility will already be an issue for her, so motivating early and often as tolerated will be important. Therapy to kimmy. DO Lakhwinder (2) Pneumonia Pneumonia type: due to unspecified organism (4) Hypertension Hypertension type: unspecified Qualified Code(s): I10 - Essential (primary) hypertension (5) Elbow fracture, right Encounter type: initial encounter Fracture type: closed Qualified Code(s): S42.401A - Unspecified fracture of lower end of right humerus, initial encounter for closed fracture
[2023-10-09] MEDS: OPTIRAY 320 125ml IV ONE (16:13)
[2023-10-09] MEDS: PIPERACILLIN/TAZOBACTAM 4.5 GM/100 ML BAG IV STA (16:26)
[2023-10-09] MEDS: SODIUM CHLORIDE 0.9% 1,000 ML IV SCH (16:27)
--- NOTE | 2023-10-09 16:37 | CT Scan Report ---
CT ANGIOGRAM OF THE CHEST CLINICAL HISTORY: Atypical chest pain. COMPARISON STUDY: Chest x-ray dated 10/09/2023. The chest CT dated 07/02/2021. TECHNIQUE: Following the IV administration of 116 cc of Optiray 320, CT angiogram of the chest was pe rformed from the upper abdomen to the thoracic inlet utilizing the pulmonary embolus protocol. Images are reviewed in the axial, sagittal, and coronal planes. 3-D MIPS images are created and assessed. I V contrast was administered without complication. A dose lowering technique was utilized adhering to the principles of ALARA. The examination is degraded by motion artifact, as well as by streak artifa ct from the arms which could not be elevated above the chest. CT DOSE: 759.12 mGy.cm FINDINGS: Thyroid: Enlarged and heterogeneous. Thoracic aorta: There is atherosclerotic calcification of the thoracic aorta, which is normal in eagle kareem and demonstrates standard 3-vessel arch anatomy. The thoracic aorta is not well-opacified. Pulmonary vasculature: The pulmonary trunk is dilated, measuring 4.1 cm in diameter. This suggests pu lmonary artery hypertension. There are segmental and subsegmental pulmonary emboli within branches of the right middle lobe pulmonary artery. No additional pulmonary emboli are clearly identified. Note that evaluation of the peripheral branches is compromised by motion artifact. Heart: The heart is enlarged and without pericardial effusion. There are coronary artery calcificatio ns. Lungs and pleural spaces: Evaluation of the lung parenchyma is degraded by motion artifact. There are trace pleural effusions with dependent consolidation. The trachea and central airways are clear. The re are scattered calcified granulomas. Mediastinum: There is no mediastinal lymphadenopathy. Candis: Clear. Axillae: There is no axillary lymphadenopathy. Upper abdomen: Partially visualized upper abdominal viscera is within normal limits. Skeletal structures: The skeletal structures are osteopenic. No lytic or blastic bony lesions are see n. Degenerative change is noted in the shoulders and spine. There are chronic/healed right-sided rib fractures. IMPRESSION: 1. Streak and motion compromised examination. 2. Segmental and subsegmental pulmonary emboli are seen within branches of the right middle lobe pulm onary artery. 3. Cardiomegaly. 4. Small pleural effusions with dependent consolidation. This likely represents atelectasis and clini shanti correlation required. 5. Additional findings as above. ACT 112: Negative or not required by law. Electronically signed by: Darnell Oates M.D. 10/09/2023 4:35 PM
[2023-10-09] MEDS ORDERED: ENOXAPARIN INJ 40 MG/0.4 ML SYR SQ SCH ×2 (17:00)
[2023-10-09] MEDS ORDERED: Heparin IV Adult Wt-Based Standard w/ INITIAL Bolus Protocol IV SCH (17:11)
[2023-10-09] MEDS: DOXYCYCLINE HYCLATE 100 MG in DEXTROSE 5% MINI-B 100 ML IV SCH (17:38)
[2023-10-09] MEDS: HEPARIN SOD (PORCINE) 1000 UNIT/ML IV ONE (19:22)
[2023-10-09] MEDS: HEPARIN SODIUM/DEXTROSE 25,000 UNITS/500 ML BAG IV SCH (19:22)
[2023-10-09] MEDS: oxyCODONE HCL IR 5 MG TAB (IMMEDIATE RELEASE) PO PRN (19:49)
--- NOTE | 2023-10-09 19:53 | Ultrasound Report ---
ULTRASOUND BILATERAL UPPER EXTREMITY VENOUS CLINICAL HISTORY: Edema. COMPARISON STUDY: No priors. TECHNIQUE: Real-time, grayscale, and color Doppler sonography of the deep veins of the right and left upper extremity is performed. Compression and augmentation were utilized. FINDINGS: Right lower extremity: There is no sonographic evidence of deep venous thrombosis identified in the r ight upper extremity. The left internal jugular, axillary, and proximal brachial veins are patent and normally compressible. The distal brachial veins, as well as the radial and ulnar veins could not be assessed due to overlying bandage material/splint from a right humeral fracture. Normal venous wavef orms and augmentation are seen within the left subclavian vein. Imaged portions of the right cephali c vein are patent. Left lower extremity: There is no sonographic evidence of deep venous thrombosis identified in the le ft upper extremity. The left internal jugular, axillary, and brachial veins are patent and normally c ompressible. Normal venous waveforms and augmentation are seen within the left subclavian vein. The c ephalic and basilic veins are clear. The visualized radial and ulnar veins are patent. IMPRESSION: There is no sonographic evidence of deep venous thrombosis identified in the left upper e xtremity. Note that several of the right upper extremity veins could not be assessed due to bandaging /splint related to a right humeral fracture. ACT 112: Negative or not required by law. Electronically signed by: Darnell Oates M.D. 10/09/2023 7:51 PM
[2023-10-09] MEDS ORDERED: oxyBUTYnin chloride 5 MG TAB PO SCH (21:00)
[2023-10-09 22:21] LABS: Partial Thromboplastin Ratio 2.4; Partial Thromboplastin Time 69 Seconds (21-31)
[2023-10-09] MEDS: ACETAMINOPHEN 500 MG TAB PO SCH (22:35)
[2023-10-09] MEDS: GABAPENTIN 100 MG CAP PO SCH (22:35)
[2023-10-09] MEDS: PIPERACILLIN/TAZOBACTAM 4.5 GM in DEXTROSE 5% MINI-B 100 ML IV SCH (22:36)
[2023-10-10 02:59] LABS: Partial Thromboplastin Ratio 1.7; Partial Thromboplastin Time 48 Seconds (21-31)
[2023-10-10 03:54] LABS: ANTI-Xa, UFH(UnfractionatedHep 0.35 IU/ml (0.3-0.7)
[2023-10-10 07:22] LABS: Hematocrit (blood only) 31.5 % (37.0-47.0); Hemoglobin 9.3 g/dl (12.0-16.0); Mean Corpuscular Hemoglobin 24.5 pg (25.0-34.0); Mean Corpuscular Hgb Conc 29.5 g/dL (32.0-36.0); Mean Corpuscular Volume 82.9 fL (80.0-100.0); Mean Platelet Volume 9.9 fL (9.4-12.4); Platelet Count 156 K/uL (130-400); RDW Coefficient of Variation 14.7 % (11.5-14.5); RDW Standard Deviation 43.8 fL (36.4-46.3); White Blood Count 3.94 K/ul (4.8-10.8)
[2023-10-10 07:39] LABS: BUN Creatinine Ratio 44.4 (10-20); Calcium 9.6 mg/dl (8.6-10.3); Creatinine Clr Calc Pharmacy 101.4 ml/min; Est GFR (Non-African American) 92.3 ml/min; Potassium 3.9 mmol/L (3.5-5.1)
--- NOTE | 2023-10-10 08:32 | XRay Report ---
RIGHT KNEE 2 VIEWS CLINICAL HISTORY: Fall. Right knee swelling. FINDINGS: Portable AP and crosstable lateral radiographs of the right knee are compared to study date d 01/10/2021. The skeletal structures are osteopenic. No fracture is clearly identified. There is moder ate to advanced tricompartmental degenerative joint space narrowing. There are marginal osteophytes a nd patellar enthesophytes. There is a large joint effusion. A calcified fabella is incidentally noted . Prepatellar soft tissue swelling is observed. IMPRESSION: 1. Large joint effusion with no acute fracture clearly identified. If there is strong clinical concer n for occult fracture a CT scan of the knee should be obtained. 2. Osteopenia and degenerative change as above. Electronically signed by: Darnell Oates M.D. 10/10/2023 8:31 AM
[2023-10-10] MEDS: METOPROLOL SUCC 25MG EXT REL TAB PO SCH (09:44)
[2023-10-10] MEDS: amLODIPine BESYLATE 5 MG TAB PO SCH (09:44)
[2023-10-10] MEDS: ASPIRIN 81 MG ECTAB PO SCH (09:45)
[2023-10-10] MEDS: OMEGA-3 (PURIFIED FISH OIL) 1 GM CAP PO SCH (09:45)
[2023-10-10] MEDS: CHOLECALCIFEROL 25 MCG (1000 UNITS) TAB PO SCH (09:45)
--- NOTE | 2023-10-10 10:30 | Orthopedic Consultation ---
Date of Consultation October 10, 2023 Assessment & Plan (1) Right knee pain: Due to the patient's pre-existing condition an aspiration of the right knee was not performed. When we may consider this at a later date. For her right elbow she is scheduled to follow-up in the outpatient setting our clinic with Dr. Moraes. Currently the splint and sling should be left in place. Ice both areas with easy wrap Pain control, ABX and DVT prophylaxis per medicine service Will continue to follow while inpatient (2) Elbow fracture, right: History of Present Illness Reason for Consultation: Right arm and knee pain Requesting Physician: Dr. Zackary Harkins Attending Physician: Teofilo Ohara MD History of Present Illness This 73-year-old female with PMH HTN, history of DVT s/p Coumadin therapy, chronic venous stasis, osteoarthritis, morbid obesity, lymphedema, and other problems listed below who presents to the ED for evaluation of altered mental status. History is obtained from the patient and review of outpatient [facility] records. Patient had a fall on 10/05 and was seen in the ED for right arm pain. She was found to have mildly displaced supracondylar fracture. Patient was placed in a splint and discharged back to [facility] and is to follow-up with Ortho as an outpatient. Early yesterday morning, patient was very confused. She was also noted to be hypoxic and have a fever. She was sent to the ED for further evaluation. Over the weekend the patient apparently had a positive urine dip study. Cultures were pending upon admission. She has chronic lymphedema and lower extremity edema is at baseline, left upper extremity is more swollen than baseline. At the time my exam, patient is resting in bed in no acute distress. She offers no complaints at this time except for Right knee pain developed this AM. She is aware that she is in the hospital however is unsure why. In the ED, patient was requiring 4 L of oxygen via nasal cannula to maintain saturations. She has a low-grade temp 37.8. No leukocytosis, normal lactic acid and procalcitonin. UA is suggestive of UTI and CXR suggest a left basilar pneumonia. Patient was given IV cefepime. Allergies Allergy/AdvReac Type Severity Reaction Status Date / Time naproxen Allergy Mild FEET SWELL Verified 12/13/21 23:00 Hpxhzsb-KNS-CaJ Reductase Allergy Mild GENERAL Verified 12/13/21 23:00 Inhibitor MALAISE [Ylysutm-Rrd-Hmg Reductase Inhibitor] tramadol Allergy Mild RESTLESS Verified 12/13/21 23:00 LEG SYNDROME adhesive AdvReac Mild RED SKIN Verified 12/13/21 23:00 FROM BUTTERFLY Home Medications Medication Instructions Recorded Confirmed Type multivitamin (Daily Multi-Vitamin 1 tab PO QAM 08/10/20 10/09/23 History tablet) Prevagen 1 tab PO QAM 06/15/21 10/09/23 History cholecalciferol (vitamin D3) 25 25 mcg PO QAM 06/15/21 10/09/23 History mcg (1,000 unit) capsule (Vitamin D3) selenium 100 mcg tablet 100 mcg PO QAM 06/15/21 10/09/23 History acetaminophen 325 mg tablet 650 mg PO TID Pain 12/13/21 10/09/23 History lidocaine HCl 4 %-menthol 1 % 1 applic topical Q4H PRN Pain 12/13/21 10/09/23 History topical cream (Icy Hot Max (lidocaine HCl-menthol)) sodium chloride 0.65 % nasal spray 1 spray intranasal TID Congestion 12/13/21 10/09/23 History aerosol (Saline Nasal Mist) turmeric root extract 500 mg 1,000 mg PO AC 12/13/21 10/09/23 History capsule Stable Gi 1 cap PO DAILY 10/09/23 10/09/23 History amlodipine 10 mg tablet 10 mg PO DAILY 10/09/23 10/09/23 History aspirin 81 mg tablet,delayed 81 mg PO DAILY 10/09/23 10/09/23 History release cinnamon bark-chromium picolinate 1 cap PO DAILY 10/09/23 10/09/23 History 500 mg-100 mcg capsule gabapentin 100 mg capsule 100 mg PO TID 10/09/23 10/09/23 History glucosamine-chondroitin 250 mg-200 1 tab PO BID 10/09/23 10/09/23 History mg tablet (Osteo Bi-Flex) metoprolol succinate 25 mg 25 mg PO DAILY 10/09/23 10/09/23 History tablet,extended release 24 hr omega 9-eqp-pss-fish oil 1,000 mg 1 cap PO DAILY 10/09/23 10/09/23 History (120 mg-180 mg) capsule (Fish Oil) oxybutynin chloride 5 mg tablet 10 mg PO BID 10/09/23 10/09/23 History oxycodone 10 mg tablet 10 mg PO Q4H PRN Severe Pain 10/09/23 10/09/23 History (Scale Score 7-10) sodium hypochlorite 0.25 % 1 irrig topical BID 10/09/23 10/09/23 History solution (Dakin's Solution) vitamins A and D-white 1 applic topical BID 10/09/23 10/09/23 History petrolatum-lanolin topical ointment (A and D (john, pet) topical ointment) Patient History Medical History History of DVT (deep vein thrombosis) MRSA (methicillin resistant Staphylococcus aureus) Tricompartment degenerative joint disease of knee Spinal stenosis at L4-L5 level Chronic venous insufficiency Breast CA Venous stasis dermatitis Hypertension Osteoarthritis Venous stasis Morbid obesity with BMI of 40.0-44.9, adult Surgical History No pertinent past surgical history Social History Smoking Status: Never smoker Second Hand Exposure: No; Do You Dip or Chew Tobacco: No; Hx Alcohol Use: No Hx Substance Use: No Preferred Language: Monegasque Communication Ability: Effective Communication Ability Comment: UNHAPPY Councilperson Required: No Beliefs That Will Affect Care: None marital status: Single Current Living Situation: Personal Care Facility Current Living Situation Comment: [facility] WITH SISTER Feels Safe at Home: Yes Safety Concerns: Feels Safe At This Time Assistive Devices: Glasses, Walker and Wheelchair Review of Systems Review of Systems: All systems reviewed & are unremarkable except as noted in Subjective Physical Exam Physical Exam: Right upper extremity: Splint is clean dry and intact and left in place. Patient has mobility in his shoulder. She has mobility of her digits and is able to detect light sensation to touch over the pads of all digits.. She does have tenderness to palpation over the antecubital area. Right lower extremity (knee): Patient is lying with her knee slightly flexed. She is unable to actively extend or flex. She notes pain over the entire anterior aspect of the knee and is tender to palpation over the medial lateral joint space as well as over the superolateral pouch. There is palpable effusion. She is unable to perform an active straight leg raise test. She is able to actively dorsi and plantarflex her foot. She has notable venous stasis dermatitis affecting the lower leg and foot. She did not tolerate logroll test ing. Attempt to passively flex the knee or hip due to her pain. X-rays of the knee show a large effusion and arthritic changes. CT of her hip done on 125 at the time of her fall shows significant degenerative changes in her right hip joint. Results & Data Vital Signs (Past 12 Hours) Vital Signs Temp Pulse Resp BP Pulse Ox O2 Del Method O2 Flow Rate 10/10/23 09:34 65 120/76 10/10/23 07:19 36.5 C 63 17 120/75 93 Nasal Cannula 2 10/10/23 03:07 37.4 C 65 18 124/67 91 Nasal Cannula 2 10/09/23 23:08 36.8 C 64 18 127/75 93 Nasal Cannula 2 Diagnostic Findings Laboratory Results WBC 3.94 K/ul (4.8-10.8) L 10/10/23 06:36 RBC 3.80 M/uL (4.20-5.40) L 10/10/23 06:36 Hgb 9.3 g/dl (12.0-16.0) L 10/10/23 06:36 Hct 31.5 % (37.0-47.0) L 10/10/23 06:36 MCV 82.9 fL (80.0-100.0) 10/10/23 06:36 MCH 24.5 pg (25.0-34.0) L 10/10/23 06:36 MCHC 29.5 g/dL (32.0-36.0) L 10/10/23 06:36 RDW Std Deviation 43.8 fL (36.4-46.3) 10/10/23 06:36 RDW Coeff of Bev 14.7 % (11.5-14.5) H 10/10/23 06:36 Plt Count 156 K/uL (130-400) 10/10/23 06:36 MPV 9.9 fL (9.4-12.4) 10/10/23 06:36 Immature Gran % (Auto) 0.5 % 10/09/23 10:50 Neut % (Auto) 67.6 % 10/09/23 10:50 Lymph % (Auto) 21.1 % 10/09/23 10:50 Wythe % (Auto) 8.1 % 10/09/23 10:50 Eos % (Auto) 2.4 % 10/09/23 10:50 Baso % (Auto) 0.3 % 10/09/23 10:50 Neut # (Auto) 4.01 K/uL (1.40-6.50) 10/09/23 10:50 Lymph # (Auto) 1.25 K/uL (1.20-3.40) 10/09/23 10:50 Wythe # (Auto) 0.48 K/uL (0.11-0.59) 10/09/23 10:50 Eos # (Auto) 0.14 K/uL (0.00-0.50) 10/09/23 10:50 Baso # (Auto) 0.02 K/uL (0.00-0.20) 10/09/23 10:50 Immature Gran # (Auto) 0.03 K/uL (0.01-0.20) 10/09/23 10:50 PT 12.2 Seconds (9.0-12.0) H 10/09/23 10:50 INR 1.1 (0.9-1.1) 10/09/23 10:50 APTT 48 Seconds (21-31) H 10/10/23 01:42 PTT Ratio 1.7 10/10/23 01:42 Heparin Anti-Xa, Unfract 0.35 IU/ml (0.3-0.7) 10/10/23 01:42 Sodium 139 mmol/L (136-145) 10/10/23 06:36 Potassium 3.9 mmol/L (3.5-5.1) 10/10/23 06:36 Chloride 107 mmol/L (98-107) 10/10/23 06:36 Carbon Dioxide 27 mmol/L (21-32) 10/10/23 06:36 Anion Gap 5 (3-11) 10/10/23 06:36 BUN 24 mg/dl (6-23) H 10/10/23 06:36 Creatinine 0.54 mg/dl (0.6-1.2) L 10/10/23 06:36 Est Cr Clr Drug Dosing 101.4 ml/min 10/10/23 06:36 Est GFR ( Amer) 107.0 ml/min 10/10/23 06:36 Est GFR (Non-Af Amer) 92.3 ml/min 10/10/23 06:36 BUN/Creatinine Ratio 44.4 (10-20) H 10/10/23 06:36 Glucose 103 mg/dl (70-99(Fasting)) H 10/10/23 06:36 Lactate 0.8 mmol/L (0.4-2.0) 10/09/23 10:50 Calcium 9.6 mg/dl (8.6-10.3) 10/10/23 06:36 Magnesium 2.0 mg/dl (1.7-2.4) 10/09/23 10:50 Total Bilirubin 0.6 mg/dl (0.2-1.0) 10/09/23 10:50 Direct Bilirubin 0.1 mg/dl (0-0.2) 10/09/23 10:50 AST 14 U/L (13-39) 10/09/23 10:50 ALT 9 U/L (7-52) 10/09/23 10:50 Alkaline Phosphatase 51 U/L (34-104) 10/09/23 10:50 Troponin I High Sens 35.7 pg/ml (0-14) H 10/09/23 12:41 Total Protein 6.0 gm/dl (6.0-8.3) 10/09/23 10:50 Albumin 3.2 gm/dl (3.4-5.0) L 10/09/23 10:50 Procalcitonin 0.07 ng/ml (0-0.5) 10/09/23 10:50 Urine Color Yellow 10/09/23 11:12 Urine Appearance Slightly Cloudy (Clear) 10/09/23 11:12 Urine pH 5.5 (4.5-7.5) 10/09/23 11:12 Ur Specific Dixon 1.020 (1.000-1.030) 10/09/23 11:12 Urine Protein 1+ (Negative) H 10/09/23 11:12 Urine Glucose (UA) Negative (Negative) 10/09/23 11:12 Urine Ketones 1+ (Negative) H 10/09/23 11:12 Urine Blood Trace-intact (Negative) H 10/09/23 11:12 Urine Nitrite Positive (Negative) A 10/09/23 11:12 Urine Bilirubin Negative (Negative) 10/09/23 11:12 Urine Urobilinogen Negative (Negative) 10/09/23 11:12 Ur Leukocyte Esterase 1+ (Negative) H 10/09/23 11:12 Urine RBC 0-4 /hpf (0-4) 10/09/23 11:12 Urine WBC >30 /hpf (0-5) H 10/09/23 11:12 Ur Epithelial Cells 0-5 /lpf (0-5) 10/09/23 11:12 Urine Bacteria 4+ (Negative) H 10/09/23 11:12 Hyaline Casts 0-5 /lpf (0-5) 10/09/23 11:12 Nasal Screen MRSA (PCR) Negative (Negative) 10/09/23 Unknown Adenovirus (PCR) Not Detected (NotDetected) 10/09/23 13:11 B. pertussis DNA (PCR) Not Detected (NotDetected) 10/09/23 13:11 B.parapertussis DNA PCR Not Detected (NotDetected) 10/09/23 13:11 C. pneumoniae DNA (PCR) Not Detected (NotDetected) 10/09/23 13:11 Coronavirus OC43 (PCR) Not Detected (NotDetected) 10/09/23 13:11 Coronavirus HKU1 (PCR) Not Detected (NotDetected) 10/09/23 13:11 Coronavirus 229E (PCR) Not Detected (NotDetected) 10/09/23 13:11 SARS-CoV-2 (PCR) Not Detected (NotDetected) 10/09/23 13:11 Coronavirus NL63 (PCR) Not Detected (NotDetected) 10/09/23 13:11 Human Metapneumovir PCR Not Detected (NotDetected) 10/09/23 13:11 Influenza Type A (PCR) Not Detected (NotDetected) 10/09/23 13:11 Influenza Type B (PCR) Not Detected (NotDetected) 10/09/23 13:11 M. pneumoniae (PCR) Not Detected (NotDetected) 10/09/23 13:11 Parainfluenza 1 (PCR) Not Detected (NotDetected) 10/09/23 13:11 Parainfluenza 2 (PCR) Not Detected (NotDetected) 10/09/23 13:11 Parainfluenza 3 (PCR) Not Detected (NotDetected) 10/09/23 13:11 Parainfluenza 4 (PCR) Not Detected (NotDetected) 10/09/23 13:11 RSV (PCR) Not Detected (NotDetected) 10/09/23 13:11 Entero/Rhino (PCR) Not Detected (NotDetected) 10/09/23 13:11 Impressions Venous Doppler Study 10/09/23 00:00 ULTRASOUND BILATERAL UPPER EXTREMITY VENOUS CLINICAL HISTORY: Edema. COMPARISON STUDY: No priors. TECHNIQUE: Real-time, grayscale, and color Doppler sonography of the deep veins of the right and left upper extremity is performed. Compression and augmentation were utilized. FINDINGS: Right lower extremity: There is no sonographic evidence of deep venous thrombosis identified in the right upper extremity. The left internal jugular, axillary, and proximal brachial veins are patent and normally compressible. The distal brachial veins, as well as the radial and ulnar veins could not be assessed due to overlying bandage material/splint from a right humeral fracture. Normal venous waveforms and augmentation are seen within the left subclavian vein. Imaged portions of the right cephalic vein are patent. Left lower extremity: There is no sonographic evidence of deep venous thrombosis identified in the left upper extremity. The left internal jugular, axillary, and brachial veins are patent and normally compressible. Normal venous waveforms and augmentation are seen within the left subclavian vein. The cephalic and basilic veins are clear. The visualized radial and ulnar veins are patent. IMPRESSION: There is no sonographic evidence of deep venous thrombosis identified in the left upper extremity. Note that several of the right upper extremity veins could not be assessed due to bandaging/splint related to a right humeral fracture. ACT 112: Negative or not required by law. Electronically signed by: Darnell Oates M.D. 10/09/2023 7:51 PM Chest X-Ray 10/09/23 10:45 SINGLE VIEW CHEST CLINICAL HISTORY: Sepsis. FINDINGS: An AP, portable, upright chest radiograph is compared to study dated 10/05/2023. Correlation is made with chest CT dated 07/02/2021. The heart is enlarged noting atherosclerotic calcification of the thoracic aorta. The pulmonary vasculature is noncongested. There is left basilar consolidation and a small left pleural effusion. The right lung appears clear. No pneumothorax is seen. The skeletal structures are osteopenic. There are chronic/healed right- sided rib fractures. IMPRESSION: 1. Cardiomegaly without radiographic evidence of congestive failure. 2. Left basilar consolidation and small left pleural effusion. Correlate clinically for evidence of pneumonia/aspiration pneumonitis. Radiographic follow-up to resolution is recommended. ACT 112: Negative or not required by law. Electronically signed by: Darnell Oates M.D. 10/09/2023 11:08 AM Chest CTA 10/09/23 15:38 CT ANGIOGRAM OF THE CHEST CLINICAL HISTORY: Atypical chest pain. COMPARISON STUDY: Chest x-ray dated 10/09/2023. The chest CT dated 07/02/2021. TECHNIQUE: Following the IV administration of 116 cc of Optiray 320, CT angiogram of the chest was performed from the upper abdomen to the thoracic inlet utilizing the pulmonary embolus protocol. Images are reviewed in the axial, sagittal, and coronal planes. 3-D MIPS images are created and assessed. IV contrast was administered without complication. A dose lowering technique was utilized adhering to the principles of ALARA. The examination is degraded by motion artifact, as well as by streak artifact from the arms which could not be elevated above the chest. CT DOSE: 759.12 mGy.cm FINDINGS: Thyroid: Enlarged and heterogeneous. Thoracic aorta: There is atherosclerotic calcification of the thoracic aorta, which is normal in caliber and demonstrates standard 3-vessel arch anatomy. The thoracic aorta is not well-opacified. Pulmonary vasculature: The pulmonary trunk is dilated, measuring 4.1 cm in diameter. This suggests pulmonary artery hypertension. There are segmental and subsegmental pulmonary emboli within branches of the right middle lobe pulmonary artery. No additional pulmonary emboli are clearly identified. Note that evaluation of the peripheral branches is compromised by motion artifact. Heart: The heart is enlarged and without pericardial effusion. There are coronary artery calcifications. Lungs and pleural spaces: Evaluation of the lung parenchyma is degraded by motion artifact. There are trace pleural effusions with dependent consolidation. The trachea and central airways are clear. There are scattered calcified granulomas. Mediastinum: There is no mediastinal lymphadenopathy. Candis: Clear. Axillae: There is no axillary lymphadenopathy. Upper abdomen: Partially visualized upper abdominal viscera is within normal limits. Skeletal structures: The skeletal structures are osteopenic. No lytic or blastic bony lesions are seen. Degenerative change is noted in the shoulders and spine. There are chronic/healed right-sided rib fractures. IMPRESSION: 1. Streak and motion compromised examination. 2. Segmental and subsegmental pulmonary emboli are seen within branches of the right middle lobe pulmonary artery. 3. Cardiomegaly. 4. Small pleural effusions with dependent consolidation. This likely represents atelectasis and clinical correlation required. 5. Additional findings as above. ACT 112: Negative or not required by law. Electronically signed by: Darnell Oates M.D. 10/09/2023 4:35 PM Knee X-Ray 10/10/23 07:00 RIGHT KNEE 2 VIEWS CLINICAL HISTORY: Fall. Right knee swelling. FINDINGS: Portable AP and crosstable lateral radiographs of the right knee are compared to study dated 01/10/2021. The skeletal structures are osteopenic. No fracture is clearly identified. There is moderate to advanced tricompartmental degenerative joint space narrowing. There are marginal osteophytes and patellar enthesophytes. There is a large joint effusion. A calcified fabella is incidentally noted. Prepatellar soft tissue swelling is observed. IMPRESSION: 1. Large joint effusion with no acute fracture clearly identified. If there is strong clinical concern for occult fracture a CT scan of the knee should be obtained. 2. Osteopenia and degenerative change as above. Electronically signed by: Darnell Oates M.D. 10/10/2023 8:31 AM (2) Elbow fracture, right Encounter type: initial encounter Fracture type: closed Qualified Code(s): S42.401A - Unspecified fracture of lower end of right humerus, initial encounter for closed fracture
[2023-10-10 13:34] LABS: ANTI-Xa, UFH(UnfractionatedHep 0.25 IU/ml (0.3-0.7)
--- NOTE | 2023-10-10 13:45 | Hospitalist Progress Note ---
Date of Service October 10, 2023 Assessment & Plan (1) Acute hypoxic respiratory failure: (2) Pneumonia: Plan: Acute respiratory failure with hypoxia Acute PE H/O DVT--previously was on Coumadin Likely due to prolonged immobilization --CTA:Segmental and subsegmental pulmonary emboli are seen within branches of the right middle lobe pulmonary artery. Cardiomegaly. Small pleural effusions with dependent consolidation. This likely represents atelectasis and clinical correlation required. --UE Venous Doppler:There is no sonographic evidence of deep venous thrombosis identified in the left upper extremity. Note that several of the right upper extremity veins could not be assessed due to bandaging/splint related to a right humeral fracture. -- Continue IV heparin for now Monitor for any bleeding issues Supplemental oxygen as needed Suspected pneumonia CTA as above BioFire negative Normal procalcitonin Blood cultures pending Empirically on antibiotics--Zosyn, Doxy Incentive spirometer Recent Fall on 10/05/23 Right Elbow fracture--POA --Elbow CT: Mildly displaced supracondylar fracture, which is offset by approximately 1.3 cm. No dislocation. --R HIP CT:Severe osteoarthritis of the RIGHT hip, with diffuse jovy-su-ddis articulation. --CT head:No acute intracranial hemorrhage, midline shift, or mass effect. For precautions PT OT Appreciate orthopedic input Pain control as needed Continue splint/sling for right elbow fracture Right knee pain/effusion Recent Fall --Knee X ray:Large joint effusion with no acute fracture clearly identified. If there is strong clinical concern for occult fracture a CT scan of the knee should be obtained. Osteopenia and degenerative change as above. Pain control Management as per Ortho Appreciate orthopedics help (3) Acute UTI: Plan: Acute metabolic encephalopathy Urinary tract infection --Blood cultures pending Urine culture growing gram-negative bacilli, follow. Continue empiric Zosyn for now Will titrate antibiotics based on cultures Mental status seem to be back to baseline (4) Hypertension: Plan: Chronic, stable Continue amlodipine and metoprolol (5) Elbow fracture, right: Plan: Management as above (6) History of DVT (deep vein thrombosis): Plan: Other chronic conditions: H/O breast cancer Hypertension Osteoarthritis Venous stasis ulcers S/P venous ablation Lumbar spinal stenosis Chronic lymphedema Continue home medications as able DVT Px IV Heparin Discharge DNR/DNI Disposition PT OT prior to discharge Case management to help with discharge planning (7) Acute pulmonary embolism: (8) Right knee pain: Admission and Anticipated Discharge Date Admission Date: October 09, 2023 Subjective Patient is seen and examined at bedside States having right elbow, knee pain Otherwise no complaints On IV heparin No obvious bleeding issues Denies any chest pain, dyspnea, dizziness, nausea, vomiting, abdominal pain, cough Review of Systems Review of Systems: All systems reviewed & are unremarkable except as noted in Subjective Physical Exam Physical Exam: Physical Exam: Vitals signs as noted above General Appearance:Moderately built and nourished, no apparent distress, elderly, chronically. Head: normocephalic, Atraumatic Eyes: normal inspection, EOMI Neck: supple, Trachea midline Respiratory/Chest: Decreased breath sounds, CTA, No accessory muscle use Cardiovascular: S1, S2, No murmur Abdomen/GI:Soft, Non tender, Bowel sounds present Extremities/Musculoskeletal:normal inspection, RUE in splint/sling, R knee swelling,tender, , B/L lymphedema, chronic venous stasis changes Neurologic/Psych:AAOX3, grossly no focal neurological deficits Skin: normal color, warm Results & Data Results & Data Vital Signs (Past 12 Hours) Vital Signs Temp Pulse Pulse Resp BP Pulse Ox O2 Del Method 10/10/23 11:51 36.6 C 67 18 123/76 97 Nasal Cannula 10/10/23 09:34 65 120/76 10/10/23 07:28 66 10/10/23 07:19 36.5 C 63 17 120/75 93 Nasal Cannula 10/10/23 03:07 37.4 C 65 18 124/67 91 Nasal Cannula O2 Flow Rate 10/10/23 11:51 3 10/10/23 09:34 10/10/23 07:28 10/10/23 07:19 2 10/10/23 03:07 2 Laboratory Results Short CBC 10/10/23 Range/Units 06:36 WBC 3.94 L (4.8-10.8) K/ul Hgb 9.3 L (12.0-16.0) g/dl Hct 31.5 L (37.0-47.0) % Plt Count 156 (130-400) K/uL BMP 10/10/23 06:36 Sodium 139 Potassium 3.9 Chloride 107 Carbon Dioxide 27 BUN 24 H Creatinine 0.54 L Glucose 103 H Calcium 9.6 (2) Pneumonia Pneumonia type: due to unspecified organism (4) Hypertension Hypertension type: unspecified Qualified Code(s): I10 - Essential (primary) hypertension (5) Elbow fracture, right Encounter type: initial encounter Fracture type: closed Qualified Code(s): S42.401A - Unspecified fracture of lower end of right humerus, initial encounter for closed fracture
[2023-10-10 22:02] LABS: ANTI-Xa, UFH(UnfractionatedHep 0.26 IU/ml (0.3-0.7)
[2023-10-11 04:52] LABS: Hematocrit (blood only) 31.4 % (37.0-47.0); Hemoglobin 9.4 g/dl (12.0-16.0); Mean Corpuscular Hemoglobin 24.4 pg (25.0-34.0); Mean Corpuscular Hgb Conc 29.9 g/dL (32.0-36.0); Mean Corpuscular Volume 81.6 fL (80.0-100.0); Mean Platelet Volume 9.7 fL (9.4-12.4); Platelet Count 195 K/uL (130-400); RDW Coefficient of Variation 14.6 % (11.5-14.5); Red Blood Count 3.85 M/uL (4.20-5.40); White Blood Count 5.97 K/ul (4.8-10.8)
[2023-10-11 05:07] LABS: Calcium 9.3 mg/dl (8.6-10.3); Creatinine Clr Calc Pharmacy 101.4 ml/min; Est GFR (Non-African American) 92.3 ml/min; Potassium 3.8 mmol/L (3.5-5.1)
[2023-10-11 05:10] LABS: ANTI-Xa, UFH(UnfractionatedHep 0.36 IU/ml (0.3-0.7)
--- NOTE | 2023-10-11 12:33 | Orthopedic Progress Note ---
Date of Service October 11, 2023 Assessment & Plan (1) Right knee pain: Plan: Patient is a poor candidate for surgical intervention. Due to significant pain and limited ability to preform a physical exam will obtain CT of the right knee to evaluate for occult fracture and assess effusion. Continue with ice. NWB RLE May consider aspiration at a later date. 2) as for the supracondylar humerus fracture, again Pain control, ABX and DVT prophylaxis per medicine service Will continue to follow while inpatient (2) Elbow fracture, right: Plan: IMPRESSION: Right supracondylar humerus fracture, closed PLAN: Discussed treatment options with the patient including conservative vs surgical interventions as well as the risks and benefits of each. She understands she is a poor candidate for surgery and has elected to be treated conservatively. Replaced the splint today to allow mobility of her digits. RICE Sling when OOB. Follow-up as an outpatient in Dr. Moraes's office with x-rays elbow in 2 weeks Admission and Anticipated Discharge Date Admission Date: October 09, 2023 Subjective Patient c/o right elbow and knee pain Physical Exam Physical Exam: 1) RLE: Focusing on the patient's right lower extremity: 2+ DP pulse Sensation to light touch is intact Motor to the gastroc soleus, tibialis anterior, and EHL is 5/5. Unable to perform straight leg raise or move the leg. + Medial & lateral joint line tenderness . Unable to perform Cathie's Ligamentous examination exhibits: Unable to perform secondarily to lack of ROM and pain to the touch + Superficial swelling, difficult to ass ess effusion due to body habitus and tenderness to palpation Range of motion 20, would not tolerate ROM. ++ Diffuse tenderness to palpation all a bout the knee, except quad tendon lower leg are with PVD now covered with Kerlex. 2)RUE: Splint removed. Light touch was intact to the digits. 2+ radial pulse. Motor to media, radial, ulnar, PIN, AIN intact. Abrasion x 2 about the posterior elbow. Slight discomfort with gentle ROM of the elbow. Slight swelling in the hand due to wrap from previous splint. Abrasions covered with ABD. New Orthoglass splint placed with longer humeral portion and stopping at the level of metacarpal head, to allow finger motion, elbow at 90 degrees. Results & Data Vital Signs (Past 12 Hours) Vital Signs Temp Pulse Pulse Pulse Resp BP Pulse Ox 01/31/24 11:37 36.4 C L 67 19 133/77 94 10/11/23 08:37 62 10/11/23 07:59 65 10/11/23 07:12 36.5 C 52 L 17 123/75 96 10/11/23 04:00 36.4 C L 62 16 127/75 97 O2 Del Method O2 Flow Rate 10/11/23 11:37 Nasal Cannula 1 10/11/23 08:37 10/11/23 07:59 10/11/23 07:12 Room Air 1 10/11/23 04:00 Nasal Cannula 1 Diagnostic Findings Laboratory Results WBC 5.97 K/ul (4.8-10.8) 10/11/23 04:20 RBC 3.85 M/uL (4.20-5.40) L 10/11/23 04:20 Hgb 9.4 g/dl (12.0-16.0) L 10/11/23 04:20 Hct 31.4 % (37.0-47.0) L 10/11/23 04:20 MCV 81.6 fL (80.0-100.0) 10/11/23 04:20 MCH 24.4 pg (25.0-34.0) L 10/11/23 04:20 MCHC 29.9 g/dL (32.0-36.0) L 10/11/23 04:20 RDW Std Deviation 44.0 fL (36.4-46.3) 10/11/23 04:20 RDW Coeff of Bev 14.6 % (11.5-14.5) H 10/11/23 04:20 Plt Count 195 K/uL (130-400) 10/11/23 04:20 MPV 9.7 fL (9.4-12.4) 10/11/23 04:20 Immature Gran % (Auto) 0.5 % 10/09/23 10:50 Neut % (Auto) 67.6 % 10/09/23 10:50 Lymph % (Auto) 21.1 % 10/09/23 10:50 [place] % (Auto) 8.1 % 10/09/23 10:50 Eos % (Auto) 2.4 % 10/09/23 10:50 Baso % (Auto) 0.3 % 10/09/23 10:50 Neut # (Auto) 4.01 K/uL (1.40-6.50) 10/09/23 10:50 Lymph # (Auto) 1.25 K/uL (1.20-3.40) 10/09/23 10:50 [place] # (Auto) 0.48 K/uL (0.11-0.59) 10/09/23 10:50 Eos # (Auto) 0.14 K/uL (0.00-0.50) 10/09/23 10:50 Baso # (Auto) 0.02 K/uL (0.00-0.20) 10/09/23 10:50 Immature Gran # (Auto) 0.03 K/uL (0.01-0.20) 10/09/23 10:50 PT 12.2 Seconds (9.0-12.0) H 10/09/23 10:50 INR 1.1 (0.9-1.1) 10/09/23 10:50 APTT 48 Seconds (21-31) H 10/10/23 01:42 PTT Ratio 1.7 10/10/23 01:42 Heparin Anti-Xa, Unfract 0.36 IU/ml (0.3-0.7) 10/11/23 04:20 Sodium 137 mmol/L (136-145) 10/11/23 04:20 Potassium 3.8 mmol/L (3.5-5.1) 10/11/23 04:20 Chloride 105 mmol/L (98-107) 10/11/23 04:20 Carbon Dioxide 27 mmol/L (21-32) 10/11/23 04:20 Anion Gap 5 (3-11) 10/11/23 04:20 BUN 20 mg/dl (6-23) 10/11/23 04:20 Creatinine 0.54 mg/dl (0.6-1.2) L 10/11/23 04:20 Est Cr Clr Drug Dosing 101.4 ml/min 10/11/23 04:20 Est GFR ( Amer) 107.0 ml/min 10/11/23 04:20 Est GFR (Non-Af Amer) 92.3 ml/min 10/11/23 04:20 BUN/Creatinine Ratio 37.0 (10-20) H 10/11/23 04:20 Glucose 106 mg/dl (70-99(Fasting)) H 10/11/23 04:20 Lactate 0.8 mmol/L (0.4-2.0) 10/09/23 10:50 Calcium 9.3 mg/dl (8.6-10.3) 10/11/23 04:20 Magnesium 2.0 mg/dl (1.7-2.4) 10/09/23 10:50 Total Bilirubin 0.6 mg/dl (0.2-1.0) 10/09/23 10:50 Direct Bilirubin 0.1 mg/dl (0-0.2) 10/09/23 10:50 AST 14 U/L (13-39) 10/09/23 10:50 ALT 9 U/L (7-52) 10/09/23 10:50 Alkaline Phosphatase 51 U/L (34-104) 10/09/23 10:50 Troponin I High Sens 35.7 pg/ml (0-14) H 10/09/23 12:41 Total Protein 6.0 gm/dl (6.0-8.3) 10/09/23 10:50 Albumin 3.2 gm/dl (3.4-5.0) L 10/09/23 10:50 Procalcitonin 0.07 ng/ml (0-0.5) 10/09/23 10:50 Urine Color Yellow 10/09/23 11:12 Urine Appearance Slightly Cloudy (Clear) 10/09/23 11:12 Urine pH 5.5 (4.5-7.5) 10/09/23 11:12 Ur Specific [place] 1.020 (1.000-1.030) 10/09/23 11:12 Urine Protein 1+ (Negative) H 10/09/23 11:12 Urine Glucose (UA) Negative (Negative) 10/09/23 11:12 Urine Ketones 1+ (Negative) H 10/09/23 11:12 Urine Blood Trace-intact (Negative) H 10/09/23 11:12 Urine Nitrite Positive (Negative) A 10/09/23 11:12 Urine Bilirubin Negative (Negative) 10/09/23 11:12 Urine Urobilinogen Negative (Negative) 10/09/23 11:12 Ur Leukocyte Esterase 1+ (Negative) H 10/09/23 11:12 Urine RBC 0-4 /hpf (0-4) 10/09/23 11:12 Urine WBC >30 /hpf (0-5) H 10/09/23 11:12 Ur Epithelial Cells 0-5 /lpf (0-5) 10/09/23 11:12 Urine Bacteria 4+ (Negative) H 10/09/23 11:12 Hyaline Casts 0-5 /lpf (0-5) 10/09/23 11:12 Nasal Screen MRSA (PCR) Negative (Negative) 10/09/23 Unknown Adenovirus (PCR) Not Detected (NotDetected) 10/09/23 13:11 B. pertussis DNA (PCR) Not Detected (NotDetected) 10/09/23 13:11 B.parapertussis DNA PCR Not Detected (NotDetected) 10/09/23 13:11 C. pneumoniae DNA (PCR) Not Detected (NotDetected) 10/09/23 13:11 Coronavirus OC43 (PCR) Not Detected (NotDetected) 10/09/23 13:11 Coronavirus HKU1 (PCR) Not Detected (NotDetected) 10/09/23 13:11 Coronavirus 229E (PCR) Not Detected (NotDetected) 10/09/23 13:11 SARS-CoV-2 (PCR) Not Detected (NotDetected) 10/09/23 13:11 Coronavirus NL63 (PCR) Not Detected (NotDetected) 10/09/23 13:11 Human Metapneumovir PCR Not Detected (NotDetected) 10/09/23 13:11 Influenza Type A (PCR) Not Detected (NotDetected) 10/09/23 13:11 Influenza Type B (PCR) Not Detected (NotDetected) 10/09/23 13:11 M. pneumoniae (PCR) Not Detected (NotDetected) 10/09/23 13:11 Parainfluenza 1 (PCR) Not Detected (NotDetected) 10/09/23 13:11 Parainfluenza 2 (PCR) Not Detected (NotDetected) 10/09/23 13:11 Parainfluenza 3 (PCR) Not Detected (NotDetected) 10/09/23 13:11 Parainfluenza 4 (PCR) Not Detected (NotDetected) 10/09/23 13:11 RSV (PCR) Not Detected (NotDetected) 10/09/23 13:11 Entero/Rhino (PCR) Not Detected (NotDetected) 10/09/23 13:11 Impressions Venous Doppler Study 10/09/23 00:00 ULTRASOUND BILATERAL UPPER EXTREMITY VENOUS CLINICAL HISTORY: Edema. COMPARISON STUDY: No priors. TECHNIQUE: Real-time, grayscale, and color Doppler sonography of the deep veins of the right and left upper extremity is performed. Compression and augmentation were utilized. FINDINGS: Right lower extremity: There is no sonographic evidence of deep venous thrombosis identified in the right upper extremity. The left internal jugular, axillary, and proximal brachial veins are patent and normally compressible. The distal brachial veins, as well as the radial and ulnar veins could not be assessed due to overlying bandage material/splint from a right humeral fracture. Normal venous waveforms and augmentation are seen within the left subclavian vein. Imaged portions of the right cephalic vein are patent. Left lower extremity: There is no sonographic evidence of deep venous thrombosis identified in the left upper extremity. The left internal jugular, axillary, and brachial veins are patent and normally compressible. Normal venous waveforms and augmentation are seen within the left subclavian vein. The cephalic and basilic veins are clear. The visualized radial and ulnar veins are patent. IMPRESSION: There is no sonographic evidence of deep venous thrombosis identified in the left upper extremity. Note that several of the right upper extremity veins could not be assessed due to bandaging/splint related to a right humeral fracture. ACT 112: Negative or not required by law. Electronically signed by: Darnell Oates M.D. 10/09/2023 7:51 PM Chest X-Ray 10/09/23 10:45 SINGLE VIEW CHEST CLINICAL HISTORY: Sepsis. FINDINGS: An AP, portable, upright chest radiograph is compared to study dated 10/05/2023. Correlation is made with chest CT dated 07/02/2021. The heart is enlarged noting atherosclerotic calcification of the thoracic aorta. The pulmonary vasculature is noncongested. There is left basilar consolidation and a small left pleural effusion. The right lung appears clear. No pneumothorax is seen. The skeletal structures are osteopenic. There are chronic/healed right- sided rib fractures. IMPRESSION: 1. Cardiomegaly without radiographic evidence of congestive failure. 2. Left basilar consolidation and small left pleural effusion. Correlate clinically for evidence of pneumonia/aspiration pneumonitis. Radiographic follow-up to resolution is recommended. ACT 112: Negative or not required by law. Electronically signed by: Darnell Oates M.D. 10/09/2023 11:08 AM Chest CTA 10/09/23 15:38 CT ANGIOGRAM OF THE CHEST CLINICAL HISTORY: Atypical chest pain. COMPARISON STUDY: Chest x-ray dated 10/09/2023. The chest CT dated 07/02/2021. TECHNIQUE: Following the IV administration of 116 cc of Optiray 320, CT angiogram of the chest was performed from the upper abdomen to the thoracic inlet utilizing the pulmonary embolus protocol. Images are reviewed in the axial, sagittal, and coronal planes. 3-D MIPS images are created and assessed. IV contrast was administered without complication. A dose lowering technique was utilized adhering to the principles of ALARA. The examination is degraded by motion artifact, as well as by streak artifact from the arms which could not be elevated above the chest. CT DOSE: 759.12 mGy.cm FINDINGS: Thyroid: Enlarged and heterogeneous. Thoracic aorta: There is atherosclerotic calcification of the thoracic aorta, which is normal in caliber and demonstrates standard 3-vessel arch anatomy. The thoracic aorta is not well-opacified. Pulmonary vasculature: The pulmonary trunk is dilated, measuring 4.1 cm in diameter. This suggests pulmonary artery hypertension. There are segmental and subsegmental pulmonary emboli within branches of the right middle lobe pulmonary artery. No additional pulmonary emboli are clearly identified. Note that evaluation of the peripheral branches is compromised by motion artifact. Heart: The heart is enlarged and without pericardial effusion. There are coronary artery calcifications. Lungs and pleural spaces: Evaluation of the lung parenchyma is degraded by motion artifact. There are trace pleural effusions with dependent consolidation. The trachea and central airways are clear. There are scattered calcified granulomas. Mediastinum: There is no mediastinal lymphadenopathy. [place]: Clear. Axillae: There is no axillary lymphadenopathy. Upper abdomen: Partially visualized upper abdominal viscera is within normal limits. Skeletal structures: The skeletal structures are osteopenic. No lytic or blastic bony lesions are seen. Degenerative change is noted in the shoulders and spine. There are chronic/healed right-sided rib fractures. IMPRESSION: 1. Streak and motion compromised examination. 2. Segmental and subsegmental pulmonary emboli are seen within branches of the right middle lobe pulmonary artery. 3. Cardiomegaly. 4. Small pleural effusions with dependent consolidation. This likely represents atelectasis and clinical correlation required. 5. Additional findings as above. ACT 112: Negative or not required by law. Electronically signed by: Darnell Oates M.D. 10/09/2023 4:35 PM Knee X-Ray 10/10/23 07:00 RIGHT KNEE 2 VIEWS CLINICAL HISTORY: Fall. Right knee swelling. FINDINGS: Portable AP and crosstable lateral radiographs of the right knee are c ompared to study dated 01/10/2021. The skeletal structures are osteopenic. No fracture is clearly identified. There is moderate to advanced tricompartmental degenerative joint space narrowing. There are marginal osteophytes and patellar enthesophytes. There is a large joint effusion. A calcified fabella is incidentally noted. Prepatellar soft tissue swelling is observed. IMPRESSION: 1. Large joint effusion with no acute fracture clearly identified. If there is strong clinical concern for occult fracture a CT scan of the knee should be obtained. 2. Osteopenia and degenerative change as above. Electronically signed by: Darnell Oates M.D. 10/10/2023 8:31 AM Previous x-rays revealed right Supracondylar humerus facture. (2) Elbow fracture, right Encounter type: initial encounter Fracture type: closed Qualified Code(s): S42.401A - Unspecified fracture of lower end of right humerus, initial encounter for closed fracture
[2023-10-11] MEDS: cefTRIAXone SODIUM 2,000 MG in DEXTROSE 5 % MINI-B 50 ML IV SCH (13:01)
[2023-10-11] MEDS ORDERED: POLYETHYLENE (MIRALAX) 17 GM PACK PO PRN (14:13)
--- NOTE | 2023-10-11 15:07 | CT Scan Report ---
CT SCAN OF THE RIGHT KNEE WITHOUT IV CONTRAST CLINICAL HISTORY: Fall. Right knee pain. Joint effusion. COMPARISON STUDY: Radiographs of the right knee dated 10/10/2023. TECHNIQUE: CT scan of the right knee is performed from the distal femur to the proximal tibia and fib eri. Images are reviewed in the axial, sagittal, and coronal planes. IV contrast was not administered for this examination. A dose lowering technique was utilized adhering to the principles of ALARA. Th e examination is degraded by patient positioning and severe osteopenia. CT DOSE: 513.32 mGy.cm FINDINGS: The skeletal structures are heterogeneously osteopenic. There is a mildly depressed fractur e of the lateral tibial plateau. This is best seen on the sagittal reformatted image #38. There is as sociated joint effusion with lipohemarthrosis. No additional acute fracture is clearly identified. Th e medial tibial plateau appears intact. The distal femur, proximal fibula, and patella appear maintai william. There is moderate to advanced tricompartmental degenerative joint space narrowing. A 13 mm calci fied joint body versus fabella is seen posterior to the knee. There are large marginal osteophytes an d patellar enthesophytes. There is generalized atrophy of the regional musculature. Venous varicositi es are noted in the upper calf. Mild soft tissue edema is noted. IMPRESSION: 1. Minimally depressed fracture of the lateral tibial plateau with associated joint effusion and lipo hemarthrosis. 2. No additional fracture is identified. 3. Osteopenia and degenerative change as above. ACT 112: Negative or not required by law. Electronically signed by: Darnell Oates M.D. 10/11/2023 3:06 PM
--- NOTE | 2023-10-11 16:04 | Hospitalist Progress Note ---
Date of Service October 11, 2023 Assessment & Plan (1) Acute hypoxic respiratory failure: (2) Pneumonia: Plan: Acute respiratory failure with hypoxia Acute PE H/O DVT--previously was on Coumadin Likely due to prolonged immobilization --CTA:Segmental and subsegmental pulmonary emboli are seen within branches of the right middle lobe pulmonary artery. Cardiomegaly. Small pleural effusions with dependent consolidation. This likely represents atelectasis and clinical correlation required. --UE Venous Doppler:There is no sonographic evidence of deep venous thrombosis identified in the left upper extremity. Note that several of the right upper extremity veins could not be assessed due to bandaging/splint related to a right humeral fracture. -- Continue IV heparin for now Monitor for any bleeding issues Plan to transition to Eliquis as able Wean off of supplemental oxygen as able Suspected pneumonia CTA as above BioFire negative Normal procalcitonin Blood cultures: Pending to date Empirically on antibiotics--Zosyn, Doxy>> Rocephin, Doxy Incentive spirometer Recent Fall on 10/05/23 Right Elbow fracture--POA --Elbow CT: Mildly displaced supracondylar fracture, which is offset by approxim ately 1.3 cm. No dislocation. --R HIP CT:Severe osteoarthritis of the RIGHT hip, with diffuse [id number] articulation. --CT head:No acute intracranial hemorrhage, midline shift, or mass effect. For precautions PT OT Appreciate orthopedic input Pain control as needed Continue splint/sling for right elbow fracture Right lateral tibial plateau fracture--POA Right knee pain/effusion Recent Fall --Knee X ray:Large joint effusion with no acute fracture clearly identified. If there is strong clinical concern for occult fracture a CT scan of the knee should be obtained. Osteopenia and degenerative change as above. --R Knee CT:Minimally depressed fracture of the lateral tibial plateau with associated joint effusion and lipohemarthrosis. No additional fracture is identified. Osteopenia and degenerative change as above. Pain control Management as per Ortho Appreciate orthopedics help Nonweightbearing right lower extremity Thought to be poor candidate for surgical intervention (3) Acute UTI: Plan: Acute metabolic encephalopathy Urinary tract infection --Blood cultures pending Urine culture growing E. coli, alpha strep Continue empiric Zosyn >> transition to Rocephin Mental status seem to be back to baseline (4) Hypertension: Plan: Chronic, stable Continue amlodipine and metoprolol (5) Elbow fracture, right: Plan: Management as above (6) History of DVT (deep vein thrombosis): Plan: Other chronic conditions: H/O breast cancer Hypertension Osteoarthritis Venous stasis ulcers S/P venous ablation Lumbar spinal stenosis Chronic lymphedema Continue home medications as able DVT Px IV Heparin Discharge DNR/DNI Disposition PT OT prior to discharge Case management to help with discharge planning (7) Acute pulmonary embolism: (8) Right knee pain: Admission and Anticipated Discharge Date Admission Date: October 09, 2023 Review of Systems Review of Systems: All systems reviewed & are unremarkable except as noted in Subjective Physical Exam Physical Exam: Physical Exam: Vitals signs as noted above General Appearance:Moderately built and nourished, no apparent distress, elderly, chronically. Head: normocephalic, Atraumatic Eyes: normal inspection, EOMI Neck: supple, Trachea midline Respiratory/Chest: Decreased breath sounds, CTA, No accessory muscle use Cardiovascular: S1, S2, No murmur Abdomen/GI:Soft, Non tender, Bowel sounds present Extremities/Musculoskeletal:normal inspection, RUE in splint/sling, R knee swelling,tender, , B/L lymphedema, chronic venous stasis changes Neurologic/Psych:AAOX3, grossly no focal neurological deficits Skin: normal color, warm Results & Data Results & Data Vital Signs (Past 12 Hours) Vital Signs Temp Pulse Pulse Pulse Resp BP Pulse Ox 10/11/23 11:37 36.4 C L 67 19 133/77 94 10/11/23 08:37 62 10/11/23 07:59 65 10/11/23 07:12 36.5 C 52 L 17 123/75 96 10/11/23 04:00 36.4 C L 62 16 127/75 97 O2 Del Method O2 Flow Rate 10/11/23 11:37 Nasal Cannula 1 10/11/23 08:37 10/11/23 07:59 10/11/23 07:12 Room Air 1 10/11/23 04:00 Nasal Cannula 1 Laboratory Results Short CBC 10/11/23 Range/Units 04:20 WBC 5.97 (4.8-10.8) K/ul Hgb 9.4 L (12.0-16.0) g/dl Hct 31.4 L (37.0-47.0) % Plt Count 195 (130-400) K/uL BMP 10/11/23 04:20 Sodium 137 Potassium 3.8 Chloride 105 Carbon Dioxide 27 BUN 20 Creatinine 0.54 L Glucose 106 H Calcium 9.3 (2) Pneumonia Pneumonia type: due to unspecified organism (4) Hypertension Hypertension type: unspecified Qualified Code(s): I10 - Essential (primary) hypertension (5) Elbow fracture, right Encounter type: initial encounter Fracture type: closed Qualified Code(s): S42.401A - Unspecified fracture of lower end of right humerus, initial encounter for closed fracture
[2023-10-12 07:56] LABS: Hematocrit (blood only) 29.5 % (37.0-47.0); Mean Corpuscular Hemoglobin 24.3 pg (25.0-34.0); Mean Corpuscular Hgb Conc 30.5 g/dL (32.0-36.0); Mean Corpuscular Volume 79.7 fL (80.0-100.0); Mean Platelet Volume 10.1 fL (9.4-12.4); Platelet Count 208 K/uL (130-400); RDW Coefficient of Variation 14.9 % (11.5-14.5); RDW Standard Deviation 43.2 fL (36.4-46.3); White Blood Count 5.31 K/ul (4.8-10.8)
[2023-10-12 08:25] LABS: BUN Creatinine Ratio 42.9 (10-20); Calcium 9.4 mg/dl (8.6-10.3); Est GFR (African American) 116.2 ml/min; Est GFR (Non-African American) 100.3 ml/min; Potassium 3.4 mmol/L (3.5-5.1)
[2023-10-12] MEDS: POTASSIUM CHLORIDE CRTAB 20 MEQ TABCR PO ONE (10:08)
--- NOTE | 2023-10-12 10:34 | Orthopedic Progress Note ---
Date of Service October 12, 2023 Assessment & Plan (1) Elbow fracture, right: Plan: The patient was educated regarding today's findings. Conservative care measures were discussed. She is stable from an orthopedic standpoint at this time. The splint must remain in place and should be kept dry. Follow-up in the office in roughly a week for new imaging. Continue to ice and elevate the Right hand and use the sling for comfort when OOB. Continue anticoagulation. Will have overhead trapeze place on bed to aid with mobility. Continue care per primary service Present on Admission?: Yes (2) Tibial plateau fracture, right: Plan: Continue conservative treatment Continue non weightbearing on the right leg. RICE Will have PT work on gentle ROM Will obtain Post knee hinged knee brace will block ROM to match ROM f/u 1 week with x-rays 4 views, AP, oblique x2 and lateral Present on Admission?: Yes Admission and Anticipated Discharge Date Admission Date: October 09, 2023 Supervising Physician Co-Signing Physician Notes I, Dr. Moraes, saw and examined the patient. I discussed the management with my PA. I reviewed my PAs note and agree with the documented findings and attest to completing the substantive portion (medical decision making)/ plan of care I developed. Subjective This 73-year-old female is seen today in her room. She has a known right humeral fracture that is being treated nonoperatively. She states her shoulder and arm feel fine. She is frustrated today because the TV remote will not work. She denies any numbness or tingling in her right arm. No other shoulder complaints. She also has a small right lateral tibial plateau fracture on CT. She does not complain of any knee pain today. Physical Exam Physical Exam: General: Well-developed, elderly female, in no acute distress. Laying in bed. Somewhat agitated. She has a sling in place on the right arm. Skin: Warm and dry with fair turgor. Mild edema at her right fingers. She has a long-arm splint in place on the right arm. No ecchymosis or erythema. No skin breakdown at the edge of the splint. Musculoskeletal: The patient has no discomfort with palpation over her shoulder or proximal humerus. She has no pain with palpation over the rest of the arm while it is in the splint. She has intact motor function of her fingers and thumb. Range of motion of the elbow and shoulder were not attempted. She continues to have pain at the right knee with motion and palpation. Neurologic: Gross sensation is intact across each of the digits on the right hand by soft touch. Sensation to the right leg is also intact and unremarkable. Results & Data Vital Signs (Past 12 Hours) Vital Signs Temp Pulse Pulse Resp BP Pulse Ox O2 Del Method 10/12/23 07:28 36.3 C L 65 20 127/68 93 Room Air 10/12/23 03:42 36.3 C L 66 18 125/73 93 Room Air 10/12/23 00:00 61 10/11/23 22:32 36.6 C 64 20 104/63 96 Room Air Laboratory Results CBC obtained this morning shows a white count of 5.31. H&H of 9.0 and 29.5. Platelets 208,000. PRP shows sodium 136, potassium 3.4, CO2 27, anion gap of 5, BUN of 18 with creatinine 0.42. Diagnostic Findings CT SCAN OF THE RIGHT KNEE WITHOUT IV CONTRAST CLINICAL HISTORY: Fall. Right knee pain. Joint effusion. COMPARISON STUDY: Radiographs of the right knee dated 10/10/2023. TECHNIQUE: CT scan of the right knee is performed from the distal femur to the proximal tibia and fibula. Images are reviewed in the axial, sagittal, and coronal planes. IV contrast was not administered for this examination. A dose lowering technique was utilized adhering to the principles of ALARA. The examination is degraded by patient positioning and severe osteopenia. CT DOSE: 513.32 mGy.cm FINDINGS: The skeletal structures are heterogeneously osteopenic. There is a mildly depressed fracture of the lateral tibial plateau. This is best seen on the sagittal reformatted image #38. There is associated joint effusion with lipohemarthrosis. No additional acute fracture is clearly identified. The medial tibial plateau appears intact. The distal femur, proximal fibula, and patella appear maintained. There is moderate to advanced tricompartmental degenerative joint space narrowing. A 13 mm calcified joint body versus fabella is seen posterior to the knee. There are large marginal osteophytes and patellar enthesophytes. There is generalized atrophy of the regional musculature. Venous varicosities are noted in the upper calf. Mild soft tissue edema is noted. IMPRESSION: 1. Minimally depressed fracture of the lateral tibial plateau with associated joint effusion and lipohemarthrosis. 2. No additional fracture is identified. 3. Osteopenia and degenerative change as above. ACT 112: Negative or not required by law. (1) Elbow fracture, right Encounter type: initial encounter Fracture type: closed Qualified Code(s): S42.401A - Unspecified fracture of lower end of right humerus, initial encounter for closed fracture
--- NOTE | 2023-10-12 16:33 | Hospitalist Progress Note ---
Date of Service October 12, 2023 Assessment & Plan (1) Acute hypoxic respiratory failure: (2) Pneumonia: Plan: Acute respiratory failure with hypoxia Acute PE H/O DVT--previously was on Coumadin Likely due to prolonged immobilization --CTA:Segmental and subsegmental pulmonary emboli are seen within branches of the right middle lobe pulmonary artery. Cardiomegaly. Small pleural effusions with dependent consolidation. This likely represents atelectasis and clinical correlation required. --UE Venous Doppler:There is no sonographic evidence of deep venous thrombosis identified in the left upper extremity. Note that several of the right upper extremity veins could not be assessed due to bandaging/splint related to a right humeral fracture. -- Continue IV heparin >>> transition to Eliquis today Monitor for any bleeding issues Weaned off of supplemental oxygen Suspected pneumonia CTA as above BioFire negative Normal procalcitonin Blood cultures: Pending to date Empirically on antibiotics--Zosyn, Doxy>> Rocephin, Doxy Incentive spirometer Recent Fall on 10/05/23 Right Elbow fracture--POA --Elbow CT: Mildly displaced supracondylar fracture, which is offset by approximately 1.3 cm. No dislocation. --R HIP CT:Severe osteoarthritis of the RIGHT hip, with diffuse [id number] articulation. --CT head:No acute intracranial hemorrhage, midline shift, or mass effect. For precautions PT OT Appreciate orthopedic input Pain control as needed Continue splint/sling for right elbow fracture Needs follow-up with orthopedics on discharge Right lateral tibial plateau fracture--POA Right knee pain/effusion Recent Fall --Knee X ray:Large joint effusion with no acute fracture clearly identified. If there is strong clinical concern for occult fracture a CT scan of the knee should be obtained. Osteopenia and degenerative change as above. --R Knee CT:Minimally depressed fracture of the lateral tibial plateau with associated joint effusion and lipohemarthrosis. No additional fracture is identified. Osteopenia and degenerative change as above. Pain control Management as per Ortho Appreciate orthopedics help Nonweightbearing right lower extremity Thought to be poor candidate for surgical intervention Needs follow-up with orthopedics on discharge (3) Acute UTI: Plan: Acute metabolic encephalopathy Urinary tract infection --Blood cultures negative to date Urine culture growing E. coli, alpha strep Continue empiric Zosyn >> transition to Rocephin Mental status seem to be back to baseline Transition to p.o. antibiotics tomorrow (4) Hypertension: Plan: Chronic, stable Continue amlodipine and metoprolol (5) Elbow fracture, right: Plan: Management as above (6) History of DVT (deep vein thrombosis): Plan: Other chronic conditions: H/O breast cancer Hypertension Osteoarthritis Venous stasis ulcers S/P venous ablation Lumbar spinal stenosis Chronic lymphedema Continue home medications as able DVT Px IV Heparin>> Eliquis Discharge DNR/DNI Disposition PT OT prior to discharge Case management to help with discharge planning (7) Acute pulmonary embolism: (8) Right knee pain: Admission and Anticipated Discharge Date Admission Date: October 09, 2023 Subjective Patient is seen and examined at bedside No new complaints Reports right knee pain with movement On IV heparin--no bleeding issues Denies any chest pain, dyspnea, dizziness, nausea, vomiting, abdominal pain, cough Review of Systems Review of Systems: All systems reviewed & are unremarkable except as noted in Subjective Physical Exam Physical Exam: Physical Exam: Vitals signs as noted above General Appearance:Moderately built and nourished, no apparent distress, elderly, chronically. Head: normocephalic, Atraumatic Eyes: normal inspection, EOMI Neck: supple, Trachea midline Respiratory/Chest: Decreased breath sounds, CTA, No accessory muscle use Cardiovascular: S1, S2, No murmur Abdomen/GI:Soft, Non tender, Bowel sounds present Extremities/Musculoskeletal:normal inspection, RUE in splint/sling, R knee swelling,tender, , B/L lymphedema, chronic venous stasis changes Neurologic/Psych:AAOX3, grossly no focal neurological deficits Skin: normal color, warm Results & Data Results & Data Vital Signs (Past 12 Hours) Vital Signs Temp Pulse Pulse Resp BP Pulse Ox O2 Del Method 10/12/23 15:08 36.6 C 66 17 131/78 91 Room Air 10/12/23 11:06 36.6 C 70 19 146/77 H 93 Room Air 10/12/23 08:00 58 L 10/12/23 08:00 Room Air 10/12/23 07:28 36.3 C L 65 20 127/68 93 Room Air Laboratory Results Short CBC 10/12/23 Range/Units 07:10 WBC 5.31 (4.8-10.8) K/ul Hgb 9.0 L (12.0-16.0) g/dl Hct 29.5 L (37.0-47.0) % Plt Count 208 (130-400) K/uL BMP 10/12/23 07:10 Sodium 136 Potassium 3.4 L Chloride 104 Carbon Dioxide 27 BUN 18 Creatinine 0.42 L Glucose 94 Calcium 9.4 (2) Pneumonia Pneumonia type: due to unspecified organism (4) Hypertension Hypertension type: unspecified Qualified Code(s): I10 - Essential (primary) hypertension (5) Elbow fracture, right Encounter type: initial encounter Fracture type: closed Qualified Code(s): S42.401A - Unspecified fracture of lower end of right humerus, initial encounter for closed fracture
[2023-10-12] MEDS: DOXYCYCLINE HYCLATE 100 MG CAP PO SCH (20:40)
[2023-10-12] MEDS: APIXABAN 5 MG TABLET PO SCH (20:43)
[2023-10-12] MEDS: STOP ORDER: HEPARIN INFUSION ONE (20:45)
[2023-10-13 06:38] LABS: Hematocrit (blood only) 32.1 % (37.0-47.0); Hemoglobin 9.6 g/dl (12.0-16.0); Mean Corpuscular Hemoglobin 24.2 pg (25.0-34.0); Mean Corpuscular Hgb Conc 29.9 g/dL (32.0-36.0); Mean Corpuscular Volume 81.1 fL (80.0-100.0); Mean Platelet Volume 9.8 fL (9.4-12.4); Platelet Count 233 K/uL (130-400); RDW Coefficient of Variation 15.1 % (11.5-14.5); RDW Standard Deviation 44.1 fL (36.4-46.3); Red Blood Count 3.96 M/uL (4.20-5.40); White Blood Count 5.33 K/ul (4.8-10.8)
[2023-10-13 07:06] LABS: BUN Creatinine Ratio 34.8 (10-20); Calcium 9.7 mg/dl (8.6-10.3); Creatinine Clr Calc Pharmacy 121.4 ml/min; Est GFR (African American) 112.8 ml/min; Est GFR (Non-African American) 97.3 ml/min; Potassium 3.8 mmol/L (3.5-5.1)
[2023-10-13 08:24] LABS: ANTI-Xa, LMWH(Low Molecular Wt 1.38 IU/ML (< 0.10)
[2023-10-13] MEDS: CHOLECALCIFEROL 25 MCG (1000 UNITS) TAB PO SCH (09:09)
--- NOTE | 2023-10-13 11:53 | Orthopedic Progress Note ---
Date of Service October 13, 2023 Assessment & Plan (1) Elbow fracture, right: Plan: The patient was educated regarding today's findings. Conservative care measures were discussed. She is stable from an orthopedic standpoint at this time. The splint must remain in place and should be kept dry. Follow-up in the office in roughly a week for new imaging. Continue to ice and elevate the Right hand and use the sling for comfort when OOB. Continue anticoagulation. Will have overhead trapeze place on bed to aid with mobility. Continue care per primary service (2) Tibial plateau fracture, right: Plan: Continue conservative treatment Continue non weightbearing on the right leg. RICE Will have PT work on gentle ROM Will obtain Post knee hinged knee brace will block ROM to match ROM f/u 1 week with x-rays 4 views, AP, oblique x2 and lateral Admission and Anticipated Discharge Date Admission Date: October 09, 2023 Subjective This 73-year-old female is seen today for follow-up of a right supracondylar fracture of her humerus and a right tibial plateau fracture. Patient states that her knee hurts if she moves it. She states that her splint on her arm is very comfortable. She has to have a pillow propped under her knee to be comfortable. Currently she denies chest pain, shortness of breath, fever, chills, sweats or numbness or tingling in any extremities. Review of Systems Review of Systems: All systems reviewed & are unremarkable except as noted in Subjective Physical Exam Physical Exam: Right upper extremity: Splint is clean dry and intact and left in place. Patient has mobility in his shoulder. She has mobility of her digits and is able to detect light sensation to touch over the pads of all digits.. She does have tenderness to palpation over the antecubital area. Right lower extremity (knee): Patient is lying with her knee slightly flexed. She is unable to actively extend or flex. She notes pain over the entire anterior aspect of the knee and is tender to palpation over the medial lateral joint space as well as over the superolateral pouch. There is palpable effusion. She is unable to perform an active straight leg raise test. She is able to actively dorsi and plantarflex her foot. She has notable venous stasis dermatitis affecting the lower leg and foot that are now wrapped with occlusive dressings. She did not tolerate logroll testing. Patient does not tolerate any type of movement of her knee. Results & Data Vital Signs (Past 12 Hours) Vital Signs Temp Pulse Pulse Resp BP Pulse Ox O2 Del Method 10/13/23 11:24 36.9 C 70 18 129/72 93 Room Air 10/13/23 11:18 75 10/13/23 08:39 36.5 C 65 18 126/61 95 Room Air 10/13/23 08:00 Room Air 10/13/23 03:00 36.9 C 78 18 144/87 H 94 Room Air 10/13/23 00:00 79 Diagnostic Findings Laboratory Results WBC 5.33 K/ul (4.8-10.8) 10/13/23 06:00 RBC 3.96 M/uL (4.20-5.40) L 10/13/23 06:00 Hgb 9.6 g/dl (12.0-16.0) L 10/13/23 06:00 Hct 32.1 % (37.0-47.0) L 10/13/23 06:00 MCV 81.1 fL (80.0-100.0) 10/13/23 06:00 MCH 24.2 pg (25.0-34.0) L 10/13/23 06:00 MCHC 29.9 g/dL (32.0-36.0) L 10/13/23 06:00 RDW Std Deviation 44.1 fL (36.4-46.3) 10/13/23 06:00 RDW Coeff of Bev 15.1 % (11.5-14.5) H 10/13/23 06:00 Plt Count 233 K/uL (130-400) 10/13/23 06:00 MPV 9.8 fL (9.4-12.4) 10/13/23 06:00 Immature Gran % (Auto) 0.5 % 10/09/23 10:50 Neut % (Auto) 67.6 % 10/09/23 10:50 Lymph % (Auto) 21.1 % 10/09/23 10:50 [place] % (Auto) 8.1 % 10/09/23 10:50 Eos % (Auto) 2.4 % 10/09/23 10:50 Baso % (Auto) 0.3 % 10/09/23 10:50 Neut # (Auto) 4.01 K/uL (1.40-6.50) 10/09/23 10:50 Lymph # (Auto) 1.25 K/uL (1.20-3.40) 10/09/23 10:50 [place] # (Auto) 0.48 K/uL (0.11-0.59) 10/09/23 10:50 Eos # (Auto) 0.14 K/uL (0.00-0.50) 10/09/23 10:50 Baso # (Auto) 0.02 K/uL (0.00-0.20) 10/09/23 10:50 Immature Gran # (Auto) 0.03 K/uL (0.01-0.20) 10/09/23 10:50 PT 12.2 Seconds (9.0-12.0) H 10/09/23 10:50 INR 1.1 (0.9-1.1) 10/09/23 10:50 APTT 48 Seconds (21-31) H 10/10/23 01:42 PTT Ratio 1.7 10/10/23 01:42 Heparin Anti-Xa, LM Wt 1.38 IU/ML (< 0.10) 10/13/23 06:00 Heparin Anti-Xa, Unfract 0.30 IU/ml (0.3-0.7) 10/12/23 07:10 Sodium 136 mmol/L (136-145) 10/13/23 06:00 Potassium 3.8 mmol/L (3.5-5.1) 10/13/23 06:00 Chloride 105 mmol/L (98-107) 10/13/23 06:00 Carbon Dioxide 24 mmol/L (21-32) 10/13/23 06:00 Anion Gap 7 (3-11) 10/13/23 06:00 BUN 16 mg/dl (6-23) 10/13/23 06:00 Creatinine 0.46 mg/dl (0.6-1.2) L 10/13/23 06:00 Est Cr Clr Drug Dosing 121.4 ml/min 10/13/23 06:00 Est GFR ( Amer) 112.8 ml/min 10/13/23 06:00 Est GFR (Non-Af Amer) 97.3 ml/min 10/13/23 06:00 BUN/Creatinine Ratio 34.8 (10-20) H 10/13/23 06:00 Glucose 91 mg/dl (70-99(Fasting)) 10/13/23 06:00 Lactate 0.8 mmol/L (0.4-2.0) 10/09/23 10:50 Calcium 9.7 mg/dl (8.6-10.3) 10/13/23 06:00 Magnesium 2.0 mg/dl (1.7-2.4) 10/09/23 10:50 Total Bilirubin 0.6 mg/dl (0.2-1.0) 10/09/23 10:50 Direct Bilirubin 0.1 mg/dl (0-0.2) 10/09/23 10:50 AST 14 U/L (13-39) 10/09/23 10:50 ALT 9 U/L (7-52) 10/09/23 10:50 Alkaline Phosphatase 51 U/L (34-104) 10/09/23 10:50 Troponin I High Sens 35.7 pg/ml (0-14) H 10/09/23 12:41 Total Protein 6.0 gm/dl (6.0-8.3) 10/09/23 10:50 Albumin 3.2 gm/dl (3.4-5.0) L 10/09/23 10:50 Procalcitonin 0.07 ng/ml (0-0.5) 10/09/23 10:50 Urine Color Yellow 10/09/23 11:12 Urine Appearance Slightly Cloudy (Clear) 10/09/23 11:12 Urine pH 5.5 (4.5-7.5) 10/09/23 11:12 Ur Specific [place] 1.020 (1.000-1.030) 10/09/23 11:12 Urine Protein 1+ (Negative) H 10/09/23 11:12 Urine Glucose (UA) Negative (Negative) 10/09/23 11:12 Urine Ketones 1+ (Negative) H 10/09/23 11:12 Urine Blood Trace-intact (Negative) H 10/09/23 11:12 Urine Nitrite Positive (Negative) A 10/09/23 11:12 Urine Bilirubin Negative (Negative) 10/09/23 11:12 Urine Urobilinogen Negative (Negative) 10/09/23 11:12 Ur Leukocyte Esterase 1+ (Negative) H 10/09/23 11:12 Urine RBC 0-4 /hpf (0-4) 10/09/23 11:12 Urine WBC >30 /hpf (0-5) H 10/09/23 11:12 Ur Epithelial Cells 0-5 /lpf (0-5) 10/09/23 11:12 Urine Bacteria 4+ (Negative) H 10/09/23 11:12 Hyaline Casts 0-5 /lpf (0-5) 10/09/23 11:12 Nasal Screen MRSA (PCR) Negative (Negative) 10/09/23 Unknown Adenovirus (PCR) Not Detected (NotDetected) 10/09/23 13:11 B. pertussis DNA (PCR) Not Detected (NotDetected) 10/09/23 13:11 B.parapertussis DNA PCR Not Detected (NotDetected) 10/09/23 13:11 C. pneumoniae DNA (PCR) Not Detected (NotDetected) 10/09/23 13:11 Coronavirus OC43 (PCR) Not Detected (NotDetected) 10/09/23 13:11 Coronavirus HKU1 (PCR) Not Detected (NotDetected) 10/09/23 13:11 Coronavirus 229E (PCR) Not Detected (NotDetected) 10/09/23 13:11 SARS-CoV-2 (PCR) Not Detected (NotDetected) 10/09/23 13:11 Coronavirus NL63 (PCR) Not Detected (NotDetected) 10/09/23 13:11 Human Metapneumovir PCR Not Detected (NotDetected) 10/09/23 13:11 Influenza Type A (PCR) Not Detected (NotDetected) 10/09/23 13:11 Influenza Type B (PCR) Not Detected (NotDetected) 10/09/23 13:11 M. pneumoniae (PCR) Not Detected (NotDetected) 10/09/23 13:11 Parainfluenza 1 (PCR) Not Detected (NotDetected) 10/09/23 13:11 Parainfluenza 2 (PCR) Not Detected (NotDetected) 10/09/23 13:11 Parainfluenza 3 (PCR) Not Detected (NotDetected) 10/09/23 13:11 Parainfluenza 4 (PCR) Not Detected (NotDetected) 10/09/23 13:11 RSV (PCR) Not Detected (NotDetected) 10/09/23 13:11 Entero/Rhino (PCR) Not Detected (NotDetected) 10/09/23 13:11 Impressions Venous Doppler Study 10/09/23 00:00 ULTRASOUND BILATERAL UPPER EXTREMITY VENOUS CLINICAL HISTORY: Edema. COMPARISON STUDY: No priors. TECHNIQUE: Real-time, grayscale, and color Doppler sonography of the deep veins of the right and left upper extremity is performed. Compression and augmentation were utilized. FINDINGS: Right lower extremity: There is no sonographic evidence of deep venous thrombosis identified in the right upper extremity. The left internal jugular, axillary, and proximal brachial veins are patent and normally compressible. The distal brachial veins, as well as the radial and ulnar veins could not be assessed due to overlying bandage material/splint from a right humeral fracture. Normal venous waveforms and augmentation are seen within the left subclavian vein. Imaged portions of the right cephalic vein are patent. Left lower extremity: There is no sonographic evidence of deep venous thrombosis identified in the left upper extremity. The left internal jugular, axillary, and brachial veins are patent and normally compressible. Normal venous waveforms and augmentation are seen within the left subclavian vein. The cephalic and basilic veins are clear. The visualized radial and ulnar veins are patent. IMPRESSION: There is no sonographic evidence of deep venous thrombosis identified in the left upper extremity. Note that several of the right upper extremity veins could not be assessed due to bandaging/splint related to a right humeral fracture. ACT 112: Negative or not required by law. Electronically signed by: Darnell Oates M.D. 10/09/2023 7:51 PM Chest X-Ray 10/09/23 10:45 SINGLE VIEW CHEST CLINICAL HISTORY: Sepsis. FINDINGS: An AP, portable, upright chest radiograph is compared to study dated 10/05/2023. Correlation is made with chest CT dated 07/02/2021. The heart is enlarged noting atherosclerotic calcification of the thoracic aorta. The pulmonary vasculature is noncongested. There is left basilar consolidation and a small left pleural effusion. The right lung appears clear. No pneumothorax is seen. The skeletal structures are osteopenic. There are chronic/healed right- sided rib fractures. IMPRESSION: 1. Cardiomegaly without radiographic evidence of congestive failure. 2. Left basilar consolidation and small left pleural effusion. Correlate clinically for evidence of pneumonia/aspiration pneumonitis. Radiographic follow-up to resolution is recommended. ACT 112: Negative or not required by law. Electronically signed by: Darnell Oates M.D. 10/09/2023 11:08 AM Chest CTA 10/09/23 15:38 CT ANGIOGRAM OF THE CHEST CLINICAL HISTORY: Atypical chest pain. COMPARISON STUDY: Chest x-ray dated 10/09/2023. The chest CT dated 07/02/2021. TECHNIQUE: Following the IV administration of 116 cc of Optiray 320, CT angiogram of the chest was performed from the upper abdomen to the thoracic inlet utilizing the pulmonary embolus protocol. Images are reviewed in the axial, sagittal, and coronal planes. 3-D MIPS images are created and assessed. IV contrast was administered without complication. A dose lowering technique was utilized adhering to the principles of ALARA. The examination is degraded by motion artifact, as well as by streak artifact from the arms which could not be elevated above the chest. CT DOSE: 759.12 mGy.cm FINDINGS: Thyroid: Enlarged and heterogeneous. Thoracic aorta: There is atherosclerotic calcification of the thoracic aorta, which is normal in caliber and demonstrates standard 3-vessel arch anatomy. The thoracic aorta is not well-opacified. Pulmonary vasculature: The pulmonary trunk is dilated, measuring 4.1 cm in diameter. This suggests pulmonary artery hypertension. There are segmental and subsegmental pulmonary emboli within branches of the right middle lobe pulmonary artery. No additional pulmonary emboli are clearly identified. Note that evaluation of the peripheral branches is compromised by motion artifact. Heart: The heart is enlarged and without pericardial effusion. There are coronary artery calcifications. Lungs and pleural spaces: Evaluation of the lung parenchyma is degraded by motion artifact. There are trace pleural effusions with dependent consolidation. The trachea and central airways are clear. There are scattered calcified granulomas. Mediastinum: There is no mediastinal lymphadenopathy. [place]: Clear. Axillae: There is no axillary lymphadenopathy. Upper abdomen: Partially visualized upper abdominal viscera is within normal limits. Skeletal structures: The skeletal structures are osteopenic. No lytic or blastic bony lesions are seen. Degenerative change is noted in the shoulders and spine. There are chronic/healed right-sided rib fractures. IMPRESSION: 1. Streak and motion compromised examination. 2. Segmental and subsegmental pulmonary emboli are seen within branches of the right middle lobe pulmonary artery. 3. Cardiomegaly. 4. Small pleural effusions with dependent consolidation. This likely represents atelectasis and clinical correlation required. 5. Additional findings as above. ACT 112: Negative or not required by law. Electronically signed by: Darnell Oates M.D. 10/09/2023 4:35 PM Knee X-Ray 10/10/23 07:00 RIGHT KNEE 2 VIEWS CLINICAL HISTORY: Fall. Right knee swelling. FINDINGS: Portable AP and crosstable lateral radiographs of the right knee are compared to study dated 01/10/2021. The skeletal structures are osteopenic. No fracture is clearly identified. There is moderate to advanced tricompartmental degenerative joint space narrowing. There are marginal osteophytes and patellar enthesophytes. There is a large joint effusion. A calcified fabella is incidentally noted. Prepatellar soft tissue swelling is observed. IMPRESSION: 1. Large joint effusion with no acute fracture clearly identified. If there is strong clinical concern for occult fracture a CT scan of the knee should be obtained. 2. Osteopenia and degenerative change as above. Electronically signed by: Darnell Oates M.D. 10/10/2023 8:[address] 10/11/23 10:34 CT SCAN OF THE RIGHT KNEE WITHOUT IV CONTRAST CLINICAL HISTORY: Fall. Right knee pain. Joint effusion. COMPARISON STUDY: Radiographs of the right knee dated 10/10/2023. TECHNIQUE: CT scan of the right knee is performed from the distal femur to the proximal tibia and fibula. Images are reviewed in the axial, sagittal, and coronal planes. IV contrast was not administered for this examination. A dose lowering technique was utilized adhering to the principles of ALARA. The examination is degraded by patient positioning and severe osteopenia. CT DOSE: 513.32 mGy.cm FINDINGS: The skeletal structures are heterogeneously osteopenic. There is a mildly depressed fracture of the lateral tibial plateau. This is best seen on the sagittal reformatted image #38. There is associated joint effusion with lipohemarthrosis. No additional acute fracture is clearly identified. The medial tibial plateau appears intact. The distal femur, proximal fibula, and patella appear maintained. There is moderate to advanced tricompartmental degenerative joint space narrowing. A 13 mm calcified joint body versus fabella is seen posterior to the knee. There are large marginal osteophytes and patellar enthesophytes. There is generalized atrophy of the regional musculature. Venous varicosities are noted in the upper calf. Mild soft tissue edema is noted. IMPRESSION: 1. Minimally depressed fracture of the lateral tibial plateau with associated joint effusion and lipohemarthrosis. 2. No additional fracture is identified. 3. Osteopenia and degenerative change as above. ACT 112: Negative or not required by law. Electronically signed by: Darnell Oates M.D. 10/11/2023 3:06 PM (1) Elbow fracture, right Encounter type: initial encounter Fracture type: closed Qualified Code(s): S42.401A - Unspecified fracture of lower end of right humerus, initial encounter for closed fracture
[2023-10-13] MEDS: DICLOFENAC SOD 1% GEL 100 GM TUBE EXT SCH (12:48)
--- NOTE | 2023-10-13 14:02 | Hospitalist Progress Note ---
Date of Service October 13, 2023 Assessment & Plan (1) Acute hypoxic respiratory failure: Plan: Acute respiratory failure with hypoxia Acute PE H/O DVT--previously was on Coumadin Likely due to prolonged immobilization --CTA:Segmental and subsegmental pulmonary emboli are seen within branches of the right middle lobe pulmonary artery. Cardiomegaly. Small pleural effusions with dependent consolidation. This likely represents atelectasis and clinical correlation required. --UE Venous Doppler:There is no sonographic evidence of deep venous thrombosis identified in the left upper extremity. Note that several of the right upper extremity veins could not be assessed due to bandaging/splint related to a right humeral fracture. -- Continue IV heparin >>> transition to Eliquis today Monitor for any bleeding issues Has been saturating normally on room air does not have any shortness of breath at rest or chest pain (2) Pneumonia: Plan: Suspected pneumonia CTA as above BioFire negative Normal procalcitonin Blood cultures: Pending to date Empirically on antibiotics--Zosyn, Doxy>> Rocephin, Doxy Incentive spirometer Denies any respiratory symptoms, no cough, no chest pain and no shortness of breath Recent Fall on 10/05/23 Right Elbow fracture--POA --Elbow CT: Mildly displaced supracondylar fracture, which is offset by approximately 1.3 cm. No dislocation. --R HIP CT:Severe osteoarthritis of the RIGHT hip, with diffuse [id number] articulation. --CT head:No acute intracranial hemorrhage, midline shift, or mass [place] PT OT Appreciate orthopedic input Pain control as needed Continue splint/sling for right elbow fracture Needs follow-up with orthopedics on discharge Right lateral tibial plateau fracture--POA Right knee pain/effusion Recent Fall --Knee X ray:Large joint effusion with no acute fracture clearly identified. If there is strong clinical concern for occult fracture a CT scan of the knee should be obtained. Osteopenia and degenerative change as above. --R Knee CT:Minimally depressed fracture of the lateral tibial plateau with associated joint effusion and lipohemarthrosis. No additional fracture is identified. Osteopenia and degenerative change as above. Pain control Management as per Ortho Appreciate orthopedics help Nonweightbearing right lower extremity Thought to be poor candidate for surgical intervention Needs follow-up with orthopedics on discharge (3) Acute UTI: Plan: Acute metabolic encephalopathy Urinary tract infection --Blood cultures negative to date Urine culture growing E. coli, alpha strep Continue empiric Zosyn >> transition to Rocephin Mental status seem to be back to baseline Will start oral Cefdinir 300mg twice daily (4) Hypertension: Plan: Chronic, stable Continue amlodipine and metoprolol (5) Elbow fracture, right: Plan: Management as above (6) History of DVT (deep vein thrombosis): Plan: Other chronic conditions: H/O breast cancer Hypertension Osteoarthritis Venous stasis ulcers S/P venous ablation Lumbar spinal stenosis Chronic lymphedema Continue home medications as able DVT Px IV Heparin>> Eliquis Discharge DNR/DNI Disposition PT OT prior to discharge Case management to help with discharge planning (7) Acute pulmonary embolism: (8) Right knee pain: Admission and Anticipated Discharge Date Admission Date: October 09, 2023 Subjective 10/13/2023 The patient was seen and examined in telemetry unit She has been complaining of right knee pain and more pain during hygienic clean for her Denies any chest pain, shortness of breath, any nausea and or vomiting Review of Systems Review of Systems: All systems reviewed and are unremarkable except as noted below Physical Exam Physical Exam: The patient was seen and examined in telemetry unit Constitutional: well developed, well nourished, + ill appearing and + obese Eyes: PERRL, conjunctivae normal, anicteric sclerae ENMT: external ear and nose normal, oropharynx normal Neck: trachea midline, no thyromegaly Respiratory: no respiratory distress Auscultation: + diminished lung sounds and + crackles (Minimal crackles at the bases) Cardiovascular: Rate/Rhythm: regular rate and regular rhythm; not tachycardic Heart Sounds: normal S1 and normal S2; no murmur Extremities: + edema (1+ edema bilaterally more on the right) Gastrointestinal (Abdomen): Inspection/Auscultation: normal bowel sounds; abdomen not distended Percussion/Palpation: abdomen soft; abdomen nontender Musculoskeletal: Right elbow fracture and right upper extremity is in bandage, right tibial plateau fracture Neurologic: Alert awake and oriented x 3. Generally weak and seems to be is in pain Lymphatic: no cervical or axillary lymphadenopathy Results & Data Results & Data Vital Signs (Past 12 Hours) Vital Signs Temp Pulse Pulse Resp BP Pulse Ox O2 Del Method 10/13/23 11:24 36.9 C 70 18 129/72 93 Room Air 10/13/23 11:18 75 10/13/23 08:39 36.5 C 65 18 126/61 95 Room Air 10/13/23 08:00 Room Air 10/13/23 03:00 36.9 C 78 18 144/87 H 94 Room Air Laboratory Results Short CBC 10/13/23 Range/Units 06:00 WBC 5.33 (4.8-10.8) K/ul Hgb 9.6 L (12.0-16.0) g/dl Hct 32.1 L (37.0-47.0) % Plt Count 233 (130-400) K/uL BMP 10/13/23 06:00 Sodium 136 Potassium 3.8 Chloride 105 Carbon Dioxide 24 BUN 16 Creatinine 0.46 L Glucose 91 Calcium 9.7 Medications Administered Current Inpatient Medications Acetaminophen (Acetaminophen 500 Mg Tab) 1,000 mg PO Q8H [facility] Stop: 11/08/23 21:59 Last Admin: 10/13/23 12:50 Dose: 1,000 mg Amlodipine Besylate (Amlodipine Besylate 5 Mg Tab) 10 mg PO DAILY [facility] Stop: 11/09/23 08:59 Last Admin: 10/13/23 09:08 Dose: 10 mg Apixaban (Apixaban 5 Mg Tablet) 10 mg PO BID [facility] Stop: 10/19/23 09:01 Last Admin: 10/13/23 09:08 Dose: 10 mg Aspirin (Aspirin 81 Mg Ectab) 81 mg PO DAILY [facility] Stop: 11/09/23 08:59 Last Admin: 10/13/23 09:08 Dose: 81 mg Diclofenac Sodium (Diclofenac Sod 1% Gel 100 Gm Tube) 2 gm EXT TID [facility]; Protocol Stop: 11/12/23 13:59 Last Admin: 10/13/23 12:48 Dose: 2 gm Doxycycline Hyclate (Doxycycline Hyclate 100 Mg Cap) 100 mg PO BID [facility] Stop: 10/14/23 09:01 Last Admin: 10/13/23 09:09 Dose: 100 mg Fish Oil ([place]-3 (Purified Fish Oil) 1 Gm Cap) 1 gm PO DAILY [facility] Stop: 11/09/23 08:59 Last Admin: 10/13/23 09:09 Dose: 1 gm Gabapentin (Gabapentin 100 Mg Cap) 100 mg PO TID [facility] Stop: 11/08/23 20:59 Last Admin: 10/13/23 12:50 Dose: 100 mg Ceftriaxone Sodium 2,000 mg/ (Dextrose) 50 mls @ 100 mls/hr IV Q24H [facility] Stop: 10/16/23 11:59 Last Infusion: 10/13/23 13:19 Dose: Infused Metoprolol Succinate (Metoprolol Succ 25mg Ext Rel Tab) 25 mg PO DAILY [facility] Stop: 11/09/23 08:59 Last Admin: 10/13/23 09:09 Dose: 25 mg Oxycodone HCl (Oxycodone Hcl Ir 5 Mg Tab (Immediate Release)) 10 mg PO Q4H PRN PRN Reason: Severe Pain (Scale Score 7-10) Stop: 10/23/23 15:04 Last Admin: 10/13/23 04:38 Dose: 10 mg Polyethylene Glycol (Polyethylene (Miralax) 17 Gm Pack) 17 gm PO DAILY PRN PRN Reason: Constipation Stop: 11/10/23 14:12 Vitamin D (Cholecalciferol 25 Mcg (1000 Units) Tab) 25 mcg PO QAM [facility] Stop: 11/12/23 08:59 Last Admin: 10/13/23 09:09 Dose: 25 mcg (2) Pneumonia Pneumonia type: due to unspecified organism (4) Hypertension Hypertension type: unspecified Qualified Code(s): I10 - Essential (primary) hypertension (5) Elbow fracture, right Encounter type: initial encounter Fracture type: closed Qualified Code(s): S42.401A - Unspecified fracture of lower end of right humerus, initial encounter for closed fracture
[2023-10-14] MEDS: CEFDINIR 300 MG CAP PO SCH (09:33)
--- NOTE | 2023-10-14 13:16 | Hospitalist Progress Note ---
Date of Service October 14, 2023 Assessment & Plan (1) Acute hypoxic respiratory failure: Plan: Acute respiratory failure with hypoxia Acute PE H/O DVT--previously was on Coumadin Likely due to prolonged immobilization --CTA:Segmental and subsegmental pulmonary emboli are seen within branches of the right middle lobe pulmonary artery. Cardiomegaly. Small pleural effusions with dependent consolidation. This likely represents atelectasis and clinical correlation required. --UE Venous Doppler:There is no sonographic evidence of deep venous thrombosis identified in the left upper extremity. Note that several of the right upper extremity veins could not be assessed due to bandaging/splint related to a right humeral fracture. -- Continue IV heparin >>> transition to Eliquis today Monitor for any bleeding issues Has been saturating normally on room air does not have any shortness of breath at rest or chest pain No more respiratory symptoms and saturating normally on room air (2) Pneumonia: Plan: Suspected pneumonia CTA as above BioFire negative Normal procalcitonin Blood cultures: Pending to date Empirically on antibiotics--Zosyn, Doxy>> Rocephin, Doxy Incentive spirometer Denies any respiratory symptoms, no cough, no chest pain and no shortness of breath Recent Fall on 10/05/23 Right Elbow fracture--POA --Elbow CT: Mildly displaced supracondylar fracture, which is offset by approximately 1.3 cm. No dislocation. --R HIP CT:Severe osteoarthritis of the RIGHT hip, with diffuse [id number] articulation. --CT head:No acute intracranial hemorrhage, midline shift, or mass effect PT OT Appreciate orthopedic input Pain control as needed Continue splint/sling for right elbow fracture Needs follow-up with orthopedics on discharge Right lateral tibial plateau fracture--POA Right knee pain/effusion Recent Fall --Knee X ray:Large joint effusion with no acute fracture clearly identified. If there is strong clinical concern for occult fracture a CT scan of the knee should be obtained. Osteopenia and degenerative change as above. --R Knee CT:Minimally depressed fracture of the lateral tibial plateau with associated joint effusion and lipohemarthrosis. No additional fracture is identified. Osteopenia and degenerative change as above. Pain control Management as per Ortho Appreciate orthopedics help Nonweightbearing right lower extremity Thought to be poor candidate for surgical intervention Needs follow-up with orthopedics on discharge Will get PT and OT evaluation (3) Acute UTI: Plan: Acute metabolic encephalopathy Urinary tract infection --Blood cultures negative to date Urine culture growing E. coli, alpha strep Continue empiric Zosyn >> transition to Rocephin Mental status seem to be back to baseline Will start oral Cefdinir 300mg twice daily (4) Hypertension: Plan: Chronic, stable Continue amlodipine and metoprolol (5) Elbow fracture, right: Plan: Management as above (6) History of DVT (deep vein thrombosis): Plan: Other chronic conditions: H/O breast cancer Hypertension Osteoarthritis Venous stasis ulcers S/P venous ablation Lumbar spinal stenosis Chronic lymphedema Continue home medications as able DVT Px IV Heparin>> Eliquis Discharge DNR/DNI Disposition PT OT prior to discharge Case management to help with discharge planning (7) Acute pulmonary embolism: (8) Right knee pain: Admission and Anticipated Discharge Date Admission Date: October 09, 2023 Subjective 10/13/2023 The patient was seen and examined in telemetry unit She has been complaining of right knee pain and more pain during hygienic clean for her Denies any chest pain, shortness of breath, any nausea and or vomiting 10/14/2023 The patient was seen and examined in telemetry unit She seems to frustrated with her illness and feels that she is No acute anxiety and no hallucinations Denies any significant pain Review of Systems Review of Systems: All systems reviewed and are unremarkable except as noted below Physical Exam Physical Exam: The patient was seen and examined in telemetry unit Constitutional: well developed, well nourished, + ill appearing and + obese Eyes: PERRL, conjunctivae normal, anicteric sclerae ENMT: external ear and nose normal, oropharynx normal Neck: trachea midline, no thyromegaly Respiratory: no respiratory distress Auscultation: + diminished lung sounds and + crackles (Minimal crackles at the bases) Cardiovascular: Rate/Rhythm: regular rate and regular rhythm; not tachycardic Heart Sounds: normal S1 and normal S2; no murmur Extremities: + edema (1+ edema bilaterally more on the right) Gastrointestinal (Abdomen): Inspection/Auscultation: normal bowel sounds; abdomen not distended Percussion/Palpation: abdomen soft; abdomen nontender Musculoskeletal: She has right elbow fracture and right upper extremity is bandaged. Right fibular fracture with the brace to use while ambulating Neurologic: normal touch/pain/proprioception and moves all extremities (Minimal in the lower extremities and right upper extremity) Lymphatic: no cervical or axillary lymphadenopathy Results & Data Results & Data Vital Signs (Past 12 Hours) Vital Signs Temp Pulse Resp BP Pulse Ox O2 Del Method 10/14/23 11:31 36.7 C 69 15 143/76 H 95 Room Air 10/14/23 07:19 36.6 C 78 16 133/72 93 Room Air 10/14/23 03:25 36.4 C L 75 17 141/78 H 92 Room Air Medications Administered Current Inpatient Medications Acetaminophen (Acetaminophen 500 Mg Tab) 1,000 mg PO Q8H [facility] Stop: 11/08/23 21:59 Last Admin: 10/14/23 05:52 Dose: 1,000 mg Amlodipine Besylate (Amlodipine Besylate 5 Mg Tab) 10 mg PO DAILY [facility] Stop: 11/09/23 08:59 Last Admin: 10/14/23 09:33 Dose: 10 mg Apixaban (Apixaban 5 Mg Tablet) 10 mg PO BID [facility] Stop: 10/19/23 09:01 Last Admin: 10/14/23 09:33 Dose: 10 mg Aspirin (Aspirin 81 Mg Ectab) 81 mg PO DAILY [facility] Stop: 11/09/23 08:59 Last Admin: 10/14/23 09:33 Dose: 81 mg Cefdinir (Cefdinir 300 Mg Cap) 300 mg PO BID [facility]; Protocol Stop: 10/24/23 08:59 Last Admin: 10/14/23 09:33 Dose: 300 mg Diclofenac Sodium (Diclofenac Sod 1% Gel 100 Gm Tube) 2 gm EXT TID [facility]; Protocol Stop: 11/12/23 13:59 Last Admin: 10/14/23 09:33 Dose: 2 gm Fish Oil ([place]-3 (Purified Fish Oil) 1 Gm Cap) 1 gm PO DAILY [facility] Stop: 11/09/23 08:59 Last Admin: 10/14/23 09:33 Dose: 1 gm Gabapentin (Gabapentin 100 Mg Cap) 100 mg PO TID [facility] Stop: 11/08/23 20:59 Last Admin: 10/14/23 09:33 Dose: 100 mg Metoprolol Succinate (Metoprolol Succ 25mg Ext Rel Tab) 25 mg PO DAILY [facility] Stop: 11/09/23 08:59 Last Admin: 10/14/23 09:33 Dose: 25 mg Oxycodone HCl (Oxycodone Hcl Ir 5 Mg Tab (Immediate Release)) 10 mg PO Q4H PRN PRN Reason: Severe Pain (Scale Score 7-10) Stop: 10/23/23 15:04 Last Admin: 10/13/23 04:38 Dose: 10 mg Polyethylene Glycol (Polyethylene (Miralax) 17 Gm Pack) 17 gm PO DAILY PRN PRN Reason: Constipation Stop: 11/10/23 14:12 Vitamin D (Cholecalciferol 25 Mcg (1000 Units) Tab) [facility]: 11/12/23 08:59 Last Admin: 10/14/23 09:33 Dose: 25 mcg (2) Pneumonia Pneumonia type: due to unspecified organism (4) Hypertension Hypertension type: unspecified Qualified Code(s): I10 - Essential (primary) hypertension (5) Elbow fracture, right Encounter type: initial encounter Fracture type: closed Qualified Code(s): S42.401A - Unspecified fracture of lower end of right humerus, initial encounter for closed fracture
--- NOTE | 2023-10-14 17:08 | Orthopedic Progress Note ---
Date of Service October 14, 2023 Assessment & Plan (1) Elbow fracture, right: Plan: IMPRESSION: Right Supracondylar humerus fracture PLAN: Continue conservative measures. NWB RUE Continue splint. Keep clean and dry. Continue to ice and elevate the Right hand and use the sling for comfort when OOB. Continue anticoagulation. She is stable from an orthopedic standpoint at this time. Will have overhead trapeze place on bed to aid with mobility. Continue care per primary service Follow-up in the office in roughly a week for new imaging. Present on Admission?: Yes (2) Tibial plateau fracture, right: Plan: IMPRESSION: Right lateral Tibial Plateau fracture PLAN: Continue conservative treatment Continue non weightbearing on the right leg. YOUNG Will have PT work on gentle ROM Will obtain Post-op knee hinged knee brace will block ROM to match ROM f/u 1 week with x-rays 4 views R knee: AP, oblique x2 and lateral Admission and Anticipated Discharge Date Admission Date: October 09, 2023 Subjective C/O of missing her dentures Physical Exam Physical Exam: 1) RLE: Focusing on the patient's right lower extremity: Neurovascularly unchanged. Unable to perform straight leg raise or move the leg. Unable to perform Cathie's Ligamentous examination exhibits: Unable to perform secondarily to lack of ROM and pain to the touch + Superficial swelling, difficult to ass ess effusion due to body habitus and tenderness to palpation Range of motion 20, would not tolerate ROM. ++ Diffuse tenderness to palpation all a bout the knee, except quad tendon lower leg are with PVD now covered with Kerlex. 2)RUE: Splint intact. Light touch was i ntact to the digits. BCR < 2 sec. Motor to media, radial, ulnar, PIN, AIN intact. Slight swelling in the hand, the hand was not elevated above her heart. Results & Data Vital Signs (Past 12 Hours) Vital Signs Temp Pulse Pulse Resp BP Pulse Ox O2 Del Method 10/14/23 15:41 36.4 C L 54 L 16 157/70 H 92 Room Air 10/14/23 11:31 36.7 C 69 15 143/76 H 95 Room Air 10/14/23 08:00 78 10/14/23 08:00 Room Air 10/14/23 07:19 36.6 C 78 16 133/72 93 Room Air (1) Elbow fracture, right Encounter type: initial encounter Fracture type: closed Qualified Code(s): S42.401A - Unspecified fracture of lower end of right humerus, initial encounter for closed fracture
[2023-10-15 08:04] LABS: Basophils # (auto) 0.03 K/uL (0.00-0.20); Basophils % (auto) 0.5 %; Eosinophils # (auto) 0.06 K/uL (0.00-0.50); Eosinophils % (auto) 0.9 %; Hematocrit (blood only) 35.5 % (37.0-47.0); Hemoglobin 10.5 g/dl (12.0-16.0); Immature Granulocytes # (auto) 0.04 K/uL (0.01-0.20); Immature Granulocytes % (auto) 0.6 %; Lymphocytes # (auto) 1.01 K/uL (1.20-3.40); Lymphocytes % (auto) 15.7 %; Mean Corpuscular Hgb Conc 29.6 g/dL (32.0-36.0); Mean Corpuscular Volume 81.2 fL (80.0-100.0); Mean Platelet Volume 9.6 fL (9.4-12.4); Monocytes # (auto) 0.37 K/uL (0.11-0.59); Monocytes % (auto) 5.7 %; Neutrophils # (auto) 4.94 K/uL (1.40-6.50); Neutrophils % (auto) 76.6 %; Platelet Count 335 K/uL (130-400); RDW Coefficient of Variation 15.7 % (11.5-14.5); RDW Standard Deviation 45.2 fL (36.4-46.3); Red Blood Count 4.37 M/uL (4.20-5.40); White Blood Count 6.45 K/ul (4.8-10.8)
[2023-10-15 08:10] LABS: BUN Creatinine Ratio 29.3 (10-20); Calcium 9.8 mg/dl (8.6-10.3); Creatinine Clr Calc Pharmacy 133.9 ml/min; Est GFR (African American) 117.1 ml/min; Est GFR (Non-African American) 101.1 ml/min; Magnesium 1.9 mg/dl (1.7-2.4); Phosphorus 2.6 mg/dl (2.5-4.9); Potassium 3.7 mmol/L (3.5-5.1)
--- NOTE | 2023-10-15 12:45 | Hospitalist Progress Note ---
Date of Service October 15, 2023 Assessment & Plan (1) Acute hypoxic respiratory failure: Plan: Acute respiratory failure with hypoxia Acute PE H/O DVT--previously was on Coumadin Likely due to prolonged immobilization --CTA:Segmental and subsegmental pulmonary emboli are seen within branches of the right middle lobe pulmonary artery. Cardiomegaly. Small pleural effusions with dependent consolidation. This likely represents atelectasis and clinical correlation required. --UE Venous Doppler:There is no sonographic evidence of deep venous thrombosis identified in the left upper extremity. Note that several of the right upper extremity veins could not be assessed due to bandaging/splint related to a right humeral fracture. -- Continue IV heparin >>> transition to Eliquis today Monitor for any bleeding issues Has been saturating normally on room air does not have any shortness of breath at rest or chest pain No more respiratory symptoms and saturating normally on room air (2) Pneumonia: Plan: Suspected pneumonia CTA as above BioFire negative Normal procalcitonin Blood cultures: Pending to date Empirically on antibiotics--Zosyn, Doxy>> Rocephin, Doxy Incentive spirometer Denies any respiratory symptoms, no cough, no chest pain and no shortness of breath Remains on Cefdinir and will finish the course for a total of 10 days Recent Fall on 10/05/23 Right Elbow fracture--POA --Elbow CT: Mildly displaced supracondylar fracture, which is offset by approximately 1.3 cm. No dislocation. --R HIP CT:Severe osteoarthritis of the RIGHT hip, with diffuse [id number] articulation. --CT head:No acute intracranial hemorrhage, midline shift, or mass effect PT OT Appreciate orthopedic input Pain control as needed Continue splint/sling for right elbow fracture Needs follow-up with orthopedics on discharge Right lateral tibial plateau fracture--POA Right knee pain/effusion Recent Fall --Knee X ray:Large joint effusion with no acute fracture clearly identified. If there is strong clinical concern for occult fracture a CT scan of the knee should be obtained. Osteopenia and degenerative change as above. --R Knee CT:Minimally depressed fracture of the lateral tibial plateau with associated joint effusion and lipohemarthrosis. No additional fracture is identified. Osteopenia and degenerative change as above. Pain control Management as per Ortho Appreciate orthopedics help Nonweightbearing right lower extremity Thought to be poor candidate for surgical intervention Needs follow-up with orthopedics on discharge Will get PT and OT evaluation-has not been participating in physical therapy and using the brace Strongly advised to use the brace which will be provided tomorrow by the orthopedic service (3) Acute UTI: Plan: Acute metabolic encephalopathy Urinary tract infection --Blood cultures negative to date Urine culture growing E. coli, alpha strep Continue empiric Zosyn >> transition to Rocephin Mental status seem to be back to baseline Will start oral Cefdinir 300mg twice daily We will finish the course for a total of 10 days to cover respiratory and UTI (4) Hypertension: Plan: Chronic, stable Continue amlodipine and metoprolol (5) Elbow fracture, right: Plan: Management as above (6) History of DVT (deep vein thrombosis): Plan: Other chronic conditions: H/O breast cancer Hypertension Osteoarthritis Venous stasis ulcers S/P venous ablation Lumbar spinal stenosis Chronic lymphedema Continue home medications as able DVT Px IV Heparin>> Eliquis Discharge DNR/DNI Disposition PT OT prior to discharge Case management to help with discharge planning (7) Acute pulmonary embolism: (8) Right knee pain: Admission and Anticipated Discharge Date Admission Date: October 09, 2023 Subjective 10/13/2023 The patient was seen and examined in telemetry unit She has been complaining of right knee pain and more pain during hygienic clean for her Denies any chest pain, shortness of breath, any nausea and or vomiting 10/14/2023 The patient was seen and examined in telemetry unit She seems to frustrated with her illness and feels that she is No acute anxiety and no hallucinations Denies any significant pain 10/15/2023 Patient was seen and examined in telemetry unit She remains very anxious and complains to have pain especially during changing Has not had used her right leg brace as she refused PT Strongly advised to go for PT and use the brace to decrease pain Denies any other significant symptoms Review of Systems Review of Systems: All systems reviewed and are unremarkable except as noted below Physical Exam Physical Exam: The patient was seen and examined in telemetry unit Constitutional: well developed, well nourished, + ill appearing and + obese Eyes: PERRL, conjunctivae normal, anicteric sclerae ENMT: external ear and nose normal, oropharynx normal Neck: trachea midline, no thyromegaly Respiratory: no respiratory distress Auscultation: + diminished lung sounds and + crackles (Minimal crackles at the bases) Cardiovascular: Rate/Rhythm: regular rate and regular rhythm; not tachycardic Heart Sounds: normal S1 and normal S2; no murmur Extremities: + edema (1+ edema bilaterally more on the right) Gastrointestinal (Abdomen): Inspection/Auscultation: normal bowel sounds; abdomen not distended Percussion/Palpation: abdomen soft; abdomen nontender Neurologic: normal touch/pain/proprioception and moves all extremities (Minimal in the lower extremities and right upper extremity) Lymphatic: no cervical or axillary lymphadenopathy Results & Data Results & Data Vital Signs (Past 12 Hours) Vital Signs Temp Pulse Resp BP Pulse Ox O2 Del Method 10/15/23 11:27 36.3 C L 77 156/89 H 94 Room Air 10/15/23 07:39 36.4 C L 69 148/81 H 95 Room Air 10/15/23 03:32 36.7 C 84 17 162/75 H 93 Room Air Laboratory Results Short CBC 10/15/23 Range/Units 07:04 WBC 6.45 (4.8-10.8) K/ul Hgb 10.5 L (12.0-16.0) g/dl Hct 35.5 L (37.0-47.0) % Plt Count 335 (130-400) K/uL BMP 10/15/23 07:04 Sodium 138 Potassium 3.7 Chloride 106 Carbon Dioxide 25 BUN 12 Creatinine 0.41 L Glucose 100 H Calcium 9.8 Medications Administered Current Inpatient Medications Acetaminophen (Acetaminophen 500 Mg Tab) 1,000 mg PO Q8H [facility] Stop: 11/08/23 21:59 Last Admin: 10/15/23 05:37 Dose: 1,000 mg Amlodipine Besylate (Amlodipine Besylate 5 Mg Tab) 10 mg PO DAILY [facility] Stop: 11/09/23 08:59 Last Admin: 10/15/23 09:58 Dose: 10 mg Apixaban (Apixaban 5 Mg Tablet) 10 mg PO BID [facility] Stop: 10/19/23 09:01 Last Admin: 10/15/23 09:59 Dose: 10 mg Aspirin (Aspirin 81 Mg Ectab) 81 mg PO DAILY [facility] Stop: 11/09/23 08:59 Last Admin: 10/15/23 09:58 Dose: 81 mg Cefdinir (Cefdinir 300 Mg Cap) 300 mg PO BID [facility]; Protocol Stop: 10/24/23 08:59 Last Admin: 10/15/23 09:59 Dose: 300 mg Diclofenac Sodium (Diclofenac Sod 1% Gel 100 Gm Tube) 2 gm EXT TID [facility]; Protocol Stop: 11/12/23 13:59 Last Admin: 10/15/23 09:59 Dose: 2 gm Fish Oil ([place]-3 (Purified Fish Oil) 1 Gm Cap) 1 gm PO DAILY [facility] Stop: 11/09/23 08:59 Last Admin: 10/15/23 09:58 Dose: 1 gm Gabapentin (Gabapentin 100 Mg Cap) 100 mg PO TID [facility] Stop: 11/08/23 20:59 Last Admin: 10/15/23 09:59 Dose: 100 mg Metoprolol Succinate (Metoprolol Succ 25mg Ext Rel Tab) 25 mg PO DAILY [facility] Stop: 11/09/23 08:59 Last Admin: 10/15/23 09:58 Dose: 25 mg Oxycodone HCl (Oxycodone Hcl Ir 5 Mg Tab (Immediate Release)) 10 mg PO Q4H PRN PRN Reason: Severe Pain (Scale Score 7-10) Stop: 10/23/23 15:04 Last Admin: 10/15/23 12:26 Dose: 10 mg Polyethylene Glycol (Polyethylene (Miralax) 17 Gm Pack) 17 gm PO DAILY PRN PRN Reason: Constipation Stop: 11/10/23 14:12 Vitamin D (Cholecalciferol 25 Mcg (1000 Units) Tab) 25 mcg PO QAM [facility] Stop: 11/12/23 08:59 Last Admin: 10/15/23 09:59 Dose: 25 mcg (2) Pneumonia Pneumonia type: due to unspecified organism (4) Hypertension Hypertension type: unspecified Qualified Code(s): I10 - Essential (primary) hypertension (5) Elbow fracture, right Encounter type: initial encounter Fracture type: closed Qualified Code(s): S42.401A - Unspecified fracture of lower end of right humerus, initial encounter for closed fracture
--- NOTE | 2023-10-15 14:17 | Orthopedic Progress Note ---
Date of Service October 15, 2023 Assessment & Plan (1) Elbow fracture, right: Plan: IMPRESSION: Right Supracondylar humerus fracture PLAN: Continue conservative measures. NWB RUE Continue splint. Keep clean and dry. Continue to ice and elevate the Right hand and use the sling for comfort when OOB. Continue anticoagulation. She is stable from an orthopedic standpoint at this time. Will have overhead trapeze place on bed to aid with mobility. Continue care per primary service Follow-up in the office in roughly a week for new imaging. (2) Tibial plateau fracture, right: Plan: IMPRESSION: Right lateral Tibial Plateau fracture PLAN: Continue conservative treatment Continue non weightbearing on the right leg. RICE Will have PT work on gentle ROM Will obtain Post-op knee hinged knee brace will block ROM to match ROM f/u 1 week with x-rays 4 views R knee: AP, oblique x2 and lateral Admission and Anticipated Discharge Date Admission Date: October 09, 2023 Subjective RLE pain with postion changes Physical Exam Physical Exam: 1) RLE: Focusing on the patient's right lower extremity: Neurovascularly unchanged. Unable to perform straight leg raise or move the leg. Unable to perform Cathie's Ligamentous examination exhibits: Unable to perform secondarily to lack of ROM and pain to the touch + Superficial swelling, difficult to ass ess effusion due to body habitus and tenderness to palpation Range of motion 20, would not tolerate ROM. ++ Diffuse tenderness to palpation all a bout the knee, except quad tendon lower leg are with PVD now covered with Kerlex. 2)RUE: Splint intact. Light touch was i ntact to the digits. BCR < 2 sec. Motor to media, radial, ulnar, PIN, AIN intact. Slight swelling in the hand, the hand was not elevated above her heart. Results & Data Vital Signs (Past 12 Hours) Vital Signs Temp Pulse Resp BP Pulse Ox O2 Del Method 10/15/23 11:27 36.3 C L 77 156/89 H 94 Room Air 10/15/23 07:39 36.4 C L 69 148/81 H 95 Room Air 10/15/23 03:32 36.7 C 84 17 162/75 H 93 Room Air Laboratory Results 10/15/23 Range/Units 07:04 WBC 6.45 (4.8-10.8) K/ul RBC 4.37 (4.20-5.40) M/uL Hgb 10.5 L (12.0-16.0) g/dl Hct 35.5 L (37.0-47.0) % MCV 81.2 (80.0-100.0) fL MCH 24.0 L (25.0-34.0) pg MCHC 29.6 L (32.0-36.0) g/dL RDW Std Deviation 45.2 (36.4-46.3) fL RDW Coeff of Bev 15.7 H (11.5-14.5) % Plt Count 335 (130-400) K/uL MPV 9.6 (9.4-12.4) fL Immature Gran % (Auto) 0.6 % Neut % (Auto) 76.6 % Lymph % (Auto) 15.7 % Ashley % (Auto) 5.7 % Eos % (Auto) 0.9 % Baso % (Auto) 0.5 % Neut # (Auto) 4.94 (1.40-6.50) K/uL Lymph # (Auto) 1.01 L (1.20-3.40) K/uL Ashley # (Auto) 0.37 (0.11-0.59) K/uL Eos # (Auto) 0.06 (0.00-0.50) K/uL Baso # (Auto) 0.03 (0.00-0.20) K/uL Immature Gran # (Auto) 0.04 (0.01-0.20) K/uL Sodium 138 (136-145) mmol/L Potassium 3.7 (3.5-5.1) mmol/L Chloride 106 (98-107) mmol/L Carbon Dioxide 25 (21-32) mmol/L Anion Gap 7 (3-11) BUN 12 (6-23) mg/dl Creatinine 0.41 L (0.6-1.2) mg/dl Est Cr Clr Drug Dosing 133.9 ml/min Est GFR ( Amer) 117.1 ml/min Est GFR (Non-Af Amer) 101.1 ml/min BUN/Creatinine Ratio 29.3 H (10-20) Glucose 100 H (70-99(Fasting)) mg/dl Calcium 9.8 (8.6-10.3) mg/dl Phosphorus 2.6 (2.5-4.9) mg/dl Magnesium 1.9 (1.7-2.4) mg/dl (1) Elbow fracture, right Encounter type: initial encounter Fracture type: closed Qualified Code(s): S42.401A - Unspecified fracture of lower end of right humerus, initial encounter for closed fracture
--- NOTE | 2023-10-16 09:58 | Orthopedic Progress Note ---
Date of Service October 16, 2023 Assessment & Plan (1) Elbow fracture, right: Plan: IMPRESSION: Right Supracondylar humerus fracture PLAN: Continue conservative measures. NWB RUE Continue splint. Keep clean and dry. Continue to ice and elevate the Right hand and use the sling for comfort when OOB. Continue anticoagulation. She is stable from an orthopedic standpoint at this time. Overhead trapeze place on bed to aid with mobility. Continue care per primary service Follow-up in the office in roughly a week for new imaging - appt scheduled 10/24 1:00pm with Dr Moraes with repeat x rays (2) Tibial plateau fracture, right: Plan: IMPRESSION: Right lateral Tibial Plateau fracture PLAN: Continue conservative treatment Continue non weightbearing on the right leg. YOUNG Will have PT work on gentle ROM Knee hinged brace applied today. Pt did not tolerate this well but was comfortable after application. Her brace is set to 0-90 degrees unlocked to allow for ROM f/u 1 week appt scheduled 10/24 1:00pm with Dr Moraes with repeat x rays lateral Admission and Anticipated Discharge Date Admission Date: October 09, 2023 Subjective Pt seen and examined bedside. She says her stomach is bothering her. She thinks maybe she ate too much for breakfast. She is says her right arm and right knee are currently feeling "okay". When she is moved she says they bother her, especially her knee. Review of Systems Review of Systems: Denies vomiting Physical Exam Physical Exam: Right arm: long arm spling is in tact. pt reports comfort. she has some distal extremity swelling expected. She can wiggle all five digits and she has sensation in tact distally to light touch. Skin is warm and pink and cap refill < 2 seconds Right knee: knee effusion present. pt tender to the touch over her right knee. She has pneumatic compression boots on. she is able to wiggle all five toes and pump her ankles up and down. she is unable to actively bend or extend her knee. she does not let me passively try to move her. calf supple and non tender Results & Data Vital Signs (Past 12 Hours) Vital Signs Temp Pulse Pulse Resp BP Pulse Ox O2 Del Method 10/16/23 07:22 36.7 C 76 16 133/75 96 Room Air 02/05/24 03:00 36.8 C 71 18 148/85 H 92 Room Air 10/15/23 23:00 36.9 C 71 18 136/84 96 Room Air 10/15/23 22:00 70 (1) Elbow fracture, right Encounter type: initial encounter Fracture type: closed Qualified Code(s): S42.401A - Unspecified fracture of lower end of right humerus, initial encounter for closed fracture
[2023-10-16] MEDS: PROMETHAZINE HCL 6.25 MG in SODIUM CHLORIDE 0.9% 50 ML IV PRN (15:58)
--- NOTE | 2023-10-16 16:56 | Hospitalist Progress Note ---
Date of Service October 16, 2023 Assessment & Plan (1) Acute hypoxic respiratory failure: Plan: Acute respiratory failure with hypoxia Acute PE H/O DVT--previously was on Coumadin Likely due to prolonged immobilization --CTA:Segmental and subsegmental pulmonary emboli are seen within branches of the right middle lobe pulmonary artery. Cardiomegaly. Small pleural effusions with dependent consolidation. This likely represents atelectasis and clinical correlation required. --UE Venous Doppler:There is no sonographic evidence of deep venous thrombosis identified in the left upper extremity. Note that several of the right upper extremity veins could not be assessed due to bandaging/splint related to a right humeral fracture. -- Continue IV heparin >>> transition to Eliquis today Monitor for any bleeding issues Has been saturating normally on room air does not have any shortness of breath at rest or chest pain No more respiratory symptoms and saturating normally on room air (2) Pneumonia: Plan: Suspected pneumonia CTA as above BioFire negative Normal procalcitonin Blood cultures: Pending to date Empirically on antibiotics--Zosyn, Doxy>> Rocephin, Doxy Incentive spirometer Denies any respiratory symptoms, no cough, no chest pain and no shortness of breath Remains on Cefdinir and will finish the course for a total of 10 days Remains stable medically to be transferred out of the hospital Recent Fall on 10/05/23 Right Elbow fracture--POA --Elbow CT: Mildly displaced supracondylar fracture, which is offset by approximately 1.3 cm. No dislocation. --R HIP CT:Severe osteoarthritis of the RIGHT hip, with diffuse tpaf-md-roic articulation. --CT head:No acute intracranial hemorrhage, midline shift, or mass effect PT OT Appreciate orthopedic input Pain control as needed Continue splint/sling for right elbow fracture Needs follow-up with orthopedics on discharge Continue with physical Right lateral tibial plateau fracture--POA Right knee pain/effusion Recent Fall --Knee X ray:Large joint effusion with no acute fracture clearly identified. If there is strong clinical concern for occult fracture a CT scan of the knee should be obtained. Osteopenia and degenerative change as above. --R Knee CT:Minimally depressed fracture of the lateral tibial plateau with associated joint effusion and lipohemarthrosis. No additional fracture is identified. Osteopenia and degenerative change as above. Pain control Management as per Ortho Appreciate orthopedics help Nonweightbearing right lower extremity Thought to be poor candidate for surgical intervention Needs follow-up with orthopedics on discharge Will get PT and OT evaluation-has not been participating in physical therapy and using the brace Strongly advised to use the brace which will be provided tomorrow by the orthopedic service Will need physical therapy with the right leg press before discharge (3) Acute UTI: Plan: Acute metabolic encephalopathy Urinary tract infection --Blood cultures negative to date Urine culture growing E. coli, alpha strep Continue empiric Zosyn >> transition to Rocephin Mental status seem to be back to baseline Will start oral Cefdinir 300mg twice daily We will finish the course for a total of 10 days to cover respiratory and UTI (4) Hypertension: Plan: Chronic, stable Continue amlodipine and metoprolol (5) Elbow fracture, right: Plan: Management as above (6) History of DVT (deep vein thrombosis): Plan: Other chronic conditions: H/O breast cancer Hypertension Osteoarthritis Venous stasis ulcers S/P venous ablation Lumbar spinal stenosis Chronic lymphedema Continue home medications as able DVT Px IV Heparin>> Eliquis Discharge DNR/DNI Disposition PT OT prior to discharge Case management to help with discharge planning (7) Acute pulmonary embolism: (8) Right knee pain: Admission and Anticipated Discharge Date Admission Date: October 09, 2023 Subjective 10/13/2023 The patient was seen and examined in telemetry unit She has been complaining of right knee pain and more pain during hygienic clean for her Denies any chest pain, shortness of breath, any nausea and or vomiting 10/14/2023 The patient was seen and examined in telemetry unit She seems to frustrated with her illness and feels that she is No acute anxiety and no hallucinations Denies any significant pain 10/15/2023 Patient was seen and examined in telemetry unit She remains very anxious and complains to have pain especially during changing Has not had used her right leg brace as she refused PT Strongly advised to go for PT and use the brace to decrease pain Denies any other significant symptoms 10/16/2023 The patient was seen and examined in telemetry unit She has been stable and awaiting physical therapy and placement Denies any significant symptoms Review of Systems Review of Systems: All systems reviewed and are unremarkable except as noted below Physical Exam Physical Exam: The patient was seen and examined in telemetry unit Constitutional: well developed, well nourished, + ill appearing and + obese Eyes: PERRL, conjunctivae normal, anicteric sclerae ENMT: external ear and nose normal, oropharynx normal Neck: trachea midline, no thyromegaly Respiratory: no respiratory distress Auscultation: + diminished lung sounds and + crackles (Minimal crackles at the bases) Cardiovascular: Rate/Rhythm: regular rate and regular rhythm; not tachycardic Heart Sounds: normal S1 and normal S2; no murmur Extremities: + edema (1+ edema bilaterally more on the right) Gastrointestinal (Abdomen): Inspection/Auscultation: normal bowel sounds; abdomen not distended Percussion/Palpation: abdomen soft; abdomen nontender Neurologic: normal touch/pain/proprioception and moves all extremities (Minimal in the lower extremities and right upper extremity) Lymphatic: no cervical or axillary lymphadenopathy Results & Data Results & Data Vital Signs (Past 12 Hours) Vital Signs Temp Pulse Pulse Resp BP Pulse Ox O2 Del Method 10/16/23 15:30 36.4 C L 76 16 137/80 94 Room Air 10/16/23 12:20 72 10/16/23 11:16 36.3 C L 74 18 142/80 H 94 Room Air 10/16/23 08:23 Room Air 10/16/23 07:22 36.7 C 76 16 133/75 96 Room Air Medications Administered Current Inpatient Medications Acetaminophen (Acetaminophen 500 Mg Tab) 1,000 mg PO Q8H [facility] Stop: 11/08/23 21:59 Last Admin: 10/16/23 14:07 Dose: 1,000 mg Amlodipine Besylate (Amlodipine Besylate 5 Mg Tab) 10 mg PO DAILY [facility] Stop: 11/09/23 08:59 Last Admin: 10/16/23 09:56 Dose: 10 mg Apixaban (Apixaban 5 Mg Tablet) 10 mg PO BID [facility] Stop: 10/19/23 09:01 Last Admin: 10/16/23 09:56 Dose: 10 mg Aspirin (Aspirin 81 Mg Ectab) 81 mg PO DAILY [facility] Stop: 11/09/23 08:59 Last Admin: 10/16/23 09:55 Dose: 81 mg Cefdinir (Cefdinir 300 Mg Cap) 300 mg PO BID [facility]; Protocol Stop: 10/24/23 08:59 Last Admin: 10/16/23 09:58 Dose: 300 mg Diclofenac Sodium (Diclofenac Sod 1% Gel 100 Gm Tube) 2 gm EXT TID [facility]; Protocol Stop: 11/12/23 13:59 Last Admin: 10/16/23 14:08 Dose: 2 gm Fish Oil ([place]-3 (Purified Fish Oil) 1 Gm Cap) 1 gm PO DAILY [facility] Stop: 11/09/23 08:59 Last Admin: 10/16/23 09:57 Dose: 1 gm Gabapentin (Gabapentin 100 Mg Cap) 100 mg PO TID [facility] Stop: 11/08/23 20:59 Last Admin: 10/16/23 14:08 Dose: 100 mg Promethazine HCl 6.25 mg/ (Sodium Chloride) 50.25 mls @ 201 mls/hr IV Q6H PRN PRN Reason: Nausea And Vomiting Stop: 11/15/23 10:01 Last Admin: 10/16/23 15:58 Dose: 201 mls/hr Metoprolol Succinate (Metoprolol Succ 25mg Ext Rel Tab) 25 mg PO DAILY [facility] Stop: 11/09/23 08:59 Last Admin: 10/16/23 09:55 Dose: 25 mg Oxycodone HCl (Oxycodone Hcl Ir 5 Mg Tab (Immediate Release)) 10 mg PO Q4H PRN PRN Reason: Severe Pain (Scale Score 7-10) Stop: 10/23/23 15:04 Last Admin: 10/16/23 15:31 Dose: 10 mg Polyethylene Glycol (Polyethylene (Miralax) 17 Gm Pack) 17 gm PO DAILY PRN PRN Reason: Constipation Stop: 11/10/23 14:12 Vitamin D (Cholecalciferol 25 Mcg (1000 Units) Tab) 25 mcg PO QAM [facility] Stop: 11/12/23 08:59 Last Admin: 10/16/23 09:57 Dose: 25 mcg (2) Pneumonia Pneumonia type: due to unspecified organism (4) Hypertension Hypertension type: unspecified Qualified Code(s): I10 - Essential (primary) hypertension (5) Elbow fracture, right Encounter type: initial encounter Fracture type: closed Qualified Code(s): S42.401A - Unspecified fracture of lower end of right humerus, initial encounter for closed fracture
[2023-10-17 07:33] LABS: BUN Creatinine Ratio 36.2 (10-20); Calcium 9.6 mg/dl (8.6-10.3); Creatinine Clr Calc Pharmacy 117.6 ml/min; Est GFR (Non-African American) 96.6 ml/min; Potassium 4.2 mmol/L (3.5-5.1)
[2023-10-17 07:34] LABS: Basophils # (auto) 0.03 K/uL (0.00-0.20); Basophils % (auto) 0.6 %; Eosinophils # (auto) 0.15 K/uL (0.00-0.50); Eosinophils % (auto) 2.8 %; Hematocrit (blood only) 32.8 % (37.0-47.0); Hemoglobin 9.6 g/dl (12.0-16.0); Immature Granulocytes # (auto) 0.03 K/uL (0.01-0.20); Immature Granulocytes % (auto) 0.6 %; Lymphocytes # (auto) 1.55 K/uL (1.20-3.40); Lymphocytes % (auto) 28.6 %; Mean Corpuscular Hemoglobin 23.9 pg (25.0-34.0); Mean Corpuscular Hgb Conc 29.3 g/dL (32.0-36.0); Mean Corpuscular Volume 81.8 fL (80.0-100.0); Mean Platelet Volume 9.1 fL (9.4-12.4); Monocytes # (auto) 0.49 K/uL (0.11-0.59); Neutrophils # (auto) 3.17 K/uL (1.40-6.50); Neutrophils % (auto) 58.4 %; Platelet Count 334 K/uL (130-400); RDW Coefficient of Variation 16.2 % (11.5-14.5); RDW Standard Deviation 47.2 fL (36.4-46.3); Red Blood Count 4.01 M/uL (4.20-5.40); White Blood Count 5.42 K/ul (4.8-10.8)
--- NOTE | 2023-10-17 10:02 | Orthopedic Progress Note ---
Date of Service October 17, 2023 Assessment & Plan (1) Elbow fracture, right: Plan: IMPRESSION: Right Supracondylar humerus fracture PLAN: Continue conservative measures. NWB RUE Continue splint. Keep clean and dry. Continue to ice and elevate the Right hand and use the sling for comfort when OOB. Continue anticoagulation. She is stable from an orthopedic standpoint at this time. Overhead trapeze place on bed to aid with mobility. Continue care per primary service Follow-up in the office in roughly a week for new imaging - appt scheduled 10/24 1:00pm with Dr Moraes with repeat x rays (2) Tibial plateau fracture, right: Plan: IMPRESSION: Right lateral Tibial Plateau fracture PLAN: Continue conservative treatment Continue non weightbearing on the right leg. YOUNG Will have PT work on gentle ROM Knee hinged brace applied today. Her brace is set to 0-90 degrees unlocked to allow for ROM f/u 1 week appt scheduled 10/24 1:00pm with Dr Moraes with repeat x rays Admission and Anticipated Discharge Date Admission Date: October 09, 2023 Supervising Physician Co-Signing Physician Notes I, Dr. Moraes, saw and examined the patient. I discussed the management with my PA. I reviewed my PAs note and agree with the documented findings and attest to completing the substantive portion (medical decision making)/ plan of care I developed. Patient reports working with PT and was able to sit at the side of the bed. Did not have knee pain. Reports that is all she going to do today. Informed her I was glad to hear about the progress and encourged her to try and do more tomorrow. Subjective This 73-year-old female is seen for follow-up of a right humerus supracondylar fracture and a right tibial plateau fracture. She states the splint on her right upper extremity is comfortable. She states that the brace was placed on her right lower extremity also feels fine. She has no complaints today. She states that her pain is well-controlled with the p.o. pain medication and she has been given. Currently she denies chest pain, shortness of breath, fever, chills, sweats, numbness or tingling in any of her extremities. She also denies nausea, vomiting, diarrhea and has a Figueroa catheter in place. Review of Systems Review of Systems: All systems reviewed & are unremarkable except as noted in Subjective Physical Exam Physical Exam: Right upper extremity: Splint is clean dry and intact and left in place. Gladis ent has mobility in his shoulder. She has mobility of her digits and is able to detect light sensation to touch over the pads of all digits. She does have tenderness to palpation over the antecubital area. Right lower extremity (knee): Supple knee brace is in proper position. Patient is lying with her knee slightly flexed. She is unable to actively extend or flex. She notes pain over the entire anterior aspect of the knee and is tender to palpation over the medial and lateral joint space. There is palpable effusion. She is unable to perform an active straight leg raise test. She is able to actively dorsi and plantarflex her foot. She has notable venous stasis dermatitis affecting the lower leg and foot that are now wrapped with occlusive dressings. She did not tolerate logroll testing. Patient does not tolerate any type of movement of her knee. Results & Data Vital Signs (Past 12 Hours) Vital Signs Temp Pulse Pulse Resp BP Pulse Ox O2 Del Method 10/17/23 07:20 36.5 C 58 L 18 131/73 93 Room Air 10/17/23 03:29 36.6 C 77 18 164/75 H 95 Room Air 10/17/23 00:01 36.5 C 67 18 126/72 95 Room Air 10/16/23 22:00 81 Diagnostic Findings Laboratory Results WBC 5.42 K/ul (4.8-10.8) 10/17/23 06:52 RBC 4.01 M/uL (4.20-5.40) L 10/17/23 06:52 Hgb 9.6 g/dl (12.0-16.0) L 10/17/23 06:52 Hct 32.8 % (37.0-47.0) L 10/17/23 06:52 MCV 81.8 fL (80.0-100.0) 10/17/23 06:52 MCH 23.9 pg (25.0-34.0) L 10/17/23 06:52 MCHC 29.3 g/dL (32.0-36.0) L 10/17/23 06:52 RDW Std Deviation 47.2 fL (36.4-46.3) H 10/17/23 06:52 RDW Coeff of Bev 16.2 % (11.5-14.5) H 10/17/23 06:52 Plt Count 334 K/uL (130-400) 10/17/23 06:52 MPV 9.1 fL (9.4-12.4) L 10/17/23 06:52 Immature Gran % (Auto) 0.6 % 10/17/23 06:52 Neut % (Auto) 58.4 % 10/17/23 06:52 Lymph % (Auto) 28.6 % 10/17/23 06:52 [place] % (Auto) 9.0 % 10/17/23 06:52 Eos % (Auto) 2.8 % 10/17/23 06:52 Baso % (Auto) 0.6 % 10/17/23 06:52 Neut # (Auto) 3.17 K/uL (1.40-6.50) 10/17/23 06:52 Lymph # (Auto) 1.55 K/uL (1.20-3.40) 10/17/23 06:52 [place] # (Auto) 0.49 K/uL (0.11-0.59) 10/17/23 06:52 Eos # (Auto) 0.15 K/uL (0.00-0.50) 10/17/23 06:52 Baso # (Auto) 0.03 K/uL (0.00-0.20) 10/17/23 06:52 Immature Gran # (Auto) 0.03 K/uL (0.01-0.20) 10/17/23 06:52 PT 12.2 Seconds (9.0-12.0) H 10/09/23 10:50 INR 1.1 (0.9-1.1) 10/09/23 10:50 APTT 48 Seconds (21-31) H 10/10/23 01:42 PTT Ratio 1.7 10/10/23 01:42 Heparin Anti-Xa, LM Wt 1.38 IU/ML (< 0.10) 10/13/23 06:00 Heparin Anti-Xa, Unfract 0.30 IU/ml (0.3-0.7) 10/12/23 07:10 Sodium 137 mmol/L (136-145) 10/17/23 06:52 Potassium 4.2 mmol/L (3.5-5.1) 10/17/23 06:52 Chloride 105 mmol/L (98-107) 10/17/23 06:52 Carbon Dioxide 29 mmol/L (21-32) 10/17/23 06:52 Anion Gap 3 (3-11) 10/17/23 06:52 BUN 17 mg/dl (6-23) 10/17/23 06:52 Creatinine 0.47 mg/dl (0.6-1.2) L 10/17/23 06:52 Est Cr Clr Drug Dosing 117.6 ml/min 10/17/23 06:52 Est GFR ( Amer) 112.0 ml/min 10/17/23 06:52 Est GFR (Non-Af Amer) 96.6 ml/min 10/17/23 06:52 BUN/Creatinine Ratio 36.2 (10-20) H 10/17/23 06:52 Glucose 91 mg/dl (70-99(Fasting)) 10/17/23 06:52 Lactate 0.8 mmol/L (0.4-2.0) 10/09/23 10:50 Calcium 9.6 mg/dl (8.6-10.3) 10/17/23 06:52 Phosphorus 2.6 mg/dl (2.5-4.9) 10/15/23 07:04 Magnesium 1.9 mg/dl (1.7-2.4) 10/15/23 07:04 Total Bilirubin 0.6 mg/dl (0.2-1.0) 10/09/23 10:50 Direct Bilirubin 0.1 mg/dl (0-0.2) 10/09/23 10:50 AST 14 U/L (13-39) 10/09/23 10:50 ALT 9 U/L (7-52) 10/09/23 10:50 Alkaline Phosphatase 51 U/L (34-104) 10/09/23 10:50 Troponin I High Sens 35.7 pg/ml (0-14) H 10/09/23 12:41 Total Protein 6.0 gm/dl (6.0-8.3) 10/09/23 10:50 Albumin 3.2 gm/dl (3.4-5.0) L 10/09/23 10:50 Procalcitonin 0.07 ng/ml (0-0.5) 10/09/23 10:50 Urine Color Yellow 10/09/23 11:12 Urine Appearance Slightly Cloudy (Clear) 10/09/23 11:12 Urine pH 5.5 (4.5-7.5) 10/09/23 11:12 Ur Specific [place] 1.020 (1.000-1.030) 10/09/23 11:12 Urine Protein 1+ (Negative) H 10/09/23 11:12 Urine Glucose (UA) Negative (Negative) 10/09/23 11:12 Urine Ketones 1+ (Negative) H 10/09/23 11:12 Urine Blood Trace-intact (Negative) H 10/09/23 11:12 Urine Nitrite Positive (Negative) A 10/09/23 11:12 Urine Bilirubin Negative (Negative) 10/09/23 11:12 Urine Urobilinogen Negative (Negative) 10/09/23 11:12 Ur Leukocyte Esterase 1+ (Negative) H 10/09/23 11:12 Urine RBC 0-4 /hpf (0-4) 10/09/23 11:12 Urine WBC >30 /hpf (0-5) H 10/09/23 11:12 Ur Epithelial Cells 0-5 /lpf (0-5) 10/09/23 11:12 Urine Bacteria 4+ (Negative) H 10/09/23 11:12 Hyaline Casts 0-5 /lpf (0-5) 10/09/23 11:12 Nasal Screen MRSA (PCR) Negative (Negative) 10/09/23 Unknown Adenovirus (PCR) Not Detected (NotDetected) 10/09/23 13:11 B. pertussis DNA (PCR) Not Detected (NotDetected) 10/09/23 13:11 B.parapertussis DNA PCR Not Detected (NotDetected) 10/09/23 13:11 C. pneumoniae DNA (PCR) Not Detected (NotDetected) 10/09/23 13:11 Coronavirus OC43 (PCR) Not Detected (NotDetected) 10/09/23 13:11 Coronavirus HKU1 (PCR) Not Detected (NotDetected) 10/09/23 13:11 Coronavirus 229E (PCR) Not Detected (NotDetected) 10/09/23 13:11 SARS-CoV-2 (PCR) Not Detected (NotDetected) 10/09/23 13:11 Coronavirus NL63 (PCR) Not Detected (NotDetected) 10/09/23 13:11 Human Metapneumovir PCR Not Detected (NotDetected) 10/09/23 13:11 Influenza Type A (PCR) Not Detected (NotDetected) 10/09/23 13:11 Influenza Type B (PCR) Not Detected (NotDetected) 10/09/23 13:11 M. pneumoniae (PCR) Not Detected (NotDetected) 10/09/23 13:11 Parainfluenza 1 (PCR) Not Detected (NotDetected) 10/09/23 13:11 Parainfluenza 2 (PCR) Not Detected (NotDetected) 10/09/23 13:11 Parainfluenza 3 (PCR) Not Detected (NotDetected) 10/09/23 13:11 Parainfluenza 4 (PCR) Not Detected (NotDetected) 10/09/23 13:11 RSV (PCR) Not Detected (NotDetected) 10/09/23 13:11 Entero/Rhino (PCR) Not Detected (NotDetected) 10/09/23 13:11 Impressions Venous Doppler Study 10/09/23 00:00 ULTRASOUND BILATERAL UPPER EXTREMITY VENOUS CLINICAL HISTORY: Edema. COMPARISON STUDY: No priors. TECHNIQUE: Real-time, grayscale, and color Doppler sonography of the deep veins of the right and left upper extremity is performed. Compression and augmentation were utilized. FINDINGS: Right lower extremity: There is no sonographic evidence of deep venous thrombosis identified in the right upper extremity. The left internal jugular, axillary, and proximal brachial veins are patent and normally compressible. The distal brachial veins, as well as the radial and ulnar veins could not be assessed due to overlying bandage material/splint from a right humeral fracture. Normal venous waveforms and augmentation are seen within the left subclavian vein. Imaged portions of the right cephalic vein are patent. Left lower extremity: There is no sonographic evidence of deep venous thrombosis identified in the left upper extremity. The left internal jugular, axillary, and brachial veins are patent and normally compressible. Normal venous waveforms and augmentation are seen within the left subclavian vein. The cephalic and basilic veins are clear. The visualized radial and ulnar veins are patent. IMPRESSION: There is no sonographic evidence of deep venous thrombosis identified in the left upper extremity. Note that several of the right upper extremity veins could not be assessed due to bandaging/splint related to a right humeral fracture. ACT 112: Negative or not required by law. Electronically signed by: Darnell Oates M.D. 10/09/2023 7:51 PM Chest X-Ray 10/09/23 10:45 SINGLE VIEW CHEST CLINICAL HISTORY: Sepsis. FINDINGS: An AP, portable, upright chest radiograph is compared to study dated 10/05/2023. Correlation is made with chest CT dated 07/02/2021. The heart is enlarged noting atherosclerotic calcification of the thoracic aorta. The pulm onary vasculature is noncongested. There is left basilar consolidation and a small left pleural effusion. The right lung appears clear. No pneumothorax is seen. The skeletal structures are osteopenic. There are chronic/healed right- sided rib fractures. IMPRESSION: 1. Cardiomegaly without radiographic evidence of congestive failure. 2. Left basilar consolidation and small left pleural effusion. Correlate clinically for evidence of pneumonia/aspiration pneumonitis. Radiographic follow-up to resolution is recommended. ACT 112: Negative or not required by law. Electronically signed by: Darnell Oates M.D. 10/09/2023 11:08 AM Chest CTA 10/09/23 15:38 CT ANGIOGRAM OF THE CHEST CLINICAL HISTORY: Atypical chest pain. COMPARISON STUDY: Chest x-ray dated 10/09/2023. The chest CT dated 07/02/2021. TECHNIQUE: Following the IV administration of 116 cc of Optiray 320, CT angiogram of the chest was performed from the upper abdomen to the thoracic i nlet utilizing the pulmonary embolus protocol. Images are reviewed in the axial, sagittal, and coronal planes. 3-D MIPS images are created and assessed. IV contrast was administered without complication. A dose lowering technique was utilized adhering to the principles of ALARA. The examination is degraded by motion artifact, as well as by streak artifact from the arms which could not be elevated above the chest. CT DOSE: 759.12 mGy.cm FINDINGS: Thyroid: Enlarged and heterogeneous. Thoracic aorta: There is atherosclerotic calcification of the thoracic aorta, which is normal in caliber and demonstrates standard 3-vessel arch anatomy. The thoracic aorta is not well-opacified. Pulmonary vasculature: The pulmonary trunk is dilated, measuring 4.1 cm in diameter. This suggests pulmonary artery hypertension. There are segmental and subsegmental pulmonary emboli within branches of the right middle lobe pulmonary artery. No additional pulmonary emboli are clearly identified. Note that evaluation of the peripheral branches is compromised by motion artifact. Heart: The heart is enlarged and without pericardial effusion. There are coronary artery calcifications. Lungs and pleural spaces: Evaluation of the lung parenchyma is degraded by motion artifact. There are trace pleural effusions with dependent consolidation. The trachea and central airways are clear. There are scattered calcified granulomas. Mediastinum: There is no mediastinal lymphadenopathy. [place]: Clear. Axillae: There is no axillary lymphadenopathy. Upper abdomen: Partially visualized upper abdominal viscera is within normal limits. Skeletal structures: The skeletal structures are osteopenic. No lytic or blastic bony lesions are seen. Degenerative change is noted in the shoulders and spine. There are chronic/healed right-sided rib fractures. IMPRESSION: 1. Streak and motion compromised examination. 2. Segmental and subsegmental pulmonary emboli are seen within branches of the right middle lobe pulmonary artery. 3. Cardiomegaly. 4. Small pleural effusions with dependent consolidation. This likely represents atelectasis and clinical correlation required. 5. Additional findings as above. ACT 112: Negative or not required by law. Electronically signed by: Darnell Oates M.D. 10/09/2023 4:35 PM Knee X-Ray 10/10/23 07:00 RIGHT KNEE 2 VIEWS CLINICAL HISTORY: Fall. Right knee swelling. FINDINGS: Portable AP and crosstable lateral radiographs of the right knee are compared to study dated 01/10/2021. The skeletal structures are osteopenic. No fracture is clearly identified. There is moderate to advanced tricompartmental degenerative joint space narrowing. There are marginal osteophytes and patellar enthesophytes. There is a large joint effusion. A calcified fabella is incidentally noted. Prepatellar soft tissue swelling is observed. IMPRESSION: 1. Large joint effusion with no acute fracture clearly identified. If there is strong clinical concern for occult fracture a CT scan of the knee should be obtained. 2. Osteopenia and degenerative change as above. Electronically signed by: Darnell Oates M.D. 10/10/2023 8:[address] 10/11/23 10:34 CT SCAN OF THE RIGHT KNEE WITHOUT IV CONTRAST CLINICAL HISTORY: Fall. Right knee pain. Joint effusion. COMPARISON STUDY: Radiographs of the right knee dated 10/10/2023. TECHNIQUE: CT scan of the right knee is performed from the distal femur to the proximal tibia and fibula. Images are reviewed in the axial, sagittal, and coronal planes. IV contrast was not administered for this examination. A dose lowering technique was utilized adhering to the principles of ALARA. The examination is degraded by patient positioning and severe osteopenia. CT DOSE: 513.32 mGy.cm FINDINGS: The skeletal structures are heterogeneously osteopenic. There is a mildly depressed fracture of the lateral tibial plateau. This is best seen on the sagittal reformatted image #38. There is associated joint effusion with lipohemarthrosis. No additional acute fracture is clearly identified. The medial tibial plateau appears intact. The distal femur, proximal fibula, and patella appear maintained. There is moderate to advanced tricompartmental degenerative joint space narrowing. A 13 mm calcified joint body versus fabella is seen posterior to the knee. There are large marginal osteophytes and patellar enthesophytes. There is generalized atrophy of the regional musculature. Venous varicosities are noted in the upper calf. Mild soft tissue edema is noted. IMPRESSION: 1. Minimally depressed fracture of the lateral tibial plateau with associated joint effusion and lipohemarthrosis. 2. No additional fracture is identified. 3. Osteopenia and degenerative change as above. ACT 112: Negative or not required by law. Electronically signed by: Darnell Oates M.D. 10/11/2023 3:06 PM (1) Elbow fracture, right Encounter type: initial encounter Fracture type: closed Qualified Code(s): S42.401A - Unspecified fracture of lower end of right humerus, initial encounter for closed fracture
--- NOTE | 2023-10-17 13:54 | Hospitalist Progress Note ---
Date of Service October 17, 2023 Assessment & Plan (1) Acute hypoxic respiratory failure: Plan: Acute respiratory failure with hypoxia Acute PE H/O DVT--previously was on Coumadin Likely due to prolonged immobilization --CTA:Segmental and subsegmental pulmonary emboli are seen within branches of the right middle lobe pulmonary artery. Cardiomegaly. Small pleural effusions with dependent consolidation. This likely represents atelectasis and clinical correlation required. --UE Venous Doppler:There is no sonographic evidence of deep venous thrombosis identified in the left upper extremity. Note that several of the right upper extremity veins could not be assessed due to bandaging/splint related to a right humeral fracture. -- Continue IV heparin >>> transition to Eliquis today Monitor for any bleeding issues Has been saturating normally on room air does not have any shortness of breath at rest or chest pain No more respiratory symptoms and saturating normally on room air No more respiratory symptoms (2) Pneumonia: Plan: Suspected pneumonia CTA as above BioFire negative Normal procalcitonin Blood cultures: Pending to date Empirically on antibiotics--Zosyn, Doxy>> Rocephin, Doxy Incentive spirometer Denies any respiratory symptoms, no cough, no chest pain and no shortness of breath Remains on Cefdinir and will finish the course for a total of 10 days Remains stable medically to be transferred out of the hospital Recent Fall on 10/05/23 Right Elbow fracture--POA --Elbow CT: Mildly displaced supracondylar fracture, which is offset by approximately 1.3 cm. No dislocation. --R HIP CT:Severe osteoarthritis of the RIGHT hip, with diffuse tdoa-vc-axek articulation. --CT head:No acute intracranial hemorrhage, midline shift, or mass effect PT OT Appreciate orthopedic input Pain control as needed Continue splint/sling for right elbow fracture Needs follow-up with orthopedics on discharge Will need to continue PT and OT Right lateral tibial plateau fracture--POA Right knee pain/effusion Recent Fall --Knee X ray:Large joint effusion with no acute fracture clearly identified. If there is strong clinical concern for occult fracture a CT scan of the knee should be obtained. Osteopenia and degenerative change as above. --R Knee CT:Minimally depressed fracture of the lateral tibial plateau with associated joint effusion and lipohemarthrosis. No additional fracture is identified. Osteopenia and degenerative change as above. Pain control Management as per Ortho Appreciate orthopedics help Nonweightbearing right lower extremity Thought to be poor candidate for surgical intervention Needs follow-up with orthopedics on discharge Will get PT and OT evaluation-has not been participating in physical therapy and using the brace Strongly advised to use the brace which will be provided tomorrow by the orthopedic service Was seen by orthopedic surgeon and has had physical therapy with the brace They recommended that she can be (3) Acute UTI: Plan: Acute metabolic encephalopathy Urinary tract infection --Blood cultures negative to date Urine culture growing E. coli, alpha strep Continue empiric Zosyn >> transition to Rocephin Mental status seem to be back to baseline Will start oral Cefdinir 300mg twice daily We will finish the course for a total of 10 days to cover respiratory and UTI (4) Hypertension: Plan: Chronic, stable Continue amlodipine and metoprolol (5) Elbow fracture, right: Plan: Management as above (6) History of DVT (deep vein thrombosis): Plan: Other chronic conditions: H/O breast cancer Hypertension Osteoarthritis Venous stasis ulcers S/P venous ablation Lumbar spinal stenosis Chronic lymphedema Continue home medications as able Likely discharge this afternoon to [facility] DVT Px IV Heparin>> Eliquis Discharge DNR/DNI Disposition PT OT prior to discharge Case management to help with discharge planning Likely to be discharged to [facility] this afternoon (7) Acute pulmonary embolism: (8) Right knee pain: Admission and Anticipated Discharge Date Admission Date: October 09, 2023 Subjective 10/13/2023 The patient was seen and examined in telemetry unit She has been complaining of right knee pain and more pain during hygienic clean for her Denies any chest pain, shortness of breath, any nausea and or vomiting 10/14/2023 The patient was seen and examined in telemetry unit She seems to frustrated with her illness and feels that she is No acute anxiety and no hallucinations Denies any significant pain 10/15/2023 Patient was seen and examined in telemetry unit She remains very anxious and complains to have pain especially during changing Has not had used her right leg brace as she refused PT Strongly advised to go for PT and use the brace to decrease pain Denies any other significant symptoms 10/16/2023 The patient was seen and examined in telemetry unit She has been stable and awaiting physical therapy and placement Denies any significant symptoms 10/17/2023 The patient was seen and examined in telemetry unit She has been stable and needs physical therapy Was seen by Ortho and recommended that she can be discharged Denies any other significant medical symptoms except general weakness Review of Systems Review of Systems: All systems reviewed and are unremarkable except as noted below Physical Exam Physical Exam: The patient was seen and examined in telemetry unit Constitutional: well developed, well nourished, + ill appearing and + obese Eyes: PERRL, conjunctivae normal, anicteric sclerae ENMT: external ear and nose normal, oropharynx normal Neck: trachea midline, no thyromegaly Respiratory: no respiratory distress Auscultation: + diminished lung sounds and + crackles (Minimal crackles at the bases) Cardiovascular: Rate/Rhythm: regular rate and regular rhythm; not tachycardic Heart Sounds: normal S1 and normal S2; no murmur Extremities: + edema (1+ edema bilaterally more on the right) Gastrointestinal (Abdomen): Inspection/Auscultation: normal bowel sounds; abdomen not distended Percussion/Palpation: abdomen soft; abdomen nontender Neurologic: normal touch/pain/proprioception and moves all extremities (Minimal in the lower extremities and right upper extremity) Lymphatic: no cervical or axillary lymphadenopathy Results & Data Results & Data Vital Signs (Past 12 Hours) Vital Signs Temp Pulse Pulse Resp BP Pulse Ox O2 Del Method 10/17/23 11:17 36.4 C L 94 H 18 127/76 95 Room Air 10/17/23 10:57 64 10/17/23 07:20 36.5 C 58 L 18 131/73 93 Room Air 10/17/23 03:29 36.6 C 77 18 164/75 H 95 Room Air Laboratory Results Short CBC 10/17/23 Range/Units 06:52 WBC 5.42 (4.8-10.8) K/ul Hgb 9.6 L (12.0-16.0) g/dl Hct 32.8 L (37.0-47.0) % Plt Count 334 (130-400) K/uL BMP 10/17/23 06:52 Sodium 137 Potassium 4.2 Chloride 105 Carbon Dioxide 29 BUN 17 Creatinine 0.47 L Glucose 91 Calcium 9.6 Medications Administered Current Inpatient Medications Acetaminophen (Acetaminophen 500 Mg Tab) 1,000 mg PO Q8H EMRE Stop: 11/08/23 21:59 Last Admin: 10/17/23 05:19 Dose: 1,000 mg Amlodipine Besylate (Amlodipine Besylate 5 Mg Tab) [address] [facility] Stop: 11/09/23 08:59 Last Admin: 10/17/23 09:01 Dose: 10 mg Apixaban (Apixaban 5 Mg Tablet) [address] [facility] Stop: 10/19/23 09:01 Last Admin: 10/17/23 09:00 Dose: 10 mg Aspirin (Aspirin 81 Mg Ectab) [address] [facility] Stop: 11/09/23 08:59 Last Admin: 10/17/23 09:00 Dose: 81 mg Cefdinir (Cefdinir 300 Mg Cap) [address] [facility]; Protocol Stop: 10/24/23 08:59 Last Admin: 10/17/23 08:59 Dose: 300 mg Diclofenac Sodium (Diclofenac Sod 1% Gel 100 Gm Tube) [address] [facility]; Protocol Stop: 11/12/23 13:59 Last Admin: 10/17/23 09:49 Dose: 2 gm Fish Oil ([place]-3 (Purified Fish Oil) 1 Gm Cap) [address] [facility] Stop: 11/09/23 08:59 Last Admin: 10/17/23 08:59 Dose: 1 gm Gabapentin (Gabapentin 100 Mg Cap) [address] [facility] Stop: 11/08/23 20:59 Last Admin: 10/17/23 08:59 Dose: 100 mg Promethazine HCl 6.25 mg/ (Sodium Chloride) 50.25 mls @ 201 mls/hr IV Q6H PRN PRN Reason: Nausea And Vomiting Stop: 11/15/23 10:01 Last Infusion: 10/16/23 17:34 Dose: Infused Metoprolol Succinate (Metoprolol Succ 25mg Ext Rel Tab) [address] [facility] Stop: 11/09/23 08:59 Last Admin: 10/17/23 08:59 Dose: 25 mg Oxycodone HCl (Oxycodone Hcl Ir 5 Mg Tab (Immediate Release)) 10 mg PO Q4H PRN PRN Reason: Severe Pain (Scale Score 7-10) Stop: 10/23/23 15:04 Last Admin: 10/17/23 03:31 Dose: 10 mg Polyethylene Glycol (Polyethylene (Miralax) 17 Gm Pack) 17 gm PO DAILY PRN PRN Reason: Constipation Stop: 11/10/23 14:12 Vitamin D (Cholecalciferol 25 Mcg (1000 Units) Tab) 25 mcg PO QAM EMRE Stop: 11/12/23 08:59 Last Admin: 10/17/23 08:59 Dose: 25 mcg (2) Pneumonia Pneumonia type: due to unspecified organism (4) Hypertension Hypertension type: unspecified Qualified Code(s): I10 - Essential (primary) hypertension (5) Elbow fracture, right Encounter type: initial encounter Fracture type: closed Qualified Code(s): S42.401A - Unspecified fracture of lower end of right humerus, initial encounter for closed fracture
--- NOTE | 2023-10-25 08:48 | Discharge Summary ---
Date of Service October 17, 2023 Admission HPI Per Admitting Provider 73-year-old female with PMH HTN, history of DVT s/p Coumadin therapy, chronic venous stasis, osteoarthritis, morbid obesity, lymphedema, and other problems listed below who presents to the ED for evaluation of altered mental status. History is obtained from the patient and review of outpatient [facility] records and discussion with Farzaneh Yanez PA-C. Patient had a fall on 10/05 and was seen in the ED for right arm pain. She was found to have mildly displaced supracondylar fracture, which is offset by approximately 1.3 cm. Patient was placed in a splint and discharged back to [facility] and is to follow-up with Ortho as an outpatient. Per Farzaneh, this morning, patient was very confused and yelling out. She was also noted to be hypoxic and have a fever. She was sent to the ED for further evaluation. Over the weekend, Farzaneh states the patient had a positive urine dip study however awaiting culture report. Patient was not started on antibiotics at that time. She has chronic lymphedema and lower e xtremity edema is at baseline, left upper extremity is more swollen than baseline. At the time my exam, patient is resting in bed in no acute distress. She offers no complaints at this time. She is aware that she is in the hospital however is unsure why. In the ED, patient was requiring 4 L of oxygen via nasal cannula to maintain saturations. She has a low-grade temp 37.8. No leukocytosis, normal lactic acid and procalcitonin. UA is suggestive of UTI and CXR suggest a left basilar pneumonia. Patient was given IV cefepime. Admission Exam Per Admitting Provider Constitutional: WD/WN, vitals as above + obese; no acute distress Eyes: PERRL, conjunctivae normal, anicteric sclerae ENMT: Ears: no external ear abnormality Nose: no external nose abnormality Mouth: + dry oral mucous membranes Respiratory: normal respiratory effort; no respiratory distress Auscultation: + diminished lung sounds Cardiovascular: Rate/Rhythm: regular rate and regular rhythm Vessels: normal peripheral pulses +2 edema BLE, +3-4 edema LUE, +2 edema R UE Gastrointestinal (Abdomen): normal bowel sounds, soft, nontender, no hepatosplenomegaly Musculoskeletal: RUE in splint Skin: no rashes, warm and dry Neurologic: PERRL, EOMI, accommodation nl, no face palsy, no dysarthria Psychiatric: Orientation: alert and oriented x 3 Cognition: + recent memory not intact Insight: + limited insight Lymphatic: + lymphedema Principal Diagnosis Acute hypoxic respiratory failure, acute PE with history of DVT, UTI, pneumonia, status post fall with a right elbow fracture and right lateral tibial plateau fracture Discharge Exam The patient was seen and examined in telemetry unit Constitutional well developed, well nourished, + ill appearing and + obese Eyes PERRL, conjunctivae normal, anicteric sclerae ENMT external ear and nose normal, oropharynx normal Neck trachea midline, no thyromegaly Respiratory no respiratory distress Auscultation: + diminished lung sounds and + crackles (Minimal crackles at the bases) Cardiovascular Rate/Rhythm: regular rate and regular rhythm; not tachycardic Heart Sounds: normal S1 and normal S2; no murmur Extremities: + edema (1+ edema bilaterally more on the right) Gastrointestinal (Abdomen) Inspection/Auscultation: normal bowel sounds; abdomen not distended Percussion/Palpation: abdomen soft; abdomen nontender Neurologic normal touch/pain/proprioception and moves all extremities (Minimal in the lower extremities and right upper extremity) Lymphatic no cervical or axillary lymphadenopathy Discharge Data Allergies Allergy/AdvReac Type Severity Reaction Status Date / Time naproxen Allergy Mild FEET SWELL Verified 12/13/21 23:00 Dcogjyy-WDP-IaP Reductase Allergy Mild GENERAL Verified 12/13/21 23:00 Inhibitor MALAISE [Snjvuig-Fdb-Wyr Reductase Inhibitor] tramadol Allergy Mild RESTLESS Verified 12/13/21 23:00 LEG SYNDROME adhesive AdvReac Mild RED SKIN Verified 12/13/21 23:00 FROM BUTTERFLY Consultations 10/09/23 12:42 ED Decision to Admit Stat 10/09/23 18:30 Consult Orthopedic Surgery Routine Ordered Studies 10/09/23 US venous doppler UE BI Routine 10/09/23 15:38 CT angio chest PE protocol Urgent 10/11/23 10:34 CT knee RT wo con Routine Hospital Course (1) Acute hypoxic respiratory failure: Acute respiratory failure with hypoxia Acute PE H/O DVT--previously was on Coumadin Likely due to prolonged immobilization --CTA:Segmental and subsegmental pulmonary emboli are seen within branches of the right middle lobe pulmonary artery. Cardiomegaly. Small pleural effusions with dependent consolidation. This likely represents atelectasis and clinical correlation required. --UE Venous Doppler:There is no sonographic evidence of deep venous thrombosis identified in the left upper extremity. Note that several of the right upper extremity veins could not be assessed due to bandaging/splint related to a right humeral fracture. -- Continue IV heparin >>> transition to Eliquis today Monitor for any bleeding issues Has been saturating normally on room air does not have any shortness of breath at rest or chest pain No more respiratory symptoms and saturating normally on room air No more respiratory symptoms (2) Pneumonia: Suspected pneumonia CTA as above BioFire negative Normal procalcitonin Blood cultures: Pending to date Empirically on antibiotics--Zosyn, Doxy>> Rocephin, Doxy Incentive spirometer Denies any respiratory symptoms, no cough, no chest pain and no shortness of breath Remains on Cefdinir and will finish the course for a total of 10 days Remains stable medically to be transferred out of the hospital Recent Fall on 10/05/23 Right Elbow fracture--POA --Elbow CT: Mildly displaced supracondylar fracture, which is offset by approximately 1.3 cm. No dislocation. --R HIP CT:Severe osteoarthritis of the RIGHT hip, with diffuse jtev-uf-mvrp articulation. --CT head:No acute intracranial hemorrhage, midline shift, or mass effect PT OT Appreciate orthopedic input Pain control as needed Continue splint/sling for right elbow fracture Needs follow-up with orthopedics on discharge Will need to continue PT and OT Right lateral tibial plateau fracture--POA Right knee pain/effusion Recent Fall --Knee X ray:Large joint effusion with no acute fracture clearly identified. If there is strong clinical concern for occult fracture a CT scan of the knee should be obtained. Osteopenia and degenerative change as above. --R Knee CT:Minimally depressed fracture of the lateral tibial plateau with associated joint effusion and lipohemarthrosis. No additional fracture is identified. Osteopenia and degenerative change as above. Pain control Management as per Ortho Appreciate orthopedics help Nonweightbearing right lower extremity Thought to be poor candidate for surgical intervention Needs follow-up with orthopedics on discharge Will get PT and OT evaluation-has not been participating in physical therapy and using the brace Strongly advised to use the brace which will be provided tomorrow by the orthopedic service Was seen by orthopedic surgeon and has had physical therapy with the brace They recommended that she can be (3) Acute UTI: Acute metabolic encephalopathy Urinary tract infection --Blood cultures negative to date Urine culture growing E. coli, alpha strep Continue empiric Zosyn >> transition to Rocephin Mental status seem to be back to baseline Will start oral Cefdinir 300mg twice daily We will finish the course for a total of 10 days to cover respiratory and UTI (4) Hypertension: Chronic, stable Continue amlodipine and metoprolol (5) Elbow fracture, right: Management as above (6) History of DVT (deep vein thrombosis): Other chronic conditions: H/O breast cancer Hypertension Osteoarthritis Venous stasis ulcers S/P venous ablation Lumbar spinal stenosis Chronic lymphedema Continue home medications as able Likely discharge this afternoon to [facility] DVT Px IV Heparin>> Eliquis Discharge DNR/DNI Disposition PT OT prior to discharge Case management to help with discharge planning Likely to be discharged to [facility] this afternoon (7) Acute pulmonary embolism: (8) Right knee pain: Total Time Total Time Spent Total Time Spent (In Minutes): 35 minutes Discharge Plan Discharge Items Patient Disposition: Transfer [facility] Fac Reason For Visit: UTI/PNEUMONIA Discharge Diagnosis: Acute hypoxic respiratory failure, acute PE with history of DVT, UTI, pneumonia, status post fall with a right elbow fracture and right lateral tibial plateau fracture Activity: As commented below Activity Comment: Will need physical therapy as mentioned below Non-emergency contact: Primary Care Provider Call non-emergency contact if: you have any medication questions and your symptoms worsen Follow-up/Referrals: Meng Moraes MD [Physician] - [facility] - Diet: Low Sodium (2gm) and Vegetarian (Lacto-Ovo) Addtl Attending Provider Instructions: Please take precautions to avoid falls Finish the course of antibiotic as advised Take your medications as advised Addtl Core Maker Provider Instructions: Orthopedic discharge instructions: Non weight bearing right upper and right lower extremity PT - ROM as tolerated Knee hinged brace on and locked to allow ROM as patient can tolerate ICE PRN for right arm and knee Sling for comfort for right upper extremity DVT prophylaxis and pain control per primary service Follow up as scheduled in [address] Moraes Pending Studies at Discharge: No Stand-Alone Forms: My [facility] Skilled Items Patient informed of condition?: Yes DNR: Yes Discharge Level of Care: Skilled Communicable Disease: No Discharge Prognosis: Stable Lines: None Urinary Catheter: Yes Medications and DC Order Prescriptions: New cefdinir 300 mg Capsule 300 mg PO BID Qty: 4 0RF diclofenac sodium [Voltaren Arthritis Pain] 1 % Gel 2 g EXT TID Qty: 50 0RF Eliquis 5 mg Tablet 10 mg PO BID Qty: 30 0RF Rx Instructions: 10 mg twice daily for 4 more doses and then 5 mg twice daily to continue Continued multivitamin [Daily Multi-Vitamin] Tablet 1 tab PO QAM turmeric root extract 500 mg Capsule 1,000 mg PO AC acetaminophen 325 mg Tablet 650 mg PO TID MDD 3000MG Icy Hot Max (lido HCl-menthol) 4-1 % Cream 1 applic TOPICAL Q4H PRN (Reason: Pain) Rx Instructions: APPLY TO HIPS,KNEES,SORE MUSCLES Saline Nasal Mist 0.65 % Aerosol,Pollock 1 spray INTRANASAL TID aspirin 81 mg tablet,delayed release (DR/EC) 81 mg PO DAILY amlodipine 10 mg tablet 10 mg PO DAILY gabapentin 100 mg capsule 100 mg PO TID metoprolol succinate 25 mg tablet extended release 24 hr 25 mg PO DAILY oxybutynin chloride 5 mg tablet 10 mg PO BID Dakin's Solution 0.25 % Solution 1 irrig TOPICAL BID glucosamine-chondroitin [Osteo Bi-Flex] 250-200 mg Tablet 1 tab PO BID Rx Instructions: give after food/meal oxycodone 10 mg tablet 10 mg PO Q4H PRN (Reason: Severe Pain (Scale Score 7-10)) vits A and D-white pet-lanolin [A and D (john, pet)] Ointment 1 applic TOPICAL BID omega 0-ctx-byy-fish oil [Fish Oil] 1,000 mg (120 mg-180 mg) Capsule 1 cap PO DAILY cinnamon bark-chromium picolin 500-100 mg-mcg Capsule 1 cap PO DAILY selenium 100 mcg Tablet 100 mcg PO QAM cholecalciferol (vitamin D3) [Vitamin D3] 25 mcg (1,000 unit) Capsule 25 mcg PO QAM Prevagen 1 tab PO QAM No Action Stable Gi 1 cap PO DAILY Discharge Orders: Discharge Order (Routine); Ordered 10/17/23 Ordered By: Jonathan Rosas Admission Data Admit Date/Time: 10/09/23 12:45 Attending Provider: Jonathan Rosas Admit Provider: Breanne Keane Primary Care Provider: Colton Crow Other Providers: Meng Moraes; Brent Ram; Tyrell Casas; Zackary Harkins Other Interventions: Discharge Summary Assessment (RN) Last Done: 10/17/23 15:26
== END 2023-10-17 16:15 | DRG 175 ==
LOC: ED 10:35 → SUATTDRO 12:45 → EDINP 12:45 → 2S 15:04

== ENCOUNTER 2025-03-28 12:32 | Inpatient (IN) ==
--- NOTE | 2025-03-28 13:06 | Emergency Department Note ---
Impression & Plan Hematoma of right thigh, Melena, Anemia, Anticoagulant long-term use ED Provider Note Provider: Anastacio Jj MD CHIEF COMPLAINT: Right thigh pain and swelling, abnormal blood work HISTORY OF PRESENT ILLNESS: Patient is a 74-year-old female past medical history of PE/DVT on Eliquis, hypertension, obesity, arthritis, prior breast cancer presenting here today via ambulance from [facility] where she resides. Patient evidently over the last 3 to 4 days has been experiencing swelling and pain to the anterior right hip region. No falls reported. Was last out of bed on March 17 from available records. She has been on aspirin and Eliquis. No left-sided leg or hip pain. No pain in the right lower leg it is on the right anterior groin which is swollen. Had an x-ray completed facility was seen by the medical PA there. She has been losing weight over the last year and there is question if she had a new left breast mass. Patient had blood work completed with concerns for some elevated potassium and calcium. There was concern she could have cancer and staff was eventually able to convince the patient come to the emergency department here today for further evaluation. She has been using some oxycodone for pain around the hip region. Denies significant Estevan pain or shortness of breath to me today. Patient denies any bloody or black stools to her knowledge. Was report that she might have anemia as well. PAST MEDICAL HISTORY: As noted above MEDICATIONS: Reviewed medication list but did not receive morning medicines this morning. SOCIAL HISTORY: Resides at [facility] PHYSICAL EXAM: GENERAL: alert and oriented in no acute distress on stretcher Head: normocephalic and atraumatic EYES: No injection, discharge or icterus. EOMI. NECK: Trachea midline. ENT: Mucous membranes pink and moist. LUNGS: Airway patent. No retractions. Breath sounds clear with good air entry bilaterally. HEART: Regular rate and rhythm. No chest wall tenderness ABDOMEN: Soft and non-tender, without guarding or rebound. No masses SKIN: Acyanotic, warm, dry, without rashes EXTREMITIES: Some chronic stasis of the bilateral lower legs. The right thigh has a large swollen tender area of the right inguinal region extending to the right mid inner thigh. No redness or large wound. NEUROLOGICAL: No aphasia. No facial droop or slurred speech. Intact gross sensation in all 4 extremities. EK bpm sinus rhythm with occasional PVC. Right bundle branch block is noted. No ST segment elevation with diffuse T wave inversions and QTc of 508. Compared to previous from October 09, 2023 fairly similar. CONTINUOUS CARDIAC MONITORING: was ordered and showed a heart rate of 60s to 80s bpm in sinus rhythm occasional PVCs Patient's laboratory studies and imaging reviewed. Differential includes Infection, dehydration, metabolic abnormality, hypo/hyperglycemia, electrolyte disturbance, anemia, hypoxia, cardiac sources, DVT, hematoma, cancer/mass, neurologic, as well as other pathologies. IMPRESSION/MEDICAL DECISION MAKING: Blood work rechecked here mild hyperkalemia 5.6 with normal renal function. Calcium mildly elevated at 10.6 and magnesium 2.6. No severe CK elevation or transaminitis. No leukocytosis. Hemoglobin checked here 7.9 low but not needing transfusion. Denies bloody stools. Previous from 18 months ago was in the mid nines. Negative COVID and normal TSH and troponin. Given the swelling and negative x-rays of the right thigh hip region, will obtain CT scan of the abdomen pelvis and femur here. Will complete a CT scan of the chest given the question of a left breast mass noted by the medical staff although no obvious mass noted here. CT of the chest per radiology without acute findings although left breast is only partially visualized. 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 abdomen pelvis and femur per radiology report with evidence of a hematoma of the right thigh possibly small area of active enhancement versus pseudoaneurysm without connection to the superficial femoral artery. No other acute findings are noted with small pancreatic cyst versus IPMN's. Question if little bit of the hemoglobin drop was related to this hematoma. Did not receive morning medications which would include her Eliquis. History of VTE DVT in the past but will likely need to have this held given the hematoma here. Did receive some IV fluids here given borderline hyperkalemia 5.6. Type and screen is at the blood bank. Discussed the patient staying for further monitoring of her thigh hematoma hemoglobin and electrolytes. Given a dose of potassium binder here. Do not feel she needs full insulin dextrose bicarb at this point. She is agreeable with the plan to stay for monitoring. Given that her symptoms been present for several days I doubt active extravasation and feel that conservative measures and monitoring is reasonable to start with. Patient also later with a black Hemoccult positive stool. Given IV Protonix. This may contributing to some of her anemia as well. She denies any abdominal pain and no noted findings in the abdominal pelvic CT report of bowel inflammation. DIAGNOSIS: Right thigh hematoma, anemia, hyperkalemia, melena DISPOSITION: Hospitalist will evaluate Patient was agreeable with this plan. Past Med/Surg History Problem List (Updated 03/28/25 @ 16:17 by Anastacio Jj M.D.) Anticoagulant long-term use (Acute) Anemia (Acute) Melena (Acute) Hematoma of right thigh (Acute) Tibial plateau fracture, right Right knee pain Acute pulmonary embolism Pneumonia Acute hypoxic respiratory failure History of DVT (deep vein thrombosis) Acute UTI (Acute) Sepsis (Acute) Hypertension (Chronic) Morbid obesity with BMI of 40.0-44.9, adult (Acute) Venous stasis Osteoarthritis (Chronic) Medical History History of DVT (deep vein thrombosis) MRSA (methicillin resistant Staphylococcus aureus) Tricompartment degenerative joint disease of knee Spinal stenosis at L4-L5 level Chronic venous insufficiency Breast CA Venous stasis dermatitis Hypertension Osteoarthritis Venous stasis Morbid obesity with BMI of 40.0-44.9, adult Surgical History No pertinent past surgical history Social History Smoking Status: Never smoker Second Hand Exposure: No; Do You Dip or Chew Tobacco: No; Hx Alcohol Use: No Hx Substance Use: No Preferred Language: British Communication Ability: Effective Communication Ability Comment: UNHAPPY Political Anthropologist Required: No Beliefs That Will Affect Care: None marital status: Single Current Living Situation: Personal Care Facility Current Living Situation Comment: [facility] WITH SISTER Feels Safe at Home: Yes Assistive Devices: Wheelchair Allergies Allergies Allergy/AdvReac Type Severity Reaction Status Date / Time [id number]-ByF Reductase AdvReac Intermediate GENERAL Verified 03/28/25 14:49 Inhibitor MALAISE [Kqwtjmi-Mxx-Vbz Reductase Inhibitor] tramadol AdvReac Intermediate RESTLESS Verified 03/28/25 14:49 LEG SYNDROME adhesive AdvReac Mild RED SKIN Verified 03/28/25 14:49 FROM BUTTERFLY naproxen AdvReac Mild FEET SWELL Verified 03/28/25 14:49 Home Meds Home Medications Medication Instructions Recorded Confirmed multivitamin (Daily Multi-Vitamin 1 tab PO DAILY 08/10/20 03/28/25 tablet) Prevagen 10 mg PO DAILY 06/15/21 03/28/25 cholecalciferol (vitamin D3) 25 25 mcg PO QAM 06/15/21 03/28/25 mcg (1,000 unit) capsule (Vitamin D3) acetaminophen 325 mg tablet 650 mg PO Q4H PRN Pain 12/13/21 03/28/25 turmeric root extract 500 mg 1,000 mg PO TIDM 12/13/21 03/28/25 capsule amlodipine 10 mg tablet 10 mg PO HS 10/09/23 03/28/25 aspirin 81 mg tablet,delayed 81 mg PO DAILY 10/09/23 03/28/25 release metoprolol succinate 25 mg 25 mg PO DAILY 10/09/23 03/28/25 tablet,extended release 24 hr omega 2-iam-tgy-fish oil 1,000 mg 1 cap PO DAILY 10/09/23 03/28/25 (120 mg-180 mg) capsule (Fish Oil) oxybutynin chloride 5 mg tablet 10 mg PO BID 10/09/23 03/28/25 Stable Gi Capsule 250 mg PO DAILY 03/28/25 03/28/25 acetaminophen 650 mg 650 mg PO TID 03/28/25 03/28/25 tablet,extended release (Tylenol Arthritis Pain) apixaban 5 mg tablet (Eliquis) 5 mg PO BID 03/28/25 03/28/25 bisacodyl 5 mg tablet 10 mg PO DAILY PRN Constipation 03/28/25 03/28/25 calcium carbonate (Oyster Shell 500 mg PO BID 03/28/25 03/28/25 Calcium) diclofenac sodium 1 % topical gel 4 g EXT Q6H PRN RIGHT HIP/BACK PAIN 03/28/25 03/28/25 (Voltaren Arthritis Pain) ferrous sulfate 325 mg (65 mg 325 mg PO DAILY 03/28/25 03/28/25 iron) tablet gabapentin 300 mg capsule 300 mg PO TID 03/28/25 03/28/25 glucosamine-chondroitin 250 mg-200 1 tab PO BIDM 03/28/25 03/28/25 mg tablet lidocaine 4 % topical patch 1 patch topical BID 03/28/25 03/28/25 menthol 5 mg lozenges (Cough Drops) 5 mg PO Q2H PRN Cough 03/28/25 03/28/25 ondansetron HCl 4 mg tablet 4 mg PO Q6H PRN NAUSEA/VOMITING 03/28/25 03/28/25 oxycodone 5 mg tablet 5 mg PO Q4H PRN MODERATE-SEVERE 03/28/25 03/28/25 PAIN polyethylene glycol 3350 17 17 g PO DAILY PRN Constipation 03/28/25 03/28/25 gram/dose oral powder (Miralax) polyethylene glycol 3350 17 17 g PO Q OTHER DAY 03/28/25 03/28/25 gram/dose oral powder (Miralax) sennosides 8.6 mg-docusate sodium 2 tab-cap PO HS PRN Constipation 03/28/25 03/28/25 50 mg tablet (Senokot-S) simethicone 80 mg chewable tablet 80 mg PO TID 03/28/25 03/28/25 Results & Data (ED) Vital Signs Vital Signs - 24 hr 03/28/25 12:42 03/28/25 14:30 03/28/25 14:32 Temperature 36.7 C Temperature Source Oral Pulse Rate 78 67 72 Pulse Rate from SpO2 Sensor 69 Respiratory Rate 18 19 Blood Pressure 102/73 Blood Pressure Mean 82 Pulse Oximetry 95 96 Oxygen Delivery Method Room Air Sepsis Recent Fever Within 48 Hours No Sepsis New/Unexplained Change in Mental Status No Sepsis Action Taken by Nursing No Action Required 03/28/25 15:15 Temperature Temperature Source Pulse Rate 73 Pulse Rate from SpO2 Sensor 72 Respiratory Rate 23 Blood Pressure 116/72 Blood Pressure Mean 86 Pulse Oximetry 94 Oxygen Delivery Method Sepsis Recent Fever Within 48 Hours Sepsis New/Unexplained Change in Mental Status Sepsis Action Taken by Nursing Laboratory Data 03/28/25 12:45 03/28/25 12:45 Lab Results 03/28/25 03/28/25 03/28/25 Range/Units 12:45 13:01 13:08 WBC 6.21 (4.8-10.8) K/ul RBC 2.88 L (4.20-5.40) M/uL Hgb 7.9 L (12.0-16.0) g/dl Hct 25.9 L (37.0-47.0) % MCV 89.9 (80.0-100.0) fL MCH 27.4 (25.0-34.0) pg MCHC 30.5 L (32.0-36.0) g/dL RDW Std Deviation 50.6 H (36.4-46.3) fL RDW Coeff of Bev 15.5 H (11.5-14.5) % Plt Count 154 (130-400) K/uL MPV 10.4 (9.4-12.4) fL Immature Gran % (Auto) 0.2 % Neut % (Auto) 57.5 % Lymph % (Auto) 34.1 % Pickett % (Auto) 7.7 % Eos % (Auto) 0.3 % Baso % (Auto) 0.2 % Neut # (Auto) 3.57 (1.40-6.50) K/uL Lymph # (Auto) 2.12 (1.20-3.40) K/uL Pickett # (Auto) 0.48 (0.11-0.59) K/uL Eos # (Auto) 0.02 (0.00-0.50) K/uL Baso # (Auto) 0.01 (0.00-0.20) K/uL Immature Gran # (Auto) 0.01 (0.01-0.20) K/uL RBC Morphology Unremarkable PT 10.9 (9.0-12.0) Seconds INR 1.0 (0.9-1.1) Sodium 137 (136-145) mmol/L Potassium 5.6 H (3.5-5.1) mmol/L Chloride 105 (98-107) mmol/L Carbon Dioxide 30 (21-32) mmol/L Anion Gap 2 L (3-11) BUN 41 H (6-23) mg/dl Creatinine 0.73 (0.6-1.2) mg/dl Est Cr Clr Drug Dosing 61.4 ml/min eGFR 85.18 BUN/Creatinine Ratio 56.2 H (10-20) Glucose 107 H (70-99(Fasting)) mg/dl Calcium 10.6 H (8.6-10.3) mg/dl Magnesium 2.6 H (1.7-2.4) mg/dl Total Bilirubin 0.4 (0.2-1.0) mg/dl AST 12 L (13-39) U/L ALT 9 (7-52) U/L Alkaline Phosphatase 57 (34-104) U/L Total Creatine Kinase 14 L (26-192) U/L Troponin I High Sens 11.5 (0-14) pg/ml Total Protein 6.3 (6.0-8.3) gm/dl Albumin 3.3 L (3.4-5.0) gm/dl Globulin 3.0 (2.5-4.0) gm/dl Albumin/Globulin Ratio 1.1 (0.9-2) TSH 0.502 (0.300-4.500) uIu/ml SARS-CoV-2, RNA, NAAT NEGATIVE (NEGATIVE) Blood Type A Positive Antibody Screen NEGATIVE Administered Medications Discontinued Medications Sodium Chloride (Nss) 500 mls @ 999 mls/hr IV .Q31M ONE Stop: 03/28/25 13:22 Last Infusion: 03/28/25 14:15 Dose: Infused Documented By: Admin: 03/28/25 13:41 Dose: 999 mls/hr Documented By: ESPINOZA Ioversol (Optiray 320 100ml) 94 ml IV ONCE ONE Stop: 03/28/25 13:38 Last Admin: 03/28/25 13:37 Dose: 94 ml Documented By: HAI Sodium Zirconium Cyclosilicate (Sodium Zirconium Cyclosilicate 10 Gm Packet) 10 gm PO ONCE ONE Stop: 03/28/25 14:29 Last Admin: 03/28/25 16:02 Dose: 10 gm Documented By: ESPINOZA Imaging Data Radiologist's Impression: Abdomen/Pelvis CT 03/28/25 12:[address] WITH IV CONTRAST and CT of the right femur CT DOSE: 1366 HISTORY: R thigh swelling, hyperK/CA, breast mass, wt loss TECHNIQUE: Multiaxial CT images of the abdomen and pelvis and right femur were performed following the IV administration of 90 cc of Optiray, A dose lowering technique was utilized adhering to the principles of ALARA. COMPARISON STUDY: 12/13/2021 FINDINGS: ABDOMEN: There are a few tiny cysts at the liver. Otherwise the liver, gallbladder, spleen, and adrenal glands are unremarkable. There are mild atherosclerotic calcifications. No abdominal aortic aneurysm. There is cortical scarring of both kidneys. There are multiple tiny cysts at both kidneys. There is a progressive staghorn calcification at the left kidney involving the proximal renal pelvis and majority of the calyces on the left. There is no hydronephrosis or ureteral calculi bilaterally. There are multiple small round cystic findings at the proximal to mid pancreas measuring up to 11 mm at the pancreatic body. There are serpiginous vessels medially adjacent to the spleen which may represent an AVM between the splenic artery and vein. 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 Pelvis: Uterus is very diminutive. No adnexal mass seen. Urinary bladder is nondistended. Rectum is moderately distended with stool. There is a moderate to large amount of retained stool. No bowel inflammation or obstruction seen. No free fluid or free air. No enlarged adenopathy seen. Osseous structures: There is osteopenia. There is interval mild height loss at the L2 and L4 vertebral bodies without acute features, likely chronic. No acute osseous findings seen. There are severe degenerative changes at the right hip with severe joint space narrowing and flattening of the right femoral head. Right femur: There is a hematoma anteriorly at the right upper thigh measuring 7 cm greatest axial dimension by 10 cm craniocaudad. Within the upper aspect of the hematoma lower right inguinal region there is a 2 cm oval area of arterial enhancement which could represent focus of active extravasation or pseudoaneurysm. Communication with the right superficial femoral artery is not demonstrated. There is osteopenia. No acute fracture or dislocation seen at the right femur. There are severe degenerative changes at the right hip and right knee. IMPRESSION: 1. Hematoma at the proximal right thigh with small area of arterial enhancement at the upper aspect of the hematoma which could represent focus of active extravasation or small pseudoaneurysm. No connection to the underlying right superficial femoral artery is demonstrated. 2. No other acute findings seen. 3. Small pancreatic cysts versus intraductal papillary mucinous tumors. Follow- up abdominal CT is suggested in one year. 3. Progressive staghorn calculus at the left kidney without hydronephrosis. 4. No enlarged adenopathy. 5. Otherwise as described. ACT 112: Positive. There are findings on this exam that require communication between the performing entity and the patient following Patient Test Result Information Act ([place] Act 112) guidelines. The above report was generated using voice recognition software. It may contain grammatical, syntax or spelling errors. Electronically signed by: Jameel Palm M.D. 03/28/2025 2:[address] 03/28/25 12:[address] CONTRAST CT DOSE: 1366 HISTORY: R thigh swelling, hyperK/CA, breast mass, wt loss TECHNIQUE: Multiaxial CT images of the chest were performed following the IV administration of 90 cc of Optiray. A dose lowering technique was utilized adhering to the principles of ALARA. COMPARISON STUDY: 10/09/2023 FINDINGS: There is mild atelectasis in the lung bases and inferiorly at the lingula. No other pulmonary consolidation or pleural effusion. No pneumothorax. No significant pulmonary nodule. The left breast is mostly off the fldyi-uu-yroy. There is diffuse thyroid enlargement. No enlarged adenopathy seen. No pericardial effusion. There is prominence of the pulmonary arteries which could represent CHF or pulmonary arterial hypertension. There is no pulmonary embolism. No thoracic aortic dissection or aneurysm. There is moderate cardiomegaly. There is osteopenia. There are a few old healed rib fractures bilaterally. There are mild thoracic spine degenerative changes. There is mild chronic-appearing height loss at a few lower thoracic vertebral bodies. No acute osseous finding seen. IMPRESSION: 1. Majority of the left breast is off the field of view. No gross mass seen at the right breast. No enlarged adenopathy seen. 2. No acute findings seen. Otherwise as described. ACT 112: Negative or not required by law. Electronically signed by: Jameel aPlm M.D. 03/28/2025 1:[address] 03/28/25 12:[address] WITH IV CONTRAST and CT of the right femur CT DOSE: 1366 HISTORY: R thigh swelling, hyperK/CA, breast mass, wt loss TECHNIQUE: Multiaxial CT images of the abdomen and pelvis and right femur were performed following the IV administration of 90 cc of Optiray, A dose lowering technique was utilized adhering to the principles of ALARA. COMPARISON STUDY: 12/13/2021 FINDINGS: ABDOMEN: There are a few tiny cysts at the liver. Otherwise the liver, gallbladder, spleen, and adrenal glands are unremarkable. There are mild atherosclerotic calcifications. No abdominal aortic aneurysm. There is cortical scarring of both kidneys. There are multiple tiny cysts at both kidneys. There is a progressive staghorn calcification at the left kidney involving the proximal renal pelvis and majority of the calyces on the left. There is no hydronephrosis or ureteral calculi bilaterally. There are multiple small round cystic findings at the proximal to mid pancreas measuring up to 11 mm at the pancreatic body. There are serpiginous vessels medially adjacent to the spleen which may represent an AVM between the splenic artery and vein. 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 Pelvis: Uterus is very diminutive. No adnexal mass seen. Urinary bladder is nondistended. Rectum is moderately distended with stool. There is a moderate to large amount of retained stool. No bowel inflammation or obstruction seen. No free fluid or free air. No enlarged adenopathy seen. Osseous structures: There is osteopenia. There is interval mild height loss at the L2 and L4 vertebral bodies without acute features, likely chronic. No acute osseous findings seen. There are severe degenerative changes at the right hip with severe joint space narrowing and flattening of the right femoral head. Right femur: There is a hematoma anteriorly at the right upper thigh measuring 7 cm greatest axial dimension by 10 cm craniocaudad. Within the upper aspect of the hematoma lower right inguinal region there is a 2 cm oval area of arterial enhancement which could represent focus of active extravasation or pseudoaneurysm. Communication with the right superficial femoral artery is not demonstrated. There is osteopenia. No acute fracture or dislocation seen at the right femur. There are severe degenerative changes at the right hip and right knee. IMPRESSION: 1. Hematoma at the proximal right thigh with small area of arterial enhancement at the upper aspect of the hematoma which could represent focus of active extravasation or small pseudoaneurysm. No connection to the underlying right superficial femoral artery is demonstrated. 2. No other acute findings seen. 3. Small pancreatic cysts versus intraductal papillary mucinous tumors. Follow- up abdominal CT is suggested in one year. 3. Progressive staghorn calculus at the left kidney without hydronephrosis. 4. No enlarged adenopathy. 5. Otherwise as described. ACT 112: Positive. There are findings on this exam that require communication between the performing entity and the patient following Patient Test Result Information Act ([place] Act 112) guidelines. The above report was generated using voice recognition software. It may contain grammatical, syntax or spelling errors. Electronically signed by: Jameel Palm M.D. 03/28/2025 2:20 PM Discharge Plan Visit Data Chief Complaint: Abnormal Labs/Diagnostic Testing Stated Complaint: R HIP PAIN ED Provider: Anastacio Jj Discharge Problem: Hematoma of right thigh, Melena, Anemia, Anticoagulant long-term use Patient Disposition: Being Evaluated by Hospitalist Condition: Fair Forms Stand Alone Forms: My [facility] Prescriptions Prescriptions: No Action multivitamin [Daily Multi-Vitamin] Tablet 1 tab PO DAILY turmeric root extract 500 mg Capsule 1,000 mg PO TIDM acetaminophen 325 mg Tablet 650 mg PO Q4H MDD 3 GRAMS APAP/24 HOURS PRN (Reason: Pain) aspirin 81 mg tablet,delayed release (DR/EC) 81 mg PO DAILY amlodipine 10 mg tablet 10 mg PO HS metoprolol succinate 25 mg tablet extended release 24 hr 25 mg PO DAILY Rx Instructions: HOLD SBP <100 OR HR < 60 oxybutynin chloride 5 mg tablet 10 mg PO BID omega 6-lbx-fqx-fish oil [Fish Oil] 1,000 mg (120 mg-180 mg) Capsule 1 cap PO DAILY cholecalciferol (vitamin D3) [Vitamin D3] 25 mcg (1,000 unit) Capsule 25 mcg PO QAM Prevagen 10 mg PO DAILY lidocaine 4 % Adhesive Patch,Medicated 1 patch TOPICAL BID Rx Instructions: APPLY TO RIGHT HIP AND RIGHT KNEE BID ondansetron HCl [Zofran] 4 mg Tablet 4 mg PO Q6H PRN (Reason: NAUSEA/VOMITING) sennosides-docusate sodium [Senokot-S] 8.6-50 mg Tablet 2 tab-cap PO HS PRN (Reason: Constipation) acetaminophen [Tylenol Arthritis Pain] 650 mg Tablet Extended Release 650 mg PO TID calcium carbonate [Oyster Shell Calcium] 500 mg calcium (1,250 mg) Tablet 500 mg PO BID ferrous sulfate 325 mg (65 mg iron) Tablet 325 mg PO DAILY gabapentin 300 mg Capsule 300 mg PO TID polyethylene glycol 3350 [Miralax] 17 gram/dose Powder 17 g PO Q OTHER DAY polyethylene glycol 3350 [Miralax] 17 gram/dose Powder 17 g PO DAILY PRN (Reason: Constipation) simethicone 80 mg Tablet,Chewable 80 mg PO TID oxycodone 5 mg Tablet 5 mg PO Q4H PRN (Reason: MODERATE-SEVERE PAIN) bisacodyl 5 mg Tablet 10 mg PO DAILY PRN (Reason: Constipation) glucosamine-chondroitin [Osteo Bi-Flex] 250-200 mg Tablet 1 tab PO BIDM Cough Drops 5 mg Lozenge 5 mg PO Q2H PRN (Reason: Cough) Stable Gi Capsule 250 mg PO DAILY diclofenac sodium [Voltaren Arthritis Pain] 1 % gel 4 g EXT Q6H PRN (Reason: RIGHT HIP/BACK PAIN) Eliquis 5 mg tablet 5 mg PO BID Referrals Referrals: Colton Crow [Non-Staff] - Discharge Problem: Hematoma of right thigh Qualifiers: Encounter type: initial encounter Qualified Code(s): S70.11XA - Contusion of right thigh, initial encounter
[2025-03-28 13:12] LABS: Hematocrit (blood only) 25.9 % (37.0-47.0); Hemoglobin 7.9 g/dl (12.0-16.0); Immature Granulocytes # (auto) 0.01 K/uL (0.01-0.20); Immature Granulocytes % (auto) 0.2 %; Mean Corpuscular Hemoglobin 27.4 pg (25.0-34.0); Mean Corpuscular Volume 89.9 fL (80.0-100.0); Platelet Count 154 K/uL (130-400); RDW Standard Deviation 50.6 fL (36.4-46.3); Red Blood Count 2.88 M/uL (4.20-5.40); White Blood Count 6.21 K/ul (4.8-10.8)
[2025-03-28 13:34] LABS: Alanine Aminotransferase 9.0 U/L (7-52); Albumin Globulin Ratio 1.1 (0.9-2); Alkaline Phosphatase 57.0 U/L (34-104); Anion Gap 2.0 (3-11); Bilirubin,Total 0.4 mg/dl (0.2-1.0); Blood Urea Nitrogen 41.0 mg/dl (6-23); Calcium 10.6 mg/dl (8.6-10.3); Carbon Dioxide 30.0 mmol/L (21-32); Chloride 105.0 mmol/L (98-107); Creatine Kinase 14.0 U/L (26-192); Creatinine Clr Calc Pharmacy 61.4 ml/min; Globulin 3.0 gm/dl (2.5-4.0); Glucose 107.0 mg/dl (70-99(Fasting)); Magnesium 2.6 mg/dl (1.7-2.4); Potassium 5.6 mmol/L (3.5-5.1); Sodium 137.0 mmol/L (136-145); Total Protein 6.3 gm/dl (6.0-8.3)
[2025-03-28 13:37] LABS: RBC Morphology Unremarkable
[2025-03-28] MEDS: OPTIRAY 320 100ml IV ONE (13:37)
[2025-03-28] MEDS: SODIUM CHLORIDE 0.9% 500 ML IV ONE (13:41)
[2025-03-28 13:45] LABS: Thyroid Stimulating Hormone 0.502 uIu/ml (0.300-4.500)
--- NOTE | 2025-03-28 13:59 | CT Scan Report ---
CHEST CT WITH CONTRAST CT DOSE: 1366 HISTORY: R thigh swelling, hyperK/CA, breast mass, wt loss TECHNIQUE: Multiaxial CT images of the chest were performed following the IV administration of 90 cc of Optiray. A dose lowering technique was utilized adhering to the principles of ALARA. COMPARISON STUDY: 10/09/2023 FINDINGS: There is mild atelectasis in the lung bases and inferiorly at the lingula. No other pulmona ry consolidation or pleural effusion. No pneumothorax. No significant pulmonary nodule. The left mica st is mostly off the [id number]. There is diffuse thyroid enlargement. No enlarged adenopathy seen . No pericardial effusion. There is prominence of the pulmonary arteries which could represent CHF or pulmonary arterial hypertension. There is no pulmonary embolism. No thoracic aortic dissection or an eurysm. There is moderate cardiomegaly. There is osteopenia. There are a few old healed rib fractures bilaterally. There are mild thoracic spine degenerative changes. There is mild chronic-appearing hei ght loss at a few lower thoracic vertebral bodies. No acute osseous finding seen. IMPRESSION: 1. Majority of the left breast is off the field of view. No gross mass seen at the right breast. No e nlarged adenopathy seen. 2. No acute findings seen. Otherwise as described. ACT 112: Negative or not required by law. Electronically signed by: Jameel Palm M.D. 03/28/2025 1:58 PM
[2025-03-28 14:08] LABS: INR 1.0 (0.9-1.1); Prothrombin Time 10.9 Seconds (9.0-12.0)
--- NOTE | 2025-03-28 14:21 | CT Scan Report ---
ABDOMEN AND PELVIS CT WITH IV CONTRAST and CT of the right femur CT DOSE: 1366 HISTORY: R thigh swelling, hyperK/CA, breast mass, wt loss TECHNIQUE: Multiaxial CT images of the abdomen and pelvis and right femur were performed following th e IV administration of 90 cc of Optiray, A dose lowering technique was utilized adhering to the prin ciples of ABEL. COMPARISON STUDY: 12/13/2021 FINDINGS: ABDOMEN: There are a few tiny cysts at the liver. Otherwise the liver, gallbladder, spleen, and adren al glands are unremarkable. There are mild atherosclerotic calcifications. No abdominal aortic aneury sm. There is cortical scarring of both kidneys. There are multiple tiny cysts at both kidneys. There is a progressive staghorn calcification at the left kidney involving the proximal renal pelvis and ma jority of the calyces on the left. There is no hydronephrosis or ureteral calculi bilaterally. There are multiple small round cystic findings at the proximal to mid pancreas measuring up to 11 mm at the pancreatic body. There are serpiginous vessels medially adjacent to the spleen which may represent a n AVM between the splenic artery and vein. 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 Pelvis: Uterus is very diminutive. No adnexal mass seen. Urinary bladder is nondistended. Rectum is m oderately distended with stool. There is a moderate to large amount of retained stool. No bowel infla mmation or obstruction seen. No free fluid or free air. No enlarged adenopathy seen. Osseous structures: There is osteopenia. There is interval mild height loss at the L2 and L4 vertebra l bodies without acute features, likely chronic. No acute osseous findings seen. There are severe deg enerative changes at the right hip with severe joint space narrowing and flattening of the right femo ral head. Right femur: There is a hematoma anteriorly at the right upper thigh measuring 7 cm greatest axial di mension by 10 cm craniocaudad. Within the upper aspect of the hematoma lower right inguinal region th ere is a 2 cm oval area of arterial enhancement which could represent focus of active extravasation o r pseudoaneurysm. Communication with the right superficial femoral artery is not demonstrated. There is osteopenia. No acute fracture or dislocation seen at the right femur. There are severe degenerativ e changes at the right hip and right knee. IMPRESSION: 1. Hematoma at the proximal right thigh with small area of arterial enhancement at the upper aspect o f the hematoma which could represent focus of active extravasation or small pseudoaneurysm. No connec tion to the underlying right superficial femoral artery is demonstrated. 2. No other acute findings seen. 3. Small pancreatic cysts versus intraductal papillary mucinous tumors. Follow-up abdominal CT is sug gested in one year. 3. Progressive staghorn calculus at the left kidney without hydronephrosis. 4. No enlarged adenopathy. 5. Otherwise as described. ACT 112: Positive. There are findings on this exam that require communication between the performing entity and the patient following Patient Test Result Information Act ([place] Act 112) guidelines. The above report was generated using voice recognition software. It may contain grammatical, syntax o r spelling errors. Electronically signed by: Jameel Palm M.D. 03/28/2025 2:20 PM
--- NOTE | 2025-03-28 15:05 | History & Physical Report ---
Date of Service March 28, 2025 Assessment & Plan (1) Hematoma of right thigh: Plan: Patient is a 74-year-old female with history of breast cancer, DVT on Eliquis, hypertension, bedbound at baseline per patient no other medical problems who currently resides at [facility] presents with history of worsening right hip/thigh swelling. Reportedly, patient experienced pain to RLE with swelling x 3 to 4 days without any fall or trauma. History of Breast CA s/p chemo and radiation in 2020. Hematoma right thigh #Anemia * Admit to [facility] for further evaluation and workup * Abd/Pelvis CT showed hematoma at the proximal right thigh with small area of arterial enhancement at the upper aspect of the hematoma possibly representing active extravasation vs small pseudoaneurysm. * Patient non-ambulatory, non-weight bearing, no history of falls, transfers via mechanical lift * History RONALD with iron replacement at home; Baseline hgb 10; now with Hgb 7.9, Hct 25.9, MCV 89.9, MCHC 30.5, RDW 50.6 * Iron studies pending; Type and Cross ordered; blood transfusion on hold pending 2100 labs * Hold home anticoagulation and aspirin * Check H&H with AM labs #Hyperkalemia: * K+ 5.6 in the ED; NSS 500 ml and Lokelma x1 given * Stable renal functioning; Cr 0.73, BUN 41; GFR 85 * Continue Lokelma TID dosing * Check BMP with 2100 labs * Hold all supplements * Clinically dry on exam; elevated BUN/Creat ratio 56.2; will start NSS 125 ml/hr * Abd/Pelvis CT showing progressive staghorn calculus at the left kidney without hydronephrosis; Urine sample ordered and pending; no urinary symptoms reported; incontinent at baseline * Will recheck BMP at 2100 and again with AM labs * EKG with Sinus rhythm with occasional Premature ventricular complexes; Right bundle branch block vent rate 71 bpm, QTc 508 #Hypercalcemia 2/2 malignancy #H/O Breast CA s/p lumpectomy, chemo, radiation in 2020 #Protein-calorie malnutrition, severe * Chest CT showing no gross mass seen at the right breast. No enlarged adenopathy seen; diffuse thyroid enlargement * Vitamin D Hydroxy and PTH pending * Zometa 4mg given x 1 * Check ionized calcium with AM labs * Consider nutrition consult--> patient with ~45 lb weight loss in 1 year #Pancreatic pseudocyst/cyst * Abd/Pelvis CT showing Small pancreatic cysts versus intraductal papillary mucinous tumors. * GI consult for further recs--> NPO at [place] for possible EGD * IV Protonix twice daily #H/O DVT/PE in 2023 * Hold Eliquis and Aspirin in setting of active bleeding 2/2 hematoma * DVT prophylaxis with SCDs #Hypertension * BP stable at 116/72; BP Goal 140/90 * Continue home amlodipine and metoprolol DVT Ppx: SCDs Code status: DNR PCP: Dr. Cowan Dispo: Admit Patient seen in collaboration with Dr. Ohara. Please see addendum. I spent a total of 70 minutes coordinating, documenting and providing care for this patient excluding time spent in the performance of separately billed services or time spent by another provider/QHP. (2) Anemia: (3) Hypercalcemia: (4) Breast CA: (5) Protein-calorie malnutrition, severe: (6) Pancreatic pseudocyst/cyst: (7) History of DVT (deep vein thrombosis): (8) Pulmonary embolism: (9) Hypertension: History of Present Illness Primary Care Provider: Marlon Cowan MD Patient is a 74-year-old female with history of breast cancer, DVT on Eliquis, hypertension, bedbound at baseline per patient no other medical problems who currently resides at [facility] presents with history of worsening right hip/thigh swelling. Reportedly, patient experienced pain to RLE with swelling x 3 to 4 days without any fall or trauma. History of Breast CA s/p chemo and radiation in 2020. Denies fever, chills, weight loss, weakness, headache, cognitive changes, vision/hearing changes, chest pain, SOB, swelling, difficulty breathing, urinary concerns, N/V/D, joint swelling/pain, ambulation difficulty, skin rashes, lesions, bleeding, bruising. As per external record, pt was out of bed was on 03/17/25 when transported to [facility] for a scheduled right hip injection for her DJD. Xray of right hip and femur showed right hip-moderately severe osteoarthritis; Soft tissue fullness of the outer aspect of the right hip. Pt having no chills or fever. Vital signs stable. ASA and Eliquis were held at that time. History of DVT/PE 2023 following a fall at [facility] sustaining fracture distal humerus and right tibial plateau. Patient has been non-weight bearing since. Over the past year, pt has been losing significant amount of weight (at least 45 pounds) despite good appetite. About four months ago pt was found to have a hard left breast mass and she has refused to have this evaluated with a mammogram/US despite multiple discussions. Pt has been gradually becoming more anemic and hypercalcemic. Concern for malignancy In the emergency department, patient was hemodynamically stable with evidence of hyperkalemia with K+ 5.6. IVF given and Lokelma x 1. Xray negative for fracture. + anemia with Hgb 7.9. CT abdomen/pelvis showed hematoma at the proximal right thigh with small area of arterial enhancement at the upper aspect of the hematoma which could represent focus of active extravasation or small pseudoaneurysm. No connection to the underlying right superficial femoral artery is demonstrated; No other acute findings seen. History obtained primarily from the patient and via hospitalization record. External chart review obtained from [facility] [employer]. Allergies Allergy/AdvReac Type Severity Reaction Status Date / Time [id number] Reductase AdvReac Intermediate GENERAL Verified 03/28/25 14:49 Inhibitor MALAISE [Oyfeayw-Vyk-Hzv Reductase Inhibitor] tramadol AdvReac Intermediate RESTLESS Verified 03/28/25 14:49 LEG SYNDROME adhesive AdvReac Mild RED SKIN Verified 03/28/25 14:49 FROM BUTTERFLY naproxen AdvReac Mild FEET SWELL Verified 03/28/25 14:49 Home Medications Medication Instructions Recorded Confirmed Type multivitamin (Daily Multi-Vitamin 1 tab PO DAILY 08/10/20 03/28/25 History tablet) Prevagen 10 mg PO DAILY 06/15/21 03/28/25 History cholecalciferol (vitamin D3) 25 25 mcg PO QAM 06/15/21 03/28/25 History mcg (1,000 unit) capsule (Vitamin D3) acetaminophen 325 mg tablet 650 mg PO Q4H PRN Pain 12/13/21 03/28/25 History turmeric root extract 500 mg 1,000 mg PO TIDM 12/13/21 03/28/25 History capsule amlodipine 10 mg tablet 10 mg PO HS 10/09/23 03/28/25 History aspirin 81 mg tablet,delayed 81 mg PO DAILY 10/09/23 03/28/25 History release metoprolol succinate 25 mg 25 mg PO DAILY 10/09/23 03/28/25 History tablet,extended release 24 hr omega 8-pqm-hex-fish oil 1,000 mg 1 cap PO DAILY 10/09/23 03/28/25 History (120 mg-180 mg) capsule (Fish Oil) oxybutynin chloride 5 mg tablet 10 mg PO BID 10/09/23 03/28/25 History Stable Gi Capsule 250 mg PO DAILY 03/28/25 03/28/25 History acetaminophen 650 mg 650 mg PO TID 03/28/25 03/28/25 History tablet,extended release (Tylenol Arthritis Pain) apixaban 5 mg tablet (Eliquis) 5 mg PO BID 03/28/25 03/28/25 History bisacodyl 5 mg tablet 10 mg PO DAILY PRN Constipation 03/28/25 03/28/25 History calcium carbonate (Oyster Shell 500 mg PO BID 03/28/25 03/28/25 History Calcium) diclofenac sodium 1 % topical gel 4 g EXT Q6H PRN RIGHT HIP/BACK PAIN 03/28/25 03/28/25 History (Voltaren Arthritis Pain) ferrous sulfate 325 mg (65 mg 325 mg PO DAILY 03/28/25 03/28/25 History iron) tablet gabapentin 300 mg capsule 300 mg PO TID 03/28/25 03/28/25 History glucosamine-chondroitin 250 mg-200 1 tab PO BIDM 03/28/25 03/28/25 History mg tablet lidocaine 4 % topical patch 1 patch topical BID 03/28/25 03/28/25 History menthol 5 mg lozenges (Cough Drops) 5 mg PO Q2H PRN Cough 03/28/25 03/28/25 History ondansetron HCl 4 mg tablet 4 mg PO Q6H PRN NAUSEA/VOMITING 03/28/25 03/28/25 History oxycodone 5 mg tablet 5 mg PO Q4H PRN MODERATE-SEVERE 03/28/25 03/28/25 History PAIN polyethylene glycol 3350 17 17 g PO DAILY PRN Constipation 03/28/25 03/28/25 History gram/dose oral powder (Miralax) polyethylene glycol 3350 17 17 g PO Q OTHER DAY 03/28/25 03/28/25 History gram/dose oral powder (Miralax) sennosides 8.6 mg-docusate sodium 2 tab-cap PO HS PRN Constipation 03/28/25 03/28/25 History 50 mg tablet (Senokot-S) simethicone 80 mg chewable tablet 80 mg PO TID 03/28/25 03/28/25 History Past Med/Surg History Problem List Protein-calorie malnutrition, severe Pancreatic pseudocyst/cyst Hypercalcemia Anticoagulant long-term use (Acute) Anemia (Acute) Melena (Acute) Hematoma of right thigh (Acute) Tibial plateau fracture, right Right knee pain Acute pulmonary embolism Pneumonia Acute hypoxic respiratory failure History of DVT (deep vein thrombosis) Acute UTI (Acute) Sepsis (Acute) Hypertension (Chronic) Morbid obesity with BMI of 40.0-44.9, adult (Acute) Venous stasis Osteoarthritis (Chronic) Medical History Pulmonary embolism MRSA (methicillin resistant Staphylococcus aureus) Tricompartment degenerative joint disease of knee Spinal stenosis at L4-L5 level Chronic venous insufficiency Breast CA Venous stasis dermatitis Surgical History No pertinent past surgical history Social History Smoking Status: Never smoker Second Hand Exposure: No; Do You Dip or Chew Tobacco: No; Hx Alcohol Use: No Hx Substance Use: No Preferred Language: Thai Communication Ability: Effective Communication Ability Comment: UNHAPPY [employer]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 WEIGHT/BMI reviewed. GEN: Malnourished, pale skin, NAD. PSYCH: Good Judgment. AOx3. Normal memory, mood, and affect. HEENT -Head: NC/AT; -Eyes: PERRL, EOMI. No discharge or redn ess; -Ears: External ears are normal. -Nose: Normal nares. -Mouth and throat: Dry, cracked lips. No rmal gums, mucosa, palate,. Fair dentition. NECK: Supple, with no masses. CV: S1,S2 + systolic murmur, no pedal swelling, +2 pulses LUNGS: CTAB, no w/r/c. ABD: Soft, generalized tenderness with light palpation, active BS, no masses or organomegaly. : N/A SKIN: Warm, well perfused. No skin rashes or abnormal lesions. MSK: Swelling from R hip through mid-thigh, +warm, + tenderness with movement and touch, no redness, diminished strength RLE 1/5, LLE 3/5, sensation and motion intact BLE. Nonambulatory EXT: No clubbing, cyanosis NEURO: CN II-XII grossly intact, No focal deficits. Results & Data Results & Data Vital Signs (Past 12 Hours) Vital Signs Temp Pulse Resp BP Pulse Ox O2 Del Method 03/28/25 14:32 72 03/28/25 12:42 36.7 C 78 18 102/73 95 Room Air Laboratory Results Short CBC 03/28/25 Range/Units 12:45 WBC 6.21 (4.8-10.8) K/ul Hgb 7.9 L (12.0-16.0) g/dl Hct 25.9 L (37.0-47.0) % Plt Count 154 (130-400) K/uL BMP 03/28/25 12:45 Sodium 137 Potassium 5.6 H Chloride 105 Carbon Dioxide 30 BUN 41 H Creatinine 0.73 Glucose 107 H Calcium 10.6 H Cardiac Enzymes 03/28/25 Range/Units 12:45 Total Creatine Kinase 14 L (26-192) U/L Liver Function 03/28/25 Range/Units 12:45 Total Bilirubin 0.4 (0.2-1.0) mg/dl AST 12 L (13-39) U/L ALT 9 (7-52) U/L Alkaline Phosphatase 57 (34-104) U/L Albumin 3.3 L (3.4-5.0) gm/dl Diagnostic Findings Abdomen/Pelvis CT 03/28/25 12:[address] WITH IV CONTRAST and CT of the right femur CT DOSE: 1366 HISTORY: R thigh swelling, hyperK/CA, breast mass, wt loss TECHNIQUE: Multiaxial CT images of the abdomen and pelvis and right femur were performed following the IV administration of 90 cc of Optiray, A dose lowering technique was utilized adhering to the principles of ALARA. COMPARISON STUDY: 12/13/2021 FINDINGS: ABDOMEN: There are a few tiny cysts at the liver. Otherwise the liver, gallbladder, spleen, and adrenal glands are unremarkable. There are mild atherosclerotic calcifications. No abdominal aortic aneurysm. There is cortical scarring of both kidneys. There are multiple tiny cysts at both kidneys. There is a progressive staghorn calcification at the left kidney involving the proximal renal pelvis and majority of the calyces on the left. There is no hydronephrosis or ureteral calculi bilaterally. There are multiple small round cystic findings at the proximal to mid pancreas measuring up to 11 mm at the pancreatic body. There are serpiginous vessels medially adjacent to the spleen which may represent an AVM between the splenic artery and vein. 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 Pelvis: Uterus is very diminutive. No adnexal mass seen. Urinary bladder is nondistended. Rectum is moderately distended with stool. There is a moderate to large amount of retained stool. No bowel inflammation or obstruction seen. No free fluid or free air. No enlarged adenopathy seen. Osseous structures: There is osteopenia. There is interval mild height loss at the L2 and L4 vertebral bodies without acute features, likely chronic. No acute osseous findings seen. There are severe degenerative changes at the right hip with severe joint space narrowing and flattening of the right femoral head. Right femur: There is a hematoma anteriorly at the right upper thigh measuring 7 cm greatest axial dimension by 10 cm craniocaudad. Within the upper aspect of the hematoma lower right inguinal region there is a 2 cm oval area of arterial enhancement which could represent focus of active extravasation or pseudoaneurysm. Communication with the right superficial femoral artery is not demonstrated. There is osteopenia. No acute fracture or dislocation seen at the right femur. There are severe degenerative changes at the right hip and right knee. IMPRESSION: 1. Hematoma at the proximal right thigh with small area of arterial enhancement at the upper aspect of the hematoma which could represent focus of active extravasation or small pseudoaneurysm. No connection to the underlying right superficial femoral artery is demonstrated. 2. No other acute findings seen. 3. Small pancreatic cysts versus intraductal papillary mucinous tumors. Follow- up abdominal CT is suggested in one year. 3. Progressive staghorn calculus at the left kidney without hydronephrosis. 4. No enlarged adenopathy. 5. Otherwise as described. ACT 112: Positive. There are findings on this exam that require communication between the performing entity and the patient following Patient Test Result Information Act ([place] Act 112) guidelines. The above report was generated using voice recognition software. It may contain grammatical, syntax or spelling errors. Electronically signed by: Jameel Palm M.D. 03/28/2025 2:[address] 03/28/25 12:[address] CONTRAST CT DOSE: 1366 HISTORY: R thigh swelling, hyperK/CA, breast mass, wt loss TECHNIQUE: Multiaxial CT images of the chest were performed following the IV administration of 90 cc of Optiray. A dose lowering technique was utilized adhering to the principles of ALARA. COMPARISON STUDY: 10/09/2023 FINDINGS: There is mild atelectasis in the lung bases and inferiorly at the lingula. No other pulmonary consolidation or pleural effusion. No pneumothorax. No significant pulmonary nodule. The left breast is mostly off the [id number]. There is diffuse thyroid enlargement. No enlarged adenopathy seen. No pericardial effusion. There is prominence of the pulmonary arteries which could represent CHF or pulmonary arterial hypertension. There is no pulmonary embolism. No thoracic aortic dissection or aneurysm. There is moderate cardiomegaly. There is osteopenia. There are a few old healed rib fractures bilaterally. There are mild thoracic spine degenerative changes. There is mild chronic-appearing height loss at a few lower thoracic vertebral bodies. No acute osseous finding seen. IMPRESSION: 1. Majority of the left breast is off the field of view. No gross mass seen at the right breast. No enlarged adenopathy seen. 2. No acute findings seen. Otherwise as described. ACT 112: Negative or not required by law. Electronically signed by: Jameel Palm M.D. 03/28/2025 1:[address] 03/28/25 12:[address] WITH IV CONTRAST and CT of the right femur CT DOSE: 1366 HISTORY: R thigh swelling, hyperK/CA, breast mass, wt loss TECHNIQUE: Multiaxial CT images of the abdomen and pelvis and right femur were performed following the IV administration of 90 cc of Optiray, A dose lowering technique was utilized adhering to the principles of ALARA. COMPARISON STUDY: 12/13/2021 FINDINGS: ABDOMEN: There are a few tiny cysts at the liver. Otherwise the liver, gallbladd er, spleen, and adrenal glands are unremarkable. There are mild atherosclerotic calcifications. No abdominal aortic aneurysm. There is cortical scarring of both kidneys. There are multiple tiny cysts at both kidneys. There is a progressive staghorn calcification at the left kidney involving the proximal renal pelvis and majority of the calyces on the left. There is no hydronephrosis or ureteral calculi bilaterally. There are multiple small round cystic findings at the proximal to mid pancreas measuring up to 11 mm at the pancreatic body. There are serpiginous vessels medially adjacent to the spleen which may represent an AVM between the splenic artery and vein. 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 Pelvis: Uterus is very diminutive. No adnexal mass seen. Urinary bladder is nondistended. Rectum is moderately distended with stool. There is a moderate to large amount of retained stool. No bowel inflammation or obstruction seen. No free fluid or free air. No enlarged adenopathy seen. Osseous structures: There is osteopenia. There is interval mild height loss at the L2 and L4 vertebral bodies without acute features, likely chronic. No acute osseous findings seen. There are severe degenerative changes at the right hip with severe joint space narrowing and flattening of the right femoral head. Right femur: There is a hematoma anteriorly at the right upper thigh measuring 7 cm greatest axial dimension by 10 cm craniocaudad. Within the upper aspect of the hematoma lower right inguinal region there is a 2 cm oval area of arterial enhancement which could represent focus of active extravasation or pseudoaneurysm. Communication with the right superficial femoral artery is not demonstrated. There is osteopenia. No acute fracture or dislocation seen at the right femur. There are severe degenerative changes at the right hip and right knee. IMPRESSION: 1. Hematoma at the proximal right thigh with small area of arterial enhancement at the upper aspect of the hematoma which could represent focus of active extravasation or small pseudoaneurysm. No connection to the underlying right superficial femoral artery is demonstrated. 2. No other acute findings seen. 3. Small pancreatic cysts versus intraductal papillary mucinous tumors. Follow- up abdominal CT is suggested in one year. 3. Progressive staghorn calculus at the left kidney without hydronephrosis. 4. No enlarged adenopathy. 5. Otherwise as described. ACT 112: Positive. There are findings on this exam that require communication between the performing entity and the patient following Patient Test Result Information Act ([place] Act 112) guidelines. The above report was generated using voice recognition software. It may contain grammatical, syntax or spelling errors. Electronically signed by: Jameel Palm M.D. 03/28/2025 2:20 PM Supervising Physician Co-Signing Physician Notes Patient is a 74-year-old female with history of breast cancer, DVT on Eliquis, hypertension, bedbound at baseline per patient no other medical problems who currently resides at [facility] presents with history of worsening right hip/thigh swelling, pain since 3 to 4 days duration. She denies any fall, trauma. Patient is on aspirin and Eliquis. Patient had a history of breast cancer and had lumpectomy, chemo and radiation therapy in the past. She admits to have significant weight loss. Please review HPI for complete details of presentation. I personally reviewed blood work and imaging studies. Noted hemoglobin 7.9, potassium 5.6, calcium 10.6. Hemoccult positive while in ED. Imaging studies concerning for right thigh hematoma, findings suggestive of possible active extravasation or pseudoaneurysm. Also showed small pancreatic cysts Vs intraductal papillary mucinous tumors. Progressive staghorn calculus of left kidney without hydronephrosis noted. EKG showed sinus rhythm with occasional PVCs, right bundle branch block. Physical Exam: Vitals signs as noted above General Appearance:Moderately built and nourished, no apparent distress, ill appearing, frail Head: normocephalic, Atraumatic Eyes: normal inspection, EOMI Neck: supple, Trachea midline Respiratory/Chest: Normal breath sounds, CTA, No accessory muscle use Cardiovascular: S1, S2, +murmur Abdomen/GI:Soft, distended, generalized tender, Bowel sounds present Extremities/Musculoskeletal:normal inspection, R Thigh swelling, tender, no erythema, Venous stais changes Neurologic/Psych:AAOX3, B/L LE 1+/5. Skin: normal color, warm Right leg hematoma In setting of anticoagulation with Eliquis Hypercalcemia likely due to malignancy Hyperkalemia Melena/possible upper GI bleed Acute on chronic anemia Pancreatic cysts/IPMN Left kidney staghorn stone, nonobstructive Hold Eliquis, aspirin, anticoagulation Avoid NSAIDs Orthopedics consulted Fall precautions Anemia workup, type and cross IV Protonix twice daily, GI consulted, monitor H&H and transfuse as needed Received Lokelma for hyperkalemia, will repeat BMP tonight Continue IV fluids, given Zometa Hypercalcemia workup ordered N.p.o. after midnight for possible EGD tomorrow I personally interviewed and examined the patient at bedside. I have reviewed the advanced practitioner's documentation on the date of service referred in note and agree with plan. Patient's care is coordinated with Leslee De La Torre NP. Please refer to the documentation above for details of patient's presentation and for discussion of other issues. I spent a total of 45minutes coordinating, documenting, and providing care for this patient excluding time spent in the performance of separately billed services or time spent by another provider/QHP. (1) Hematoma of right thigh Encounter type: initial encounter Qualified Code(s): S70.11XA - Contusion of right thigh, initial encounter (9) Hypertension Hypertension type: unspecified Qualified Code(s): I10 - Essential (primary) hypertension
--- NOTE | 2025-03-28 15:11 | Electrocardiogram Report ---
Test Reason : Blood Pressure : */* mmHG Vent. Rate : 71 BPM Atrial Rate : 71 BPM P-R Int : 174 ms QRS Dur : 202 ms QT Int : 468 ms P-R-T Axes : 20 121 -18 degrees QTcB Int : 508 ms Sinus rhythm with occasional Premature ventricular complexes Right bundle branch block T wave abnormality, consider inferolateral ischemia Abnormal ECG When compared with ECG of 09-Oct-2023 10:43, Premature ventricular complexes are now Present Premature atrial complexes are no longer Present Criteria for Septal infarct are no longer Present Confirmed by Giovani Kasper ([id number]) on 03/28/2025 3:10:59 PM Referred By: Colton Vallejo Confirmed By: Giovani Kasper
[2025-03-28] MEDS: SODIUM ZIRCONIUM CYCLOSILICATE 10 GM PACKET PO ONE (16:02)
[2025-03-28] MEDS ORDERED: SODIUM CHLORIDE 0.9% 100 ML IV PRN (16:30)
[2025-03-28 16:33] LABS: Iron 15.0 mcg/dl (35-150); Total Iron Binding Cap Calc 315.0 mcg/dl (250-450); Transferrin 225.0 mg/dl (200-360); Transferrin (FE) Percent Satur 5.0 % (15-50)
[2025-03-28] MEDS: SODIUM CHLORIDE 0.9% 1,000 ML IV SCH (16:36)
[2025-03-28 17:30] LABS: Folate (Folic Acid),Ser orPlas > 22.30 ng/ml (>5.38)
[2025-03-28 17:31] LABS: Vitamin B12 923 pg/ml (180-914)
[2025-03-28] MEDS: ZOLEDRONIC ACID 4 MG in SODIUM CHLOR 0.9% MINI-B 100 ML IV ONE (17:43)
[2025-03-28] MEDS ORDERED: ONDANSETRON INJ 2 MG/ML 2 ML VIAL IV PRN (18:21)
[2025-03-28] MEDS ORDERED: ACETAMINOPHEN 325 MG TAB PO PRN (18:21)
[2025-03-28] MEDS ORDERED: POLYETHYLENE (MIRALAX) 17 GM PACK PO PRN (18:21)
[2025-03-28] MEDS ORDERED: SODIUM ZIRCONIUM CYCLOSILICATE 10 GM PACKET PO SCH (21:00)
[2025-03-28] MEDS: PANTOprazole 40 MG/10 ML SYR IV SCH (21:24)
[2025-03-28] MEDS: GABAPENTIN 300 MG CAP PO SCH (21:24)
[2025-03-28 21:28] LABS: Hematocrit (blood only) 23.5 % (37.0-47.0); Hemoglobin 7.2 g/dl (12.0-16.0)
[2025-03-28 21:38] LABS: Anion Gap 3.0 (3-11); Blood Urea Nitrogen 33.0 mg/dl (6-23); Calcium 9.9 mg/dl (8.6-10.3); Carbon Dioxide 26.0 mmol/L (21-32); Chloride 107.0 mmol/L (98-107); Creatinine Clr Calc Pharmacy 91.4 ml/min; Glucose 99.0 mg/dl (70-99(Fasting)); Potassium 4.8 mmol/L (3.5-5.1); Sodium 136.0 mmol/L (136-145)
[2025-03-29 07:38] LABS: Hematocrit (blood only) 20.6 % (37.0-47.0); Hemoglobin 6.3 g/dl (12.0-16.0); Mean Corpuscular Hemoglobin 27.8 pg (25.0-34.0); Mean Corpuscular Volume 90.7 fL (80.0-100.0); Platelet Count 133 K/uL (130-400); RDW Standard Deviation 51.6 fL (36.4-46.3); Red Blood Count 2.27 M/uL (4.20-5.40); White Blood Count 4.11 K/ul (4.8-10.8)
[2025-03-29] MEDS ORDERED: SODIUM CHLORIDE 0.9% 100 ML IV PRN (07:39)
[2025-03-29 07:59] LABS: Anion Gap 1.0 (3-11); Blood Urea Nitrogen 28.0 mg/dl (6-23); Calcium 9.2 mg/dl (8.6-10.3); Carbon Dioxide 28.0 mmol/L (21-32); Chloride 110.0 mmol/L (98-107); Creatinine Clr Calc Pharmacy 131.8 ml/min; Glucose 87.0 mg/dl (70-99(Fasting)); Potassium 4.7 mmol/L (3.5-5.1); Sodium 139.0 mmol/L (136-145)
--- NOTE | 2025-03-29 08:40 | Gastrointestinal Consultation ---
Date of Consultation March 29, 2025 Assessment & Plan (1) Anemia: With regards to her anemia I am not certain GI is contributing to this. Granted she had black stool in ED but she takes iron. Stool for hemoccult is not useful in an acute setting. At any rate she says she would not have any procedures d one because she considers them "an invasion of her privacy". When questioned whether she would have them in attempt to help her she did not answer. With continued fall in H/H and no active bleeding with multiple stools I would pay more attention to the thigh hematoma as the cause of her problem. Will follow but cannot intervene if she is not willing. With reagrds to the multiple pancreatic cysts and the possible IPMN. This is evaluated with EUS and would be done as an outpatient. I question whether she would allow them either. History of Present Illness Reason for Consultation: anemia Attending Physician: Vikash Hanson MD History of Present Illness 74 year old female admitted with anemia, right thigh hematoma and ?active bleeding into thigh muscle. Because of her anemia GI is requested to see her. Patient does not seem to want to cooperate much with her history. She says she wasn't aware she was anemic. She says she "doesn't know" if she has blood in her stool. She says if she has black stools at [facility] the staff asks her if she is taking iron and she tells them she does take iron. She does not elaborate on why she is taking iron or if she knows she is taking iron. She denies abdominal pain. She reports a good appetite but is upset she hasn't been allowed to eat while in the hospital. When questioned whether or not she has had a colonoscopy or an EGD she says "she would never have those because she considers them an invasion of privacy". She wasn't aware she had a problem with her leg but says it hurts if someone touches it. Allergies Allergy/AdvReac Type Severity Reaction Status Date / Time Dttoney-KEN-SiK Reductase AdvReac Intermediate GENERAL Verified 03/28/25 14:49 Inhibitor MALAISE [Glgriwz-Esv-Qaq Reductase Inhibitor] tramadol AdvReac Intermediate RESTLESS Verified 03/28/25 14:49 LEG SYNDROME adhesive AdvReac Mild RED SKIN Verified 03/28/25 14:49 FROM BUTTERFLY naproxen AdvReac Mild FEET SWELL Verified 03/28/25 14:49 Home Medications Medication Instructions Recorded Confirmed Type multivitamin (Daily Multi-Vitamin 1 tab PO DAILY 08/10/20 03/28/25 History tablet) Prevagen 10 mg PO DAILY 06/15/21 03/28/25 History cholecalciferol (vitamin D3) 25 25 mcg PO QAM 06/15/21 03/28/25 History mcg (1,000 unit) capsule (Vitamin D3) acetaminophen 325 mg tablet 650 mg PO Q4H PRN Pain 12/13/21 03/28/25 History turmeric root extract 500 mg 1,000 mg PO TIDM 12/13/21 03/28/25 History capsule amlodipine 10 mg tablet 10 mg PO HS 10/09/23 03/28/25 History aspirin 81 mg tablet,delayed 81 mg PO DAILY 10/09/23 03/28/25 History release metoprolol succinate 25 mg 25 mg PO DAILY 10/09/23 03/28/25 History tablet,extended release 24 hr omega 2-ixc-qlj-fish oil 1,000 mg 1 cap PO DAILY 10/09/23 03/28/25 History (120 mg-180 mg) capsule (Fish Oil) oxybutynin chloride 5 mg tablet 10 mg PO BID 10/09/23 03/28/25 History Stable Gi Capsule 250 mg PO DAILY 03/28/25 03/28/25 History acetaminophen 650 mg 650 mg PO TID 03/28/25 03/28/25 History tablet,extended release (Tylenol Arthritis Pain) apixaban 5 mg tablet (Eliquis) 5 mg PO BID 03/28/25 03/28/25 History bisacodyl 5 mg tablet 10 mg PO DAILY PRN Constipation 03/28/25 03/28/25 History calcium carbonate (Oyster Shell 500 mg PO BID 03/28/25 03/28/25 History Calcium) diclofenac sodium 1 % topical gel 4 g EXT Q6H PRN RIGHT HIP/BACK PAIN 03/28/25 03/28/25 History (Voltaren Arthritis Pain) ferrous sulfate 325 mg (65 mg 325 mg PO DAILY 03/28/25 03/28/25 History iron) tablet gabapentin 300 mg capsule 300 mg PO TID 03/28/25 03/28/25 History glucosamine-chondroitin 250 mg-200 1 tab PO BIDM 03/28/25 03/28/25 History mg tablet lidocaine 4 % topical patch 1 patch topical BID 03/28/25 03/28/25 History menthol 5 mg lozenges (Cough Drops) 5 mg PO Q2H PRN Cough 03/28/25 03/28/25 History ondansetron HCl 4 mg tablet 4 mg PO Q6H PRN NAUSEA/VOMITING 03/28/25 03/28/25 History oxycodone 5 mg tablet 5 mg PO Q4H PRN MODERATE-SEVERE 03/28/25 03/28/25 History PAIN polyethylene glycol 3350 17 17 g PO DAILY PRN Constipation 03/28/25 03/28/25 History gram/dose oral powder (Miralax) polyethylene glycol 3350 17 17 g PO Q OTHER DAY 03/28/25 03/28/25 History gram/dose oral powder (Miralax) sennosides 8.6 mg-docusate sodium 2 tab-cap PO HS PRN Constipation 03/28/25 03/28/25 History 50 mg tablet (Senokot-S) simethicone 80 mg chewable tablet 80 mg PO TID 03/28/25 03/28/25 History Patient History Medical History Pulmonary embolism MRSA (methicillin resistant Staphylococcus aureus) Tricompartment degenerative joint disease of knee Spinal stenosis at L4-L5 level Chronic venous insufficiency Breast CA Venous stasis dermatitis Surgical History No pertinent past surgical history Social History Smoking Status: Former smoker Tobacco Type: Cigarettes Second Hand Exposure: No; Do You Dip or Chew Tobacco: No; Tobacco Cessation Education Requested by Patient: No Hx Alcohol Use: No (pt stated she has not had alcohol in 10+ years) Hx Substance Use: No Preferred Language: Swiss Communication Ability: Effective Communication Ability Comment: UNHAPPY Laboratory Immunologist Required: No Beliefs That Will Affect Care: None marital status: Single Current Living Situation: Detention Current Living Situation Comment: [facility] WITH SISTER Other Information That Helps Us Care for You: No Feels Safe at Home: Yes Safety Concerns: Feels Safe At This Time Assistive Devices: Denture - Upper, Glasses and Hospital Bed Review of Systems Review of Systems: All systems reviewed & are unremarkable except as noted in HPI & below Physical Exam Physical Exam: Somewhat cantankerous elderly female in no distress Constitutional: WD/WN, vitals as above Neck: trachea midline, no thyromegaly Respiratory: normal respiratory effort, lungs clear to auscultation Cardiovascular: RRR, no murmur, no edema Gastrointestinal (Abdomen): Inspection/Auscultation: abdomen normal to inspection Percussion/Palpation: + abdomen tender (seems to be tender diffusely) and abdomen soft Results & Data Vital Signs (Past 12 Hours) Vital Signs Temp Pulse Pulse Pulse Resp BP BP 03/29/25 08:19 37 C 62 16 102/64 03/29/25 08:11 36.7 C 69 20 99/62 L 03/29/25 03:24 36.7 C 69 16 105/69 03/28/25 22:22 81 03/28/25 21:14 73 03/28/25 21:00 36.6 C 77 14 122/71 Pulse Ox O2 Del Method 03/29/25 08:19 98 03/29/25 08:11 96 Room Air 03/29/25 03:24 94 Room Air 03/28/25 22:22 03/28/25 21:14 03/28/25 21:00 94 Room Air Laboratory Results 03/29/25 03/29/25 03/29/25 Range/Units 08:08 06:17 00:21 WBC 4.11 L (4.8-10.8) K/ul RBC 2.27 L (4.20-5.40) M/uL Hgb 6.3 L* (12.0-16.0) g/dl Hct 20.6 L* (37.0-47.0) % MCV 90.7 (80.0-100.0) fL MCH 27.8 (25.0-34.0) pg MCHC 30.6 L (32.0-36.0) g/dL RDW Std Deviation 51.6 H (36.4-46.3) fL RDW Coeff of Bev 15.6 H (11.5-14.5) % Plt Count 133 (130-400) K/uL MPV 10.3 (9.4-12.4) fL Immature Gran % (Auto) % Neut % (Auto) % Lymph % (Auto) % [place] % (Auto) % Eos % (Auto) % Baso % (Auto) % Neut # (Auto) (1.40-6.50) K/uL Lymph # (Auto) (1.20-3.40) K/uL [place] # (Auto) (0.11-0.59) K/uL Eos # (Auto) (0.00-0.50) K/uL Baso # (Auto) (0.00-0.20) K/uL Immature Gran # (Auto) (0.01-0.20) K/uL RBC Morphology Peripher Smr Path Cons PT (9.0-12.0) Seconds INR (0.9-1.1) Sodium 139 (136-145) mmol/L Potassium 4.7 (3.5-5.1) mmol/L Chloride 110 H (98-107) mmol/L Carbon Dioxide 28 (21-32) mmol/L Anion Gap 1 L (3-11) BUN 28 H (6-23) mg/dl Creatinine 0.34 L (0.6-1.2) mg/dl Est Cr Clr Drug Dosing 131.8 ml/min eGFR 106.60 BUN/Creatinine Ratio 82.4 H (10-20) Glucose 87 (70-99(Fasting)) mg/dl Lactate 0.6 (0.4-2.0) mmol/L Calcium 9.2 (8.6-10.3) mg/dl Ionized Calcium (1.12-1.32) mmol/L Magnesium (1.7-2.4) mg/dl Iron (35-150) mcg/dl TIBC (250-450) mcg/dl Transferrin (200-360) mg/dl Transferrin % Sat (15-50) % Total Bilirubin (0.2-1.0) mg/dl AST (13-39) U/L ALT (7-52) U/L Alkaline Phosphatase (34-104) U/L Total Creatine Kinase (26-192) U/L Troponin I High Sens (0-14) pg/ml Total Protein (6.0-8.3) gm/dl Albumin (3.4-5.0) gm/dl Globulin (2.5-4.0) gm/dl Albumin/Globulin Ratio (0.9-2) Vitamin B12 (180-914) pg/ml 25-OH Vitamin D Total (30-100) ng/ml Folate (>5.38) ng/ml TSH (0.300-4.500) uIu/ml PTH Intact (12.0-88.0) pg/ml PTH Related Protein Nasal Screen MRSA (PCR) Negative (Negative) SARS-CoV-2, RNA, NAAT (NEGATIVE) Blood Type Antibody Screen Crossmatch 03/28/25 03/28/25 03/28/25 Range/Units 21:11 16:57 13:08 WBC (4.8-10.8) K/ul RBC (4.20-5.40) M/uL Hgb 7.2 L (12.0-16.0) g/dl Hct 23.5 L (37.0-47.0) % MCV (80.0-100.0) fL MCH (25.0-34.0) pg MCHC (32.0-36.0) g/dL RDW Std Deviation (36.4-46.3) fL RDW Coeff of Bev (11.5-14.5) % Plt Count (130-400) K/uL MPV (9.4-12.4) fL Immature Gran % (Auto) % Neut % (Auto) % Lymph % (Auto) % [place] % (Auto) % Eos % (Auto) % Baso % (Auto) % Neut # (Auto) (1.40-6.50) K/uL Lymph # (Auto) (1.20-3.40) K/uL [place] # (Auto) (0.11-0.59) K/uL Eos # (Auto) (0.00-0.50) K/uL Baso # (Auto) (0.00-0.20) K/uL Immature Gran # (Auto) (0.01-0.20) K/uL RBC Morphology Peripher Smr Path Cons PT (9.0-12.0) Seconds INR (0.9-1.1) Sodium 136 (136-145) mmol/L Potassium 4.8 (3.5-5.1) mmol/L Chloride 107 (98-107) mmol/L Carbon Dioxide 26 (21-32) mmol/L Anion Gap 3 (3-11) BUN 33 H (6-23) mg/dl Creatinine 0.49 L (0.6-1.2) mg/dl Est Cr Clr Drug Dosing 91.4 ml/min eGFR 97.62 BUN/Creatinine Ratio 67.3 H (10-20) Glucose 99 (70-99(Fasting)) mg/dl Lactate (0.4-2.0) mmol/L Calcium 9.9 (8.6-10.3) mg/dl Ionized Calcium 1.41 H (1.12-1.32) mmol/L Magnesium (1.7-2.4) mg/dl Iron (35-150) mcg/dl TIBC (250-450) mcg/dl Transferrin (200-360) mg/dl Transferrin % Sat (15-50) % Total Bilirubin (0.2-1.0) mg/dl AST (13-39) U/L ALT (7-52) U/L Alkaline Phosphatase (34-104) U/L Total Creatine Kinase (26-192) U/L Troponin I High Sens (0-14) pg/ml Total Protein (6.0-8.3) gm/dl Albumin (3.4-5.0) gm/dl Globulin (2.5-4.0) gm/dl Albumin/Globulin Ratio (0.9-2) Vitamin B12 (180-914) pg/ml 25-OH Vitamin D Total (30-100) ng/ml Folate (>5.38) ng/ml TSH (0.300-4.500) uIu/ml PTH Intact 113.7 H (12.0-88.0) pg/ml PTH Related Protein Pending Nasal Screen MRSA (PCR) (Negative) SARS-CoV-2, RNA, NAAT NEGATIVE (NEGATIVE) Blood Type Antibody Screen Crossmatch 03/28/25 03/28/25 Range/Units 13:01 12:45 WBC 6.21 (4.8-10.8) K/ul RBC 2.88 L (4.20-5.40) M/uL Hgb 7.9 L (12.0-16.0) g/dl Hct 25.9 L (37.0-47.0) % MCV 89.9 (80.0-100.0) fL MCH 27.4 (25.0-34.0) pg MCHC 30.5 L (32.0-36.0) g/dL RDW Std Deviation 50.6 H (36.4-46.3) fL RDW Coeff of Bev 15.5 H (11.5-14.5) % Plt Count 154 (130-400) K/uL MPV 10.4 (9.4-12.4) fL Immature Gran % (Auto) 0.2 % Neut % (Auto) 57.5 % Lymph % (Auto) 34.1 % [place] % (Auto) 7.7 % Eos % (Auto) 0.3 % Baso % (Auto) 0.2 % Neut # (Auto) 3.57 (1.40-6.50) K/uL Lymph # (Auto) 2.12 (1.20-3.40) K/uL [place] # (Auto) 0.48 (0.11-0.59) K/uL Eos # (Auto) 0.02 (0.00-0.50) K/uL Baso # (Auto) 0.01 (0.00-0.20) K/uL Immature Gran # (Auto) 0.01 (0.01-0.20) K/uL RBC Morphology Unremarkable Peripher Smr Path Cons Pending PT 10.9 (9.0-12.0) Seconds INR 1.0 (0.9-1.1) Sodium 137 (136-145) mmol/L Potassium 5.6 H (3.5-5.1) mmol/L Chloride 105 (98-107) mmol/L Carbon Dioxide 30 (21-32) mmol/L Anion Gap 2 L (3-11) BUN 41 H (6-23) mg/dl Creatinine 0.73 (0.6-1.2) mg/dl Est Cr Clr Drug Dosing 61.4 ml/min eGFR 85.18 BUN/Creatinine Ratio 56.2 H (10-20) Glucose 107 H (70-99(Fasting)) mg/dl Lactate (0.4-2.0) mmol/L Calcium 10.6 H (8.6-10.3) mg/dl Ionized Calcium (1.12-1.32) mmol/L Magnesium 2.6 H (1.7-2.4) mg/dl Iron 15 L (35-150) mcg/dl TIBC 315 (250-450) mcg/dl Transferrin 225 (200-360) mg/dl Transferrin % Sat 5 L (15-50) % Total Bilirubin 0.4 (0.2-1.0) mg/dl AST 12 L (13-39) U/L ALT 9 (7-52) U/L Alkaline Phosphatase 57 (34-104) U/L Total Creatine Kinase 14 L (26-192) U/L Troponin I High Sens 11.5 (0-14) pg/ml Total Protein 6.3 (6.0-8.3) gm/dl Albumin 3.3 L (3.4-5.0) gm/dl Globulin 3.0 (2.5-4.0) gm/dl Albumin/Globulin Ratio 1.1 (0.9-2) Vitamin B12 923 H (180-914) pg/ml 25-OH Vitamin D Total 52.0 (30-100) ng/ml Folate > 22.30 (>5.38) ng/ml TSH 0.502 (0.300-4.500) uIu/ml PTH Intact (12.0-88.0) pg/ml PTH Related Protein Nasal Screen MRSA (PCR) (Negative) SARS-CoV-2, RNA, NAAT (NEGATIVE) Blood Type A Positive Antibody Screen NEGATIVE Crossmatch See Detail Diagnostic Findings Abdomen/Pelvis CT 03/28/25 12:[address] WITH IV CONTRAST and CT of the right femur CT DOSE: 1366 HISTORY: R thigh swelling, hyperK/CA, breast mass, wt loss TECHNIQUE: Multiaxial CT images of the abdomen and pelvis and right femur were performed following the IV administration of 90 cc of Optiray, A dose lowering technique was utilized adhering to the principles of ALARA. COMPARISON STUDY: 12/13/2021 FINDINGS: ABDOMEN: There are a few tiny cysts at the liver. Otherwise the liver, gallbladder, spleen, and adrenal glands are unremarkable. There are mild atherosclerotic calcifications. No abdominal aortic aneurysm. There is cortical scarring of both kidneys. There are multiple tiny cysts at both kidneys. There is a progressive staghorn calcification at the left kidney involving the pro ximal renal pelvis and majority of the calyces on the left. There is no hydronephrosis or ureteral calculi bilaterally. There are multiple small round cystic findings at the proximal to mid pancreas measuring up to 11 mm at the pancreatic body. There are serpiginous vessels medially adjacent to the spleen which may represent an AVM between the splenic artery and vein. 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 Pelvis: Uterus is very diminutive. No adnexal mass seen. Urinary bladder is nondistended. Rectum is moderately distended with stool. There is a moderate to large amount of retained stool. No bowel inflammation or obstruction seen. No free fluid or free air. No enlarged adenopathy seen. Osseous structures: There is osteopenia. There is interval mild height loss at the L2 and L4 vertebral bodies without acute features, likely chronic. No acute osseous findings seen. There are severe degenerative changes at the right hip with severe joint space narrowing and flattening of the right femoral head. Right femur: There is a hematoma anteriorly at the right upper thigh measuring 7 cm greatest axial dimension by 10 cm craniocaudad. Within the upper aspect of the hematoma lower right inguinal region there is a 2 cm oval area of arterial enhancement which could represent focus of active extravasation or pseudoaneurysm. Communication with the right superficial femoral artery is not demonstrated. There is osteopenia. No acute fracture or dislocation seen at the right femur. There are severe degenerative changes at the right hip and right knee. IMPRESSION: 1. Hematoma at the proximal right thigh with small area of arterial enhancement at the upper aspect of the hematoma which could represent focus of active extravasation or small pseudoaneurysm. No connection to the underlying right superficial femoral artery is demonstrated. 2. No other acute findings seen. 3. Small pancreatic cysts versus intraductal papillary mucinous tumors. Follow- up abdominal CT is suggested in one year. 3. Progressive staghorn calculus at the left kidney without hydronephrosis. 4. No enlarged adenopathy. 5. Otherwise as described. ACT 112: Positive. There are findings on this exam that require communication between the performing entity and the patient following Patient Test Result Information Act ([place] Act 112) guidelines. The above report was generated using voice recognition software. It may contain grammatical, syntax or spelling errors. Electronically signed by: Jameel Palm M.D. 03/28/2025 2:[address] 03/28/25 12:[address] CONTRAST CT DOSE: 1366 HISTORY: R thigh swelling, hyperK/CA, breast mass, wt loss TECHNIQUE: Multiaxial CT images of the chest were performed following the IV administration of 90 cc of Optiray. A dose lowering technique was utilized adhering to the principles of ALARA. COMPARISON STUDY: 10/09/2023 FINDINGS: There is mild atelectasis in the lung bases and inferiorly at the lingula. No other pulmonary consolidation or pleural effusion. No pneumothorax. No significant pulmonary nodule. The left breast is mostly off the [id number]. There is diffuse thyroid enlargement. No enlarged adenopathy seen. No pericardial effusion. There is prominence of the pulmonary arteries which could represent CHF or pulmonary arterial hypertension. There is no pulmonary embolism. No thoracic aortic dissection or aneurysm. There is moderate cardiomegaly. There is osteopenia. There are a few old healed rib fractures bilaterally. There are mild thoracic spine degenerative changes. There is mild chronic-appearing height loss at a few lower thoracic vertebral bodies. No acute osseous finding seen. IMPRESSION: 1. Majority of the left breast is off the field of view. No gross mass seen at the right breast. No enlarged adenopathy seen. 2. No acute findings seen. Otherwise as described. ACT 112: Negative or not required by law. Electronically signed by: Jameel Palm M.D. 03/28/2025 1:[address] 03/28/25 12:[address] WITH IV CONTRAST and CT of the right femur CT DOSE: 1366 HISTORY: R thigh swelling, hyperK/CA, breast mass, wt loss TECHNIQUE: Multiaxial CT images of the abdomen and pelvis and right femur were performed following the IV administration of 90 cc of Optiray, A dose lowering technique was utilized adhering to the principles of ALARA. COMPARISON STUDY: 12/13/2021 FINDINGS: ABDOMEN: There are a few tiny cysts at the liver. Otherwise the liver, gallbladder, spleen, and adrenal glands are unremarkable. There are mild atherosclerotic calcifications. No abdominal aortic aneurysm. There is cortical scarring of both kidneys. There are multiple tiny cysts at both kidneys. There is a progressive staghorn calcification at the left kidney involving the proximal renal pelvis and majority of the calyces on the left. There is no hydronephrosis or ureteral calculi bilaterally. There are multiple small round cystic findings at the proximal to mid pancreas measuring up to 11 mm at the pancreatic body. There are serpiginous vessels medially adjacent to the spleen which may represent an AVM between the splenic artery and vein. 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 Pelvis: Uterus is very diminutive. No adnexal mass seen. Urinary bladder is nond istended. Rectum is moderately distended with stool. There is a moderate to large amount of retained stool. No bowel inflammation or obstruction seen. No free fluid or free air. No enlarged adenopathy seen. Osseous structures: There is osteopenia. There is interval mild height loss at the L2 and L4 vertebral bodies without acute features, likely chronic. No acute osseous findings seen. There are severe degenerative changes at the right hip with severe joint space narrowing and flattening of the right femoral head. Right femur: There is a hematoma anteriorly at the right upper thigh measuring 7 cm greatest axial dimension by 10 cm craniocaudad. Within the upper aspect of the hematoma lower right inguinal region there is a 2 cm oval area of arterial enhancement which could represent focus of active extravasation or pseudoaneurysm. Communication with the right superficial femoral artery is not demonstrated. There is osteopenia. No acute fracture or dislocation seen at the right femur. There are severe degenerative changes at the right hip and right knee.
[2025-03-29] MEDS: LACTATED RINGER'S 500 ML IV ONE (09:00)
[2025-03-29] MEDS: OPTIRAY 320 125ml IV ONE (09:06)
[2025-03-29 09:21] LABS: Appearance Urine Clear (Clear); Bacteria Urine Automated None Seen (None Seen); Cast Urine Automated 0-2 /lpf (0-2); Epithelial Cell Urine Auto 0-2 /hpf (0-2); Glucose Urine UA Negative (Negative); RBC Urine Automated >20 /hpf (0-2); WBC Urine Automated 0-5 /hpf (0-5)
--- NOTE | 2025-03-29 10:22 | CT Scan Report ---
Clinical history: Active bleeding Technique: Axial computed tomography images were obtained of the abdomen and pelvis after the administration of intravenous contrast according to the CT angiogram protocol Comparison is made to the noncontrast CT dated 12/13/2021 Findings: The abdominal aorta appears unremarkable with no sign of aneurysm or dissection. No stenosis is seen involving it. The celiac axis and superior mesenteric artery are patent with no stenosis identified. The inferior mesenteric artery is patent as well. There is no sign of renal artery stenosis. The common iliac arteries are mildly aneurysmal, measuring up to 1.5 cm on the right and 1.8 cm on the left. No iliac artery stenosis is seen. The visualized common femoral and superficial femoral arteries appear normal The liver is overall of normal size, attenuation, and contour with no sign of cirrhosis or significant fatty infiltration. There are several small hepatic cysts, measuring up to 7 mm. No definite liver mass lesion is seen. The portal vein is patent. The gallbladder contains high attenuation material that may represent vicarious excretion of previously administered contrast. No bile duct dilatation is noted. The spleen is of normal size. No focal splenic lesion is evident. There are 2 cystic areas within the pancreatic body that appear increased in size, measuring 1.9 cm and 8 mm. There is pancreatic parenchymal atrophy. There is no sign of acute pancreatitis. The adrenal glands appear unremarkable. There are numerous left renal calculi, measuring up to 1 cm in size. There appears to be excreted contrast within the renal pelvis bilaterally. There is unchanged mild prominence of the left renal collecting system. There is no overt hydronephrosis or perinephric stranding. There is unchanged multifocal renal cortical scarring, left more than right. There are small bilateral renal cysts, measuring up to 1.3 cm. There are unchanged small foci of calcification along the outer cortex of the right kidney. No adenopathy is seen. There is a small hiatal hernia. There is no sign of small bowel obstruction. There is constipation with prominence to within the rectum. There is diverticulosis without definite diverticulitis. No free intraperitoneal fluid or air is identified. No distal ureteral or bladder calculi are seen. There is mild prominence and irregularity of the bladder wall that could be due to incomplete distention. No definite bladder mass lesion is evident. There is a partially visualized right groin and anterior right thigh soft tissue hematoma, measuring up to 8.5 x 6.4 cm in cross-section. No definite area of contrast extravasation is seen to indicate active bleeding. There is mild bilateral lower lobe atelectasis. There is bilateral hip osteoarthritis. There is worsened deformity of the right femoral head and neck that could be due to an old fracture. There is lumbar scoliosis and degenerative disc disease. No focal osseous lesion is seen Impression: 1. Partially visualized soft tissue hematoma in the right groin and anterior right thigh, measuring up to 8.5 x 6.4 cm in cross-section. There is no definite sign of active bleeding. No other definite area of hemorrhage is seen 2. No sign of abdominal aortic aneurysm or dissection 3. No sign of renal or mesenteric artery stenosis 4. Mildly aneurysmal common iliac arteries 5. Small hepatic and bilateral renal cysts 6. Multiple left renal calculi and bilateral renal cortical scarring 7. Apparent pancreatic cysts, increased in size 8. Constipation 9. Diverticulosis without definite diverticulitis 10. Small hiatal hernia 11. Mild prominence and irregularity of the wall of the urinary bladder. This appearance could be due to incomplete distention, though infectious cystitis or other pathology cannot be excluded. Correlation with urinalysis may be useful ACT 112: Positive. There are findings on this exam that require communication between the performing entity and the patient following Patient Test Result Information Act ([place] ACT 112) guidelines. Electronically signed by Anirudh Mancini 03-29-2025 10:22 AM
--- NOTE | 2025-03-29 10:37 | CT Scan Report ---
Clinical history: Active bleed Technique: Axial computed tomography images were obtained of the right leg after the administration of intravenous contrast according to the CT angiogram protocol Findings: There is a large acute soft tissue hematoma in the anterior right thigh musculature, measuring approximately 23 x 10 x 6 cm. No clear contrast extravasation is seen to confirm active bleeding. No stenosis is seen of the right common femoral artery. The right profunda femoral artery is patent. There is no significant stenosis of the right superior femoral or proximal popliteal arteries, with mild multifocal atherosclerotic plaque seen. There is lack of contrast opacification of the mid and distal right popliteal artery, which could be due to the timing of image acquisition. There is right hip osteoarthritis. There is deformity of the right femoral head and neck that could be due to an old healed fracture. There is severe right knee osteoarthritis. There is subcutaneous edema of the posterior and medial right thigh. Impression: 1. Large 23 cm acute soft tissue hematoma in the anterior right thigh musculature. No clear active bleeding is seen 2. No definite stenosis, pseudoaneurysm or other pathology of the right thigh arteries ACT 112: Positive. There are findings on this exam that require communication between the performing entity and the patient following Patient Test Result Information Act ([place] ACT 112) guidelines. Electronically signed by Anirudh Mancini 03-29-2025 10:37 AM
[2025-03-29] MEDS: FERROUS SULFATE 325 MG TAB PO SCH (10:48)
[2025-03-29] MEDS: METOPROLOL SUCC 25MG EXT REL TAB PO SCH (10:48)
--- NOTE | 2025-03-29 10:59 | Surgery Consultation ---
Date of Consultation March 29, 2025 Assessment & Plan (1) Hematoma of right thigh: large right thigh hematoma possible pseudoaneurysm recommend vascular surgery opinion if arteriogram required History of Present Illness Attending Physician: Vikash Hanson MD History of Present Illness This is a 74YO on Eliquis admitted with worsening right hip/thigh swelling. No fall or trauma. CT scan shows hematoma with possible pseudoaneurysm and extravasation in right thigh. Allergies Allergy/AdvReac Type Severity Reaction Status Date / Time Wyhpzha-NRC-BqH Reductase AdvReac Intermediate GENERAL Verified 03/28/25 14:49 Inhibitor MALAISE [Dypmwhn-Cjs-Kmr Reductase Inhibitor] tramadol AdvReac Intermediate RESTLESS Verified 03/28/25 14:49 LEG SYNDROME adhesive AdvReac Mild RED SKIN Verified 03/28/25 14:49 FROM BUTTERFLY naproxen AdvReac Mild FEET SWELL Verified 03/28/25 14:49 Home Medications Medication Instructions Recorded Confirmed Type multivitamin (Daily Multi-Vitamin 1 tab PO DAILY 08/10/20 03/28/25 History tablet) cholecalciferol (vitamin D3) 25 25 mcg PO QAM 06/15/21 03/28/25 History mcg (1,000 unit) capsule (Vitamin D3) acetaminophen 325 mg tablet 650 mg PO Q4H PRN Pain 12/13/21 03/28/25 History amlodipine 10 mg tablet 10 mg PO HS 10/09/23 03/28/25 History aspirin 81 mg tablet,delayed 81 mg PO DAILY 10/09/23 03/28/25 History release metoprolol succinate 25 mg 25 mg PO DAILY 10/09/23 03/28/25 History tablet,extended release 24 hr oxybutynin chloride 5 mg tablet 10 mg PO BID 10/09/23 03/28/25 History acetaminophen 650 mg 650 mg PO TID 03/28/25 03/28/25 History tablet,extended release (Tylenol Arthritis Pain) apixaban 5 mg tablet (Eliquis) 5 mg PO BID 03/28/25 03/28/25 History bisacodyl 5 mg tablet 10 mg PO DAILY PRN Constipation 03/28/25 03/28/25 History calcium carbonate (Oyster Shell 500 mg PO BID 03/28/25 03/28/25 History Calcium) diclofenac sodium 1 % topical gel 4 g EXT Q6H PRN RIGHT HIP/BACK PAIN 03/28/25 03/28/25 History (Voltaren Arthritis Pain) ferrous sulfate 325 mg (65 mg 325 mg PO DAILY 03/28/25 03/28/25 History iron) tablet gabapentin 300 mg capsule 300 mg PO TID 03/28/25 03/28/25 History lidocaine 4 % topical patch 1 patch topical BID 03/28/25 03/28/25 History menthol 5 mg lozenges (Cough Drops) 5 mg PO Q2H PRN Cough 03/28/25 03/28/25 History ondansetron HCl 4 mg tablet 4 mg PO Q6H PRN NAUSEA/VOMITING 03/28/25 03/28/25 History oxycodone 5 mg tablet 5 mg PO Q4H PRN MODERATE-SEVERE 03/28/25 03/28/25 History PAIN polyethylene glycol 3350 17 17 g PO DAILY PRN Constipation 03/28/25 03/28/25 History gram/dose oral powder (Miralax) polyethylene glycol 3350 17 17 g PO Q OTHER DAY 03/28/25 03/28/25 History gram/dose oral powder (Miralax) Patient History Medical History Pulmonary embolism MRSA (methicillin resistant Staphylococcus aureus) Tricompartment degenerative joint disease of knee Spinal stenosis at L4-L5 level Chronic venous insufficiency Breast CA Venous stasis dermatitis Surgical History No pertinent past surgical history Social History Smoking Status: Former smoker Tobacco Type: Cigarettes Second Hand Exposure: No; Do You Dip or Chew Tobacco: No; Tobacco Cessation Education Requested by Patient: No Hx Alcohol Use: No (pt stated she has not had alcohol in 10+ years) Hx Substance Use: No Preferred Language: Lao Communication Ability: Effective Communication Ability Comment: UNHAPPY Landscape Photographer Required: No Beliefs That Will Affect Care: None marital status: Single Current Living Situation: Snf Current Living Situation Comment: [facility] WITH SISTER Other Information That Helps Us Care for You: No Feels Safe at Home: Yes Safety Concerns: Feels Safe At This Time Assistive Devices: Denture - Upper, Glasses and Hospital Bed Review of Systems Constitutional: no fever Respiratory: no dyspnea Cardiovascular: no chest pain Gastrointestinal: no abdominal pain Genitourinary: no dysuria Musculoskeletal: + deformity (right thigh) and + swelling Integumentary: no problem reported Neurologic: no localized weakness Psychiatric: no behavioral changes Physical Exam Constitutional: WD/WN, vitals as above Eyes: no scleral abnormality Neck: trachea midline Respiratory: normal respiratory effort Cardiovascular: Rate/Rhythm: regular rate and regular rhythm Gastrointestinal (Abdomen): Inspection/Auscultation: abdomen normal to inspection; abdomen not distended Musculoskeletal: Head/Neck/Chest: normocephalic and head atraumatic Extremities: + lower leg abnormality (right thigh hematoma; tender) Right Skin: no rashes, warm and dry Results & Data Vital Signs (Past 12 Hours) Vital Signs Temp Pulse Pulse Resp BP BP Pulse Ox 03/29/25 10:25 36.4 C L 71 16 121/72 71 L 03/29/25 09:55 36.4 C L 70 16 115/71 93 03/29/25 09:46 36.8 C 72 16 120/75 95 03/29/25 09:19 36 C L 75 16 110/66 93 03/29/25 08:49 36.6 C 74 16 110/66 94 03/29/25 08:48 36.8 C 67 16 114/70 94 03/29/25 08:34 36.9 C 62 16 108/69 94 03/29/25 08:19 37 C 62 16 102/64 98 03/29/25 08:11 36.7 C 69 20 99/62 L 96 03/29/25 03:24 36.7 C 69 16 105/69 94 O2 Del Method 03/29/25 10:25 Room Air 03/29/25 09:55 03/29/25 09:46 03/29/25 09:19 03/29/25 08:49 03/29/25 08:48 03/29/25 08:34 03/29/25 08:19 03/29/25 08:11 Room Air 03/29/25 03:24 Room Air Diagnostic Findings Clinical history: Active bleeding Technique: Axial computed tomography images were obtained of the abdomen and pelvis after the administration of intravenous contrast according to the CT angiogram protocol Comparison is made to the noncontrast CT dated 12/13/2021 Findings: The abdominal aorta appears unremarkable with no sign of aneurysm or dissection. No stenosis is seen involving it. The celiac axis and superior mesenteric artery are patent with no stenosis identified. The inferior mesenteric artery is patent as well. There is no sign of renal artery stenosis. The common iliac arteries are mildly aneurysmal, measuring up to 1.5 cm on the right and 1.8 cm on the left. No iliac artery stenosis is seen. The visualized common femoral and superficial femoral arteries appear normal The liver is overall of normal size, attenuation, and contour with no sign of cirrhosis or significant fatty infiltration. There are several small hepatic cysts, measuring up to 7 mm. No definite liver mass lesion is seen. The portal vein is patent. The gallbladder contains high attenuation material that may represent vicarious excretion of previously administered contrast. No bile duct dilatation is noted. The spleen is of normal size. No focal splenic lesion is evident. There are 2 cystic areas within the pancreatic body that appear increased in size, measuring 1.9 cm and 8 mm. There is pancreatic parenchymal atrophy. There is no sign of acute pancreatitis. The adrenal glands appear unremarkable. There are numerous left renal calculi, measuring up to 1 cm in size. There appears to be excreted contrast within the renal pelvis bilaterally. There is unchanged mild prominence of the left renal collecting system. There is no overt hydronephrosis or perinephric stranding. There is unchanged multifocal renal cortical scarring, left more than right. There are small bilateral renal cysts, measuring up to 1.3 cm. There are unchanged small foci of calcification along the outer cortex of the right kidney. No adenopathy is seen. There is a small hiatal hernia. There is no sign of small bowel obstruction. There is constipation with prominence to within the rectum. There is diverticulosis without definite diverticulitis. No free intraperitoneal fluid or air is identified. No distal ureteral or bladder calculi are seen. There is mild prominence and irregularity of the bladder wall that could be due to incomplete distention. No definite bladder mass lesion is evident. There is a partially visualized right groin and anterior right thigh soft tissue hematoma, measuring up to 8.5 x 6.4 cm in cross-section. No definite area of contrast extravasation is seen to indicate active bleeding. There is mild bilateral lower lobe atelectasis. There is bilateral hip osteoarthritis. There is worsened deformity of the right femoral head and neck that could be due to an old fracture. There is lumbar scoliosis and degenerative disc disease. No focal osseous lesion is seen Impression: 1. Partially visualized soft tissue hematoma in the right groin and anterior right thigh, measuring up to 8.5 x 6.4 cm in cross-section. There is no definite sign of active bleeding. No other definite area of hemorrhage is seen 2. No sign of abdominal aortic aneurysm or dissection 3. No sign of renal or mesenteric artery stenosis 4. Mildly aneurysmal common iliac arteries 5. Small hepatic and bilateral renal cysts 6. Multiple left renal calculi and bilateral renal cortical scarring 7. Apparent pancreatic cysts, increased in size 8. Constipation 9. Diverticulosis without definite diverticulitis 10. Small hiatal hernia 11. Mild prominence and irregularity of the wall of the urinary bladder. This appearance could be due to incomplete distention, though infectious cystitis or other pathology cannot be excluded. Correlation with urinalysis may be useful Clinical history: Active bleed Technique: Axial computed tomography images were obtained of the right leg after the administration of intravenous contrast according to the CT angiogram protocol Findings: There is a large acute soft tissue hematoma in the anterior right thigh musculature, measuring approximately 23 x 10 x 6 cm. No clear contrast extravasation is seen to confirm active bleeding. No stenosis is seen of the right common femoral artery. The right profunda femoral artery is patent. There is no significant stenosis of the right superior femoral or proximal popliteal arteries, with mild multifocal atherosclerotic plaque seen. There is lack of contrast opacification of the mid and distal right popliteal artery, which could be due to the timing of image acquisition. There is right hip osteoarthritis. There is deformity of the right femoral head and neck that could be due to an old healed fracture. There is severe right knee osteoarthritis. There is subcutaneous edema of the posterior and medial right thigh. Impression: 1. Large 23 cm acute soft tissue hematoma in the anterior right thigh musculature. No clear active bleeding is seen 2. No definite stenosis, pseudoaneurysm or other pathology of the right thigh arteries (1) Hematoma of right thigh Encounter type: initial encounter Qualified Code(s): S70.11XA - Contusion of right thigh, initial encounter
[2025-03-29 11:35] VITALS: BP 119/74; PULSE 67; RESP 18; TEMP 97.7; O2SAT 95
--- NOTE | 2025-03-29 14:02 | Discharge Summary ---
Discharge Summary Date of Service March 29, 2025 Principal Dx & Hospital Course #1 = Principal Diagnosis (1) Hematoma of right thigh: Patient is a 74-year-old female with history of breast cancer, DVT on Eliquis, hypertension, bedbound at baseline per patient no other medical problems who currently resides at [facility] presents with history of worsening right hip/thigh swelling. Reportedly, patient experienced pain to RLE with swelling x 3 to 4 days without any fall or trauma. History of Breast CA s/p chemo and radiation in 2020. #Hematoma right thigh #Anemia * Admit to [facility] for further evaluation and workup * Abd/Pelvis CT showed hematoma at the proximal right thigh with small area of arterial enhancement at the upper aspect of the hematoma possibly representing active extravasation vs small pseudoaneurysm. * Patient non-ambulatory, non-weight bearing, no history of falls, transfers via mechanical lift * History RONALD with iron replacement at home; Baseline hgb 10; now with Hgb 7.9, Hct 25.9, MCV 89.9, MCHC 30.5, RDW 50.6 * Iron studies pending; Type and Cross ordered; blood transfusion on hold pending 2100 labs * Hold home anticoagulation and aspirin * Check H&H with AM labs #Hyperkalemia: * K+ 5.6 in the ED; NSS 500 ml and Lokelma x1 given * Stable renal functioning; Cr 0.73, BUN 41; GFR 85 * Continue Lokelma TID dosing * Check BMP with 2100 labs * Hold all supplements * Clinically dry on exam; elevated BUN/Creat ratio 56.2; will start NSS 125 ml/hr * Abd/Pelvis CT showing progressive staghorn calculus at the left kidney without hydronephrosis; Urine sample ordered and pending; no urinary symptoms reported; incontinent at baseline * Will recheck BMP at 2100 and again with AM labs * EKG with Sinus rhythm with occasional Premature ventricular complexes; Right bundle branch block vent rate 71 bpm, QTc 508 #Hypercalcemia 2/2 malignancy #H/O Breast CA s/p lumpectomy, chemo, radiation in 2020 #Protein-calorie malnutrition, severe * Chest CT showing no gross mass seen at the right breast. No enlarged adenopathy seen; diffuse thyroid enlargement * Vitamin D Hydroxy and PTH pending * Zometa 4mg given x 1 * Check ionized calcium with AM labs * Consider nutrition consult--> patient with ~45 lb weight loss in 1 year #Pancreatic pseudocyst/cyst * Abd/Pelvis CT showing Small pancreatic cysts versus intraductal papillary mucinous tumors. * GI consult for further recs--> NPO at CT for possible EGD * IV Protonix twice daily #H/O DVT/PE in 2023 * Hold Eliquis and Aspirin in setting of active bleeding 2/2 hematoma * DVT prophylaxis with SCDs #Hypertension * BP stable at 116/72; BP Goal 140/90 * Continue home amlodipine and metoprolol DVT Ppx: SCDs Code status: DNR PCP: Dr. Cowan Dispo: Admit Patient seen in collaboration with Dr. Ohara. Please see addendum. I spent a total of 70 minutes coordinating, documenting and providing care for this patient excluding time spent in the performance of separately billed services or time spent by another provider/QHP. (2) Anemia: (3) Hypercalcemia: (4) Breast CA: (5) Protein-calorie malnutrition, severe: (6) Pancreatic pseudocyst/cyst: (7) History of DVT (deep vein thrombosis): (8) Pulmonary embolism: (9) Hypertension: Notes For Next Care Provider Patient is a 74-year-old female with history of breast cancer, DVT on Eliquis, hypertension, bedbound at baseline per patient no other medical problems who currently resides at [facility] presents with history of worsening right hip/thigh swelling. Reportedly, patient experienced pain to RLE with swelling x 3 to 4 days without any fall or trauma. History of Breast CA s/p chemo and radiation in 2020 who presented for expanding hematoma on the right side. Noted to have arterial bleed in ED, admitted to medicine for further monitoring. On medicine, Hgb dropped to 6, confused with no cap refill. No vascular surgery coverage at this facility over the weekend. Surgery consulted, recommended transfer. Discussed with vascular surgery attending at [facility], recommended transfer to ICU for IR coverage. On 03/29/2025 patient transferred to [facility]. Medication Changes From Visit -see below Admission HPI Per Admitting Provider Patient is a 74-year-old female with history of breast cancer, DVT on Eliquis, hypertension, bedbound at baseline per patient no other medical problems who currently resides at [facility] presents with history of worsening right hip/thigh swelling. Reportedly, patient experienced pain to RLE with swelling x 3 to 4 days without any fall or trauma. History of Breast CA s/p chemo and radiation in 2020. Denies fever, chills, weight loss, weakness, headache, cognitive changes, vision/hearing changes, chest pain, SOB, swelling, difficulty breathing, urinary concerns, N/V/D, joint swelling/pain, ambulation difficulty, skin rashes, lesions, bleeding, bruising. As per external record, pt was out of bed was on 03/17/25 when transported to [facility] for a scheduled right hip injection for her DJD. Xray of right hip and femur showed right hip-moderately severe osteoarthritis; Soft tissue fullness of the outer aspect of the right hip. Pt having no chills or fever. Vital signs stable. ASA and Eliquis were held at that time. History of DVT/PE 2023 following a fall at [facility] sustaining fracture distal humerus and right tibial plateau. Patient has been non-weight bearing since. Over the past year, pt has been losing significant amount of weight (at least 45 pounds) despite good appetite. About four months ago pt was found to have a hard left breast mass and she has refused to have this evaluated with a mammogram/US despite multiple discussions. Pt has been gradually becoming more anemic and hypercalcemic. Concern for malignancy In the emergency department, patient was hemodynamically stable with evidence of hyperkalemia with K+ 5.6. IVF given and Lokelma x 1. Xray negative for fracture. + anemia with Hgb 7.9. CT abdomen/pelvis showed hematoma at the proximal right thigh with small area of arterial enhancement at the upper aspect of the hematoma which could represent focus of active extravasation or small pseudoaneurysm. No connection to the underlying right superficial femoral artery is demonstrated; No other acute findings seen. History obtained primarily from the patient and via hospitalization record. External chart review obtained from [facility]. Discharge Exam Gen: A&O 3 NAD HEENT: NCAT, EOMI, not icteric. External ears normal. No rhinorrhea. Moist mucous membranes. Neck: Supple, full range of motion, no observable masses, No meningeal sign. Lungs: No Respiratory distress. CV: RRR, no edema, no cap refill noted Abdomen: Soft, nondistended, No rebound tenderness. MSK: No joint swelling, no redness. Skin: very pale Neuro: Normal Gait, Grossly intact. Psych: Appropriate for situation. Updated Medication List Medication Instructions Recorded Confirmed Type multivitamin (Daily Multi-Vitamin 1 tab PO DAILY 08/10/20 03/28/25 History tablet) cholecalciferol (vitamin D3) 25 25 mcg PO QAM 06/15/21 03/28/25 History mcg (1,000 unit) capsule (Vitamin D3) acetaminophen 325 mg tablet 650 mg PO Q4H PRN Pain 12/13/21 03/28/25 History amlodipine 10 mg tablet 10 mg PO HS 10/09/23 03/28/25 History aspirin 81 mg tablet,delayed 81 mg PO DAILY 10/09/23 03/28/25 History release metoprolol succinate 25 mg 25 mg PO DAILY 10/09/23 03/28/25 History tablet,extended release 24 hr oxybutynin chloride 5 mg tablet 10 mg PO BID 10/09/23 03/28/25 History acetaminophen 650 mg 650 mg PO TID 03/28/25 03/28/25 History tablet,extended release (Tylenol Arthritis Pain) apixaban 5 mg tablet (Eliquis) 5 mg PO BID 03/28/25 03/28/25 History bisacodyl 5 mg tablet 10 mg PO DAILY PRN Constipation 03/28/25 03/28/25 History calcium carbonate (Oyster Shell 500 mg PO BID 03/28/25 03/28/25 History Calcium) diclofenac sodium 1 % topical gel 4 g EXT Q6H PRN RIGHT HIP/BACK PAIN 03/28/25 03/28/25 History (Voltaren Arthritis Pain) ferrous sulfate 325 mg (65 mg 325 mg PO DAILY 03/28/25 03/28/25 History iron) tablet gabapentin 300 mg capsule 300 mg PO TID 03/28/25 03/28/25 History lidocaine 4 % topical patch 1 patch topical BID 03/28/25 03/28/25 History menthol 5 mg lozenges (Cough Drops) 5 mg PO Q2H PRN Cough 03/28/25 03/28/25 History ondansetron HCl 4 mg tablet 4 mg PO Q6H PRN NAUSEA/VOMITING 03/28/25 03/28/25 History oxycodone 5 mg tablet 5 mg PO Q4H PRN MODERATE-SEVERE 03/28/25 03/28/25 History PAIN polyethylene glycol 3350 17 17 g PO DAILY PRN Constipation 03/28/25 03/28/25 History gram/dose oral powder (Miralax) polyethylene glycol 3350 17 17 g PO Q OTHER DAY 03/28/25 03/28/25 History gram/dose oral powder (Miralax) Hospital Stay Data Consultations 03/28/25 15:09 ED Decision to Admit Stat 03/28/25 18:21 Consult Gastroenterology Routine 03/28/25 20:38 Consult Orthopedic Surgery Routine 03/29/25 07:45 Consult General Surgery Routine 03/29/25 08:51 Burn CD for patient Routine Diagnostic Imagining Performed 03/28/25 12:50 CT abd pelvis IV con only Stat CT chest diagnostic w con Stat CT femur RT w con Stat 03/29/25 07:43 CT angio pelvis w con Stat CTA femur RT wo/w con [CT angio femur RT wo/w con] Stat Pending Results Patient Have Any Pending Studies at Discharge: Yes Discharge Instructions Given to Patient (Per Discharging Provider) 1. Transfer to [facility]. Total Time Total Time Spent Total Time Spent (In Minutes): I spent a total of 55 minutes in direct patient care, including [id number] time with the patient and/or family, reviewing medical records, ordering and reviewing diagnostic tests, and coordinating care with other healthcare providers. This time includes: history taking, physical examination, medical decision making, counseling, ECG interpretation, imaging interpretation, lab interpretation, orders, and education, excluding time spent in the performance of separately billed services.
== END 2025-03-29 12:44 | disposition short-term general hospital (02) | DRG 555 ==
LOC: ED 12:32 → EDINP 16:17 → SUATTDRO 16:17 → 2N 18:21